=== PATIENT | female | born 1945 | race Caucasian/White ===

== ENCOUNTER 2018-07-23 16:01 | Inpatient (IN) | payer OTHER ==
--- OUTSIDE RECORDS SUMMARY | 2018-07-23 16:05 | XMS REPORT | Continuity of Care Document ---
:1945 Author Organization Interface Problems Problem Status Onset Classification Date Comments Source Date Reported R [facility] 6 [place] WEAKNESS Active [facility] Medications Medication Details Route Status Patient Ordering Order Source Instructions Provider Date Prednisone 40 mg, 2 tab, No Longer Route: PO, Active 2015 [facility] Drug form: TAB, Daily, Dosing Weight 72.358, kg, Start date: 02/15/16 9:00:00 CDT, Duration: 30 day, Stop date: 03/15/16 9:00:00 CDTNotes: Take with food. Levothyroxine 50 microgram=1 Active Sodium 0.05 MG Oral tab, PO, 2016 [facility] Tablet [Synthroid] Daily, # 30 tab, 0 Refill(s) 24 HR Diltiazem 240 mg=1 cap, Active Hydrochloride 240 PO, Daily, # 2016 [facility] MG Extended Release 30 cap, 0 Capsule [Cardizem] Refill(s) metoprolol tartrate 50 mg=1 tab, Active 50 mg oral tablet PO, Q12H, # 60 2016 [facility] tab, 0 Refill(s) Furosemide 40 MG 40 mg=1 tab, Active Oral Tablet [Lasix] PO, Daily, # 2016 [facility] 30 tab, 0 Refill(s) digoxin 250 mcg 0.25 mg=1 tab, Active (0.25 mg) oral PO, Daily, # 2016 [facility] tablet 30 tab, 0 Refill(s) atorvastatin 40 mg 80 mg=2 tab, Active oral tablet PO, Bedtime, # 2016 [facility] 60 tab, 0 Refill(s) Aspirin 325 MG 325 mg=1 tab, Active Enteric Coated PO, Daily, # 2016 [facility] Tablet 30 tab, 0 Refill(s) Potassium Chloride 20 mEq=1 tab, Active 20 MEQ Extended PO, Daily, # 2016 [facility] Release Tablet 30 tab, 0 Refill(s) Levofloxacin 750 MG 750 mg=1 tab, Active Oral Tablet PO, Q24H, X 7 2015 [facility] [Levaquin] day, # 7 tab, 0 Refill(s) {21 See Active (Methylprednisolone Instructions, 2015 [facility] 4 MG Oral Tablet PO, Take by [Medrol]) } Pack mouth as [Medrol Dosepak] directed on label., X 6 day, # 1 Pack, 0 Refill(s) cefepime 1 gm, Route: No Longer IVPB, [id number], Active 2015 [facility] Dosing Weight 72.358, kg, (CrCl 30 - 49 ml/min), Start date: 02/13/16 13:00:00 CDT, Duration: 30 day, Stop date: 03/14/16 1:00:00 CDTNotes: (Same As: Maxipime) MEDICATION WASTE Product Size: 1000 mg Product Wasted: ___ mg 200 ML 400 mg, 200 No Longer Ciprofloxacin 2 mL, Route: Active 2015 [facility] MG/ML Injection IVPB, Drug form: INJ, [id number], Dosing Weight 72.358, kg, Start date: 02/13/16 13:00:00 CDT, Duration: 30 day, Stop date: 03/14/16 1:00:00 CDTNotes: Do not refrigerate digoxin 250 mcg 0.25 mg, 1 No Longer (0.25 mg) oral tab, Route: Active 2015 [facility] tablet PO, Drug form: TAB, Daily, Dosing Weight 72.358, kg, Start date: 02/13/16 9:00:00 CDT, Duration: 30 day, Stop date: 03/13/16 9:00:00 CDTNotes: Take on an Empty Stomach (Same as: Lanoxin) Ceftriaxone 1 gm, Route: Inactive IVPB, [id number], 2015 [facility] Dosing Weight 72.358, kg, Start date: 02/13/16 9:00:00 CDT, Duration: 30 day, Stop date: 03/13/16 9:00:00 CDTNotes: (Same As: Rocephin). Use with 100 mL NS and infuse over 30 min MEDICATION WASTE Product Size: 1000 mg Product Wasted: ___ mg Cardizem 10 mg, 2 mL, Inactive Route: IV, 2015 [facility] Drug form: INJ, ONCE, Dosing Weight 72.358, kg, Start date: 02/13/16 8:44:00 CDT, Stop date: 02/13/16 8:44:00 CDTNotes: (Same as: Cardizem) Diltiazem 90 mg, 3 tab, No Longer Route: PO, Active 2015 [facility] Drug form: TAB, Q8H, Dosing Weight 72.358, kg, Priority: NOW, Start date: 02/13/16 8:42:00 CDT, Stop date: 03/14/16 8:00:00 CDTNotes: (Same as: Cardizem) Before meals metoprolol tartrate 50 mg, 1 tab, No Longer Route: PO, Active 2015 [facility] Drug form: TAB, Q12H, Dosing Weight 72.358, kg, Start date: 02/12/16 21:00:00 CDT, Duration: 30 day, Stop date: 03/13/16 9:00:00 CDTNotes: (Same as: Lopressor) methylPREDNISolone 60 mg, 1.5 mL, No Longer SODium SUCCinate Route: IVP, Active 2015 [facility] Drug form: INJ, Q12H, Dosing Weight 72.358, kg, Start date: 02/12/16 21:00:00 CDT, Duration: 30 day, Stop date: 03/13/16 9:00:00 CDTNotes: (Same as:Solu-MEDROL , A-Methapred) atorvastatin 80 mg, 2 tab, No Longer Route: PO, Active 2015 [facility] Drug form: TAB, Bedtime, Dosing Weight 72.358, kg, Start date: 02/12/16 21:00:00 CDT, Duration: 30 day, Stop date: 03/12/16 21:00:00 CDTNotes: (Same as: Lipitor) Digoxin 0.25 mg, 1 mL, No Longer Route: IVP, Active 2015 [facility] Drug form: INJ, Q4H, Dosing Weight 72.358, kg, Start date: 02/12/16 20:00:00 CDT, Duration: 2 doses or times, Stop date: 02/13/16 0:00:00 CDTNotes: (Same as: Lanoxin) aspirin 325 mg 325 mg, 1 tab, No Longer tablet, enteric Route: PO, Active 2015 [facility] coated Drug form: ECTAB, Daily, Dosing Weight 76.818, kg, Start date: 02/12/16 20:00:00 CDT, Duration: 30 day, Stop date: 03/13/16 9:00:00 CDTNotes: (Do Not Crush) Do not crush or chew. Ipratropium 0.5 mg, 2.5 No Longer mL, Route: Active 2015 [facility], Drug form: SOLN, Q2H, Dosing Weight 72.358, kg, PRN Respiratory Protocol, Start date: 02/12/16 19:41:00 CDT, Duration: 30 day, Stop date: 03/13/16 19:40:00 CDTNotes: SEE RT DOCUMENTATION (Same as:Atrovent) Ipratropium 0.5 mg, 2.5 No Longer mL, Route: Active 2015 [facility], Drug form: SOLN, Q6H, Dosing Weight 72.358, kg, PRN Respiratory Protocol, Start date: 02/12/16 19:40:00 CDT, Duration: 30 day, Stop date: 03/13/16 19:39:00 CDTNotes: SEE RT DOCUMENTATION (Same as:Atrovent) Xopenex 0.63 mg, 3 mL, No Longer Route: NEB, Active 2015 [facility] Drug form: SOLN, Q2H, Dosing Weight 72.358, kg, PRN Respiratory Protocol, Start date: 02/12/16 19:40:00 CDT, Duration: 30 day, Stop date: 03/13/16 19:39:00 CDTNotes: SEE RT DOCUMENTATION (Same as:Xopenex) Non-Formulary Levaquin 750 mg, 3 tab, No Longer Route: PO, Active 2015 [facility] Drug form: TAB, [id number], Dosing Weight 72.358, kg, Start date: 02/12/16 15:00:00 CDT, Duration: 30 day, Stop date: 03/12/16 15:00:00 CDTNotes: Do not give w/antacids, dairy pdt & minerals Take 1 hr before or 2 hr after dairy pdt (Same as:Levaquin) Diltiazem 125 mg, 25 mL, No Longer Rate: Titrate, Active 2015 [facility] Start Dose: 5 mg/hr, Titration: 5 mg/hr every hour, Goal(s): Maintain HR Notes: (Same as: Cardizem) Digoxin 0.25 mg, 1 mL, Inactive Route: IVP, 2015 [facility] Drug form: INJ, ONCE, Dosing Weight 72.358, kg, Start date: 02/11/16 23:17:00 CDT, Stop date: 02/11/16 23:17:00 CDTNotes: (Same as: Lanoxin) Cardizem 5 mg, 1 mL, Inactive Route: IV, 2015 [facility] Drug form: INJ, ONCE, Dosing Weight 72.358, kg, Start date: 02/11/16 23:03:00 CDT, Stop date: 02/11/16 23:03:00 CDTNotes: (Same as: Cardizem) Metoprolol 5 mg, 5 mL, Inactive Route: IV, 2015 [facility] Drug form: INJ, ONCE, Dosing Weight 72.358, kg, Start date: 02/11/16 22:54:00 CDT, Stop date: 02/11/16 22:54:00 CDTNotes: (Same as: Lopressor) Push over 2 minutes metoprolol tartrate 25 mg, 1 tab, No Longer Route: PO, Active 2015 [facility] Drug form: TAB, Q12H, Dosing Weight 72.358, kg, Priority: NOW, Start date: 02/11/16 13:22:00 CDT, Duration: 30 day, Stop date: 03/12/16 9:00:00 CDTNotes: (Same as: Lopressor) Metoprolol 5 mg, 5 mL, Inactive Route: IVP, 2015 [facility] Drug form: INJ, ONCE, Dosing Weight 72.358, kg, Priority: NOW, Start date: 02/11/16 13:21:00 CDT, Stop date: 02/11/16 13:21:00 CDTNotes: (Same as: Lopressor) Push over 2 minutes Metoprolol 2.5 mg, 2.5 Inactive mL, Route: IV, 2015 [facility] Drug form: INJ, ONCE, Dosing Weight 76.818, kg, Priority: STAT, Start date: 02/11/16 10:36:00 CDT, Stop date: 02/11/16 10:36:00 CDTNotes: (Same as: Lopressor) Push over 2 minutes Nicotine 21 mg, 1 No Longer patch, Route: Active 2015 [facility] TOP, Drug form: ERFILM, Daily, Dosing Weight 76.818, kg, PRN as needed for smoking cessation, Start date: 02/10/16 16:34:00 CDT, Duration: 30 day, Stop date: 03/11/16 16:33:00 CDTNotes: (Same as: Habitrol) "Remove old patch before application of new patch" WASTE: F/P - P Waste Black; E - P Waste Black pantoprazole 40 mg, Route: No Longer IVP, Drug Active 2015 [facility] form: INJ, Before Dinner, Dosing Weight 76.818, kg, Start date: 02/10/16 16:30:00 CDT, Duration: 30 day, Stop date: 03/10/16 16:30:00 CDTNotes: For IV push reconstitute with 10 ml 0.9% sodium chloride and push over 2 minutes. (Same as: Protonix) Saline Flush 0.9% 10 ml, Route: No Longer IVP, Drug Active 2015 [facility] Form: INJ, Dosing Weight 76.818, kg, Q12H, Start date: 02/09/16 21:00:00 CDT, Duration: 30 day, Stop date: 03/10/16 9:00:00 CDTNotes: (Same as: BD Posiflush) Aspirin 325 MG 325 mg, 1 tab, No Longer Enteric Coated Route: PO, Active 2015 [facility] Tablet Drug form: ECTAB, Daily, Dosing Weight 76.818, kg, Start date: 02/09/16 19:30:00 CDT, Stop date: 03/10/16 9:00:00 CDTNotes: (Do Not Crush) Do not crush or chew. Albuterol 0.833 3 ml, Route: No Longer MG/ML / Ipratropium NEB, Drug Active 2015 [facility] [place] 0.167 MG/ML Form: SOLN, Inhalant Solution Dosing Weight [DuoNeb] 76.818, kg, PRN, PRN Respiratory Protocol, Start date: 02/09/16 19:07:00 CDT, Duration: 30 day, Stop date: 03/10/16 19:06:00 CDTNotes: (Same as: Duoneb) Furosemide 40 MG 40 mg, 1 tab, No Longer Oral Tablet [Lasix] Route: PO, Active 2015 [facility] Drug form: TAB, Q12H, Dosing Weight 76.818, kg, Priority: STAT, Start date: 02/09/16 19:07:00 CDT, Duration: 30 day, Stop date: 03/10/16 9:00:00 CDTNotes: (Same as: Lasix) May cause GI upset. Give with food or milk. Enoxaparin 40 mg, 0.4 mL, No Longer Route: SUB-Q, Active 2015 [facility] Drug form: INJ, [id number], Dosing Weight 76.818, kg, Start date: 02/09/16 19:00:00 CDT, Duration: 30 day, Stop date: 03/09/16 19:00:00 CDTNotes: (Same as: Lovenox) Saline Flush 0.9% 10 ml, Route: No Longer IVP, Drug Active 2015 [facility] Form: INJ, Dosing Weight 76.818, kg, PRN, PRN Line Flush, Start date: 02/09/16 18:59:00 CDT, Duration: 30 day, Stop date: 03/10/16 18:58:00 CDTNotes: (Same as: BD Posiflush) Acetaminophen 650 mg, 2 tab, No Longer Route: PO, Active 2015 [facility] Drug form: TAB, Q4H, Dosing Weight 76.818, kg, PRN Pain 1-3/Temp > 99.5 F, Start date: 02/09/16 18:59:00 CDT, Duration: 30 day, Stop date: 03/10/16 18:58:00 CDTNotes: Do not exceed 4 gm/day. (Same as: Tylenol) Allergies, Adverse Reactions, Alerts Substance Category Reaction Severity Reaction Status Date Comments Source type Reported Immunizations Immunization Date Given Site Status Last Updated Comments Source Results Order Name Results Value Reference Date Interpretation Comments Source Range CHEM PANEL Procalcitoni <0.05 0.00 - 02/13 n Lvl ng/mL 0.10 [facility] HEMATOLOGY Platelet 296 K/CMM 133 - 450 02/13 [facility] HEMATOLOGY MPV 9.0 fL 7.4 - 10.4 02/13 [facility] HEMATOLOGY MCHC 31.9 g/dL 32.0 - 02/13 36.0 [facility] HEMATOLOGY RDW 15.4 % 11.5 - 02/13 MH 14.5 [facility] HEMATOLOGY WBC X 10x3 17.8 K/CMM 3.7 - 10.4 02/13 [facility] HEMATOLOGY RBC X 10x6 5.23 M/CMM 4.20 - 02/13 MH 5.40 /2015 [facility] HEMATOLOGY Hct 45.0 % 36.0 - 02/13 MH 48.0 [facility] HEMATOLOGY MCH 27.5 pg 27.0 - 02/13 MH 31.0 [facility] HEMATOLOGY Hgb 14.4 g/dL 12.0 - 02/13 MH 16.0 [facility] HEMATOLOGY MCV 86.0 fL 80.0 - 02/13 MH 98.0 [facility] CHEM PANEL Magnesium 2.6 mg/dL 1.8 - 2.4 02/13 Lvl /2015 [facility] CHEM PANEL Phosphorus 3.0 mg/dL 2.5 - 4.5 02/13 [facility] URINE AND UA Glucose Negative Negative 02/12 STOOL [facility] (02/13/16 2:21 PM) URINE AND UA Protein Negative Negative 02/12 STOOL /2015 [facility] (02/13/16 2:21 PM) URINE AND UA Ketones Negative Negative 02/12 [facility] *NA* (02/13/16 2:21 PM) URINE AND UA Spec Grav 1.025 <=1.030 02/12 STOOL [facility] URINE AND UA Color Yellow Yellow 02/12 [facility] *NA* (02/13/16 2:21 PM) URINE AND UA pH 5.5 5.0 - 8.0 02/12 STOOL [facility] URINE AND UA Turbidity Clear Clear 02/12 STOOL [facility] (02/13/16 2:21 PM) URINE AND UA Bacteria None Seen None Seen 02/12 STOOL [facility] (02/13/16 2:21 PM) URINE AND UA WBC None Seen None Seen 02/12 STOOL [facility] (02/13/16 2:21 PM) URINE AND UA RBC None Seen 0 - 2 02/12 [facility] (02/13/16 2:21 PM) URINE AND UA Sq Epi Rare /LPF Few /LPF 02/12 STOOL [facility] URINE AND UA Nitrite Negative Negative 02/12 [facility] (02/13/16 2:21 PM) URINE AND Micro? Performed 02/12 STOOL [facility] (02/13/16 2:21 PM) URINE AND UA 0.2 EU/dL 0.1 - 1.0 02/12 [facility] Urobilinogen [facility] URINE AND UA Leuk Est Negative Negative 02/12 STOOL [facility] (02/13/16 2:21 PM) URINE AND UA Blood Trace Negative 02/12 [facility] *ABN* (02/13/16 2:21 PM) URINE AND UA Bili Negative Negative 02/12 STOOL [facility] *NA* (02/13/16 2:21 PM) CHEM PANEL Phosphorus 3.0 mg/dL 2.5 - 4.5 02/12 [facility] CHEM PANEL Magnesium 2.4 mg/dL 1.8 - 2.4 02/12 Lvl [facility] CHEM PANEL A/G Ratio 0.7 0.7 - 1.6 02/12 [facility] CHEM PANEL B/C Ratio 23 6 - 25 02/12 [facility] CHEM PANEL Globulin 4.3 g/dL 2.0 - 4.0 02/12 [facility] CHEM PANEL AGAP 12.0 meq/L 10.0 - 02/12 MH 20.0 [facility] CHEM PANEL eGFR 54 02/12 Result Comment: The eGFR is calculated using the CKD-EPI formula. In most young, healthy individuals the eGFR will be >90 mL/ min/1.73m2. The eGFR declines with age. An eGFR of 60-89 may be normal in mL/min/1.7 some populations, particularly the elderly, for whom the CKD-EPI formula has not been extensively validated. Use of the eGFR is not recommended in the following populations: [address] Individuals with unstable creatinine concentrations, including patients and those with serious co-morbid conditions. Patients with extremes in muscle mass or diet. The data above are obtained from the National Kidney Disease Education Program (NKDEP) which additionally recommends that when the eGFR is used in patients with extremes of body mass index for purposes of drug dosing, the eGFR should be multiplied by the estimated BMI. CHEM PANEL Creatinine 1.05 mg/dL 0.50 - 02/12 [facility] Lvl 1.40 [facility] CHEM PANEL Sodium Lvl 138 meq/L 135 - 145 02/12 [facility] CHEM PANEL Potassium 4.0 meq/L 3.5 - 5.1 02/12 Lvl [facility] CHEM PANEL BUN 24 mg/dL 7 - 02/12 [facility] CHEM PANEL ALANINE 19 unit/L 0 - 65 02/12 AMINOTRANSFE [facility] RASE CHEM PANEL Calcium Lvl 8.1 mg/dL 8.5 - 10.5 02/12 [facility] CHEM PANEL Total 7.3 g/dL 6.4 - 8.4 02/12 Protein [facility] CHEM PANEL Bili Total 0.7 mg/dL 0.2 - 1.3 02/12 [facility] CHEM PANEL ASPARTATE 8 unit/L 0 - 37 02/12 TRANSAMINASE [facility] CHEM PANEL Chloride Lvl 102 meq/L 95 - 109 02/12 [facility] CHEM PANEL CO2 28 meq/L 24 - 32 02/12 [facility] CHEM PANEL Alk Phos 70 unit/L 39 - 136 02/12 [facility] CHEM PANEL Albumin Lvl 3.0 g/dL 3.5 - 5.0 02/12 [facility] CHEM PANEL Glucose Lvl 160 mg/dL 70 - 99 02/12 [facility] HEMATOLOGY RDW 15.5 % 11.5 - 02/12 MH 14.5 [facility] HEMATOLOGY MCV 86.4 fL 80.0 - 02/12 MH 98.0 [facility] HEMATOLOGY MCHC 32.5 g/dL 32.0 - 02/12 MH 36.0 [facility] HEMATOLOGY MCH 28.1 pg 27.0 - 02/12 MH 31.0 [facility] HEMATOLOGY Hct 42.3 % 36.0 - 02/12 MH 48.0 [facility] HEMATOLOGY MPV 9.1 fL 7.4 - 10.4 02/12 [facility] HEMATOLOGY Platelet 227 K/CMM 133 - 450 02/12 [facility] HEMATOLOGY Hgb 13.7 g/dL 12.0 - 02/12 16.0 [facility] HEMATOLOGY RBC X 10x6 4.89 M/CMM 4.20 - 02/12 MH 5.40 [facility] HEMATOLOGY WBC X 10x3 14.1 K/CMM 3.7 - 10.4 02/12 [facility] HEMATOLOGY Monocytes # 0.4 K/CMM 0.0 - 0.8 02/12 [facility] HEMATOLOGY Lymphocytes 0.6 K/CMM 1.0 - 5.5 02/12 MH /2015 [facility] HEMATOLOGY Segs-Bands # 13.1 K/CMM 1.5 - 8.1 02/12 [facility] HEMATOLOGY Segs 92.9 % 45.0 - 02/12 MH 75.0 [facility] HEMATOLOGY Basophils 0.2 % 0.0 - 1.0 02/12 [facility] HEMATOLOGY Monocytes 2.9 % 2.0 - 12.0 02/12 [facility] HEMATOLOGY Lymphocytes 4.0 % 20.0 - 02/12 40.0 [facility] HEMATOLOGY RBC Morph Normal 02/12 [facility] (02/13/16 5:21 AM) HEMATOLOGY Plt Morph Normal 02/12 [facility] (02/13/16 5:21 AM) Chest 1view Chest 1view EXAM: Chest radiograph 02/12 [facility] [place] HISTORY: Dyspnea COMPARISON: 02/10/2016 Read by: Souleymane Rosen MD Dictated Date/time: 02/13/16 09:00 TECHNIQUE: Frontal view of the chest Electronically Signed by: Souleymane Rosen MD 02/13/16 09:03 FINAL REPORT FINDINGS/IMPRESSION: New opacity medial right lower lung may reflect atelectasis or pneumonia. Perihilar interstitial opacities bilaterally are slightly improved and may reflect resolving edema or pneumonia. No significant pleural effusion. Stable cardiomegaly. Possible COPD. SL: [id number] CHEM PANEL Magnesium 2.5 mg/dL 1.8 - 2.4 02/11 MH Lvl [facility] CHEM PANEL eGFR 56 02/11 Result Comment: The eGFR is calculated using the CKD-EPI formula. In most young, healthy individuals the eGFR will be >90 mL/ min/1.73m2. The eGFR declines with age. An eGFR of 60-89 may be normal in mL/min/1. some populations, particularly the elderly, for whom the CKD-EPI formula has not been extensively validated. Use of the eGFR is not recommended in the following populations: [address] Individuals with unstable creatinine concentrations, including patients and those with serious co-morbid conditions. Patients with extremes in muscle mass or diet. The data above are obtained from the National Kidney Disease Education Program (NKDEP) which additionally recommends that when the eGFR is used in patients with extremes of body mass index for purposes of drug dosing, the eGFR should be multiplied by the estimated BMI. CHEM PANEL CO2 31 meq/L 24 - 32 02/11 [facility] CHEM PANEL Potassium 3.6 meq/L 3.5 - 5.1 02/11 MH Lvl [facility] CHEM PANEL Calcium Lvl 8.2 mg/dL 8.5 - 10.5 02/11 [facility] CHEM PANEL Chloride Lvl 105 meq/L 95 - 109 02/11 [facility] CHEM PANEL AGAP 8.6 meq/L 10.0 - 02/11 MH 20.0 [facility] CHEM PANEL BUN 20 mg/dL 7 - 22 02/11 [facility] CHEM PANEL Glucose Lvl 124 mg/dL 70 - 99 02/11 [facility] CHEM PANEL Sodium Lvl 141 meq/L 135 - 145 02/11 [facility] CHEM PANEL Creatinine 1.03 mg/dL 0.50 - 02/11 [facility] Lvl 1.40 [facility] BACTERIAL - MRSA by PCR Negative 02/11 SEROLOGY [facility] (02/12/16 1:40 AM) Brain wo Brain wo Patient Name: VIVIENNE BEST 02/10 - [place] contrast CT contrast CT /2015 [place] : 1945; Age: 70 years y/o Female MR: [id number] Read by: Lexa Avina MD Dictated Date/time: 02/11/16 10:11 Electronically Signed by: Lexa Avina MD 02/11/16 10:21 FINAL REPORT Study: Brain wo contrast CT 02/11/2016 7:30 AM CDT Ordering Physician: Edward Brasher MD Comparison: 02/10/2016 Clinical Indication: Weakness; comparison CT for hemorhagic conversion comparison to initial CT brain-patient stroke Multiple computerized axial tomograms of the head were obtained without contrast. Detail is improved as the images are less noisy. As such, the small maturing hemorrhage at the left lentiform nucleus is more conspicuous albeit unchanged in size when compared to the previous study. Localized hypodensity and mass effect is present related to the acute or recent ischemia at the left basal ganglia, left i nsular cortex and left frontal operculum similar to the recent magnetic resonance imaging exam. Age-appropriate cortical and cerebellar volume loss is noted with compensatory enlargement of the ventricl es and subarachnoid spaces. Vascular calcification is noted. There is no mass lesion noted. No midline shift. Ventricles are otherwise normal in size, shape and position. The base of skull and bony calv arium are intact. Mild to moderate chronic microangiopathic changes of the periventricular and subcortical white matter are noted. IMPRESSION: 1.Detail is improved as the images are less noisy. As such, the small maturing parenchymal hemorrhage at the left lentiform nucleus is more conspicuous albeit unchanged in size when compared to the previous study. 2. Localized hypodensity and mass effect is present related to the acute or recent ischemia at the left basal ganglia, left insular cortex and left frontal operculum similar to the recent magnetic resonance imaging exam. SL: [id number] Brain/Neck Brain/Neck CTA HEAD AND NECK: 02/09 - [place] CTA CTA [place] HISTORY: Acute left cerebral infarct. Read by: Phil Yanez MD Dictated Date/time: 02/10/16 15:41 Electronically Signed by: Phil Yanez MD 02/10/16 16:04 FINAL REPORT TECHNIQUE: Multislice axial acquisitions were done from the vertex of the skull through the thoracic inlet during IV contrast bolus. Sagittal and coronal MIP tomograms, 3-D MIP and 3-D volume rendered i mages were also obtained. Stenosis measurements are according to NASCET criteria. ANGIOGRAPHIC FINDINGS: There is tortuosity of the carotid vasculature. Calcified and noncalcified plaque is seen at the carotid bifurcations without evidence of significant cervical carotid stenosis. The intracranial internal carotid arteries show no significant stenotic disease or evidence of aneurysms. The A1 and M1 segments are patent without evidence of occlusive changes. There are diminished ca ndelabra branches on the left. There is normal appearance of the right candelabra branches. A patent right posterior communicating artery is seen. There may be a small caliber anterior communicating artery. The left posterior communicating artery is not visualized. The vertebral arteries are patent and codominant without significant stenosis. A small caliber basilar artery is demonstrated without significant stenosis. Bilateral PICA, AICA and posterior cerebral arteries are visualized. The arch is type II with usual branching pattern of the great vessels. There is no significant stenotic disease of the supra aortic trunks. NONANGIOGRAPHIC FINDINGS: Left basal ganglia and perisylvian infarcts are noted and previously described on the magnetic resonance imaging. There is no significant change considering different modalitie s. Faint high attenuation in the left basal ganglia infarct is consistent with the previously described chronic hemorrhagic changes. There is no significant spinal stenosis. No mass or significant lymph node enlargement in the neck is noted. Septal thickening in the lung apices is noted. IMPRESSION: 1. No evidence of significant cervical carotid or vertebral stenosis. 2. Diminished left candelabra branches consistent with the recent left hemispheric infarction. 3. No other significant intracranial stenotic disease. SL DLAWRENCE-PC CARDIAC proBNP 1961 pg/mL 0 - 125 02/09 [facility] CHEM PANEL eGFR 64 02/09 Result Comment: The eGFR is calculated using the CKD-EPI formula. In most young, healthy individuals the eGFR will be >90 mL/ min/1.73m2. The eGFR declines with age. An eGFR of 60-89 may be normal in mL/min/1. some populations, particularly the elderly, for whom the CKD-EPI formula has not been extensively validated. Use of the eGFR is not recommended in the following populations: [address] Individuals with unstable creatinine concentrations, including patients and those with serious co-morbid conditions. Patients with extremes in muscle mass or diet. The data above are obtained from the National Kidney Disease Education Program (NKDEP) which additionally recommends that when the eGFR is used in patients with extremes of body mass index for purposes of drug dosing, the eGFR should be multiplied by the estimated BMI. CHEM PANEL Bili Total 0.8 mg/dL 0.2 - 1.3 02/09 [facility] CHEM PANEL Calcium Lvl 8.3 mg/dL 8.5 - 10.5 02/09 [facility] CHEM PANEL CO2 27 meq/L 24 - 32 02/09 [facility] CHEM PANEL Total 7.3 g/dL 6.4 - 8.4 02/09 MH Protein [facility] CHEM PANEL ASPARTATE 16 unit/L 0 - 37 02/09 MH TRANSAMINASE [facility] CHEM PANEL Creatinine 0.92 mg/dL 0.50 - 02/09 MH Lvl 1.40 [facility] CHEM PANEL Sodium Lvl 142 meq/L 135 - 145 02/09 [facility] CHEM PANEL BUN 15 mg/dL 7 - 22 02/09 [facility] CHEM PANEL Potassium 3.7 meq/L 3.5 - 5.1 02/09 MH Lvl [facility] CHEM PANEL Chloride Lvl 106 meq/L 95 - 109 02/09 [facility] CHEM PANEL Albumin Lvl 3.6 g/dL 3.5 - 5.0 02/09 [facility] CHEM PANEL Glucose Lvl 95 mg/dL 70 - 99 02/09 [facility] CHEM PANEL ALANINE 26 unit/L 0 - 65 02/09 MH AMINOTRANSFE [facility] RASE CHEM PANEL Alk Phos 71 unit/L 39 - 136 02/09 [facility] CHEM PANEL A/G Ratio 1.0 0.7 - 1.6 02/09 [facility] CHEM PANEL Globulin 3.7 g/dL 2.0 - 4.0 02/09 [facility] CHEM PANEL B/C Ratio 16 6 - 25 02/09 [facility] CHEM PANEL AGAP 12.7 meq/L 10.0 - 07 MH 20.0 /2016 [facility] HEMATOLOGY Monocytes # 0.7 K/CMM 0.0 - 0.8 02/09 /2015 [facility] HEMATOLOGY Lymphocytes 1.9 K/CMM 1.0 - 5.5 02/09 [facility] # /2015 [facility] HEMATOLOGY Segs-Bands # 6.3 K/CMM 1.5 - 8.1 02/09 /2015 [facility] HEMATOLOGY Eosinophils 0.1 K/CMM 0.0 - 0.5 02/09 [facility] # /2015 [facility] HEMATOLOGY Basophils 0.5 % 0.0 - 1.0 02/09 /2015 [facility] HEMATOLOGY Eosinophils 1.2 % 0.0 - 4.0 02/09 /2015 [facility] HEMATOLOGY Segs 70.2 % 45.0 - 02/09 [facility] 75.0 [facility] HEMATOLOGY Lymphocytes 20.5 % 20.0 - 02/09 [facility] 40.0 [facility] HEMATOLOGY Monocytes 7.6 % 2.0 - 12.0 02/09 /2015 [facility] HEMATOLOGY Platelet 197 K/CMM 133 - 450 02/09 /2015 [facility] HEMATOLOGY MPV 9.5 fL 7.4 - 10.4 02/09 /2015 [facility] HEMATOLOGY RDW 15.8 % 11.5 - 02/09 [facility] 14.5 [facility] HEMATOLOGY MCHC 32.8 g/dL 32.0 - 02/09 [facility] 36.0 [facility] HEMATOLOGY MCV 86.1 fL 80.0 - 02/09 [facility] 98.0 [facility] HEMATOLOGY MCH 28.2 pg 27.0 - 02/09 [facility] 31.0 [facility] HEMATOLOGY Hct 39.9 % 36.0 - 02/09 [facility] 48.0 [facility] HEMATOLOGY WBC X 10x3 9.1 K/CMM 3.7 - 10.4 02/09 [facility] HEMATOLOGY RBC X 10x6 4.63 M/CMM 4.20 - 02/09 [facility] 5.40 [facility] HEMATOLOGY Hgb 13.1 g/dL 12.0 - 02/09 [facility] 16.0 [facility] LIPIDS CHD Risk 3.74 3.90 - 02/09 [facility] 5.80 [facility] LIPIDS VLDL 26 02/09 /2015 [facility] LIPIDS LDL 144 mg/dL <=99 mg/dL 02/09 [facility] (Calculated) [facility] LIPIDS Trig 128 mg/dL <=149 07/24 mg/dL /2015 [facility] LIPIDS HDL 62 mg/dL >=61 mg/dL 02/09 [facility] LIPIDS Chol 232 mg/dL <=199 02/09 mg/dL /2015 [facility] SPECIAL Hgb A1C 5.8 % <=5.6 % 02/09 CHEMISTRY [facility] Brain wo Brain wo MRI BRAIN WITHOUT CONTRAST 02/09 - [place] contrast contrast MRI /2015 - [place] MRI INDICATION: Generalized weakness Read by: David Murillo MD Dictated Date/time: 02/10/16 11:33 Electronically Signed by: David Murillo MD 02/10/16 11:46 FINAL REPORT COMPARISON: None DISCUSSION: There is diffusion restriction and T2 FLAIR hyperintensity of the left lentiform nucleus, left insular cortex, and opercular left frontal lobe. There is evidence of chronic hemorrhage involving the left lentiform nucleus. There are generalized involutional changes of the brain and mild to moderate microangiopathic changes of the white matter. The normal flow voids of the bilateral intracranial interna l carotid arteries and vertebral basilar arteries are visible. The cerebellar tonsils are mildly pointed in shape and extend up to 6 mm below the level of the foramen magnum. There is no evidence of spa ce occupying lesions, acute hemorrhage, hydrocephalus, midline shift, or extra-axial fluid collections. No suprasellar or bone abnormalities are seen. IMPRESSION: 1. Acute or recent infarcts of the left basal ganglia, left insular cortex , and opercular left frontal lobe. This finding was discussed with the patient' s nurse at the time of dictation. 2. Evidence of chronic hemorrhage involving the left lentiform nucleus. 3. Chiari type I malformation. SL:[id number] Carotid Carotid Study: Carotid artery Doppler bilat US 02/09 - [place] artery artery /2015 - [place] Doppler Doppler bilat US bilat US Clinical Indication: Stroke, ischemic Read by: Ron Montano MD Dictated Date/time: 02/10/16 09:32 Electronically Signed by: Ron Montano MD 02/10/16 09:33 FINAL REPORT Comparison: None TECHNIQUE: Thurston-scale, color Doppler and spectral Doppler of the carotid arteries was performed. Any reported ICA stenoses indirectly reference the distal internal carotid diameter as the denominator for the sten osis measurement, utilizing consensus panel criteria. FINDINGS: RIGHT: Small calcified atherosclerotic plaque in the carotid bulb is seen. ICA PSV 134 cm/sec CCA PSV 68 cm/sec ICA/CCA ratio 2.0 Vertebral flow is antegrade with peak systolic velocity of 56 cm/s. External carotid artery is patent. LEFT: Small calcified atherosclerotic plaque in the carotid bulb is seen. ICA PSV 110 cm/sec CCA PSV 89 cm/sec ICA/CCA ratio 1.2 Vertebral flow is antegrade with peak systolic velocity of 57 cm/s. External carotid artery is patent. IMPRESSION: 1. Mild atherosclerotic disease of the bilateral carotid bulbs without hemodynamically significant stenosis. Consensus panel Doppler US criteria for diagnosis of ICA stenosis: Stenosis (%) ICA PSV (cm/sec) ICA/CCA ratio -- <50 <125 <2.0 50-69 125-230 2.0-4.0 >70 but less than >230 >4.0 near occlusion Near occlusion High, low, or Variable undetectable [id number] Chest 1view Chest 1view Patient Name: VIVIENNE BEST 02/09 [facility] DX DX [facility] : 1945; Age: 70 years y/o Female MR: [id number] Read by: Ron Flaherty MD Dictated Date/time: 02/10/16 07:58 Electronically Signed by: Ron Flaherty MD 02/10/16 08:01 FINAL REPORT Study: Chest 1view DX 02/10/2016 3:00 AM CDT Ordering Physician: Edward Brasher MD Clinical Indication: Crackles; Comparison: None Discussion: The patient is rotated to the right. Degenerative changes in the spine and shoulders. Findings suggesting calcific tendinitis of the right shoulder. Left extracranial carotid artery calcifications. The cardiac silhouette is enlarged. The pulmonary vasculature seems mildly engorged on the left and in the right upper lung field. No confluent airspace opacities or large collections of pleural fluid. Tortuous aorta. IMPRESSION: Enlarged cardiac silhouette with findings suggesting mild congestive heart failure or volume overload. SL: [id number] Vital Signs Vital Sign Value Date Comments Source Systolic (mm Hg) 125 02/14/2016 [facility] Diastolic (mm Hg) 76 02/14/2016 [facility] Respitory Rate 18 02/14/2016 [facility] Temperature Oral (F) 97.5 F 02/14/2016 [facility] Temperature Oral (F) 98.0 F 02/14/2016 [facility] Respitory Rate 18 02/14/2016 [facility] Systolic (mm Hg) 117 02/14/2016 [facility] Diastolic (mm Hg) 69 02/14/2016 [facility] Systolic (mm Hg) 127 02/14/2016 [facility] Diastolic (mm Hg) 68 02/14/2016 [facility] Respitory Rate 18 02/14/2016 [facility] Temperature Oral (F) 98.0 F 02/14/2016 [facility] Heart Rate 64 02/14/2016 [facility] Heart Rate 128 02/12/2016 [facility] Heart Rate 91 02/12/2016 [facility] Weight 72.358 02/11/2016 [facility] Height 165.1 cm 02/09/2016 [facility] Weight 76.818 02/09/2016 [facility] BMI Calculated 28.18 02/09/2016 [facility] Encounters Location Location Encounter Encounter Reason Attending ADM DC Status Source Details Type Number For Provider Date Date Visit [facility] [id number] Edward 02/10 02/13 [facility] White /2015 [facility] Procedures Procedure Code Date Perfomer Comments Source
--- OUTSIDE RECORDS SUMMARY | 2018-07-23 16:06 | XMS REPORT | Summary of Care ---
:1945 Author Organization [facility] Address [id number] [place] [id number] Encounter HQ Nayana_slick(FIN) [phone] Date(s): 02/11/16 - 02/14/16 [facility] [id number] [place] [phone] Discharge Disposition: Home or Self Care Attending Physician: Edward Brasher MD Admitting Physician: Edward Brasher MD Vital Signs Most recent to oldest 1 2 3 [Reference Range]: Height 165.1 cm (02/09/16 6:06 PM) Temperature Oral [96.4-99.1 97.5 DegF 98.0 DegF 98.0 DegF DegF] (02/14/16 5:58 PM) (02/14/16 1:23 PM) (02/14/16 9:45 AM) Blood Pressure [90-140/60-90 125/76 mmHg 117/69 mmHg 127/68 mmHg mmHg] (02/14/16 5:58 PM) (02/14/16 1:23 PM) (02/14/16 9:45 AM) Respiratory Rate [14-20 18 BRMIN 18 BRMIN 18 BRMIN BRMIN] (02/14/16 5:58 PM) (02/14/16 1:23 PM) (02/14/16 9:45 AM) Peripheral Pulse Rate 64 bpm 128 bpm 91 bpm [60-100 bpm] (02/14/16 6:16 AM) *HI* (02/11/16 10:34 PM) (02/11/16 10:58 PM) Weight 72.358 kg 76.818 kg (02/11/16 10:46 AM) (02/09/16 6:06 PM) Body Mass Index 28.18 m2 (02/09/16 6:06 PM) Problem List No data available for this section Allergies, Adverse Reactions, Alerts Substance Reaction Severity Status NKDA Active Medications acetaminophen 650 mg, 2 tab, Route: PO, Drug form: TAB, Q4H, Dosing Weight 76.818, kg, PRN Pain 1-3/Temp > 99.5 F, Start date: 02/09/16 18:59:00 CDT, Duration: 30 day, Stop date: 03/10/16 18:58:00 CDT Notes: Do not exceed 4 gm/day. (Same as: Tylenol) Start Date: 02/09/16 Stop Date: 02/14/16 Status: Discontinuedaspirin 325 mg tablet, enteric coated 325 mg, 1 tab, Route: PO, Drug form: ECTAB, Daily, Dosing Weight 76.818, kg, Start date: 02/09/16 19:30:00 CDT, Stop date: 03/10/16 9:00:00 CDT Notes: (Do Not Crush) Do not crush or chew. Start Date: 02/09/16 Stop Date: 02/12/16 Status: Voided With Resultsaspirin 325 mg tablet, enteric coated 325 mg=1 tab, PO, Daily, # 30 tab, 0 Refill(s) Start Date: 02/14/16 Stop Date: 03/15/16 Status: Orderedaspirin 325 mg tablet, enteric coated 325 mg, 1 tab, Route: PO, Drug form: ECTAB, Daily, Dosing Weight 76.818, kg, Start date: 02/12/16 20:00:00 CDT, Duration: 30 day, Stop date: 03/13/16 9:00: 00 CDT Notes: (Do Not Crush) Do not crush or chew. Start Date: 02/12/16 Stop Date: 02/14/16 Status: Discontinuedatorvastatin 80 mg, 2 tab, Route: PO, Drug form: TAB, Bedtime, Dosing Weight 72.358, kg, Start date: 02/12/16 21:00:00 CDT, Duration: 30 day, Stop date: 03/12/16 21:00: 00 CDT Notes: (Same as: Lipitor) Start Date: 02/12/16 Stop Date: 02/14/16 Status: Discontinuedatorvastatin 40 mg oral tablet 80 mg=2 tab, PO, Bedtime, # 60 tab, 0 Refill(s) Start Date: 02/14/16 Stop Date: 03/15/16 Status: OrderedCardizem 10 mg, 2 mL, Route: IV, Drug form: INJ, ONCE, Dosing Weight 72.358, kg, Start date: 02/13/16 8:44:00CDT, Stop date: 02/13/16 8:44:00 CDT Notes: (Same as: Cardizem) Start Date: 02/13/16 Stop Date: 02/13/16 Status: CompletedCardizem 5 mg, 1 mL, Route: IV, Drug form: INJ, ONCE, Dosing Weight 72.358, kg, Start date: 02/11/16 23:03:00CDT, Stop date: 02/11/16 23:03:00 CDT Notes: (Same as: Cardizem) Start Date: 02/11/16 Stop Date: 02/11/16 Status: CompletedCardizem CD 240 mg/24 hours oral capsule, extended release 240 mg=1 cap, PO, Daily, # 30 cap, 0 Refill(s) Start Date: 02/14/16 Status: Orderedcefepime + sodium chloride 0.9% INJ 100 mL 1 gm, Route: IVPB, [id number], Dosing Weight 72.358, kg, (CrCl 30 - 49 ml/min), Start date: 02/13/16 13:00:00 CDT, Duration: 30 day, Stop date: 03/14/16 1:00: 00 CDT Notes: (Same As: Maxipime) MEDICATION WASTE Product Size: 1000 mgProduct Wasted: ___ mg Start Date: 02/13/16 Stop Date: 02/14/16 Status: DiscontinuedcefTRIAXone + sodium chloride 0.9% INJ 100 mL 1 gm, Route: IVPB, [id number], Dosing Weight 72.358, kg, Start date: 02/13/16 9:00: 00 CDT, Duration: 30day, Stop date: 03/13/16 9:00:00 CDT Notes: (Same As: Rocephin).Use with 100 mL NS and infuse over 30 min MEDICATION WASTE Product Size: 1000 mgProduct Wasted: ___ mg Start Date: 02/13/16 Stop Date: 02/13/16 Status: Voided With Resultsciprofloxacin 400 mg/200 mL intravenous solution 400 mg, 200 mL, Route: IVPB, Drug form: INJ, [id number], Dosing Weight 72.358, kg, Start date: 02/12/1613:00:00 CDT, Duration: 30 day, Stop date: 03/14/16 1:00:00 CDT Notes: Do not refrigerate Start Date: 02/13/16 Stop Date: 02/14/16 Status: Discontinueddigoxin 0.25 mg, 1 mL, Route: IVP, Drug form: INJ, Q4H, Dosing Weight 72.358, kg, Start date: 02/12/16 20:00:00 CDT, Duration: 2 doses or times, Stop date: 02/13/16 0: 00:00 CDT Notes: (Same as: Lanoxin) Start Date: 02/12/16 Stop Date: 02/13/16 Status: Completeddigoxin 0.25 mg, 1 mL, Route: IVP, Drug form: INJ, ONCE, Dosing Weight 72.358, kg, Start date: 02/11/16 23:17:00 CDT, Stop date: 02/11/16 23:17:00 CDT Notes: (Same as: Lanoxin) Start Date: 02/11/16 Stop Date: 02/11/16 Status: Completeddigoxin 250 mcg (0.25 mg) oral tablet 0.25 mg=1 tab, PO, Daily, # 30 tab, 0 Refill(s) Start Date: 02/14/16 Stop Date: 03/15/16 Status: Ordereddigoxin 250 mcg (0.25 mg) oral tablet 0.25 mg, 1 tab, Route: PO, Drug form: TAB, Daily, Dosing Weight 72.358, kg, Start date: 02/13/16 9:00:00 CDT, Duration: 30 day, Stop date: 03/13/16 9:00:00 CDT Notes: Take on an Empty Stomach (Same as: Lanoxin) Start Date: 02/13/16 Stop Date: 02/14/16 Status: Discontinueddiltiazem 90 mg, 3 tab, Route: PO, Drug form: TAB, Q8H, Dosing Weight 72.358, kg, Priority : NOW, Start date: 02/13/16 8:42:00 CDT, Stop date: 03/14/16 8:00:00 CDT Notes: (Same as: Cardizem) Before meals Start Date: 02/13/16 Stop Date: 02/14/16 Status: Discontinueddiltiazem INJ 125 mg + sodium chloride 0.9% INJ 100 mL 125 mg, 25 mL, Rate: Titrate, Start Dose: 5 mg/hr, Titration: 5 mg/hr every hour , Goal(s): Maintain HR < 110, Max Dose: 15 mg/hr, Route: IV, Dosing Weight 72.358 kg, Total Volume: 125, Start date: 02/11/16 23:31:00 CDT, Duration: 30 day, Stop date: ... Notes: (Same as: Cardizem) Start Date: 02/11/16 Stop Date: 02/14/16 Status: DiscontinuedDuoNeb inhalation solution 3 ml, Route: NEB, Drug Form: SOLN, Dosing Weight 76.818, kg, PRN, PRN Respiratory Protocol, Start date: 02/09/16 19:07:00 CDT, Duration: 30 day, Stop date: 03/10/16 19:06:00 CDT Notes: (Same as: Duoneb) Start Date: 02/09/16 Stop Date: 02/12/16 Status: Voided With Resultsenoxaparin 40 mg, 0.4 mL, Route: SUB-Q, Drug form: INJ, [id number], Dosing Weight 76.818, kg , Start date: 02/09/16 19:00:00 CDT, Duration: 30 day, Stop date: 03/09/16 19:00 :00 CDT Notes: (Same as: Lovenox) Start Date: 02/09/16 Stop Date: 02/14/16 Status: Discontinuedipratropium 0.5 mg, 2.5 mL, Route: NEB, Drug form: SOLN, Q2H, Dosing Weight 72.358, kg, PRN Respiratory Protocol, Start date: 02/12/16 19:41:00 CDT, Duration: 30 day, Stop date: 03/13/16 19:40:00 CDT Notes: SEE RT DOCUMENTATION(Same as:Atrovent) Start Date: 02/12/16 Stop Date: 02/14/16 Status: Discontinuedipratropium 0.5 mg, 2.5 mL, Route: NEB, Drug form: SOLN, Q6H, Dosing Weight 72.358, kg, PRN Respiratory Protocol, Start date: 02/12/16 19:40:00 CDT, Duration: 30 day, Stop date: 03/13/16 19:39:00 CDT Notes: SEE RT DOCUMENTATION(Same as:Atrovent) Start Date: 02/12/16 Stop Date: 02/14/16 Status: DiscontinuedLasix 40 mg oral tablet 40 mg=1 tab, PO, Daily, # 30 tab, 0 Refill(s) Start Date: 02/14/16 Stop Date: 03/15/16 Status: OrderedLasix 40 mg oral tablet 40 mg, 1 tab, Route: PO, Drug form: TAB, Q12H, Dosing Weight 76.818, kg, Priority: STAT, Start date:02/09/16 19:07:00 CDT, Duration: 30 day, Stop date: 03/10/16 9:00:00 CDT Notes: (Same as: Lasix) May cause GI upset. Give with food or milk. Start Date: 02/09/16 Stop Date: 02/14/16 Status: DiscontinuedLevaquin 750 mg, 3 tab, Route: PO, Drug form: TAB, [id number], Dosing Weight 72.358, kg, Start date: 02/12/16 15:00:00 CDT, Duration: 30 day, Stop date: 03/12/16 15:00: 00 CDT Notes: Do not give w/antacids, dairy pdt & minerals Take 1 hr before or 2 hr after dairy pdt (Same as:Levaquin) Start Date: 02/12/16 Stop Date: 02/13/16 Status: DiscontinuedLevaquin 750 mg oral tablet 750 mg=1 tab, PO, Q24H, X 7 day, # 7 tab, 0 Refill(s) Start Date: 02/14/16 Stop Date: 02/21/16 Status: OrderedMedrol Dosepak 4 mg oral tablet See Instructions, PO, Take by mouth as directed on label., X 6 day, # 1 Pack, 0 Refill(s) Start Date: 02/14/16 Stop Date: 02/20/16 Status: OrderedmethylPREDNISolone SODium SUCCinate 60 mg, 1.5 mL, Route: IVP, Drug form: INJ, Q12H, Dosing Weight 72.358, kg, Start date: 02/12/16 21:00:00 CDT, Duration: 30 day, Stop date: 03/13/16 9:00: 00 CDT Notes: (Same as:Solu-MEDROL, A-Methapred) Start Date: 02/12/16 Stop Date: 02/14/16 Status: Discontinuedmetoprolol 5 mg/5 ml INJ 5 mg, 5 mL, Route: IVP, Drug form: INJ, ONCE, Dosing Weight 72.358, kg, Priority : NOW, Start date: 02/11/16 13:21:00 CDT, Stop date: 02/11/16 13:21:00 CDT Notes: (Same as: Lopressor)Push over 2 minutes Start Date: 02/11/16 Stop Date: 02/11/16 Status: Completedmetoprolol 5 mg/5 ml INJ 5 mg, 5 mL, Route: IV, Drug form: INJ, ONCE, Dosing Weight 72.358, kg, Start date: 02/11/16 22:54:00CDT, Stop date: 02/11/16 22:54:00 CDT Notes: (Same as: Lopressor)Push over 2 minutes Start Date: 02/11/16 Stop Date: 02/11/16 Status: Completedmetoprolol 5 mg/5 ml INJ 2.5 mg, 2.5 mL, Route: IV, Drug form: INJ, ONCE, Dosing Weight 76.818, kg, Priority: STAT, Start date: 02/11/16 10:36:00 CDT, Stop date: 02/11/16 10:36:00 CDT Notes: (Same as: Lopressor)Push over 2 minutes Start Date: 02/11/16 Stop Date: 02/11/16 Status: Completedmetoprolol tartrate 50 mg, 1 tab, Route: PO, Drug form: TAB, Q12H, Dosing Weight 72.358, kg, Start date: 02/12/16 21:00:00 CDT, Duration: 30 day, Stop date: 03/13/16 9:00:00 CDT Notes: (Same as: Lopressor) Start Date: 02/12/16 Stop Date: 02/14/16 Status: Discontinuedmetoprolol tartrate 25 mg, 1 tab, Route: PO, Drug form: TAB, Q12H, Dosing Weight 72.358, kg, Priority: NOW, Start date: 02/11/16 13:22:00 CDT, Duration: 30 day, Stop date: 03/12/16 9:00:00 CDT Notes: (Same as: Lopressor) Start Date: 02/11/16 Stop Date: 02/12/16 Status: Discontinuedmetoprolol tartrate 50 mg oral tablet 50 mg=1 tab, PO, Q12H, # 60 tab, 0 Refill(s) Start Date: 02/14/16 Stop Date: 03/15/16 Status: Orderednicotine 21 mg, 1 patch, Route: TOP, Drug form: ERFILM, Daily, Dosing Weight 76.818, kg, PRN as needed for smoking cessation, Start date: 02/10/16 16:34:00 CDT, Duration : 30 day, Stop date: 03/11/16 16:33:00 CDT Notes: (Same as: Habitrol)"Remove old patch before application of new patch "WASTE: F/P - P Waste Black; E - P Waste Black Start Date: 02/10/16 Stop Date: 02/14/16 Status: Discontinuedpantoprazole 40 mg, Route: IVP, Drug form: INJ, Before Dinner, Dosing Weight 76.818, kg, Start date: 02/10/16 16:30:00 CDT, Duration: 30 day, Stop date: 03/10/16 16:30: 00 CDT Notes: For IV push reconstitute with 10 ml 0.9% sodium chloride and push over 2 minutes. (Same as: Protonix) Start Date: 02/10/16 Stop Date: 02/14/16 Status: Discontinuedpotassium chloride 20 mEq oral tablet, extended release 20 mEq=1 tab, PO, Daily, # 30 tab, 0 Refill(s) Start Date: 02/14/16 Status: OrderedpredniSONE 40 mg, 2 tab, Route: PO, Drug form: TAB, Daily, Dosing Weight 72.358, kg, Start date: 02/15/16 9:00:00 CDT, Duration: 30 day, Stop date: 03/15/16 9:00:00 CDT Notes: Take with food. Start Date: 02/15/16 Stop Date: 02/14/16 Status: CanceledSaline Flush 0.9% 10 ml, Route: IVP, Drug Form: INJ, Dosing Weight 76.818, kg, PRN, PRN Line Flush , Start date: 02/09/16 18:59:00 CDT, Duration: 30 day, Stop date: 03/10/16 18:58 :00 CDT Notes: (Same as: BD Posiflush) Start Date: 02/09/16 Stop Date: 02/14/16 Status: DiscontinuedSaline Flush 0.9% 10 ml, Route: IVP, Drug Form: INJ, Dosing Weight 76.818, kg, Q12H, Start date: 02/09/16 21:00:00 CDT, Duration: 30 day, Stop date: 03/10/16 9:00:00 CDT Notes: (Same as: BD Posiflush) Start Date: 02/09/16 Stop Date: 02/14/16 Status: DiscontinuedSynthroid 50 mcg (0.05 mg) oral tablet 50 microgram=1 tab, PO, Daily, # 30 tab, 0 Refill(s) Start Date: 02/14/16 Status: OrderedXopenex 0.63 mg, 3 mL, Route: NEB, Drug form: SOLN, Q2H, Dosing Weight 72.358, kg, PRN Respiratory Protocol,Start date: 02/12/16 19:40:00 CDT, Duration: 30 day, Stop date: 03/13/16 19:39:00 CDT Notes: SEE RT DOCUMENTATION (Same as:Xopenex)Non-Formulary Start Date: 02/12/16 Stop Date: 02/14/16 Status: DiscontinuedXopenex 0.63 mg, 3 mL, Route: NEB, Drug form: SOLN, Q6H, Dosing Weight 72.358, kg, PRN Respiratory Protocol,Start date: 02/12/16 19:40:00 CDT, Duration: 30 day, Stop date: 03/13/16 19:39:00 CDT Notes: SEE RT DOCUMENTATION (Same as:Xopenex)Non-Formulary Start Date: 02/12/16 Stop Date: 02/14/16 Status: Discontinued Results ELECTROLYTES Most recent to oldest 1 2 3 [Reference Range]: Sodium Lvl [135-145 mEq/L] 138 mEq/L 141 mEq/L 142 mEq/L (02/13/16 5:21 AM) (02/12/16 8:05 AM) (02/10/16 6:46 AM) Potassium Lvl [3.5-5.1 4.0 mEq/L 3.6 mEq/L 3.7 mEq/L mEq/L] (02/13/16 5:21 AM) (02/12/16 8:05 AM) (02/10/16 6:46 AM) Chloride Lvl [95-109 mEq/L] 102 mEq/L 105 mEq/L 106 mEq/L (02/13/16 5:21 AM) (02/12/16 8:05 AM) (02/10/16 6:46 AM) CO2 [24-32 mEq/L] 28 mEq/L 31 mEq/L 27 mEq/L (02/13/16 5:21 AM) (02/12/16 8:05 AM) (02/10/16 6:46 AM) AGAP [10.0-20.0 mEq/L] 12.0 mEq/L 8.6 mEq/L 12.7 mEq/L (02/13/16 5:21 AM) *LOW* (02/10/16 6:46 AM) (02/12/16 8:05 AM) CHEM PANEL Most recent to oldest 1 2 3 [Reference Range]: Creatinine Lvl [0.50-1.40 1.05 mg/dL 1.03 mg/dL 0.92 mg/dL mg/dL] (02/13/16 5:21 AM) (02/12/16 8:05 AM) (02/10/16 6:46 AM) eGFR 54 mL/min/1.73m2 1 56 mL/min/1.73m2 2 64 mL/min/1.73m2 3 *NA* *NA* *NA* (02/13/16 5:21 AM) (02/12/16 8:05 AM) (02/10/16 6:46 AM) BUN [7-22 mg/dL] 24 mg/dL 20 mg/dL 15 mg/dL *HI* (02/12/16 8:05 AM) (02/10/16 6:46 AM) (02/13/16 5:21 AM) B/C Ratio [6-25] 23 16 (02/13/16 5:21 AM) (02/10/16 6:46 AM) Glucose Lvl [70-99 mg/dL] 160 mg/dL 124 mg/dL 95 mg/dL *HI* *HI* (02/10/16 6:46 AM) (02/13/16 5:21 AM) (02/12/16 8:05 AM) Total Protein [6.4-8.4 g/dL] 7.3 g/dL 7.3 g/dL (02/13/16 5:21 AM) (02/10/16 6:46 AM) Albumin Lvl [3.5-5.0 g/dL] 3.0 g/dL 3.6 g/dL *LOW* (02/10/16 6:46 AM) (02/13/16 5:21 AM) Globulin [2.0-4.0 g/dL] 4.3 g/dL 3.7 g/dL *HI* (02/10/16 6:46 AM) (02/13/16 5:21 AM) A/G Ratio [0.7-1.6] 0.7 1.0 (02/13/16 5:21 AM) (02/10/16 6:46 AM) Calcium Lvl [8.5-10.5 mg/dL] 8.1 mg/dL 8.2 mg/dL 8.3 mg/dL *LOW* *LOW* *LOW* (02/13/16 5:21 AM) (02/12/16 8:05 AM) (02/10/16 6:46 AM) Phosphorus [2.5-4.5 mg/dL] 3.0 mg/dL 3.0 mg/dL (02/14/16 5:55 AM) (02/13/16 5:21 AM) Magnesium Lvl [1.8-2.4 mg/dL] 2.6 mg/dL 2.4 mg/dL 2.5 mg/dL *HI* (02/13/16 5:21 AM) *HI* (02/14/16 5:55 AM) (02/12/16 8:05 AM) ALT [0-65 unit/L] 19 unit/L 26 unit/L (02/13/16 5:21 AM) (02/10/16 6:46 AM) AST [0-37 unit/L] 8 unit/L 16 unit/L (02/13/16 5:21 AM) (02/10/16 6:46 AM) Alk Phos [39-136 unit/L] 70 unit/L 71 unit/L (02/13/16 5:21 AM) (02/10/16 6:46 AM) Bili Total [0.2-1.3 mg/dL] 0.7 mg/dL 0.8 mg/dL (02/13/16 5:21 AM) (02/10/16 6:46 AM) Procalcitonin Lvl [0.00-0.10 <0.05 ng/mL ng/mL] (02/14/16 2:51 PM) 1Result Comment: The eGFR is calculated using the CKD-EPI formula. In most young , healthy individualsthe eGFR will be >90 mL/min/1.73m2. The eGFR declines with age. An eGFR of 60-89 may be normal in some populations, particularly the elderly, for whom the CKD-EPI formula has not been extensively validated. Use of the eGFR is not recommended in the following populations: Individuals with unstable creatinine concentrations, including patients and those with serious co-morbid conditions. Patients with extremes in muscle mass or diet. The data above are obtained from the National Kidney Disease Education Program ( NKDEP) which additionally recommends that when the eGFR is used in patients with extremes of body mass index for purposesof drug dosing, the eGFR should be multiplied by the estimated BMI.2Result Comment: The eGFR is calculated using the CKD-EPI formula. In most young, healthy individualsthe eGFR will be >90 mL/ min/1.73m2. The eGFR declines with age. An eGFR of 60-89 may be normal in some populations, particularly the elderly, for whom the CKD-EPI formula has not been extensively validated. Use of the eGFR is not recommended in the following populations: Individuals with unstable creatinine concentrations, including patients and those with serious co-morbid conditions. Patients with extremes in muscle mass or diet. The data above are obtained from the National Kidney Disease Education Program ( NKDEP) which additionally recommends that when the eGFR is used in patients with extremes of body mass index for purposesof drug dosing, the eGFR should be multiplied by the estimated BMI.3Result Comment: The eGFR is calculated using the CKD-EPI formula. In most young, healthy individualsthe eGFR will be >90 mL/ min/1.73m2. The eGFR declines with age. An eGFR of 60-89 may be normal in some populations, particularly the elderly, for whom the CKD-EPI formula has not been extensively validated. Use of the eGFR is not recommended in the following populations: Individuals with unstable creatinine concentrations, including patients and those with serious co-morbid conditions. Patients with extremes in muscle mass or diet. The data above are obtained from the National Kidney Disease Education Program ( NKDEP) which additionally recommends that when the eGFR is used in patients with extremes of body mass index for purposesof drug dosing, the eGFR should be multiplied by the estimated BMI.CARDIAC ENZYMES Most recent to oldest [Reference Range]: 1 2 3 proBNP [0-125 pg/mL] 1961 pg/mL *HI* (02/10/16 6:46 AM) LIPIDS Most recent to oldest [Reference Range]: 1 2 3 CHD Risk [3.90-5.80] 3.74 *LOW* (02/10/16 6:46 AM) Chol [<=199 mg/dL] 232 mg/dL *HI* (02/10/16 6:46 AM) Trig [<=149 mg/dL] 128 mg/dL (02/10/16 6:46 AM) HDL [>=61 mg/dL] 62 mg/dL (02/10/16 6:46 AM) LDL (Calculated) [<=99 mg/dL] 144 mg/dL *HI* (02/10/16 6:46 AM) VLDL 26 *NA* (02/10/16 6:46 AM) SPECIAL CHEMISTRY Most recent to oldest [Reference Range]: 1 2 3 Hgb A1C [<=5.6 %] 5.8 % *HI* (02/10/16 6:46 AM) URINE AND STOOL Most recent to oldest [Reference Range]: 1 2 3 UA Turbidity [Clear] Clear (02/13/16 2:21 PM) UA Color [Yellow] Yellow *NA* (02/13/16 2:21 PM) UA pH [5.0-8.0] 5.5 (02/13/16 2:21 PM) UA Spec Grav [<=1.030] 1.025 (02/13/16 2:21 PM) UA Glucose [Negative] Negative (02/13/16 2:21 PM) UA Blood [Negative] Trace *ABN* (02/13/16 2:21 PM) UA Ketones [Negative] Negative *NA* (02/13/16 2:21 PM) UA Protein [Negative] Negative (02/13/16 2:21 PM) UA Urobilinogen [0.1-1.0 EU/dL] 0.2 EU/dL (02/13/16 2:21 PM) UA Bili [Negative] Negative *NA* (02/13/16 2:21 PM) UA Leuk Est [Negative] Negative (02/13/16 2:21 PM) UA Nitrite [Negative] Negative (02/13/16 2:21 PM) UA WBC [None Seen] None Seen (02/13/16 2:21 PM) UA RBC [0-2] None Seen (02/13/16 2:21 PM) UA Bacteria [None Seen] None Seen (02/13/16 2:21 PM) UA Sq Epi [Few /LPF] Rare /LPF (02/13/16 2:21 PM) Micro? Performed (02/13/16 2:21 PM) HEMATOLOGY Most recent to oldest 1 2 3 [Reference Range]: WBC [3.7-10.4 K/CMM] 17.8 K/CMM 14.1 K/CMM 9.1 K/CMM *HI* *HI* (02/10/16 6:46 AM) (02/14/16 2:51 PM) (02/13/16 5:21 AM) RBC [4.20-5.40 M/CMM] 5.23 M/CMM 4.89 M/CMM 4.63 M/CMM (02/14/16 2:51 PM) (02/13/16 5:21 AM) (02/10/16 6:46 AM) Hgb [12.0-16.0 g/dL] 14.4 g/dL 13.7 g/dL 13.1 g/dL (02/14/16 2:51 PM) (02/13/16 5:21 AM) (02/10/16 6:46 AM) Hct [36.0-48.0 %] 45.0 % 42.3 % 39.9 % (02/14/16 2:51 PM) (02/13/16 5:21 AM) (02/10/16 6:46 AM) MCV [80.0-98.0 fL] 86.0 fL 86.4 fL 86.1 fL (02/14/16 2:51 PM) (02/13/16 5:21 AM) (02/10/16 6:46 AM) MCH [27.0-31.0 pg] 27.5 pg 28.1 pg 28.2 pg (02/14/16 2:51 PM) (02/13/16 5:21 AM) (02/10/16 6:46 AM) MCHC [32.0-36.0 g/dL] 31.9 g/dL 32.5 g/dL 32.8 g/dL *LOW* (02/13/16 5:21 AM) (02/10/16 6:46 AM) (02/14/16 2:51 PM) RDW [11.5-14.5 %] 15.4 % 15.5 % 15.8 % *HI* *HI* *HI* (02/14/16 2:51 PM) (02/13/16 5:21 AM) (02/10/16 6:46 AM) Platelet [133-450 K/CMM] 296 K/CMM 227 K/CMM 197 K/CMM (02/14/16 2:51 PM) (02/13/16 5:21 AM) (02/10/16 6:46 AM) MPV [7.4-10.4 fL] 9.0 fL 9.1 fL 9.5 fL (02/14/16 2:51 PM) (02/13/16 5:21 AM) (02/10/16 6:46 AM) Segs [45.0-75.0 %] 92.9 % 70.2 % *HI* (02/10/16 6:46 AM) (02/13/16 5:21 AM) Lymphocytes [20.0-40.0 %] 4.0 % 20.5 % *LOW* (02/10/16 6:46 AM) (02/13/16 5:21 AM) Monocytes [2.0-12.0 %] 2.9 % 7.6 % (02/13/16 5:21 AM) (02/10/16 6:46 AM) Eosinophils [0.0-4.0 %] 1.2 % (02/10/16 6:46 AM) Basophils [0.0-1.0 %] 0.2 % 0.5 % (02/13/16 5:21 AM) (02/10/16 6:46 AM) Segs-Bands # [1.5-8.1 K/CMM] 13.1 K/CMM 6.3 K/CMM *HI* (02/10/16 6:46 AM) (02/13/16 5:21 AM) Lymphocytes # [1.0-5.5 0.6 K/CMM 1.9 K/CMM K/CMM] *LOW* (02/10/16 6:46 AM) (02/13/16 5:21 AM) Monocytes # [0.0-0.8 K/CMM] 0.4 K/CMM 0.7 K/CMM (02/13/16 5:21 AM) (02/10/16 6:46 AM) Eosinophils # [0.0-0.5 0.1 K/CMM K/CMM] (02/10/16 6:46 AM) RBC Morph Normal (02/13/16 5:21 AM) Plt Morph Normal (02/13/16 5:21 AM) BACTERIAL - SEROLOGY Most recent to oldest [Reference Range]: 1 2 3 MRSA by PCR Negative (02/12/16 1:40 AM) Immunizations No data available for this section Procedures No data available for this section Social History Social History Type Response Substance Abuse Use: None. Alcohol Never Smoking Status Heavy tobacco smoker; Type: Cigarettes; Started at age: 40.0; Stopped at age: 70; Previous treatment: Nicotine replacement; Ready to change: Yes; Concerns about tobacco use in household: No; Exposure to Tobacco Smoke None; Cigarette Smoking Last 365 Days Yes; Reg Smoking Cessation Counseling No Assessment and Plan Extracted from: Title: Clinical Document Author: Christopher Sorensen MD Date: 02/14/16 Cardiology Note Christopher Sorensen MD, PA SUBJECTIVE: continues to improve. out of ICU. HR well controlled. Vitals and Temp: Vitals Tmp(F) Pulse BP RR SpO2 FIO2 02/13 09:04 ---- 108 ----- -- --- --- 02/13 07:10 ---- --- ----- 18 95 28% 02/13 06:16 97.4 64 125/65 20 95 --- 02/13 05:00 ---- 113 125/62 20 97 --- 02/13 04:00 98.2 123 102/66 18 94 --- 24 Hr Tmax: 98.2F (36.78c) at 02/13 04:00 Vital Signs are the last 5 in the past 48 hours. Scheduled Meds (12): 02/12/16 aspirin (aspirin 325 mg tablet, enteric coated) 325 mg PO Daily 02/12/16 atorvastatin 80 mg PO Bedtime 02/13/16 cefepime + sodium chloride 0.9% INJ 100 mL 1 gm IVPB [id number] 200 ml/hr 02/13/16 ciprofloxacin (ciprofloxacin 400 mg/200 mL intravenous solution) 400 mg IVPB [id number] 200 ml/hr 02/13/16 digoxin (digoxin 250 mcg (0.25 mg) oral tablet) 0.25 mg PO Daily 02/13/16 diltiazem 90 mg PO Q8H 02/12/16 (Suspended) enoxaparin 40 mg SUB-Q [id number] 02/09/16 furosemide (Lasix 40 mg oral tablet) 40 mg PO Q12H 02/12/16 methylPREDNISolone (methylPREDNISolone SODium SUCCinate) 60 mg IVP Q12H 02/12/16 metoprolol (metoprolol tartrate) 50 mg PO Q12H 02/10/16 pantoprazole 40 mg IVP Before Dinner 02/09/16 sodium chloride (Saline Flush 0.9%) 10 ml IVP Q12H Continuous Infusions (1): 02/11/16 diltiazem INJ 125 mg + sodium chloride 0.9% INJ 100 mL 125 mg Titrate Labs (Last four charted values) WBC H 14.1 (FEB 12) 9.1 (FEB 09) Hgb 13.7 (FEB 12) 13.1 (FEB 09) Hct 42.3 (FEB 12) 39.9 (FEB 09) Plt 227 (FEB 12) 197 (FEB 09) Na 138 (FEB 12) 141 (FEB 11) 142 (FEB 09) K 4.0 (FEB 12) 3.6 (FEB 11) 3.7 (FEB 09) CO2 28 (FEB 12) 31 (FEB 11) 27 (FEB 09) Cl 102 (FEB 12) 105 (FEB 11) 106 (FEB 09) Cr 1.05 (FEB 12) 1.03 (FEB 11) 0.92 (FEB 09) BUN H 24 (FEB 12) 20 (FEB 11) 15 (FEB 09) Glucose Random H 160 (FEB 12) H 124 (FEB 11) 95 (FEB 09) Mg H 2.6 (FEB 13) 2.4 (FEB 12) H 2.5 (FEB 11) Phos 3.0 (FEB 13) 3.0 (FEB 12) Ca L 8.1 (FEB 12) L 8.2 (FEB 11) L 8.3 (FEB 09) EXAM: NSR; afebrile Neck: no carotid bruit; no JVD CV: Regular; -S3 Lungs: Coarse; no wheezing; decreased air entry Abd: soft and no organomegaly; + bowel sounds Ext: no CCE; good pulses distally Neuro: right hemiparesis- mild to mod ASSESSMENT: Diastolic CHF with EF 55% afib with RVR- HR now well controlled Mild AI and MR and mild secondary PAH Acute stroke with right hemiparesis- left MCA territory- regaining her strength almost back to normal Mild ivette-infarct bleed Heavy smoker PLAN: Continue aspirin as per neurology Hold lovenox and anticoagulation as per neurology. They recommended repear CT head in 2 weeks and Eliquis if bleeding resolved by then. Don't think DAVID is warranted at this time given obvious risk factors for stroke in this elderly lady with afib Note the final clearance for starting anticoagulation has to come from neurology service as her current contraindication to starting it is neurological not cardiac. Extracted from: Title: History & Physical Author: Edward Brasher MD Date: 02/09/16 History & Physical [facility] Hospitalist CHIEF COMPLAINT: altered mentation Patient found by her son at home today in the chair unable to get up with change in mentation. He last saw his mother well on Thursday. She was taken to [facility] and CT brain without acute changes. Labs reviewed and EKG without evidence of acute ischemia. +coarse BS Unclear NIH upon their admission. No noted Constitutional Symptoms: _ fever, _ weight loss, _ weight gain, _ fatigue, _ malaise Eyes: _ diplopia, _ blurred vision, _ redness, _ discharge, _ loss of vision Ears, Nose, Mouth, Throat: _ dysphagia, _ odynophagia, _ otalgia, _ deafness, _ rhinorrhea Cardiovascular: _ chest pain, _ SOB, _ PELAYO, _ orthopnea, _ PND, _ poor exercise tolerance, _ palpitations Respiratory: _ same as CVS, _ cough, _ hemoptysis Gastrointestinal: _ NVD, _ BPR, _ dark stool, _ constipation, _ abdominal pain Genitourinary: _ dysuria, _ frequency, _ urgency, _ nocturia, _ incontinence Musculoskeletal: _ arthralgia, _ myalgia, _ stiffness Integumentary (skin and/or breast): _ rash, _ hives, _ breast pain, _ mass, _ nipple dc Neurological: _ headache, _ seizure, _ dizziness, _ tingling, _ numbness Psychiatric: _ anxiety, _ depression, _ insomnia Endocrine: _ polyuria, _ polydipsia, _ fatigue, _ weight loss, _ weight gain , _ cold or heat intolerance, _ palpitations Hematologic/Lymphatic: _ bleeding, _ bruising, _ edema, _ lumps (axilla groin neck) Allergic/Immunologic: _ rash, _ allergies, _ fever, _ chills All other systems reviewed and are negative. PAST MEDICAL HISTORY None noted PAST SURGICAL HISTORY None noted MEDICATIONS None ALLERGIES: NKDA SOCIAL HISTORY Alcohol Details: Never Tobacco Details: Use: Heavy tobacco smoker. Type: Cigarettes. Started age 39.0 Years. Stopped age 70 Years. Previous treatment: Nicotine replacement. Ready to change: Yes. Household tobacco concerns: No. Tobacco smoke exposure: None. Did the Patient Smoke Cigarettes Anytime During the Last 365 Days? Yes. Cessation Counseling Provided? No. Substance Abuse Details: Use: None. FAMILY HISTORY Reviewed and she does not know. PHYSICAL EXAMINATION Vitals Tmp(F) Pulse BP RR SpO2 FIO2 02/08 18:26 99.4 78 133/76 18 92 --- 24 Hr Tmax: 99.4F (37.44c) at 07 18:26 Vital Signs are the last 5 in the past 48 hours. Constitutional obese +right facial drop Head: normocephalic, nontraumatic Eyes: sclera clear, conjunctiva normal with EOMI Ears: pinna normal Nose: patent nares Oropharynx: dry mucous membranes with normal oropharynx without exudate or erythema Neck: supple, no LAD Lungs: moving air well without wheezing, rhonci or rales Cardiovascular: normal S1S2 RRR without murmur Abdominal: soft, NT/ND with +bowel sounds in all quadrants Genitourinary: deferred Rectal: deferred Neurological: AOX3, +right facial droop (NIH9) right UE pronator drift and RLE 3/5 LLE 5/5 Unable to stand from seated position Musculoskeletal: FROM Skin:no noted lesions LABORATORY AND DIAGNOSTIC EVALUATIONS No qualifying data available IMPRESSION 1. Right sided weakness and right facial droop 2. Obesity 3. Suspected CHF 4. Nicotine dependence PLAN 1. The patient is on telemetry with neuro check q4h 2. serial cardiac enzymes 3. consult Cardiology and Neurology and follow their recommendations as they beocome available Please see orders for further details on the initial management of this patient. I reviewed available records. Exam and evaluation took 40 minutes with 50% of my time spent on care and consultation. The patients length of stay on our service should be more than 2 midnights. The patients disposition post discharge should be rehab. Code status: full code DVT prophylaxis: SCD MEDICATIONS Medication List Active Medications Ordered acetaminophen: 650 mg, 2 tab, PO, Q4H, PRN: Pain 1-3/Temp > 99.5 F. albuterol-ipratropium: 3 ml, NEB, PRN, PRN: Respiratory Protocol. aspirin: 325 mg, 1 tab, PO, Daily. enoxaparin: 40 mg, 0.4 mL, SUB-Q, [id number]. furosemide: 40 mg, PO, Q12H. pantoprazole: 40 mg, IVP, Before Dinner. sodium chloride: 10 ml, IVP, Q12H. sodium chloride: 10 ml, IVP, PRN, PRN: Line Flush. Medications Inactivated in the Last 72 Hours No medications found.
--- NOTE | 2018-07-23 16:58 | RAD REPORT ---
EXAM DESCRIPTION: RAD - Chest Single View - 07/23/2018 4:48 pm CLINICAL HISTORY: SOB Chest pain. COMPARISON: No comparisons FINDINGS: Portable technique limits examination quality. Mild to moderate pulmonary edema is noted. The heart is moderately enlarged. No displaced fractures. IMPRESSION: Mild to moderate CHF versus volume overload pattern.
[2018-07-23 17:26] LABS: Absolute Lymphocytes (CBC) 0.6 K/uL (0.7-4.9); Absolute Monocytes 0.8 K/uL (0.1-1.3); Absolute Neutrophil 15.5 K/uL (1.8-8.0); Basophils % 0.3 % (0-1.3); Eosinophils % 0.1 % (0-4.4); Hematocrit 42.2 % (36.0-45.0); Lymphocytes % 3.5 % (15.3-44.8); MPV 9.8 fL (7.6-11.3); Monocytes % 4.8 % (3.3-12.3); RBC Red Blood Cell Count 4.77 M/uL (3.86-4.86)
[2018-07-23 17:29] LABS: Protime INR 1.09
[2018-07-23] MEDS ORDERED: METOPROLOL TARTRATE 5 MG/5 ML INJ IV ONE (17:43)
[2018-07-23] MEDS ORDERED: ASPIRIN 325 MG TAB ONE (17:43)
[2018-07-23] MEDS ORDERED: ENOXAPARIN 80 MG/0.8 ML SQ ONE (17:44)
[2018-07-23] MEDS ORDERED: NA CHLORIDE 0.9% 500 ML ONE (17:45)
[2018-07-23 17:53] LABS: Blood Morphology Comment NOT SEEN (NOT SEEN); Platelet Estimate ADEQ; Urine White Blood Cell Casts OK
[2018-07-23 18:00] LABS: ALT/SGPT 34 U/L (12-78); AST/SGOT 20 U/L (15-37); Alkaline Phosphatase 104 U/L (45-117); BUN Blood Urea Nitrogen 17 mg/dL (7-18); Bicarbonate 24 mmol/L (21-32); Bilirubin Direct 0.3 mg/dL (0-0.2); Glucose Level 148 mg/dL (74-106); Magnesium 2.3 mg/dL (1.8-2.4); NT PRO-BNP 15598 pg/mL (<125); Potassium 3.9 mmol/L (3.5-5.1); Protein, Total 7.9 g/dL (6.4-8.2); Sodium Level 140 mmol/L (136-145); Troponin (Emerg Dept Use Only) < 0.02 ng/mL (0.0-0.045)
[2018-07-23] MEDS ORDERED: METOPROLOL XL 50 MG TAB PO ONE (18:10)
[2018-07-23] MEDS ORDERED: FUROSEMIDE 20 MG/ 2ML VIAL ONE (19:00)
[2018-07-23 19:55] LABS: Digoxin Level 0.4 ng/mL (0.80-2.00)
[2018-07-23 19:58] LABS: Thyroid Stimulating Hormone 5.59 uIU/mL (0.360-3.740)
--- NOTE | 2018-07-23 20:19 | EDPHYS ---
Physician Documentation [facility] Name: La Henson Age: 72 yrs Sex: Female : 1945 Arrival Date: 07/23/2018 Time: 16:04 Bed 5 Private MD: Asael Huffman V ED Physician Nigel Caal HPI: 07/23 17:00 This 72 yrs old Female presents to ER via Ambulatory with complaints of pm1 Breathing Difficulty, Nausea. 17:00 The patient has shortness of breath at rest, with light activity. Onset: The pm1 symptoms/episode began/occurred 3 day(s) ago, worse today around 1430. Duration: The symptoms are continuous, and are steadily getting worse. The patient's shortness of breath is aggravated by light activity, is alleviated by nothing. Associated signs and symptoms: Pertinent positives: nausea, cough and sinus congestion for the past 1 week, Pertinent negatives: chest pain, fever, vomiting. Severity of symptoms: in the emergency department the symptoms are worse Pain is currently a 0 / 10. The patient has not recently seen a physician, the patient's primary care provider is Dr. Huffman. Historical: - Allergies: 16:20 Sulfa (Sulfonamide Antibiotics); hj - Home Meds: 18:14 Lipitor 40 mg Oral tab 1 tab once daily [Active]; mirtazapine 7.5 mg Oral tab 1 tabs ch once daily [Active]; levothyroxine 88 mcg tab 1 tab once daily [Active]; Lasix 20 mg Oral tab 1 tab 2 times per day [Active]; Lexapro 20 mg Oral tab 1 tab once daily [Active]; digoxin 250 mcg oral tab once daily [Active]; buspirone 10 mg Oral tab 1 tab daily [Active]; Singulair 10 mg Oral tab 1 tab once daily [Active]; Celebrex 200 mg Oral cap 1 cap once daily [Active]; - PMHx: 16:20 Atrial Fib; Hypertension; Hyperlipidemia; hj - PSHx: 16:20 None; hj - Immunization history:: Adult Immunizations not up to date. - Social history:: Smoking status: Patient uses tobacco products, Patient uses alcohol. - Ebola Screening: : Patient negative for fever greater than or equal to 101.5 degrees Fahrenheit, and additional compatible Ebola Virus Disease symptoms Patient denies exposure to infectious person Patient denies travel to an Ebola-affected area in the 21 days before illness onset. ROS: 17:00 Constitutional: Negative for fever, chills, and weight loss, Eyes: Negative for injury, pm1 pain, redness, and discharge, ENT: Negative for injury, pain, and discharge, Neck: Negative for injury, pain, and swelling, Cardiovascular: Negative for chest pain, palpitations, and edema. 17:00 Abdomen/GI: Negative for abdominal pain, nausea, vomiting, diarrhea, and constipation, Back: Negative for injury and pain, : Negative for injury, bleeding, discharge, and swelling, MS/Extremity: Negative for injury and deformity, Skin: Negative for injury, rash, and discoloration, Neuro: Negative for headache, weakness, numbness, tingling, and seizure. 17:00 Respiratory: Positive for shortness of breath, Negative for cough, sputum production, wheezing. Exam: 17:00 Constitutional: This is a well developed, well nourished patient who is awake, alert, pm1 and in no acute distress. Head/Face: Normocephalic, atraumatic. Eyes: Pupils equal round and reactive to light, extra-ocular motions intact. Lids and lashes normal. Conjunctiva and sclera are non-icteric and not injected. Cornea within normal limits. Periorbital areas with no swelling, redness, or edema. ENT: Nares patent. No nasal discharge, no septal abnormalities noted. Tympanic membranes are normal and external auditory canals are clear. Oropharynx with no redness, swelling, or masses, exudates, or evidence of obstruction, uvula midline. Mucous membranes moist. Neck: Trachea midline, no thyromegaly or masses palpated, and no cervical lymphadenopathy. Supple, full range of motion without nuchal rigidity, or vertebral point tenderness. No Meningismus. Chest/axilla: Normal chest wall appearance and motion. Nontender with no deformity. No lesions are appreciated. Cardiovascular: Regular rate and rhythm with a normal S1 and S2. No gallops, murmurs, or rubs. No pulse deficits. Abdomen/GI: Soft, non-tender, with normal bowel sounds. No distension or tympany. No guarding or rebound. No evidence of tenderness throughout. Back: No spinal tenderness. No costovertebral tenderness. Full range of motion. Skin: Warm, dry with normal turgor. Normal color with no rashes, no lesions, and no evidence of cellulitis. MS/ Extremity: Pulses equal, no cyanosis. Neurovascular intact. Full, normal range of motion. 17:00 Respiratory: the patient does not display signs of respiratory distress, Respirations: normal, Breath sounds: decreased breath sounds, are located in both bases. 17:00 Neuro: Orientation: is normal, Motor: is normal, Sensation: is normal, no obvious gross deficits. Vital Signs: 16:21 BP 187 / 81; Pulse 137; Resp 18; Temp 97.9(O); Pulse Ox 92% on R/A; Weight 77.11 kg; hj Height 5 ft. 5 in. (165.10 cm); Pain 0/10; 17:35 BP 140 / 91; Pulse 128; Resp 32; Temp 99.4(TE); Pulse Ox 98% on 4 lpm NC; Pain 2/10; ch 17:40 BP 152 / 81; Pulse 112; Resp 34; Pulse Ox 98% on 4 lpm NC; Pain 0/10; ch 17:50 BP 145 / 78; Pulse 95; Resp 18; Pulse Ox 97% on 4 lpm NC; ch 19:31 BP 140 / 97; Pulse 109; Resp 27; Pulse Ox 98% on 4 lpm NC; tl2 16:21 Body Mass Index 28.29 (77.11 kg, 165.10 cm) hj MDM: 16:33 Patient medically screened. pm1 18:24 ED course: Patient and sons unaware of the medications that she is taking. Called pm1 pharmacy to obtain list. Pharmacist reports that she fills them approximately 1/3 of the expected time. Patient reports lack of compliance with medications. Takes them as she feels the need. 20:14 Data reviewed: vital signs. Data interpreted: Pulse oximetry: on room air is 98 %. pm1 Interpretation: normal. 20:15 Physician consultation: A Breanna PERALTA was called at 20:15, was contacted at 20:15, pm1 regarding admission, patient's condition, Dr. Carlos is covering for Dr. Huffman, Requests urine microscopic, urine culture, metoprolol 25 mg PO BID, Digoxin 0.25 mg daily, consult with cardiology, and rocephin IV. 07/23 16:34 Order name: Basic Metabolic Panel pm1 07/23 16:34 Order name: CBC with Diff pm07/23 16:34 Order name: LFT's pm07/23 16:34 Order name: Magnesium; Complete Time: 18:26 pm1 07/23 16:34 Order name: NT PRO-BNP; Complete Time: 18:26 pm1 07/23 16:34 Order name: PT-INR; Complete Time: 17:55 pm1 07/23 16:34 Order name: Troponin (emerg Dept Use Only); Complete Time: 18:26 pm1 07/23 16:34 Order name: Flu; Complete Time: 17:55 pm1 07/23 16:34 Order name: Blood Culture Adult (2) pm07/23 16:34 Order name: Basic Metabolic Panel; Complete Time: 18:26 EDMS 07/23 16:34 Order name: CBC with Automated Diff; Complete Time: 17:55 EDMS 07/23 16:34 Order name: Liver (Hepatic) Function; Complete Time: 18:26 EDMS 07/23 17:30 Order name: CBC Smear Scan; Complete Time: 17:55 EDMS 07/23 18:26 Order name: Digoxin; Complete Time: 20:19 pm1 07/23 16:23 Order name: EKG; Complete Time: 16:24 hj 07/23 16:34 Order name: XRAY Chest (1 view); Complete Time: 17:01 pm07/23 16:34 Order name: Cardiac monitoring; Complete Time: 16:58 pm1 07/23 18:26 Order name: TSH; Complete Time: 20:19 pm1 07/23 19:59 Order name: T4 Free; Complete Time: 20:19 EDMS 07/23 20:11 Order name: Urine Microscopic Only; Complete Time: 21:27 pm07/23 20:11 Order name: Urine Culture pm07/23 20:57 Order name: Urine Dipstick--Ancillary (enter results) em07/23 21:28 Order name: Urine Dipstick-Ancillary; Complete Time: 21:50 EDMS 07/23 16:34 Order name: EKG - Nurse/Tech; Complete Time: 17:27 pm1 07/23 16:34 Order name: IV Saline Lock; Complete Time: 17:27 pm1 07/23 16:34 Order name: Labs collected and sent; Complete Time: 17:28 pm1 07/23 16:34 Order name: O2 Per Protocol; Complete Time: 17:28 pm1 07/23 16:34 Order name: O2 Sat Monitoring; Complete Time: 17:28 pm1 07/23 20:11 Order name: Urine Dipstick-Ancillary (obtain specimen); Complete Time: 20:38 pm1 Administered Medications: 17:35 Drug: Lopressor 5 mg Route: IVP; Site: left antecubital; ch 17:51 Follow up: Response: No adverse reaction ch 17:50 Drug: Aspirin 325 mg Route: PO; ch 18:46 Follow up: Response: No adverse reaction; No change in condition ch 17:51 Drug: NS 0.9% 500 ml Route: IV; Rate: bolus; Site: left antecubital; ch 18:20 Follow up: IV Status: Completed infusion; IV Intake: 500ml ch 17:51 Drug: Lovenox 77 mg Route: Sub-Q; Site: abdomen; ch 18:47 Follow up: Response: No adverse reaction; No change in condition ch 18:07 Drug: Lopressor (metoprolol TARTRATE) 50 mg Route: PO; ch 18:46 Follow up: Response: No adverse reaction; No change in condition ch 18:55 Drug: Lasix 20 mg Route: IVP; Site: left antecubital; ch 18:56 Follow up: Response: No adverse reaction; Marked relief of symptoms ch 20:38 Drug: Rocephin 1 grams Route: IV; Rate: calculated rate; Infused Over: 5 mins; Site: tl1 left antecubital; 22:13 Follow up: IV Status: Completed infusion tl1 Disposition: 07/23/18 20:19 Hospitalization ordered by Asael Huffman for Inpatient Admission. Preliminary diagnosis is Atrial fibrillation and flutter. - Bed requested for Telemetry/MedSurg (Inpatient). - Status is Inpatient Admission. tl1 - Condition is Stable. - Problem is new. - Symptoms have improved. UTI on Admission? No Addendum: 08/05/2018 07:39 Co-signature as Attending Physician, Nigel Caal MD I agree with the assessment and k dr plan of care. Signatures: Dispatcher [employer] EDMS Johanne Hurtado RN RN Nigel Caal MD MD [facility] Pricila Keith RN RN tl1 Jason England RN RN Roseanna Duvall, RN RN Lexa Christopher, INSPECTOR TECHNICIAN INSPECTOR TECHNICIAN pm1 Corrections: (The following items were deleted from the chart) 07/23 18:14 16:20 Home Meds: Unable to obtain; [facility] 20:19 20:15 Physician consultation: A Breanna PERALTA was called at 20:15, was contacted at 20:15, pm1 regarding admission, patient's condition, Dr. Carlos is covering for Dr. Huffman, Requests urine microscopic, urine culture, metoprolol 25 mg PO BID, Digoxin 0.25 mg daily, and consult with cardiology, pm1 20:52 20:19 Hospitalization Ordered by Mateusz Carlos MD for Inpatient Admission. Preliminary cg diagnosis is Atrial fibrillation and flutter. Bed requested for Telemetry/MedSurg (Inpatient). Status is Inpatient Admission. Condition is Stable. Problem is new. Symptoms have improved. UTI on Admission? No. pm1 22:03 20:52 07/23/2018 20:19 Hospitalization Ordered by Mateusz Carlos MD for Inpatient Admission. pm1 Preliminary diagnosis is Atrial fibrillation and flutter. Bed requested for Telemetry/MedSurg (Inpatient). Status is Inpatient Admission. Condition is Stable. Problem is new. Symptoms have improved. UTI on Admission? No. cg 22:13 22:03 07/23/2018 20:19 Hospitalization Ordered by Asael Huffman MD for Inpatient tl1 Admission. Preliminary diagnosis is Atrial fibrillation and flutter. Bed requested for Telemetry/MedSurg (Inpatient). Status is Inpatient Admission. Condition is Stable. Problem is new. Symptoms have improved. UTI on Admission? No. pm1
--- NOTE | 2018-07-23 20:19 | ER ---
Nurse's Notes [facility] Name: La Henson Age: 72 yrs Sex: Female : 1945 Arrival Date: 07/23/2018 Time: 16:04 Bed 5 Private MD: Asael Huffman V Diagnosis: Atrial fibrillation and flutter Presentation: 07/23 16:16 Presenting complaint: Child states: she called me around 2:30 pm, she is having hj difficulty breathing, reports nausea; took BP at home, 180/89, HR- 119; O2 sat- 93\T\; denies abd pain, last BM today, denies diarrhea; in tirage audible crackles on lung palomo;. Transition of care: patient was not received from another setting of care. Onset of symptoms was July 23, 2018. Risk Assessment: Do you want to hurt yourself or someone else? Patient reports no desire to harm self or others. Initial Sepsis Screen: Does the patient meet any 2 criteria? No. Patient's initial sepsis screen is negative. Does the patient have a suspected source of infection? No. Patient's initial sepsis screen is negative. Care prior to arrival: None. 16:16 Method Of Arrival: Ambulatory 16:16 Acuity: AGUSTIN 3 hj Triage Assessment: 16:20 General: Appears in no apparent distress. uncomfortable, Behavior is calm, cooperative, hj appropriate for age. Pain: Complains of pain in all over. Respiratory: Reports Onset: The symptoms/episode began/occurred the patient has mild shortness of breath. Historical: - Allergies: 16:20 Sulfa (Sulfonamide Antibiotics); hj - Home Meds: 18:14 Lipitor 40 mg Oral tab 1 tab once daily [Active]; mirtazapine 7.5 mg Oral tab 1 tabs ch once daily [Active]; levothyroxine 88 mcg tab 1 tab once daily [Active]; Lasix 20 mg Oral tab 1 tab 2 times per day [Active]; Lexapro 20 mg Oral tab 1 tab once daily [Active]; digoxin 250 mcg oral tab once daily [Active]; buspirone 10 mg Oral tab 1 tab daily [Active]; Singulair 10 mg Oral tab 1 tab once daily [Active]; Celebrex 200 mg Oral cap 1 cap once daily [Active]; - PMHx: 16:20 Atrial Fib; Hypertension; Hyperlipidemia; hj - PSHx: 16:20 None; hj - Immunization history:: Adult Immunizations not up to date. - Social history:: Smoking status: Patient uses tobacco products, Patient uses alcohol. - Ebola Screening: : Patient negative for fever greater than or equal to 101.5 degrees Fahrenheit, and additional compatible Ebola Virus Disease symptoms Patient denies exposure to infectious person Patient denies travel to an Ebola-affected area in the 21 days before illness onset. Screenin:21 Abuse screen: Denies threats or abuse. Denies injuries from another. Nutritional hj screening: No deficits noted. Tuberculosis screening: No symptoms or risk factors identified. Fall Risk None identified. Assessment: 16:21 Cardiovascular: Rhythm is. Respiratory: Airway is patent Respiratory effort is even, hj unlabored, Respiratory pattern is regular, symmetrical, 17:40 Reassessment: Patient appears in no apparent distress at this time. pt given two rounds ch of lopressor 5 mg IVP, given 5 min apart. Lexa notified of second Lopressor given. pt status remains unchanged. Lexa states he is fine with the administration, and to still give the lopressore po. 17:52 Reassessment: Patient and/or family updated on plan of care and expected duration. Pain ch level reassessed. Patient is alert, oriented x 3, equal unlabored respirations, skin warm/dry/pink. pt c/o sob and slight chest pain, but states it better. General: Appears comfortable. Cardiovascular: Heart tones S1 S2 present Capillary refill is > 3 seconds in bilateral toes Clubbing of nail beds is present Pulses are all present. Edema is 2+ to left ankle, left foot, right ankle and right foot Rhythm is atrial fibrillation. Respiratory: Airway is patent Trachea midline Respiratory effort is even, unlabored, Respiratory pattern is symmetrical, tachypnea Breath sounds with crackles bilaterally. Breath sounds with wheezes. GI: No signs and/or symptoms were reported involving the gastrointestinal system. : No signs and/or symptoms were reported regarding the genitourinary system. Derm: Skin is pale, pt has dusky red cool feet. Musculoskeletal: No signs and/or symptoms reported regarding the musculoskeletal system. 18:55 Reassessment: Patient appears in no apparent distress at this time. No changes from ch previously documented assessment. Patient and/or family updated on plan of care and expected duration. Pain level reassessed. 19:31 Reassessment: Patient appears in no apparent distress at this time. Patient and/or tl2 family updated on plan of care and expected duration. Pain level reassessed. Patient is alert, oriented x 3, equal unlabored respirations, skin warm/dry/pink. awaiting further orders. Vital Signs: 16:21 BP 187 / 81; Pulse 137; Resp 18; Temp 97.9(O); Pulse Ox 92% on R/A; Weight 77.11 kg; hj Height 5 ft. 5 in. (165.10 cm); Pain 0/10; 17:35 BP 140 / 91; Pulse 128; Resp 32; Temp 99.4(TE); Pulse Ox 98% on 4 lpm NC; Pain 2/10; ch 17:40 BP 152 / 81; Pulse 112; Resp 34; Pulse Ox 98% on 4 lpm NC; Pain 0/10; ch 17:50 BP 145 / 78; Pulse 95; Resp 18; Pulse Ox 97% on 4 lpm NC; ch 19:31 BP 140 / 97; Pulse 109; Resp 27; Pulse Ox 98% on 4 lpm NC; tl2 16:21 Body Mass Index 28.29 (77.11 kg, 165.10 cm) hj Vitals: 19:31 Cardiac Rhythm Assessment Atrial fibrillation. tl2 ED Course: 16:04 Patient arrived in ED. mr 16:05 sAael Huffman MD is Private Physician. mr 16:19 Triage completed. hj 16:21 Arm band placed on right wrist. hj 16:21 Patient has correct armband on for positive identification. Placed in gown. Bed in low hj position. Call light in reach. Side rails up X 1. 16:29 Lexa Christopher NP is PHCP. pm1 16:29 Nigel Caal MD is Attending Physician. pm1 16:29 EKG done, by technology specialist. reviewed by Nigel Caal MD. sm3 16:46 XRAY Chest (1 view) In Process Unspecified. EDMS 17:00 First set of blood cultures drawn by me. jb1 17:15 Second set of blood cultures drawn by me. jb1 17:26 Initial lab(s) drawn, by me, sent to lab. Flu and/or RSV swab sent to lab. Inserted jb1 saline lock: 20 gauge in left antecubital area, using aseptic technique. Blood collected. 17:32 Johanne Hurtado, RN is Primary Nurse. ch 19:34 TSH Sent. tl2 19:34 Digoxin Sent. tl2 20:18 Mateusz Carlos MD is Hospitalizing Provider. pm1 22:03 Hospitalizing Provider role handed off by Mateusz Carlos MD pm1 22:03 Asael Huffman MD is Hospitalizing Provider. pm1 22:10 Pricila Keith RN is Primary Nurse. tl1 22:11 No provider procedures requiring assistance completed. Patient admitted, IV remains in tl1 place. Administered Medications: 17:35 Drug: Lopressor 5 mg Route: IVP; Site: left antecubital; ch 17:51 Follow up: Response: No adverse reaction ch 17:50 Drug: Aspirin 325 mg Route: PO; ch 18:46 Follow up: Response: No adverse reaction; No change in condition ch 17:51 Drug: NS 0.9% 500 ml Route: IV; Rate: bolus; Site: left antecubital; ch 18:20 Follow up: IV Status: Completed infusion; IV Intake: 500ml ch 17:51 Drug: Lovenox 77 mg Route: Sub-Q; Site: abdomen; ch 18:47 Follow up: Response: No adverse reaction; No change in condition ch 18:07 Drug: Lopressor (metoprolol TARTRATE) 50 mg Route: PO; ch 18:46 Follow up: Response: No adverse reaction; No change in condition ch 18:55 Drug: Lasix 20 mg Route: IVP; Site: left antecubital; ch 18:56 Follow up: Response: No adverse reaction; Marked relief of symptoms ch 20:38 Drug: Rocephin 1 grams Route: IV; Rate: calculated rate; Infused Over: 5 mins; Site: tl1 left antecubital; 22:13 Follow up: IV Status: Completed infusion tl1 Intake: 18:20 IV: 500ml; Total: 500ml. ch Outcome: 20:19 Decision to Hospitalize by Provider. pm1 22:11 Admitted to Tele accompanied by tech, via stretcher, with oxygen, with chart. tl1 22:11 Condition: stable 22:11 Instructed on the need for admit. 22:13 Patient left the ED. tl1 Signatures: Dispatcher [employer] EDMS Sunil Tracy jb1 Johanne Hurtado, RN RN Maren StroudPricila, RN RN tl1 Jason England, RN RN Lexa Christopher, RETAIL SALES ASSOCIATE SEASONAL RETAIL SALES ASSOCIATE SEASONAL pm1 Alaina Payne, RN RN tl2 Lou Celestin sm3 Corrections: (The following items were deleted from the chart) 16:23 16:21 Pulse 130bpm; Resp 18bpm; Pulse Ox 92% RA; Temp 97.9F Oral; 77.11 kg; Height 5 hj ft. 5 in.; BMI: 28.2; Pain 0/10; hj 16:24 16:21 Pulse 137bpm; Resp 18bpm; Pulse Ox 92% RA; Temp 97.9F Oral; 77.11 kg; Height 5 hj ft. 5 in.; BMI: 28.2; Pain 0/10; hj 16:25 16:16 Presenting complaint: Child states: she called me around 2:30 pm, she is having hj difficulty breathing, reports nausea; took BP at home, 180/89, HR- 119; O2 sat- 93\T\; denies abd pain, last BM today, denies diarrhea; hj 18:14 16:20 Home Meds: Unable to obtain; [facility]
[2018-07-23] MEDS ORDERED: CEFTRIAXONE/SWI 1gm 1 GM/10 ML SYR ONE (20:43)
[2018-07-23 20:53] LABS: Urine Bacteria <20 /HPF (<20); Urine Culture Reflex Order REFLEXED; Urine RBC <5 /HPF (NONE SEEN)
[2018-07-23 21:27] LABS: Urine Blood TRACE (NEG); Urine Glucose NEGATIVE (NEG); Urine Protein TRACE (NEG); Urine pH 5.5 (5.0-7.0)
[2018-07-23] MEDS ORDERED: ACETAMINOPHEN 500 MG TAB PO PRN (21:41)
[2018-07-23 22:14] VITALS: BMI 29.4
[2018-07-23] MEDS: FUROSEMIDE 20 MG/ 2ML VIAL IV SCH (23:00)
[2018-07-24 05:21] LABS: Absolute Monocytes 0.7 K/uL (0.1-1.3); Absolute Neutrophil 7.7 K/uL (1.8-8.0); Basophils % 0.2 % (0-1.3); Eosinophils % 0.2 % (0-4.4); Hematocrit 36.3 % (36.0-45.0); Lymphocytes % 10.2 % (15.3-44.8); MPV 9.9 fL (7.6-11.3); Monocytes % 7.8 % (3.3-12.3); RBC Red Blood Cell Count 4.16 M/uL (3.86-4.86)
[2018-07-24 05:36] LABS: Potassium 4.1 mmol/L (3.5-5.1)
[2018-07-24] MEDS ORDERED: ENOXAPARIN 80 MG/0.8 ML SQ SCH (06:00)
[2018-07-24] MEDS: METOPROLOL TAR 25 MG TAB PO SCH ×2 (06:36→17:05)
[2018-07-24] MEDS: DIGOXIN 0.25 MG TABLET PO SCH (08:44)
[2018-07-24] MEDS: ASPIRIN EC 81 MG TAB PO SCH (08:44)
[2018-07-24] MEDS: FUROSEMIDE 20 MG/ 2ML VIAL IV SCH ×2 (08:44→16:59)
[2018-07-24] MEDS ORDERED: INFLUENZA VACCINE (for 3y+) 0.5 ML DOSE IMVAC ONE (09:00)
[2018-07-24] MEDS ORDERED: PNEUMOCOCCAL VACCINE 0.5 ML IMVAC ONE (09:00)
--- NOTE | 2018-07-24 10:00 | P.HP ---
Certification for Inpatient Patient admitted to: Observation With expected LOS: <2 Midnights Practitioner: I am a practitioner with admitting privileges, knowledge of patient current condition, hospital course, and medical plan of care. Services: Services provided to patient in accordance with Admission requirements found in Title 42 Section 412.3 of the Code of Federal Regulations Patient History Date of Service: 07/24/18 Reason for admission: DYSPNEA, COUGH History of Present Illness: MS. BEST IS A NONCOMPLIANT LADY WITH CHF, A FIB, WHO DOES NOT TAKE LASIX DAILY SHE HAS TO URINATE, ADDS SALT TO FOOD DAILY, EATS SALTY FOOD ALSO AND SMOKES. SHE COMES WITH DYSPNEA AND COUGH. SHE HAD CHF ON X RAY. Allergies Sulfa (Sulfonamide Antibiotics) Allergy (Severe, Verified 08/15/16 11:02) Anaphylaxis Home Medications: Atorvastatin Calcium [Lipitor] 40 mg PO BEDTIME 08/16/16 Bisoprolol Fumarate [Zebeta*] 5 mg PO DAILY 08/16/16 Cefuroxime [Ceftin] 250 mg PO BID #10 tab 08/16/16 Digoxin [Lanoxin] 250 mcg PO DAILY 08/16/16 Furosemide [Lasix] 20 mg PO DAILY #30 tab 08/16/16 Levothyroxine [Synthroid*] 0.088 mg PO 0600 08/16/16 Oxcarbazepine [Trileptal] 300 mg PO BID 08/16/16 Spironolactone 25 mg PO DAILY #30 tablet 08/16/16 - Past Medical/Surgical History Has patient received pneumonia vaccine in the past: No Diabetic: No -: HTN -: Afib -: Hypothyroidism - Family History Father -: Heart disease, Diabetes, Kidney disease Mother -: Heart disease, Diabetes, Kidney disease Notes: aneurysm Sister -: Heart disease Notes: stroke - Social History Smoking Status: Current every day smoker Alcohol use: No CD- Drugs: No Caffeine use: Yes Place of Residence: Home Review of Systems 10-point ROS is otherwise unremarkable General: Weakness, Malaise Respiratory: Cough, Shortness of Breath Physical Examination - Vital Signs Temperature: 97.4 F Blood Pressure: 148/70 Pulse: 81 Respirations: 16 Pulse Ox (%): 96 - Physical Exam General: Mild distress (LOT BETTER), Obese HEENT: Atraumatic, PERRLA, Mucous membr. moist/pink, EOMI, Sclerae nonicteric Neck: Supple, 2+ carotid pulse no bruit, No LAD, Without JVD or thyroid abnormality Respiratory: Diminished, Expiratory wheezes Cardiovascular: No edema, Irregular heart rate/rhythm Gastrointestinal: Normal bowel sounds, No tenderness Musculoskeletal: No tenderness Integumentary: No rashes Neurological: Normal gait, Normal speech, Normal strength at 5/5 x4 extr, Normal tone, Normal affect Lymphatics: No axilla or inguinal lymphadenopathy - Studies Laboratory Data (last 24 hrs) 07/23/18 17:15: PT 12.9 H, INR 1.09 07/23/18 17:15: WBC 17.0 H, Hgb 13.7, Hct 42.2, Plt Count 190 07/23/18 17:15: Sodium 140, Potassium 3.9, BUN 17, Creatinine 0.83, Glucose 148 H, Magnesium 2.3, Total Bilirubin 1.0, AST 20, ALT 34, Alkaline Phosphatase 104 Microbiology Data (last 24 hrs): 07/23/18 17:15 Nasopharnyx Influenza Type A Antigen Screen - Final 07/23/18 17:15 Nasopharnyx Influenza Type B Antigen Screen - Final Assessment and Plan - Problems (Diagnosis) (1) CHF (congestive heart failure) Current Visit: Yes Status: Acute Plan: FROM NON COMPLIANCE OF DIET AND MEDICINES. SHE IS STABLE NOW STILL HAS WHEEZES. WILL RESUME LASIX I STARTED YEST. Qualifiers: Heart failure type: unspecified (2) COPD with acute bronchitis Current Visit: Yes Status: Chronic Plan: NEBS AND STEROIDS SHE IS ALREADY ON ABX. WILL QUIT SMOKING. (3) A-fib Current Visit: Yes Status: Chronic Plan: START XARELTO. RESUME B BLOCKERS. PROGNOSIS IS POOR COMPLIANCE HAS BEEN POOR DESPITE ADVISE BEFORE. SHE HAS TOLD ME BEFORE THAT SHE IS NOT GOOD ABOUT MEDS AND DOES NOT CARE MUCH, BUT TODAY SHE DOES NOT WANT TO COME BACK TO HOSPITAL, SHE PROMISES TO BEHAVE. Qualifiers: Atrial fibrillation type: chronic Qualified Code(s): I48.2 - Chronic atrial fibrillation - Advance Directives Does patient have a Living Will: No Does patient have a Durable POA for Healthcare: No
[2018-07-24] MEDS: LEVALBUTEROL 0.63 MG/3 ML NEB NEB SCH ×2 (12:00→20:00)
[2018-07-24] MEDS: METHYLPREDNISOLONE 40 MG INJ IV SCH ×3 (12:24→23:26)
--- NOTE | 2018-07-24 13:56 | EKG ---
Test Date: 2018-07-23 Test Time: 16:25:13 Retort Pre Cooker: LUCHO MEASUREMENT RESULTS: Intervals: Rate: 127 AK: QRSD: 80 QT: 312 QTc: 453 [place]: P: AK: QRS: 40 T: 144 INTERPRETIVE STATEMENTS: Atrial fibrillation with rapid ventricular response Septal infarct, age undetermined ST & T wave abnormality, consider lateral ischemia Abnormal ECG No previous ECG available for comparison Electronically Signed On 07-24-18 13:53:59 DATABASE MANAGEMENT SPECIALIST by Samuel Devries
[2018-07-24] MEDS ORDERED: RIVAROXABAN 10 MG TABLET PO SCH (17:00)
[2018-07-24] MEDS ORDERED: CEFTRIAXONE/SWI 1gm 1 GM/10 ML SYR IV SCH (21:00)
[2018-07-24] MEDS ORDERED: CEFTRIAXONE 1 GM/NS 50 ML 1 GM/50 ML BAG IV SCH (21:00)
[2018-07-24] MEDS ORDERED: METOPROLOL TARTRATE 5 MG/5 ML INJ IV STA (22:01)
[2018-07-24] MEDS ORDERED: METOPROLOL XL 25 MG TAB PO ONE (23:00)
[2018-07-25] MEDS: LEVALBUTEROL 0.63 MG/3 ML NEB NEB SCH ×2 (02:00→08:00)
[2018-07-25] MEDS: METOPROLOL TAR 25 MG TAB PO SCH (06:44)
[2018-07-25] MEDS: METHYLPREDNISOLONE 40 MG INJ IV SCH ×2 (06:44→12:00)
[2018-07-25] MEDS: ASPIRIN EC 81 MG TAB PO SCH (08:34)
[2018-07-25] MEDS: FUROSEMIDE 20 MG/ 2ML VIAL IV SCH (08:34)
[2018-07-25] MEDS: DIGOXIN 0.25 MG TABLET PO SCH (08:38)
[2018-07-25 09:53] VITALS: TEMP 97.4
--- NOTE | 2018-07-25 10:57 | P.DS ---
Admission Date: 07/23/18 Discharge Date: 07/25/18 Disposition: ROUTINE DISCHARGE Discharge Condition: FAIR Reason for Admission: DYSPNEA, COUGH - Problems (1) CHF (congestive heart failure) Current Visit: Yes Status: Acute Qualifiers: Heart failure type: unspecified (2) COPD with acute bronchitis Current Visit: Yes Status: Chronic (3) A-fib Current Visit: Yes Status: Chronic Qualifiers: Atrial fibrillation type: chronic Qualified Code(s): I48.2 - Chronic atrial fibrillation Brief History of Present Illness: MS. BEST IS A NONCOMPLIANT LADY WITH CHF, A FIB, WHO DOES NOT TAKE LASIX DAILY SHE HAS TO URINATE, ADDS SALT TO FOOD DAILY, EATS SALTY FOOD ALSO AND SMOKES. SHE COMES WITH DYSPNEA AND COUGH. SHE HAD CHF ON X RAY. MS BEST DOING A LOT BETTER. I PLACED HER ON XARELTO FOR A FIB. SHE WILL AVOID SALTY FOOD - SHE SAYS SAYS SHE WILL TRY. SHE CAN'T QUIT SMOKING YET. SHE WILL TAKE MEDS DAILY. SHE IS GIVEN AUGMENTIN SHE HAS HAD WBC ELEVATION AND BRONCHITIS. FU IN OFFICE IN 10 DAYS. Vital Signs/Physical Exam: Temp Pulse Resp BP Pulse Ox 97.4 F 77 18 151/69 H 98 07/25/18 08:00 07/25/18 08:00 07/25/18 08:00 07/25/18 08:00 07/25/18 08:00 Laboratory Data at Discharge: WBC 9.5 K/uL (4.3-10.9) D 07/24/18 04:38 Hgb 12.2 g/dL (12.0-15.0) 07/24/18 04:38 Hct 36.3 % (36.0-45.0) 07/24/18 04:38 Plt Count 176 K/uL (152-406) 07/24/18 04:38 PT 12.9 SECONDS (9.5-12.5) H 07/23/18 17:15 INR 1.09 07/23/18 17:15 Sodium 142 mmol/L (136-145) 07/24/18 04:38 Potassium 4.1 mmol/L (3.5-5.1) 07/24/18 04:38 BUN 19 mg/dL (7-18) H 07/24/18 04:38 Creatinine 0.87 mg/dL (0.55-1.3) 07/24/18 04:38 Glucose 116 mg/dL (74-106) H 07/24/18 04:38 Magnesium 2.3 mg/dL (1.8-2.4) 07/23/18 17:15 Total Bilirubin 1.0 mg/dL (0.2-1.0) 07/23/18 17:15 AST 20 U/L (15-37) 07/23/18 17:15 ALT 34 U/L (12-78) 07/23/18 17:15 Alkaline Phosphatase 104 U/L (45-117) 07/23/18 17:15 Troponin I < 0.02 ng/mL (0.0-0.045) 07/24/18 02:13 Home Medications: Atorvastatin Calcium [Lipitor] 1 tab PO DAILY 07/24/18 Bisoprolol Fumarate [Zebeta*] 10 mg PO DAILY 07/24/18 Celecoxib 1 tab PO DAILY 07/24/18 Digoxin [Lanoxin*] 1 tab PO DAILY 07/24/18 Escitalopram [Lexapro*] 1 tab PO DAILY 07/24/18 Furosemide [Lasix*] 1 tab PO BID 07/24/18 Levothyroxine [Synthroid*] 1 tab PO [id number] 07/24/18 Mirtazapine 1 tab BEDTIME 07/24/18 Montelukast [Singulair*] 1 tab PO DAILY 07/24/18 Vit D3/Folic Acid/B2/B6/B12 [Folgard Tablet] 1 tab PO DAILY 07/24/18 Amox/Clavulanate [Augmentin 875-125 Tab] 875 mg PO BID #14 tab 07/25/18 Rivaroxaban [Xarelto] 20 mg PO DAILY #30 tab 07/25/18 New Medications: Amox/Clavulanate [Augmentin 875-125 Tab] 875 mg PO BID #14 tab Rivaroxaban [Xarelto] 20 mg PO DAILY #30 tab Patient Discharge Instructions: Do not add salt to food or eat any salty food. Quit smoking if can. Take meds daily. Diet: AHA Activity: Ad madelyn
[2018-07-25 12:57] VITALS: O2SAT 94
--- NOTE | 2018-07-25 13:32 | EKG ---
Test Date: 2018-07-24 Test Time: 21:45:07 Chip Mucker: ERICA MEASUREMENT RESULTS: Intervals: Rate: 138 OK: QRSD: 74 QT: 336 QTc: 509 Mary Alice: P: OK: QRS: 4 T: 141 INTERPRETIVE STATEMENTS: Atrial fibrillation with rapid ventricular response ST & T wave abnormality, consider anterolateral ischemia or digitalis effect Abnormal ECG Compared to ECG 07/23/2018 16:25:13 Myocardial infarct finding no longer present ST (T wave) deviation still present Possible ischemia still present Electronically Signed On 07-25-18 13:21:45 THERMOMETER TESTER by Samuel Devries
[2018-07-25 14:19] VITALS: BP 137/79
--- NOTE | 2018-07-25 22:14 | PN ---
Date of Progress Note: 07/25/2018 Ms. Henson was seen yesterday for atrial fibrillation with a rapid response. She was admitted on 10/[address] Huffman for shortness of breath and nausea. She was being treated for congestive heart failure and possible pneumonia. Her white count was 17,000. She has chronic atrial fibrillation for which she takes digoxin and Zebeta. Yesterday, her heart rate was in the 100s, today her heart rate in the 80s. There is an echocardiogram pending for tomorrow. Apparently, has tried anticoagulation in the past but did not tolerate it. We will continue her aspirin. KIMMY/ANU Voice ID: [id number] Report ID: [id number]
[2018-07-25] MEDS ORDERED: METOPROLOL XL 25 MG TAB PO ONE (22:40)
--- NOTE | 2018-07-25 23:19 | CON ---
Date of Consultation: 07/24/2018 The patient admitted on 07/23/[address] Huffman for congestive heart failure. I saw the patient on 0 07/24/2018. History Of Present Illness: Ms. Henson is a 72-year-old woman with history of atrial fibrillation, h ypertension, dyslipidemia, chronic systolic congestive heart failure, who came in with shortness of b reath, nausea, congestive heart failure on x-ray, and worsening atrial fibrillation. She also had a white count of 17,000. Was being treated with antibiotics, digoxin, Lovenox, metoprolol, and Lasix w hile she was in the hospital. Atrial fibrillation rate was in the 110 to 130 without any cardiac sym ptoms. Her last echocardiogram was in July of 2016 showing an ejection fraction of 48%. Past Medical History: As stated earlier. Allergies: SHE IS ALLERGIC TO SULFA. Review of Systems: Negative. Social History: Negative. Family History: Positive for diabetes and hypertension. Medications: At home include Lipitor, Zebeta, digoxin, Lasix, Aldactone, Synthroid, and Trileptal. Physical Examination: Vital Signs: Stable. She was afebrile. She was in atrial fibrillation at about 120. HEENT: Negative. Neck: Supple without any bruit, lymphadenopathy, JVD, or thyromegaly. Chest: Clear to auscultation and percussion on the right. She had some rales on the left. Cardiac: Revealed atrial fibrillation. No murmurs, gallops, or rubs. Abdomen: Benign. Nontender, nondistended with positive bowel sounds. Extremities: Revealed no clubbing, cyanosis. She had 1+ edema. Pulses were present distally in the dorsalis pedis and posterior tibial. Neurologic: She was nonfocal. Diagnostic Data: She was in atrial fibrillation by EKG when she came in. Had had episode of sinus r hythm on telemetry. Her white count is 17,000. BNP was 15,598. TSH was 5.5. Impression And Plan: 1.Paroxysmal atrial fibrillation, on digoxin, Zebeta, and aspirin. Apparently, she does not tolerat e anticoagulants according to her. There is another echocardiogram pending. We will see what that s hows prior to making final decisions, but otherwise, I agree with her present regimen. 2.Dyslipidemia, on Lipitor. 3.Hypothyroidism, on Synthroid. 4.Hypertension, well controlled. 5.Chronic systolic congestive heart failure with mild acute exacerbation, being treated appropriatel y with Lasix, metoprolol. I will discuss the case further with Dr. Huffman. KIMMY/ANU Voice ID: [id number] Report ID: [id number]
== END 2018-07-25 12:24 | disposition home or self-care (01) | DRG 308 ==
LOC: ER 16:01 → ERHOLD 20:42 → 2ND 21:33
PROVIDERS: ADMIT Internal Medicine; ATTEND Internal Medicine
DX: I48.0 Paroxysmal atrial fibrillation (principal); I50.23 Acute on chronic systolic (congestive) heart failure; I10 Essential (primary) hypertension; E03.9 Hypothyroidism, unspecified; J44.9 Chronic obstructive pulmonary disease, unspecified; J20.9 Acute bronchitis, unspecified; F17.200 Nicotine dependence, unspecified, uncomplicated; Z28.21 Immunization not carried out because of patient refusal
CPT/HCPCS: 36415; 71045; 80048; 80076; 80162; 81003; 81015; 83735; 83880; 84439; 84443; 84484; 85025; 85610; 87040; 87086; 87088; 87804; 93005; 94640; 96365; 96366; 96372; 96375; 99285; J0696; J1650; J1940; J2920

== ENCOUNTER 2019-11-12 09:16 | Emergency (ER) | payer OTHER ==
[2019-11-12] MEDS ORDERED: NA CHLORIDE 0.9% 1,000 ML ONE (09:31)
[2019-11-12] MEDS ORDERED: FOLIC ACID 5 MG/ML VIAL ONE (09:32)
--- NOTE | 2019-11-12 09:36 | RAD REPORT ---
EXAM DESCRIPTION: CT - Ct Stroke Brain Wo Cont - 11/12/2019 9:27 am CLINICAL HISTORY: Slurred speech COMPARISON: 2017 TECHNIQUE: Computed axial tomography of the head was obtained. All CT scans are performed using dose optimization technique as appropriate and may include automated exposure control or mA/KV adjustment according to patient size. FINDINGS: An intracranial bleed is not seen . The ventricles are normal in caliber. No extra-axial fluid collection is noted. Mild low-density within periventricular, deep and subcortical white matter likely ischemic changes se condary to small vessel disease. 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 IMPRESSION: No acute intracranial abnormality is seen. If patient's symptoms persist MRI of the bra in would be recommended. Dusty of the emergency room was notified at 9:31 a.m. November 12, 2019
--- NOTE | 2019-11-12 09:44 | ER ---
Nurse's Notes [facility] Name: La Henson Age: 73 yrs Sex: Female : 1945 Arrival Date: 11/12/2019 Time: 09:17 Bed 7 Private MD: Asael Huffman V Diagnosis: Atrial fibrillation and flutter-with svr, Digoxin toxicity 3.2;Cerebral infarction;Aphasia following cerebral infarction;Tobacco use Presentation: 11/11 09:18 Method Of Arrival: Wheelchair ph 09:21 Ebola Screen: No symptoms or risks identified at this time. Initial Sepsis Screen:. ph Risk Assessment: Do you want to hurt yourself or someone else? Patient reports no desire to harm self or others. Onset of symptoms was November 12, 2019. 09:21 Acuity: AGUSTIN 2 ph 09:36 Chief complaint: Patient's son or daughter states: L sided weakness and difficulty ph speaking, found this morning by family at approx 0700 on ground pointing at objects and unable to speak, hx a fib, does not take blood thinners, last seen normal last night before bed. Coronavirus screen: Proceed with normal triage. An acute neurological deficit is present. Pre-hospital glucose is not applicable to this patient. Initial Sepsis Screen: Does the patient meet any 2 criteria? No. Patient's initial sepsis screen is negative. Does the patient have a suspected source of infection? No. Patient's initial sepsis screen is negative. Stroke Activation: Symptom onset < 3 hours Physician: Stroke Attending; Name: ; Notified At: ; Arrived At: Physician: Chief Stroke Resident; Name: ; Notified At: ; Arrived At: Physician: Stroke Resident; Name: ; Notified At: ; Arrived At: Physician: ED Attending; Name: Demarco; Notified At: ; Arrived At: Physician: ED Resident; Name: ; Notified At: ; Arrived At: Historical: - Allergies: 09:22 Sulfa (Sulfonamide Antibiotics); ph - PMHx: :22 Atrial Fib; Hyperlipidemia; Hypertension; ph - PSHx: :22 None; ph - Immunization history:: Adult Immunizations unknown. - Social history:: Smoking status: Patient reports the use of cigarette tobacco products, smokes two packs cigarettes per day. - Family history:: not pertinent. Screenin:42 Abuse screen: Denies threats or abuse. Denies injuries from another. Nutritional ph screening: No deficits noted. Nutritional screening: No deficits noted. Tuberculosis screening: No symptoms or risk factors identified. Fall Risk No fall in past 12 months (0 pts). Secondary diagnosis (15 points) CVA, IV access (20 points). Ambulatory Aid- None/Bed Rest/Nurse Assist (0 pts). Gait- Weak (10 pts.). Mental Status- Oriented to own ability (0 pts). Total Clarke Fall Scale indicates High Risk Score (45 or more points). Fall prevention measures have been instituted. Side Rails Up X 2 Placed Close to Nursing Station Frequent Obs/Assessments Occuring Family Present and informed to notify staff if the need to leave the bedside As available patient and family educated on Fall Prevention Program and Strategies. Assessment: 09:18 Reassessment: PT taken to CT via wheelchair by Tyra CALVILLO. ph 09:25 VAN Scoring: Arm Drift: Patients demonstrates NO arm weakness. Patient is VAN Negative. ph 09:55 Patient has been NPO before screening. The patient is alert, and able to follow commands. The patient exhibits slurred or garbled speech. The patient is exhibiting difficulty speaking. The patient does not exhibit difficulty understanding words. The patient is able to swallow own secretions with no drooling or need for suction. Patient tolerated one teaspoon of water. No drooling, immediate coughing, gurgling, or clearing of the throat was noted. The patient tolerated 90mL of water. No drooling, immediate coughing, gurgling, or clearing of the throat was noted. The patient passed the bedside swallow screening. Oral medications may be given as ordered. Contact Physician for further diet orders. Provider notified of bedside swallow screening results: Jeff Pal MD. T-PA (Activase) Screening: Contraindications: Patient reports onset of signs and symptoms of stroke greater than 6 hours ago:. 10:00 General: Appears in no apparent distress. comfortable, well groomed, Behavior is calm, ph cooperative, appropriate for age. Pain: Denies pain. Neuro: Level of Consciousness is awake, alert, obeys commands, Oriented to person, place, situation, Papeterie Table Assembler are equal bilaterally Moves all extremities. Speech is slurred, with expressive aphasia noted, Facial droop on left, Pupils are PERRLA. Cardiovascular: Capillary refill < 3 seconds in bilateral fingers Patient's skin is warm and dry. Edema is 1+ to left ankle, left foot, right ankle and right foot, redness also noted to area Rhythm is irregular. Respiratory: Airway is patent Respiratory effort is even, unlabored, Respiratory pattern is regular, symmetrical. GI: No signs and/or symptoms were reported involving the gastrointestinal system. Derm: Skin is fragile, is thin, Skin is pink, warm \T\ dry. Musculoskeletal: Circulation, motion, and sensation intact. 10:32 Reassessment: Patient appears in no apparent distress at this time. No changes from ph previously documented assessment. Patient and/or family updated on plan of care and expected duration. Pain level reassessed. Report called to KARLI Barron at [facility]. 11:09 Reassessment: Patient appears in no apparent distress at this time. No changes from ph previously documented assessment. Patient and/or family updated on plan of care and expected duration. Pain level reassessed. Pt resting quietly, awaiting EMS for transfer. 12:08 Reassessment: Patient appears in no apparent distress at this time. Patient and/or ph family updated on plan of care and expected duration. Pain level reassessed. Patient is alert, oriented x 3, equal unlabored respirations, skin warm/dry/pink. Pt awake and alert, speech noted to be improving, [facility] at bedside, pt transferred to [facility]. Vital Signs: 09:36 BP 141 / 49; Pulse 75; Resp 18; Temp 98.2; Pulse Ox 96% on R/A; Weight 84.37 kg; ph 10:24 BP 141 / 47; Pulse 51; Resp 18; Temp 98.0; Pulse Ox 96% on R/A; ph 11:10 BP 154 / 68; Pulse 69; Resp 16; Pulse Ox 97% on R/A; ph 12:10 BP 167 / 70; Pulse 71; Resp 18; Temp 98.0; Pulse Ox 99% on R/A; ph NIH Stroke Scale Scores: 09:25 NIHSS Score: 4 ph 09:57 NIHSS Score: 4 [facility] ED Course: 09:17 Patient arrived in ED. mr 09:17 Asael Huffman MD is Private Physician. mr 09:18 Jeff Pal MD is Attending Physician. [facility] 09:18 Carney, Tara, RN is Primary Nurse. ph 09:21 Triage completed. ph 09:27 CT Stroke Brain w/o Contrast In Process Unspecified. EDMS 09:35 Initial lab(s) drawn, by dental lab technician, sent to lab. Inserted saline lock: 22 gauge in right ph antecubital area, using aseptic technique. Blood collected. Patient transferred, IV remains in place. 09:42 Patient has correct armband on for positive identification. Placed in gown. Bed in low ph position. Call light in reach. Side rails up X2. surveillance monitor on. Pulse ox on. NIBP on. Door closed. Noise minimized. Warm blanket given. Verbal reassurance given. 09:[address] Pal with Juliette Pereira from the [facility] center. 09:43 Arm band placed on Patient placed in an exam room, on a stretcher. ph 09:46 Stroke CXR 1 View In Process Unspecified. EDMS 09:[address] Rodriguez the neurologist monogram technician for [facility] with Dr. Pal for eb patient transfer consultation. 10:00 Straight cath inserted, using sterile technique, 14 Fr. Specimen obtained. Returned ph clear yellow urine. Patient tolerated well. 10:[address] Martinez the hospitalist monogram technician for [facility] with Dr. Pal for eb patient transfer consultation. 10:09 No provider procedures requiring assistance completed. ph 10:10 administrative approval given by Leida Mejias RN/ patient has been accepted to [facility] 22 tower bed 2226/ Dr. Dante Martinez as accepted the patient in transfer/ report to be called to [phone]. 10:21 EKG done, by ED staff, reviewed by Jeff Pal MD. [email or web address] Administered Medications: 09:43 Drug: foLIC Acid 1 mg Route: IVPB; Site: right antecubital; ph 10:18 Follow up: Response: No adverse reaction; IV Status: Completed infusion ph 09:43 Drug: NS 0.9% 1000 ml Route: IV; Rate: 1 bolus; Site: right antecubital; ph 10:45 Follow up: Response: No adverse reaction; IV Status: Completed infusion; IV Intake: ph 500ml 10:00 Drug: Aspirin Chewable Tablet 324 mg Route: PO; ph 10:17 Follow up: Response: No adverse reaction ph 10:05 Drug: Nicotine 21 mg/24 hr 1 patches Route: Transdermal; Site: affected area; ph 10:18 Follow up: Response: No adverse reaction ph Intake: 10:45 IV: 500ml; Total: 500ml. ph Outcome: 09:44 ER care complete, transfer ordered by . jewels 12:10 Transferred by ground EMS [facility]. ph 12:10 Condition: stable 12:10 Instructed on the need for transfer. 12:11 Patient left the ED. NIH Stroke Scale - NIH Stroke Score Date: 11/12/2019 Time: Total Score = 4 1a. Level of Consciousness (LOC) - 0(Alert) 1b. Level of Consciousness (LOC) (Year \T\ Age) - 0(Both) 1c. LOC Commands (Open \T\ Closes Eyes/Golf Course Equipment Operator) - 0(Both) 2. Best Gaze (Lateral Gaze Paresis) - 0(Normal) 3. Visual Field Loss - 0(No visual loss) 4. Facial Palsy - 2(Partial paralysis) 5a. Left Arm: Motor (10-second hold) - 0(No drift) 5b. Right Arm: Motor (10-second hold) - 0(No drift) 6a. Left Leg: Motor (5-second hold - always test supine) - 0(No drift) 6b. Right Leg: Motor (5-second hold - always test supine) - 0(No drift) 7. Limb Ataxia (finger/nose \T\ heel/de leon - test with eyes open) - 0(Absent) 8. Sensory Loss (pinprick arms/legs/face) - 0(Normal) 9. Best Language: Aphasia (description/naming/reading) - 1(Mild to moderate aphasia) 10. Dysarthria (speech clarity - read or repeat words) - 1(Mild to Moderate) 11. Extinction and Inattention (visual/tactile/auditory/spatial/personal) - 0(No abnormality) Initials: NIH Stroke Scale - NIH Stroke Score Date: 11/12/2019 Time: 09: Total Score = 4 1a. Level of Consciousness (LOC) - 0(Alert) 1b. Level of Consciousness (LOC) (Year \T\ Age) - 0(Both) 1c. LOC Commands (Open \T\ Closes Eyes/Golf Course Equipment Operator) - 0(Both) 2. Best Gaze (Lateral Gaze Paresis) - 0(Normal) 3. Visual Field Loss - 0(No visual loss) 4. Facial Palsy - 2(Partial paralysis) 5a. Left Arm: Motor (10-second hold) - 0(No drift) 5b. Right Arm: Motor (10-second hold) - 0(No drift) 6a. Left Leg: Motor (5-second hold - always test supine) - 0(No drift) 6b. Right Leg: Motor (5-second hold - always test supine) - 0(No drift) 7. Limb Ataxia (finger/nose \T\ heel/de leon - test with eyes open) - 0(Absent) 8. Sensory Loss (pinprick arms/legs/face) - 0(Normal) 9. Best Language: Aphasia (description/naming/reading) - 1(Mild to moderate aphasia) 10. Dysarthria (speech clarity - read or repeat words) - 1(Mild to Moderate) 11. Extinction and Inattention (visual/tactile/auditory/spatial/personal) - 0(No abnormality) Initials: jewels Signatures: Dispatcher [employer] Jeff Lan MD MD cha Rivera, Mary mr Hall, Patricia, RN RN Shonda Laguna [facility] Ann Montes
--- NOTE | 2019-11-12 09:45 | EDPHYS ---
Physician Documentation [facility] Name: La Henson Age: 73 yrs Sex: Female : 1945 Arrival Date: 11/12/2019 Time: 09:17 Bed 7 Private MD: Asael Huffman V ED Physician Jeff Pal HPI: 11/11 09:27 This 73 yrs old Female presents to ER via Wheelchair with complaints of S/S jewels of Possible Stroke. 09:27 This 73 yrs old Female presents to ER via Wheelchair with complaints of S/S jewels of Possible Stroke. 09:27 The patient's problem is reported as altered mental status, a facial droop, jewels paresthesias, in left upper extremity, in left lower extremity, dysphasia, expressive aphasia, weakness, in the left upper extremity, in the left lower extremity, in the left side of face. Onset: The symptoms/episode began/occurred at an unknown time. found on floor at 7 am, last normal last night , pt cannot say when it occured. Context: the episode(s) was witnessed, alone at the time. The symptoms are alleviated by nothing. The symptoms are aggravated by nothing. Associated signs and symptoms: The patient has no apparent associated signs or symptoms. Severity of symptoms: At their worst the symptoms were moderate in the emergency department the symptoms are unchanged. Patient's baseline: Neuro: alert and fully oriented. Historical: - Allergies: 09:22 Sulfa (Sulfonamide Antibiotics); ph - PMHx: 09:22 Atrial Fib; Hyperlipidemia; Hypertension; ph - PSHx: :22 None; ph - Immunization history:: Adult Immunizations unknown. - Social history:: Smoking status: Patient reports the use of cigarette tobacco products, smokes two packs cigarettes per day. - Family history:: not pertinent. ROS: 09:27 Constitutional: Negative for fever, chills, and weight loss, Eyes: Negative for injury, jewels pain, redness, and discharge, ENT: Negative for injury, pain, and discharge, Neck: Negative for injury, pain, and swelling, Cardiovascular: Negative for chest pain, palpitations, and edema, Respiratory: Negative for shortness of breath, cough, wheezing, and pleuritic chest pain, Abdomen/GI: Negative for abdominal pain, nausea, vomiting, diarrhea, and constipation, Back: Negative for injury and pain, : Negative for injury, bleeding, discharge, and swelling, MS/Extremity: Negative for injury and deformity, Skin: Negative for injury, rash, and discoloration, Psych: Negative for depression, anxiety, suicide ideation, homicidal ideation, and hallucinations, Allergy/Immunology: Negative for hives, rash, and allergies, Endocrine: Negative for neck swelling, polydipsia, polyuria, polyphagia, and marked weight changes, Hematologic/Lymphatic: Negative for swollen nodes, abnormal bleeding, and unusual bruising. 09:27 Neuro: Positive for altered mental status, weakness, of the left cheek, left jaw, left arm and left leg. Exam: 09:27 Constitutional: This is a well developed, well nourished patient who is awake, alert, jewels and in no acute distress. ENT: Nares patent. No nasal discharge, no septal abnormalities noted. Tympanic membranes are normal and external auditory canals are clear. Oropharynx with no redness, swelling, or masses, exudates, or evidence of obstruction, uvula midline. Mucous membranes moist. Neck: Trachea midline, no thyromegaly or masses palpated, and no cervical lymphadenopathy. Supple, full range of motion without nuchal rigidity, or vertebral point tenderness. No Meningismus. Chest/axilla: Normal chest wall appearance and motion. Nontender with no deformity. No lesions are appreciated. Respiratory: Lungs have equal breath sounds bilaterally, clear to auscultation and percussion. No rales, rhonchi or wheezes noted. No increased work of breathing, no retractions or nasal flaring. Abdomen/GI: Soft, non-tender, with normal bowel sounds. No distension or tympany. No guarding or rebound. No evidence of tenderness throughout. Back: No spinal tenderness. No costovertebral tenderness. Full range of motion. Skin: Warm, dry with normal turgor. Normal color with no rashes, no lesions, and no evidence of cellulitis. MS/ Extremity: Pulses equal, no cyanosis. Neurovascular intact. Full, normal range of motion. Psych: Awake, alert, with orientation to person, place and time. Behavior, mood, and affect are within normal limits. 09:27 Cardiovascular: Rate: normal, Rhythm: irregularly irregular, Pulses: Pulses are 4+ in bilateral radial, brachial, femoral, popliteal, posterior tibial and and dorsalis pedis arteries.. Heart sounds: normal, Edema: 1+ edema to level of left midcalf and right midcalf, JVD: is not appreciated. 09:27 Neuro: Orientation: to person, place, Not oriented to time, situation, Mentation: slow to respond, Memory: unable to test, Cranial nerves: facial droop noted on right, Cerebellar function: unable to test, Motor: moves all fours, Sensation: no obvious gross deficits, appropriate no acute changes, Gait: not tested. Deep tendon reflexes are 1 (trace) + in the bilateral brachioradialis, bicep, tricep and patellar and Achilles tendons, seizure activity, is not displayed by the patient. 09:36 Radiologist reports: no acute, dr otoniel donis 10:01 Neuro: Cranial nerves: with forehead spared. [facility] Vital Signs: 09:36 BP 141 / 49; Pulse 75; Resp 18; Temp 98.2; Pulse Ox 96% on R/A; Weight 84.37 kg; ph 10:24 BP 141 / 47; Pulse 51; Resp 18; Temp 98.0; Pulse Ox 96% on R/A; ph 11:10 BP 154 / 68; Pulse 69; Resp 16; Pulse Ox 97% on R/A; ph 12:10 BP 167 / 70; Pulse 71; Resp 18; Temp 98.0; Pulse Ox 99% on R/A; ph NIH Stroke Scale Scores: 09:25 NIHSS Score: 4 ph 09:57 NIHSS Score: 4 jewels MDM: 09:23 Patient medically screened. [facility] 09:37 Data reviewed: vital signs, nurses notes, lab test result(s), EKG, radiologic studies, jewels CT scan, plain films. 09:46 Differential diagnosis: CVA, TIA, metabolic disorder. Data interpreted: Cardiac [facility] monitor: rate is 65 beats/min, Pulse oximetry: on room air. ED course: found on floor at 7 am, not able to speak, last nl last night, expressive aphasia, hx afib no anticoagulation. not a tpa candidate, no mri or neuro here today, will transfer. 09:58 Other consultation: dr muñiz, no tpa, no heparin, no cta,asiprin only. transfer jewels accepted. 10:35 Transition of care:. ED course: dr martinez accepting at [facility], neuro tele, dr brashard jewels consulting.no changes in treatment plan.. 10:44 ED course: dr martinez notified digoxin 3.2, potassium 4.2 and nl renal function.no changes jewels in management. 11/11 09:20 Order name: Basic Metabolic Panel; Complete Time: 10:37 ph 11/11 09:20 Order name: CBC with Diff; Complete Time: 09:50 ph 11/11 09:20 Order name: Protime (+inr); Complete Time: 10:37 ph 11/11 09:20 Order name: Ptt, Activated; Complete Time: 10:37 ph 11/11 09:27 Order name: Digoxin: pt on digoxin; Complete Time: 10:37 jewels 11/11 09:45 Order name: Glucose, Ancillary Testing; Complete Time: 09:50 EDMS 11/11 09:20 Order name: CT Stroke Brain w/o Contrast; Complete Time: 09:45 ph 11/11 09:20 Order name: Stroke CXR 1 View ph 11/11 09:20 Order name: EKG; Complete Time: 09:21 ph 11/11 10:26 Order name: Urine Dipstick--Ancillary (enter results); Complete Time: 10:42 eb 11/11 09:20 Order name: Accucheck; Complete Time: 09:43 ph 11/11 09:20 Order name: Cardiac monitoring; Complete Time: 09:43 ph 11/11 09:20 Order name: EKG - Nurse/Tech; Complete Time: 09:43 ph 11/11 09:20 Order name: IV Saline Lock; Complete Time: 09:44 ph 11/11 09:20 Order name: Labs collected and sent; Complete Time: 09:44 ph 11/11 09:20 Order name: NPO; Complete Time: 09:44 ph 11/11 09:20 Order name: O2 Per Protocol; Complete Time: 09:44 ph 11/11 09:20 Order name: O2 Sat Monitoring; Complete Time: 09:44 ph 11/11 09:20 Order name: Stroke Swallow Screen; Complete Time: 10:19 ph 11/11 09:26 Order name: Urine Dipstick-Ancillary (obtain specimen): ro infection; Complete Time: jewels 10:18 Administered Medications: 09:43 Drug: foLIC Acid 1 mg Route: IVPB; Site: right antecubital; ph 10:18 Follow up: Response: No adverse reaction; IV Status: Completed infusion ph 09:43 Drug: NS 0.9% 1000 ml Route: IV; Rate: 1 bolus; Site: right antecubital; ph 10:45 Follow up: Response: No adverse reaction; IV Status: Completed infusion; IV Intake: ph 500ml 10:00 Drug: Aspirin Chewable Tablet 324 mg Route: PO; ph 10:17 Follow up: Response: No adverse reaction ph 10:05 Drug: Nicotine 21 mg/24 hr 1 patches Route: Transdermal; Site: affected area; ph 10:18 Follow up: Response: No adverse reaction ph Disposition: 11/12/19 09:44 Transfer ordered to [facility]. Diagnosis are Atrial fibrillation and flutter - with svr, Digoxin toxicity 3.2, Cerebral infarction, Aphasia following cerebral infarction, Tobacco use. - Reason for transfer: Higher level of care. - Accepting physician is to [facility], [facility], neuro. no mri, no neuro Dr. Martinez. - Condition is Fair. - Problem is new. - Symptoms are unchanged. NIH Stroke Scale - NIH Stroke Score Date: 11/12/2019 Time: Total Score = 4 1a. Level of Consciousness (LOC) - 0(Alert) 1b. Level of Consciousness (LOC) (Year \T\ Age) - 0(Both) 1c. LOC Commands (Open \T\ Closes Eyes/Solar Mechanical Engineer) - 0(Both) 2. Best Gaze (Lateral Gaze Paresis) - 0(Normal) 3. Visual Field Loss - 0(No visual loss) 4. Facial Palsy - 2(Partial paralysis) 5a. Left Arm: Motor (10-second hold) - 0(No drift) 5b. Right Arm: Motor (10-second hold) - 0(No drift) 6a. Left Leg: Motor (5-second hold - always test supine) - 0(No drift) 6b. Right Leg: Motor (5-second hold - always test supine) - 0(No drift) 7. Limb Ataxia (finger/nose \T\ heel/de leon - test with eyes open) - 0(Absent) 8. Sensory Loss (pinprick arms/legs/face) - 0(Normal) 9. Best Language: Aphasia (description/naming/reading) - 1(Mild to moderate aphasia) 10. Dysarthria (speech clarity - read or repeat words) - 1(Mild to Moderate) 11. Extinction and Inattention (visual/tactile/auditory/spatial/personal) - 0(No abnormality) Initials: NIH Stroke Scale - NIH Stroke Score Date: 11/12/2019 Time: 09:57 Total Score = 4 1a. Level of Consciousness (LOC) - 0(Alert) 1b. Level of Consciousness (LOC) (Year \T\ Age) - 0(Both) 1c. LOC Commands (Open \T\ Closes Eyes/Solar Mechanical Engineer) - 0(Both) 2. Best Gaze (Lateral Gaze Paresis) - 0(Normal) 3. Visual Field Loss - 0(No visual loss) 4. Facial Palsy - 2(Partial paralysis) 5a. Left Arm: Motor (10-second hold) - 0(No drift) 5b. Right Arm: Motor (10-second hold) - 0(No drift) 6a. Left Leg: Motor (5-second hold - always test supine) - 0(No drift) 6b. Right Leg: Motor (5-second hold - always test supine) - 0(No drift) 7. Limb Ataxia (finger/nose \T\ heel/de leon - test with eyes open) - 0(Absent) 8. Sensory Loss (pinprick arms/legs/face) - 0(Normal) 9. Best Language: Aphasia (description/naming/reading) - 1(Mild to moderate aphasia) 10. Dysarthria (speech clarity - read or repeat words) - 1(Mild to Moderate) 11. Extinction and Inattention (visual/tactile/auditory/spatial/personal) - 0(No abnormality) Initials: [facility] Signatures: Dispatcher [employer] EDJeff Portillo MD MD cha Hall, Patricia, RN RN Ann Montes Corrections: (The following items were deleted from the chart) 09:45 09:44 11/12/2019 09:44 Transfer ordered to [facility]. Diagnosis is Atrial fibrillation and flutter; Cerebral infarction; Aphasia following cerebral infarction. Reason for transfer: Higher level of care. Accepting physician is to [facility], [facility], neuro. no mri, no neuro. Condition is Fair. Problem is new. Symptoms are unchanged. [facility] 10:17 09:45 11/12/2019 09:44 Transfer ordered to [facility]. Diagnosis is Atrial fibrillation and flutter - with svr; Cerebral infarction; Aphasia following cerebral infarction; Tobacco use. Reason for transfer: Higher level of care. Accepting physician is to [facility], [facility], neuro. no mri, no neuro. Condition is Fair. Problem is new. Symptoms are unchanged. jewels 10:38 10:17 11/12/2019 09:44 Transfer ordered to [facility]. Diagnosis is Atrial fibrillation and flutter - with svr; Cerebral infarction; Aphasia following cerebral infarction; Tobacco use. Reason for transfer: Higher level of care. Accepting physician is to [facility], [facility], neuro. no mri, no neuro Dr. Martinez. Condition is Fair. Problem is new. Symptoms are unchanged. eb 12:11 10:38 11/12/2019 09:44 Transfer ordered to [facility]. Diagnosis is Atrial fibrillation and flutter - with svr, Digoxin toxicity 3.2; Cerebral infarction; Aphasia following cerebral infarction; Tobacco use. Reason for transfer: Higher level of care. Accepting physician is to [facility], neuro. no mri, no neuro Dr. Martinez. Condition is Fair. Problem is new. Symptoms are unchanged. jewels
[2019-11-12 09:47] LABS: Absolute Lymphocytes (CBC) 1.6 K/uL (0.7-4.9); Basophils % 0.7 % (0-1.3); Lymphocytes % 12.7 % (15.3-44.8); MPV 9.1 fL (7.6-11.3); RBC Red Blood Cell Count 4.61 M/uL (3.86-4.86)
[2019-11-12 09:51] LABS: Protime INR 1.03
[2019-11-12] MEDS ORDERED: ASPIRIN 81 MG CHEWABLE TABLET ONE (09:53)
[2019-11-12] MEDS ORDERED: NICOTINE 21 MG/PAT TD ONE (09:53)
[2019-11-12 09:57] LABS: Potassium 4.2 mmol/L (3.5-5.1)
[2019-11-12 10:37] LABS: Urine Blood NEGATIVE (NEG); Urine Glucose NEGATIVE (NEG); Urine Protein TRACE (NEG)
--- NOTE | 2019-11-12 11:12 | RAD REPORT ---
EXAM DESCRIPTION: Emma Single View11/12/2019 9:46 am CLINICAL HISTORY: Hypertension/CVA COMPARISON: 2018 FINDINGS: The lungs appear clear of acute infiltrate. The heart is moderately enlarged IMPRESSION: No acute abnormalities displayed
[2019-11-12 12:32] VITALS: TEMP 98
[2019-11-12 12:40] VITALS: BP 167/70; O2SAT 99
--- NOTE | 2019-11-13 06:50 | EKG ---
Test Date: 2019-11-12 Test Time: 09:38:59 Shell Fisherman: PADDY MEASUREMENT RESULTS: Intervals: Rate: 65 IN: QRSD: 82 QT: 360 QTc: 374 Jackson: P: IN: QRS: 24 T: 250 INTERPRETIVE STATEMENTS: Atrial fibrillation Marked ST abnormality, possible inferior subendocardial injury Abnormal ECG Compared to ECG 07/24/2018 21:45:07 Possible ischemia no longer present ST (T wave) deviation still present Electronically Signed On 11-13-19 06:48:46 CDT by Samuel Devries
== END 2019-11-12 12:11 | disposition short-term general hospital (02) ==
LOC: ER 09:16
DX: I63.9 Cerebral infarction, unspecified (principal); R47.01 Aphasia; I10 Essential (primary) hypertension; R29.704 NIHSS score 4; T46.0X1A Poisoning by cardiac-stimulant glycosides and drugs of similar action, accidental (unintentional), initial encounter; I48.91 Unspecified atrial fibrillation; I48.92 Unspecified atrial flutter; Z72.0 Tobacco use; Z88.2 Allergy status to sulfonamides
CPT/HCPCS: 96365; 93005; 85025; 80048; 36415; 85610; 80162; 82947; 85730; 81003; 70450; 71045; 51702; 99285; J7030

== ENCOUNTER 2020-01-15 17:38 | Emergency (ER) | payer OTHER ==
--- OUTSIDE RECORDS SUMMARY | 2020-01-15 17:42 | XMS REPORT | Continuity of Care Document ---
:1945 Author Organization [facility] Information [place] Care Team Providers Name Role Phone [facility] Information 360pi Unavailable Un available Problems Problem Status Onset Classification Date Comments Sourc e Date Reported R SIDE Active [facility] 6 [facility] WEAKNESS Active [facility] Medications Medication Details Route Status Patient Ordering Order Source Instructions Provider Date Prednisone Notes: Take No Longer with food. Active 2015 [place] Levothyroxine 50 microgram = Active Sodium 0.05 MG Oral 1 tab, PO, 2015 [place] Tablet [Synthroid] Daily, # 30 tab, 0 Refill(s) 24 HR Diltiazem 240 mg = 1 Active Hydrochloride 240 cap, PO, 2015 [place] and MG Extended Release Daily, # 30 Capsule [Cardizem] cap, 0 Refill(s) metoprolol tartrate 50 mg = 1 tab, Active 02/13 50 mg oral tablet PO, Q12H, # 60 2016 [place] tab, 0 Refill(s) Furosemide 40 MG 40 mg = 1 tab, Active Oral Tablet [Lasix] PO, Daily, # 2016 [place] 30 tab, 0 Refill(s) digoxin 250 mcg 0.25 mg = 1 Active (0.25 mg) oral tab, PO, 2016 [place] tablet Daily, # 30 tab, 0 Refill(s) atorvastatin 40 mg 80 mg = 2 tab, Active oral tablet PO, Bedtime, # 2016 [place] and 60 tab, 0 Refill(s) Aspirin 325 MG 325 mg = 1 Active Enteric Coated tab, PO, 2016 [place] Tablet Daily, # 30 tab, 0 Refill(s) Potassium Chloride 20 mEq = 1 Active 20 MEQ Extended tab, PO, 2016 [place] Release Tablet Daily, # 30 tab, 0 Refill(s) Levofloxacin 750 MG 750 mg = 1 Active H Oral Tablet tab, PO, Q24H, 2016 [place] and [Levaquin] X 7 day, # 7 tab, 0 Refill(s) {21 See Active (Methylprednisolone Instructions, 2015 [place] 4 MG Oral Tablet PO, Take by [Medrol]) } Pack mouth as [Medrol Dosepak] directed on label., X 6 day, # 1 Pack, 0 Refill(s) cefepime Notes: (Same No Longer As: Maxipime) Active 2015 [place] MEDICATION WASTE Product Size: 1000 mg Product Wasted: ___ mg 200 ML Notes: Do not No Longer Ciprofloxacin 2 refrigerate Active 2015 [place] MG/ML Injection digoxin 250 mcg Notes: Take on No Longer (0.25 mg) oral an Empty Active 2015 [place] tablet Stomach (Same as: Lanoxin) Ceftriaxone Notes: (Same Inactive As: Rocephin). 2015 [place] Use with 100 mL NS and infuse over 30 min MEDICATION WASTE Product Size: 1000 mg Product Wasted: ___ mg Cardizem Notes: (Same Inactive as: Cardizem) 2015[place] Diltiazem Notes: (Same No Longer as: Cardizem) Active 2015 [place] Before meals metoprolol tartrate Notes: (Same No Longer 02/12 as: Lopressor) Active 2015[place] methylPREDNISolone Notes: (Same No Longer SODium SUCCinate as:Solu-MEDROL Active 2015[place] , A-Methapred) atorvastatin Notes: (Same No Longer as: Lipitor) Active 2015[place] Digoxin Notes: (Same No Longer as: Lanoxin) Active [place] aspirin 325 mg Notes: (Do Not No Longer tablet, enteric Crush) Do not Active 2015 [place] coated crush or chew. Ipratropium Notes: SEE RT No Longer DOCUMENTATION Active 2015 [place] (Same as:Atrovent) Ipratropium Notes: SEE RT No Longer DOCUMENTATION Active 2015 [place] (Same as:Atrovent) Xopenex Notes: SEE RT No Longer DOCUMENTATION Active 2015 [place] (Same as:Xopenex) Non-Formulary Levaquin Notes: Do not No Longer give Active 2015 [place] w/antacids, dairy pdt & minerals Take 1 hr before or 2 hr after dairy pdt (Same as:Levaquin) Diltiazem Notes: (Same No Longer as: Cardizem) Active 2015 [place] Digoxin Notes: (Same Inactive as: Lanoxin) 2015 [place] Cardizem Notes: (Same Inactive as: Cardizem) 2015 [place] Metoprolol Notes: (Same Inactive as: Lopressor) 2015 [place] Push over 2 minutes metoprolol tartrate Notes: (Same No Longer 02/10 as: Lopressor) Active 2015 [place] Metoprolol Notes: (Same Inactive as: Lopressor) 2015 [place] Push over 2 minutes Metoprolol Notes: (Same Inactive as: Lopressor) 2015 [place] Push over 2 minutes Nicotine Notes: (Same No Longer as: Habitrol) Active 2015 [place] "Remove old patch before application of new patch" WASTE: F/P - P Waste Black; E - P Waste Black pantoprazole Notes: For IV No Longer push Active 2015 [place] reconstitute with 10 ml 0.9% sodium chloride and push over 2 minutes. (Same as: Protonix) Saline Flush 0.9% Notes: (Same No Longer as: BD Active 2015 [place] Posiflush) Aspirin 325 MG Notes: (Do Not No Longer Enteric Coated Crush) [facility] or [facility]w. Albuterol 0.833 Notes: (Same No Longer H MG/ML / Ipratropium as: Duoneb) Active 2015 [place] 0.167 MG/ML Inhalant Solution [DuoNeb] Furosemide 40 MG Notes: (Same No Longer Oral Tablet [Lasix] as: Lasix) Active 2015 [place] May cause GI upset. Give with food or milk. Enoxaparin Notes: (Same No Longer as: Lovenox) Active 2015 [place] Saline Flush 0.9% Notes: (Same No Longer as: BD Active 2015 [place] Posiflush) Acetaminophen Notes: Do not No Longer exceed 4 Active 2015 [place] gm/day. (Same as: Tylenol) Allergies, Adverse Reactions, Alerts No Known Medication Allergies Immunizations No Data Provided for This Section Results Order Name Results Value Reference Date Interpretation Comments Nini rce Range CHEM PANEL Procalcitoni <0.05 0.00 - 02/13 n Lvl ng/mL 0.10 [place] HEMATOLOGY Platelet 296 133 - 450 02/13 /2015 [place] HEMATOLOGY MPV 9.0 7.4 - 10.4 02/13 [place] HEMATOLOGY MCHC 31.9 32.0 - 02/13 36.0 /2015 [place] HEMATOLOGY RDW 15.4 11.5 - 02/13 14.5 [place] HEMATOLOGY WBC X 10x3 17.8 3.7 - 10.4 02/13 [place] HEMATOLOGY RBC X 10x6 5.23 4.20 - 02/13 MH 5.40 /2015 [place] HEMATOLOGY Hct 45.0 36.0 - 02/13 MH 48.0 /2015 [place] HEMATOLOGY MCH 27.5 27.0 - 02/13 MH 31.0 /2015 [place] HEMATOLOGY Hgb 14.4 12.0 - 02/13 16.0 [place] HEMATOLOGY MCV 86.0 80.0 - 02/13 98.0 /2015 [place] CHEM PANEL Magnesium 2.6 1.8 - 2.4 02/13 MH Lvl /2015 [place] CHEM PANEL Phosphorus 3.0 2.5 - 4.5 02/13 [place] URINE AND UA Glucose Negative Negative 02/12 STOOL (02/13/16 2:21 PM) /2015 [facility] URINE AND UA Protein Negative Negative 02/12 STOOL (02/13/16 2:21 PM) /2015 [place] URINE AND UA Ketones Negative Negative 02/12 STOOL *NA* /2015 [place] (02/13/16 2:21 PM) URINE AND UA Spec Grav 1.025 <=1.030 02/12 STOOL /2015 [place] URINE AND UA Color Yellow Yellow 02/12 STOOL *NA* /2015 [place] (02/13/16 2:21 PM) URINE AND UA pH 5.5 5.0 - 8.0 02/12 STOOL /2015 [place] URINE AND UA Turbidity Clear Clear 02/12 STOOL (02/13/16 2:21 PM) /2015 [place] URINE AND UA Bacteria None Seen None Seen 02/12 STOOL (02/13/16 2:21 PM) [place] URINE AND UA WBC None Seen None Seen 02/12 STOOL (02/13/16 2:21 PM) [place] URINE AND UA RBC None Seen 0 - 2 02/12 STOOL (02/13/16 2:21 PM) [place] URINE AND UA Sq Epi Rare /LPF Few /LPF 02/12 STOOL /2015 [place] URINE AND UA Nitrite Negative Negative 02/12 STOOL (02/13/16 2:21 PM) [place] URINE AND Micro? Performed 02/12 STOOL (02/13/16 2:21 PM) [place] URINE AND UA 0.2 0.1 - 1.0 02/12 STOOL Urobilinogen /2015 [place] URINE AND UA Leuk Est Negative Negative 02/12 STOOL (02/13/16 2:21 PM) [place] URINE AND UA Blood Trace Negative 02/12 STOOL *ABN* /2015 [place] (02/13/16 2:21 PM) URINE AND UA Bili Negative Negative 02/12 STOOL *NA* /2015 [place] (02/13/16 2:21 PM) CHEM PANEL Phosphorus 3.0 2.5 - 4.5 02/12 [place] CHEM PANEL Magnesium 2.4 1.8 - 2.4 02/12 Lvl [place] CHEM PANEL A/G Ratio 0.7 0.7 - 1.6 02/12 [place] CHEM PANEL B/C Ratio 23 6 - 25 02/12 [place] CHEM PANEL Globulin 4.3 2.0 - 4.0 02/12 [place] CHEM PANEL AGAP 12.0 10.0 - 02/12 20.0 [place] CHEM PANEL eGFR 54 02/12 Result Comment: The [place] eGFR is calculated using the CKD-EPI formula. In most young, healthy individuals the eGFR will be >90 mL/min/1.73m2 . The eGFR declines with age. An eGFR of 60-89 may be normal in some populations, particularly the elderly, for whom the CKD-EPI formula has not been extensively validated. Use of the eGFR is not recommended in the following populations:< br/>
[place] viduals with unstable creatinine concentration s, including patients and those with serious co-morbid conditions.<b r/>
Patie nts with extremes in muscle mass or diet.

The data above are obtained from the National Kidney Disease Education Program (NKDEP) which additionally recommends that when the eGFR is used in patients with extremes of body mass index for purposes of drug dosing, the eGFR should be multiplied by the estimated BMI. CHEM PANEL Creatinine 1.05 0.50 - 02/12 MH Lvl 1.40 [place] CHEM PANEL Sodium Lvl 138 135 - 145 02/12 [place] CHEM PANEL Potassium 4.0 3.5 - 5.1 02/12 MH Lvl [place] CHEM PANEL BUN 24 7 - 22 02/12 [place] CHEM PANEL ALANINE 19 0 - 65 02/12 AMINOTRANSFE [place] RASE CHEM PANEL Calcium Lvl 8.1 8.5 - 10.5 02/12 [place] CHEM PANEL Total 7.3 6.4 - 8.4 02/12 Protein [place] CHEM PANEL Bili Total 0.7 0.2 - 1.3 02/12 [place] CHEM PANEL ASPARTATE 8 0 - 37 02/12 MH TRANSAMINASE [place] CHEM PANEL Chloride Lvl 102 95 - 109 02/12 [place] CHEM PANEL CO2 28 24 - 32 02/12 [place] CHEM PANEL Alk Phos 70 39 - 136 02/12 [place] CHEM PANEL Albumin Lvl 3.0 3.5 - 5.0 02/12 [place] CHEM PANEL Glucose Lvl 160 70 - 99 02/12 [place] HEMATOLOGY RDW 15.5 11.5 - 02/12 MH 14. [place] HEMATOLOGY MCV 86.4 80.0 - 02/12 MH 98.0 [place] HEMATOLOGY MCHC 32.5 32.0 - 02/12 MH 36.0 [place] HEMATOLOGY MCH 28.1 27.0 - 02/12 MH 31.0 /2016 [place] HEMATOLOGY Hct 42.3 36.0 - 02/12 MH 48.0 /2015 [place] HEMATOLOGY MPV 9.1 7.4 - 10.4 02/12 [place] HEMATOLOGY Platelet 227 133 - 450 02/12 [place] HEMATOLOGY Hgb 13.7 12.0 - 02/12 MH 16.0 /2015 [place] HEMATOLOGY RBC X 10x6 4.89 4.20 - 02/12 MH 5.40 /2015 [place] HEMATOLOGY WBC X 10x3 14.1 3.7 - 10.4 02/12 [place] HEMATOLOGY Monocytes # 0.4 0.0 - 0.8 02/12 [place] HEMATOLOGY Lymphocytes 0.6 1.0 - 5.5 02/12 MH # /2015 [place] HEMATOLOGY Segs-Bands # 13.1 1.5 - 8.1 02/12 [place] HEMATOLOGY Segs 92.9 45.0 - 02/12 MH 75.0 [place] HEMATOLOGY Basophils 0.2 0.0 - 1.0 02/12 [place] HEMATOLOGY Monocytes 2.9 2.0 - 12.0 02/12 [place] HEMATOLOGY Lymphocytes 4.0 20.0 - 02/12 MH 40.0 [place] HEMATOLOGY RBC Morph Normal 02/12 (02/13/16 5:21 AM) [facility] HEMATOLOGY Plt Morph Normal 02/12 (02/13/16 5:21 AM) [facility] CHEM PANEL Magnesium 2.5 1.8 - 2.4 02/11 Lvl /2015 [place] CHEM PANEL eGFR 56 02/11 Result Comment: The [place] eGFR is calculated using the CKD-EPI formula. In most young, healthy individuals the eGFR will be >90 mL/min/1.73m2 . The eGFR declines with age. An eGFR of 60-89 may be normal in some populations, particularly the elderly, for whom the CKD-EPI formula has not been extensively validated. Use of the eGFR is not recommended in the following populations:< br/>
Jesusita viduals with unstable creatinine concentration s, including patients and those with serious co-morbid conditions.<b r/>
Patie nts with extremes in muscle mass or diet.

The data above are obtained from the National Kidney Disease Education Program (NKDEP) which additionally recommends that when the eGFR is used in patients with extremes of body mass index for purposes of drug dosing, the eGFR should be multiplied by the estimated BMI. CHEM PANEL CO2 31 24 - 32 02/11 [place] CHEM PANEL Potassium 3.6 3.5 - 5.1 02/11 Lvl /2015 [place] CHEM PANEL Calcium Lvl 8.2 8.5 - 10.5 02/11 [place] CHEM PANEL Chloride Lvl 105 95 - 109 02/11 [place] CHEM PANEL AGAP 8.6 10.0 - 02/11 MH 20.0 [place] CHEM PANEL BUN 20 7 - 22 02/11 [place] CHEM PANEL Glucose Lvl 124 70 - 99 02/11 [place] CHEM PANEL Sodium Lvl 141 135 - 145 02/11 [place] CHEM PANEL Creatinine 1.03 0.50 - 02/11 Lvl 1.40 [place] BACTERIAL - MRSA by PCR Negative 02/11 SEROLOGY (02/12/16 1:40 AM) [place] and CARDIAC proBNP 1961 0 - 125 02/09 MH [place] CHEM PANEL eGFR 64 02/09 Result Comment: The [place] eGFR is calculated using the CKD-EPI formula. In most young, healthy individuals the eGFR will be >90 mL/min/1.73m2 . The eGFR declines with age. An eGFR of 60-89 may be normal in some populations, particularly the elderly, for whom the CKD-EPI formula has not been extensively validated. Use of the eGFR is not recommended in the following populations:< br/>
Jesusita viduals with unstable creatinine concentration s, including patients and those with serious co-morbid conditions.<b r/>
Patie nts with extremes in muscle mass or diet.

The data above are obtained from the National Kidney Disease Education Program (NKDEP) which additionally recommends that when the eGFR is used in patients with extremes of body mass index for purposes of drug dosing, the eGFR should be multiplied by the estimated BMI. CHEM PANEL Bili Total 0.8 0.2 - 1.3 02/09 [place] CHEM PANEL Calcium Lvl 8.3 8.5 - 10.5 07/24 MH /2015 [place] CHEM PANEL CO2 27 24 - 32 07/ MH /2015 [place] CHEM PANEL Total 7.3 6.4 - 8.4 07/24 MH Protein /2015 [place] CHEM PANEL ASPARTATE 16 0 - 37 07/24 MH /2015 [place] CHEM PANEL Creatinine 0.92 0.50 - 07/24 MH Lvl 1.40 /2015 [place] CHEM PANEL Sodium Lvl 142 135 - 145 07/24 MH /2015 [place] CHEM PANEL BUN 15 7 - 22 07/ MH /2015 [place] CHEM PANEL Potassium 3.7 3.5 - 5.1 07/24 MH Lvl /2015 [place] CHEM PANEL Chloride Lvl 106 95 - 109 07/ /2015 [place] CHEM PANEL Albumin Lvl 3.6 3.5 - 5.0 / /2015 [place] CHEM PANEL Glucose Lvl 95 70 - 99 07/ MH /2015 [place] CHEM PANEL ALANINE 26 0 - 65 07/ MH AMINOTRANS /2015 [place] RASE CHEM PANEL Alk Phos 71 39 - 136 07/ MH /2015 [place] CHEM PANEL A/G Ratio 1.0 0.7 - 1.6 07/ MH /2015 [place] CHEM PANEL Globulin 3.7 2.0 - 4.0 07/ MH /2015 [place] CHEM PANEL B/C Ratio 16 6 - 25 07/ /2015 [place] CHEM PANEL AGAP 12.7 10.0 - 07/ MH 20.0 /2015 [place] HEMATOLOGY Monocytes # 0.7 0.0 - 0.8 07/ MH /2015 [place] HEMATOLOGY Lymphocytes 1.9 1.0 - 5.5 07/24 MH # /2015 [place] HEMATOLOGY Segs-Bands # 6.3 1.5 - 8.1 07/ MH /2015 [place] HEMATOLOGY Eosinophils 0.1 0.0 - 0.5 07/24 MH # /2015 [place] HEMATOLOGY Basophils 0.5 0.0 - 1.0 07/24 MH /2015 [place] HEMATOLOGY Eosinophils 1.2 0.0 - 4.0 07/ MH /2015 [place] HEMATOLOGY Segs 70.2 45.0 - 07/ MH 75.0 /2016 [place] HEMATOLOGY Lymphocytes 20.5 20.0 - 07/ MH 40.0 /2015 [place] HEMATOLOGY Monocytes 7.6 2.0 - 12.0 02/09 /2015 [place] HEMATOLOGY Platelet 197 133 - 450 02/09 /2015 [place] HEMATOLOGY MPV 9.5 7.4 - 10.4 02/09 /2015 [place] HEMATOLOGY RDW 15.8 11.5 - 02/09 MH 14.5 [place] HEMATOLOGY MCHC 32.8 32.0 - 02/09 MH 36.0 [place] HEMATOLOGY MCV 86.1 80.0 - 02/09 MH 98.0 /2015 [place] HEMATOLOGY MCH 28.2 27.0 - 02/09 MH 31.0 /2015 [place] HEMATOLOGY Hct 39.9 36.0 - 02/09 MH 48.0 [place] HEMATOLOGY WBC X 10x3 9.1 3.7 - 10.4 02/09 [place] HEMATOLOGY RBC X 10x6 4.63 4.20 - 02/09 MH 5.40 /2015 [place] HEMATOLOGY Hgb 13.1 12.0 - 02/09 MH 16.0 [place] LIPIDS CHD Risk 3.74 3.90 - 02/09 MH 5.80 /2015 [place] LIPIDS VLDL 26 02/09 /2015 [place] LIPIDS LDL 144 <=99 mg/dL 02/09 (Calculated) [place] LIPIDS Trig 128 <=149 02/09 mg/dL [place] LIPIDS HDL 62 >=61 mg/dL 02/09 [place] LIPIDS Chol 232 <=199 02/09 mg/dL [place] SPECIAL Hgb A1C 5.8 <=5.6 % 02/09 [place] Pathology Reports No Data Provided for This Section Diagnostic Reports Report Value Date Source Chest 1view DX EXAM: Chest radiograph 02/13/2016 [facility] HISTORY: Dyspnea COMPARISON: 02/10/2016 TECHNIQUE: Frontal view of the chest FINDINGS/IMPRESSION: New opacity medial right lower lung may reflect atelectasis or pneumonia. Perihilar interstitial opaci ties bilaterally are slightly improved and may reflect resolving edema or pneumonia. No significant pleural effusion. Stable cardiomegaly. Possible COPD. SL: [id number] Brain wo contrast CT Patient Name: VIVIENNE BEST 02/11/2016 [facility] : 1945; Age: 70 years y/o Female MR: [id number] Study: Brain wo contrast CT 02/11/2016 7:30 AM CD T Ordering Physician: Edward Brasher MD Comparison: 02/10/2016 Clinical Indication: Weaknes s; comparison CT for hemorhagic conversion comparison to initial CT brain-patient stroke Multiple computerized axial tomograms of the head were obtained without contrast. Detail is improved as the images are less noisy. As such, the small maturing hemorrhage at the left lentiform nucleus is more conspicuous albeit unc hanged in size when compared to the previous study. Localized hypodensity and mass effect is present related to the acute or recent ischemia at the left basal ganglia, left i nsular cortex and left front al operculum similar to the recent magnetic resonance imaging exam. Age-appropriate cortical and cerebellar volume loss is noted with compensatory enlargement of the ventricl es and subarachnoid spaces. Vascular calcification is noted. There is no mass lesion noted. No midline shift. Ventricles are otherwise normal in size, shape and position. The base of skull and bony calv arium are intact. Mild to mo derate chronic microangiopathic changes of the periventricular and [...] the recent magnetic resonance imaging exam. SL: [id number] Brain/Neck CTA CTA HEAD AND NECK: 02/10/2016 [facility] HISTORY: Acute left cerebral infarct. TECHNIQUE: Multislice axial acquisitions were done from the vertex of the skull through the thoracic inlet during IV contrast bolus. Sagittal and coronal MIP tomograms, 3-D MIP and 3-D volume rendered i mages were also obtained. St enosis measurements are according to NASCET criteria. ANGIOGRAPHIC FINDINGS: There is tortuosity of the carotid vasculature. Calcified and noncalcified plaque is seen at the carotid bifurcations without evidence of significant cervical carotid stenosis. The intracranial internal ca rotid arteries show no significant stenotic disease or evidence of aneurysms. The A1 and M1 segments are patent without evidence of occlusive changes. There are diminished ca ndelabra branches on the lef t. There is normal appearance of the right candelabra branches. A patent right posterior com municating artery is seen. There may be a small caliber anterior communicating artery. The left posterior communicating artery is not visualized. The vertebral arteries are p atent and codominant without significant stenosis. A small caliber basilar artery is demonstrated without significant stenosis. Bilateral PICA, AICA and posterior cerebral arteries are visualized. The arch is type II with usu al branching pattern of the great vessels. There is no significant stenotic disease of the supra aortic trunks. NONANGIOGRAPHIC FINDINGS: Le ft basal ganglia and perisylvian infarcts are noted and previously described on the magnetic resonance imaging. There is no significant change considering different modalitie s. Faint high attenuation in the left basal ganglia infarct is consistent with the previously described chronic hemorrhagic changes. There is no significant spinal stenosis. No mass or significant lymph node enlargement in the nec k is noted. Septal thickening in the lung apices is noted. IMPRESSION: 1. No evidence of significant cervical carotid o r vertebral stenosis. 2. Diminished left candelabr a branches consistent with the recent left hemispheric infarction. 3. No other significant intracranial stenotic di sease. SL DLAWRENCE-PC Brain wo contrast MRI MRI BRAIN WITHOUT CONTRAST 02/10/2016 [facility] INDICATION: Generalized weakness COMPARISON: None DISCUSSION: There is diffusion restricti on and T2 FLAIR hyperintensity of the left lentiform nucleus, left insular cortex, and opercular left frontal lobe. There is evidence of chronic hemorrhage involving the left lentiform nucleus. There ar e generalized involutional changes of the brain and mild to moderate microangiopathic changes of the white matter. The normal flow voids of the bilateral intracranial interna l carotid arteries and verte bral basilar arteries are visible. The cerebellar tonsils are mildly pointed in shape and extend up to 6 mm below the level of the foramen magnum. There is no evidence of spa ce occupying lesions, acute hemorrhage, hydrocephalus, midline shift, or extra- axial fluid collections. No suprasellar or bone abnormalities are seen. IMPRESSION: 1. Acute or recent infarcts of the left basal ganglia, left insular cortex, and opercular left frontal lobe. This finding was discussed with the patient's nurse at the time of dictation. 2. Evidence of chronic hemorrhage involving the left lentiform nucleus. 3. Chiari type I malformation. SL:16 Chest 1view DX Patient Name: VIVIENNE BEST 02/10/2016 [facility] : 1945; Age: 70 years y/o Female MR: [id number] Study: Chest 1view DX 02/10/2016 3:00 AM CDT Ordering Physician: Edward Brasher MD Clinical Indication: Crackles; Comparison: None Discussion: The patient is rotated to the right. Degenerative changes in the spine and shoulders. Findings suggesting calcific tendinitis of the right shoulder. Left extracranial carotid artery calcifications. The cardiac silhouette is en larged. The pulmonary vasculature seems mildly engorged on the left and in the right upper lung field. No confluent airspace opacities or large collections of pleural fluid. Tortuous aorta. IMPRESSION: Enlarged cardiac silhouette with findings suggesting mild congestive heart failure or volume overload. SL: [id number] Carotid artery Study: Carotid artery Doppler bilat US [address] [place] [address] Doppler bilat US Clinical Indication: Stroke, ischemic Comparison: None TECHNIQUE: Thurston-scale, color Doppler an d spectral Doppler of the carotid arteries was performed. Any reported ICA stenoses indirectly reference the distal internal carotid diameter as the denominator for the sten osis measurement, utilizing consensus panel karina pratt. FINDINGS: RIGHT: Smal l calcified atherosclerotic plaque in the carotid bulb is seen. ICA PSV 134 cm/sec CCA PSV 68 cm/sec ICA/CCA ratio 2.0 Vertebral flow is antegrade with peak systolic v elocity of 56 cm/s. External carotid artery is patent. LEFT: Sma ll calcified atherosclerotic plaque in the carotid bulb is seen. ICA PSV 110 cm/sec CCA PSV 89 cm/sec ICA/CCA ratio 1.2 Vertebral flow is antegrade with peak systolic v elocity of 57 cm/s. External carotid artery is patent. IMPRESSION: 1. Mild atherosclerotic dise ase of the bilateral carotid bulbs without hemodynamically significant stenosis. Consensus panel Doppler US criteria for diagnosi s of ICA stenosis: Stenosis (%) ICA PSV (cm/sec) ICA/CCA ratio <50 <125 <2.0 50-69 125-230 2.0-4.0 >70 but less than >230 >4.0 near occlusion Near occlusion High, low, or Variable undetectable :[id number] Consultation Notes No Data Provided for This Section Discharge Summaries No Data Provided for This Section History and Physicals No Data Provided for This Section Vital Signs Vital Sign Value Date Comments Source Systolic (mm Hg) 125 02/14/2016 [facility] Diastolic (mm Hg) 76 02/14/2016 [place] Respitory Rate 18 02/14/2016 [facility] Temperature Oral (F) 97.5 F 02/14/2016 [facility] Temperature Oral (F) 98.0 F 02/14/2016 [facility] Respitory Rate 18 02/14/2016 [facility] Systolic (mm Hg) 117 02/14/2016 [facility] Diastolic (mm Hg) 69 02/14/2016 [place] Systolic (mm Hg) 127 02/14/2016 [facility] Diastolic (mm Hg) 68 02/14/2016 [place] Respitory Rate 18 02/14/2016 [facility] Temperature Oral (F) 98.0 F 02/14/2016 [facility] Heart Rate 64 02/14/2016 [facility] Heart Rate 128 02/12/2016 [facility] Heart Rate 91 02/12/2016 [facility] Weight 72.358 02/11/2016 [facility] Height 165.1 cm 02/09/2016 [facility] Weight 76.818 02/09/2016 [facility] BMI Calculated 28.18 02/09/2016 [facility] Encounters Location Location Encounter Encounter Reason Attending ADM MD Stat Source Details Type Number For Provider Date Date Visit [facility] Inpatient [id number] Edward 02/10 02/13 [facility] /2015 [facility] Procedures No Data Provided for This Section Assessment and Plan Assessment and Plan Date Source Extracted from:Title: Clinical Document 02/14/2016 [place] Author: Christopher Sorensen MD Date: 02/14/16 Cardiology [...] 24 Hr Tmax: 98.2F (36.78c) at 02/13 04:0 0 Vital Signs are the last 5 in the past 48 hours. Scheduled Meds (12): 02/12/16 aspirin (aspirin 325 mg tablet, enteric coated) 325 mg PO Daily 02/12/16 atorvastatin 80 mg PO Bedtime 02/13/16 cefepime + sodium chloride 0.9% INJ 100 mL 1 gm IVPB [id number] 200 ml/hr 02/13/16 ciprofloxacin (ciprofloxacin 40 0 mg/200 mL intravenous solution) 400 mg IVPB [id number] 200 ml/hr 02/13/16 digoxin (digoxin 250 mcg (0.25 mg) oral tablet) 0.2 5 mg PO Daily 02/13/16 diltiazem 90 mg PO Q8H 02/12/16 (Suspended) enoxaparin 40 mg SUB-Q [id number] 02/09/16 furosemide (Lasix 40 mg oral tablet) 40 mg PO Q12H 02/12/16 methylPREDNISolone (methylPREDN ISolone SODium SUCCinate) 60 mg IVP Q12H 02/12/16 metoprolol (metoprolol tartrate) 50 mg PO Q12H 02/10/16 pantoprazole 40 mg IVP Before Dinner 02/09/16 sodium chloride (Saline Flush 0.9%) 10 ml IVP Q12H Continuous Infusions (1): 02/11/16 diltiazem INJ 125 mg + sodium chloride 0.9% INJ 100 mL 125 mg Titrate Labs (Last four charted values) WBC H 14.1 (FEB 12) 9.1 (FEB 09 ) Hgb 13.7 (FEB 12) 13.1 (FEB 09) [...] (FEB 09) Glucose Random H 160 (FEB 12 ) H 124 (FEB 11) 95 (FEB 09) Mg H 2.6 (FEB 13 ) 2.4 (FEB 12) H 2.5 (FEB 11) Phos 3.0 (FEB 13) 3.0 (FEB 12) Ca L 8.1 (FEB 12 ) L 8.2 (FEB 11) L 8.3 (FEB [...] secondary PAH Acute stroke with right hemiparesis- lef t MCA territory- regaining her strength almost back to normal Mild ivette-infarct bleed Heavy smoker PLAN: Continue aspirin as per neurology Hold lovenox and anticoagulation as per neurology. They recommended repear CT head in 2 weeks and Eliquis if bleeding resolved by then. Don't think DAVID is warranted at this lex e given obvious risk factors for stroke in this elderly lady with afib Note the final clearance for starting an ticoagulation has to come from neurology service as her current contraindication to starting it is neurological not cardiac. Extracted from:Title: History and Physical Author: Edward Brasher MD Date: 02/09/16 History and Physical [facility] Hospitalist CHIEF COMPLAINT: altered mentation Patient found by her son at home today i n the chair unable to get up with change in mentation. He last saw his mother well on Wednesday. She was taken to [facility] and CT brain without acute changes. Labs reviewed and EKG without evidence of acute ischemia. +coarse BS Unclear NIH upon their admission. No noted Constitutional Symptoms: _ fever, _ rashad ght loss, _ weight gain, _ fatigue, _ malaise Eyes: _ diplopia, _ blurred vision, _ redness, _ discharge, _ loss of vision Ears, Nose, Mouth, Throat: _ dysphagia, _ odynophagia, _ otalgia, _ deafness, _ rhinorrhea Cardiovascular: _ chest pain, _ SOB, _ D OE, _ orthopnea, _ PND, _ poor exercise tolerance, _ palpitations Respiratory: _ same as CVS, _ cough, _ hemoptysis Gastrointestinal: _ NVD, _ BPR, _ dark stool, _ constipation , _ abdominal pain Genitourinary: _ dysuria, _ frequency, _ urgency, _ nocturia , _ incontinence Musculoskeletal: _ arthralgia, _ myalgia, _ stiffness Integumentary (skin and/or breast): _ ra sh, _ hives, _ breast pain, _ mass, _ nipple dc Neurological: _ headache, _ seizure, _ dizziness, _ tinglin g, _ numbness Psychiatric: _ anxiety, _ depression, _ insomnia Endocrine: _ polyuria, _ polydipsia, _ fatigue, _ weight loss, _ weight gain, _ cold or heat intolerance, _ palpitations Hematologic/Lymphatic: _ bleeding, _ br uising, _ edema, _ lumps (axilla groin neck) Allergic/Immunologic: _ rash, _ allergies, _ fever, _ chills All other systems reviewed and are negative. PAST MEDICAL HISTORY None noted PAST SURGICAL HISTORY None noted MEDICATIONS None ALLERGIES: NKDA SOCIAL HISTORY Alcohol Details: Never Tobacco Details: Use: Heavy tobacco smoker. Typ e: Cigarettes. Started age 40.0 Years. Stopped age [...] --- 24 Hr Tmax: 99.4F (37.44c) at 02/08 18:2 6 Vital Signs are the last 5 in the past 48 hours. Constitutional obese +right facial drop Head: normocephalic, nontraumatic Eyes: sclera clear, conjunctiva normal with EOMI Ears: pinna normal Nose: patent nares Oropharynx: dry mucous membranes with no rmal oropharynx without exudate or erythema Neck: supple, [...] stay on our service should be more th an 2 midnights. The patients disposition post discharge should be rehab. Code status: full code DVT prophylaxis: SCD MEDICATIONS Medication List Active Medications Ordered acetaminophen: 650 mg, 2 tab, PO, Q4H, PRN: Pain 1-3/Temp > 99.5 F. albuterol-ipratropium: 3 ml, NEB, PRN, PRN: Respi ratory Protocol. aspirin: 325 mg, 1 tab, PO, Daily. enoxaparin: 40 mg, 0.4 mL, SUB-Q, [id number]. furosemide: 40 mg, PO, Q12H. pantoprazole: 40 mg, IVP, Before Dinner. sodium chloride: 10 ml, IVP, Q12H. sodium chloride: 10 ml, IVP, PRN, PRN: Line Flush . Medications Inactivated in the Last 72 Hours No medications found. Plan of Care No Data Provided for This Section Social History Social History Date Source Social History TypeResponse 02/09/2016 [facility] Substance Abuse Use: None. Alcohol Never Smoking Status Heavy tobacco smoker; Type: Cigarettes; Started at age: 40.0; Stopped at age: 70; Previous treatment: Nicotine replacement; Ready to change: Yes; Concerns about tobacco use in household: No; Exposure to Tobacco Smoke None; Cigarette Smoking L ast 365 Days Yes; Reg Smoking Cessation Counseling No Family History No Data Provided for This Section Advance Directives No Data Provided for This Section Functional Status No Data Provided for This Section
--- OUTSIDE RECORDS SUMMARY | 2020-01-15 17:42 | XMS REPORT | Clinical Summary ---
:1945 Author Organization [facility] Address [address] [place] [address] Care Team Providers Name Role Phone Nathanael Kiran Primary Care Provider Allergies Active Allergy Reactions Severity Noted Date Comments Sulfa (Sulfonamide Antibiotics) 0 Medications Medication Sig Dispensed Refills Start Date End Date Status mirtazapine Take 15 mg by 0 Acti ve (REMERON) 15 MG mouth tablet nightly. liothyronine Take 5 mcg by 0 Act tiera (CYTOMEL) 5 MCG mouth daily. tablet montelukast Take 10 mg by 0 Acti ve (SINGULAIR) 10 mg mouth tablet nightly. atorvastatin Take 40 mg by 0 Act tiera (LIPITOR) 40 MG mouth daily. tablet levothyroxine Take 125 mcg 0 Act tiera (SYNTHROID) 125 MCG by mouth tablet Every morning on an empty stomach. escitalopram oxalate Take 1 tablet 30 tablet 3 11/17/2019 Active (LEXAPRO) 20 MG (20 mg total) tablet by mouth daily. metoprolol tartrate Take 1 tablet 60 tablet 3 11/17/2019 Active (LOPRESSOR) 25 MG (25 mg total) tablet by mouth 2 (two) times daily. traMADoL (ULTRAM) 50 Take 1 tablet 30 tablet 0 11/17/2019 Active mg tablet (50 mg total) by mouth every 6 (six) hours as needed for Pain. Max Daily Amount: 200 mg apixaban (ELIQUIS) 5 Take 1 tablet 60 tablet 11 11/17/2019 Active mg Tab tablet (5 mg total) by mouth 2 (two) times daily. digoxin (LANOXIN) Take 250 mcg 0 0 Discontinued 0.25 MG tablet by mouth daily. escitalopram oxalate Take 20 mg by 0 11/16 Discontinued (LEXAPRO) 20 MG mouth daily. tablet bisoprolol (ZEBETA) Take 10 mg by 0 2019 Discontinued 10 MG tablet mouth daily. naltrexone HCl Take by 0 11/17/2019 Disc ontinued (NALTREXONE ORAL) mouth. mINOCYCLine Take 1 8 capsule 0 11/17/2019 11/21/2019 d (MINOCIN,DYNACIN) capsule (100 100 MG capsule mg total) by mouth every 12 (twelve) hours for 4 days. 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 Acute ischemic stroke 11/12/2019 Encounters Date Type Specialty Care Team Description 11/16/2019 Anesthesia Event Ron Valdes, MIGEL 11/16/2019 Surgery Tae Dodge PACEMAKER GEN & LEADS MD Phil - INSERTION W/ MAC ANESTHESIA (SING/DUAL/MULT ) 11/14/2019 Anesthesia Event Esau Peralta Jr., MD 11/14/2019 Outside Orders Caroline Bangura, MEDICAL RECORDS SECRETARY, RPSGT 11/12/2019 - Hospital Encounter General Internal Dante Martinez MD Cerebrovascular accident (CVA), unspecif ied mechanism (HCC); 11/17/2019 Medicine Ilana Underwood, Acute ischem ic stroke (HCC); Hemiparesis of left nondominant side, un specified hemiparesis etiology (HCC); Esdras Osorio MD Encephalopathy acute; Acquired hypoth yroidism; Bradycardia; Chronic atrial fibrillation; TIA (transient ischemic attack) 11/12/2019 Travel 11/12/2019 Orders Only Internal Medicine Dante Martinez MD after 01/14/2019 Social History Tobacco Use Types Packs/Day Years Used Date Current Every Day Smoker Smokeless Tobacco: Never Used Alcohol Use Drinks/Week oz/Week Comments No Alcohol Habits Answer Date Recorded How often do you have a drink containing alcohol? Never 11/12/2019 How many drinks containing alcohol do you have on a typical Not asked day when you are drinking? How often do you have six or more drinks on one occasion? No t asked Sex Assigned at Date Recorded Not on file Job Start Date Occupation Industry Not on file Not on file Not on file Travel History Travel Start Travel End No recent travel history available. Last Filed Vital Signs Vital Sign Reading Time Taken Blood Pressure 132/63 11/17/2019 11:23 AM CDT Pulse 64 11/17/2019 11:23 AM CDT Temperature 36.1 C (97 F) 11/17/2019 11:23 AM CDT Respiratory Rate 18 11/17/2019 11:23 AM CDT Oxygen Saturation 97% 11/17/2019 11:23 AM CDT Inhaled Oxygen Concentration 21% 11/14/2019 5:40 AM CDT Weight 87.6 kg (193 lb 2 oz) 11/17/2019 5:00 A M CDT Height 162.6 cm (5' 4") 11/12/2019 5:00 PM CDT Body Mass Index 33.15 11/17/2019 5:00 AM CDT Plan of Treatment Health Maintenance Due Date Last Done Comments BREAST CANCER SCREENING 1945 COLON CANCER SCREENING COLONOSCOPY 1945 PNEUMOCOCCAL 65+ LOW/MEDIUM RISK (1 of 2 - PCV13) 12/12/2011 MEDICARE ANNUAL WELLNESS (YEAR 2 or FIRST YEAR if no 11/18/2012 IPPE) INFLUENZA VACCINE (Season Ended) 2020 Implants Implanted Type Area Creative Services Director Device Shelf Expiration Model / Identifier Date Serial / Lot Capsurefix Novus Mri Surescan 5076- 45 Cm MEDTRONI C 5076-45 / Implanted: Qty: 1 on 11/16/2019 by Tae Dodge MD / [id number] Xt Mri Sure Scan MEDTRONIC [id number] / Implanted: Qty: 1 on 11/16/2019 by Tae Dodge MD / Selectsecure Mri Surescan 3830 - 69 Cm MEDTRONIC [id number] / Implanted: Qty: 1 on 11/16/2019 by Tae Dodge MD / Procedures Procedure Name Priority Date/Time Associated Comments Diagnosis ARRYTHMIA IMPLANT 11/18/2019 12:31 REPORT - SCAN PM CDT REPORT OF PROCEDURE - 11/18/2019 12:20 ENDOSCOPY SCAN PM CDT CARDIAC CATH REPORT - 11/18/2019 12:20 SCAN PM CDT ARRYTHMIA IMPLANT 11/18/2019 12:20 REPORT - SCAN PM CDT RHYTHM STRIP - SCAN 11/18/2019 12:20 PM CDT XR CHEST 1 VIEW Routine 11/17/2019 8:30 Results for this PORTABLE/BEDSIDE AM CDT procedure a re in the results section. ECG 12-LEAD Routine 11/17/2019 7:05 Results for this AM CDT procedure are i n the results section. BUN AND CREATININE Routine 11/17/2019 5:39 Resul ts for this W/RATIO AM CDT procedure are i n the results section. ELECTROLYTE PANEL Routine 11/17/2019 5:39 Result s for this AM CDT procedure are i n the results section. CBC (HEMOGRAM ONLY) Routine 11/17/2019 5:39 Resu lts for this AM CDT procedure are i n the results section. POCT-GLUCOSE METER Routine 11/16/2019 9:26 Resul ts for this PM CDT procedure are i n the results section. XR CHEST 1 VIEW Routine 11/16/2019 6:10 Results for this PORTABLE/BEDSIDE PM CDT procedure a re in the results section. POCT-GLUCOSE METER Routine 11/16/2019 5:24 Resul ts for this PM CDT procedure are i n the results section. ECG 12-LEAD Routine 11/16/2019 3:34 PM CDT Procedure Note - Interface, External Ris In - 11/16/2019 3:37 PM CDT Ventricular Rate 139 BPM Atrial Rate 33 BPM QRS Duration 130 ms Q-T Interval 384 ms QTC Calculation(Bazett) 584 ms R Webster -8 degrees T Webster 168 degrees Electronic ventricular pacem mamta When compared with ECG of 16:53, Electronic ventricular pacem mamta has replaced Atrial fibrillation Vent. rate has increased BY 80 BPM ECG 12-LEAD STAT 11/16/2019 3:34 PM Results for this CDT procedure are i n the results section. PACEMAKER GEN & LEADS - 11/16/2019 12:25 PM Bradycardi a INSERTION W/ MAC CDT ANESTHESIA (SING/DUAL/MULT) SARS-COV2/RT-PCR ([facility] & STAT 11/16/2019 10:31 AM Results for this REF LABS) CDT procedure are i n the results section. POCT-GLUCOSE METER Routine 11/16/2019 6:42 AM Re sults for this CDT procedure are i n the results section. POCT-GLUCOSE METER Routine 11/15/2019 8:47 PM Re sults for this CDT procedure are i n the results section. TRANSFUSION SERVICE 11/15/2019 6:01 PM REPORT - SCAN CDT POCT-GLUCOSE METER Routine 11/15/2019 5:32 PM Re sults for this CDT procedure are i n the results section. POCT-GLUCOSE METER Routine 11/15/2019 7:47 AM Re sults for this CDT procedure are i n the results section. CBC W/PLT COUNT & AUTO Routine 11/15/2019 4:50 AM Results for this DIFFERENTIAL CDT procedure are i n the results section. PROTHROMBIN TIME/INR Routine 11/15/2019 4:50 AM Results for this CDT procedure are i n the results section. CBC W/PLT COUNT & AUTO Routine 11/15/2019 4:50 AM Results for this DIFFERENTIAL CDT procedure are i n the results section. MAGNESIUM Routine 11/15/2019 4:50 AM Results for this CDT procedure are i n the results section. BASIC METABOLIC PANEL (7) Routine 11/15/2019 4:50 AM Results for this CDT procedure are i n the results section. ECHOCARDIOGRAM REPORT - 11/14/2019 9:21 PM SCAN CDT POCT-GLUCOSE METER Routine 11/14/2019 9:04 PM Re sults for this CDT procedure are i n the results section. SARS-COV2/RT-PCR ([facility] & Routine 11/14/2019 3:02 PM Results for this REF LABS) CDT procedure are i n the results section. POCT-GLUCOSE METER Routine 11/14/2019 12:41 PM Re sults for this CDT procedure are i n the results section. ECHO W CONTRAST & DOPPLER Routine 11/14/2019 10:21 AM Results for this CDT procedure are i n the results section. ABORH, MANUAL STAT 11/14/2019 5:30 AM Results for this CDT procedure are i n the results section. CBC W/PLT COUNT & AUTO Routine 11/14/2019 4:01 AM Results for this DIFFERENTIAL CDT procedure are i n the results section. TYPE AND SCREEN, Routine 11/14/2019 4:01 AM Resu lts for this AUTOMATED CDT procedure are i n the results section. PROTHROMBIN TIME/INR Routine 11/14/2019 4:01 AM Results for this CDT procedure are i n the results section. CBC W/PLT COUNT & AUTO Routine 11/14/2019 4:01 AM Results for this DIFFERENTIAL CDT procedure are i n the results section. MAGNESIUM Routine 11/14/2019 4:01 AM Results for this CDT procedure are i n the results section. BASIC METABOLIC PANEL (7) Routine 11/14/2019 4:01 AM Results for this CDT procedure are i n the results section. POCT-GLUCOSE METER Routine 11/13/2019 9:40 PM Re sults for this CDT procedure are i n the results section. POCT-GLUCOSE METER Routine 11/13/2019 5:35 PM Re sults for this CDT procedure are i n the results section. POCT-GLUCOSE METER Routine 11/13/2019 12:08 PM Re sults for this CDT procedure are i n the results section. MR BRAIN WITHOUT IV Routine 11/13/2019 11:38 AM R esults for this CONTRAST CDT procedure are i n the results section. CT/CTA CAROTID AZAEL 11/13/2019 8:10 AM Result s for this CDT procedure are i n the results section. CTA BRAIN AZAEL 11/13/2019 8:10 AM Results for this CDT procedure are i n the results section. URINALYSIS W/ REFLEX Routine 11/13/2019 1:30 AM Results for this URINE CULTURE CDT procedure are in the results section. T4, FREE Routine 11/13/2019 1:25 AM Results for this CDT procedure are i n the results section. TSH/FREE T4 IF INDICATED Routine 11/13/2019 1:25 AM Results for this CDT procedure are i n the results section. VITAMIN B12 AND FOLATE Routine 11/13/2019 1:25 AM Results for this CDT procedure are i n the results section. HEMOGLOBIN A1C Routine 11/13/2019 1:25 AM Result s for this CDT procedure are i n the results section. CBC (HEMOGRAM ONLY) Routine 11/13/2019 1:25 AM R esults for this CDT procedure are i n the results section. LIPID PANEL Routine 11/13/2019 1:25 AM Results for this CDT procedure are i n the results section. HEPATIC FUNCTION PANEL Routine 11/13/2019 1:25 AM Results for this CDT procedure are i n the results section. BASIC METABOLIC PANEL (7) Routine 11/13/2019 1:25 AM Results for this CDT procedure are i n the results section. BLOOD CULTURE Routine 11/12/2019 10:22 PM Results for this CDT procedure are i n the results section. POCT-GLUCOSE METER Routine 11/12/2019 9:02 PM Re sults for this CDT procedure are i n the results section. ECG 12-LEAD Routine 11/12/2019 4:53 PM Results for this CDT procedure are i n the results section. ECG 12-LEAD Routine 11/12/2019 4:52 PM Results for this CDT procedure are i n the results section. DIGOXIN LEVEL Routine 11/12/2019 3:01 PM Results for this CDT procedure are i n the results section. XR CHEST 1 VIEW Routine 11/12/2019 2:26 PM Resul ts for this PORTABLE/BEDSIDE CDT procedure a re in the results section. after 01/14/2019 Results ARRYTHMIA IMPLANT REPORT - SCAN (11/18/2019 12:31 PM CDT)Only the most recent of 2 resultswithin the time period is included. Narrative Performed At This result has an attachment that is no t available. EKG-SCANNED (11/18/2019 12:20 PM CDT) Narrative Performed At This result has an attachment that is no t available. CARDIAC CATH REPORT - SCAN (11/18/2019 12:20 PM CDT) Narrative Performed At This result has an attachment that is no t available. RHYTHM STRIP - SCAN (11/18/2019 12:20 PM CDT) Narrative Performed At This result has an attachment that is no t available. XR chest 1 view portable / bedside (11/17/2019 8:30 AM CDT)Only the most recent of3 resultswithin the time period is included. Specimen Narrative Performed At FINAL REPORT [facility] RAD, CHEST, 1 VIEW, NON DEPT INDICATION: s/p pacemaker/defibrillator; evaluation for pneumothorax COMPARISON: Prior day's exam FINDINGS: Portable frontal view of the c hest. IMPRESSION: Support Lines: Stable pacer apparatus. Lungs and pleura: Unchanged appearance o f the interstitial markings. Questionable trace right effusion. No pn eumothorax. Heart and mediastinum: Stable contours. Additional findings: None. Signed: JR Wilkinson Robert MD Report Verified Date/Time:11/17/2019 08:51:03 Reading Location: [facility] Reading [facility] Procedure Note Interface, External Ris In - 11/17/2019 8:53 AM CDT FINAL REPORT RAD, CHEST, 1 VIEW, NON DEPT INDICATION: s/p pacemaker/defibrillator; evaluation for pneumothorax COMPARISON: Prior day's exam FINDINGS: Portable frontal view of the c hest. IMPRESSION: Support Lines: Stable pacer apparatus. Lungs and pleura: Unchanged appearance o f the interstitial markings. Questionable trace right effusion. No pn eumothorax. Heart and mediastinum: Stable contours. Additional findings: None. Signed: JR Wilkinson Robert MD Report Verified Date/Time: 11/17/2019 0 8:51:03 Reading Location: [facility] y Reading Room Performing Organization Address City/State/Zipcode Phone Number GE RIS EKG 12 lead (11/17/2019 7:05 AM CDT)Only the most recent of4 resultswithin the time period is included. Specimen Narrative Performed At Ventricular Rate 70 BPM GE MUSE Atrial Rate 468 BPM QRS Duration 80 ms Q-T Interval 386 ms QTC Calculation(Bazett) 416 ms R Webster 2 degrees T Webster 233 degrees Demand pacemaker;interpretation is b ased on intrinsic rhythm Atrial fibrillation with premature ventricular or aber rantly conducted complexes Nonspecific ST and T wave abnormality , probably digitalis effect Abnormal ECG When compared with ECG of 16-NOV-2019 15 :34, Atrial fibrillation has replaced Electro krzysztof ventricular pacemaker Vent. rate has decreased BY69 BPM Confirmed by MD Morgan, [facility] ([id number]) on 11/17/2019 5:0 2:10 PM Procedure Note Interface, External Ris In - 11/17/2019 5:02 PM CDT Ventricular Rate 70 BPM Atrial Rate 468 BPM QRS Duration 80 ms Q-T Interval 386 ms QTC Calculation(Bazett) 416 ms R Webster 2 degrees T Webster 233 degrees Demand pacemaker; interpretation is bas ed on intrinsic rhythm Atrial fibrillation with premature ventr icular or aberrantly conducted complexes Nonspecific ST and T wave abnormality , probably digitalis effect Abnormal ECG When compared with ECG of 16-NOV-2019 15 :34, Atrial fibrillation has replaced Electro krzysztof ventricular pacemaker Vent. rate has decreased BY 69 BPM Confirmed by MD Morgan, [place] ([id number]) on 11/17/2019 5:02:10 PM Performing Organization Address City/State/Zipcode Phone Number GE MUSE BUN and Creatinine (11/17/2019 5:39 AM CDT) BUN 18 7 - 21 mg/dL [facility] ER Creatinine 1.12 0.57 - 1.25 mg/dL [facility] ER BUN/Creatinine Ratio 16.1Comment: For a [facility] normal individual on a [facility] normal diet, the reference interval for the mass ratio ranges between 12:1 and 20:1 (BUN in mg/dL/creatinine in mg/dL) EGFR 48Comment: ESTIMATED GFR mL/min/1.73 sq m [facility] IS NOT ACCURATE [facility] CREATININE CLEARANCE IN PREDICTING GLOMERULAR FILTRATION RATE. ESTIMATED GFR IS NOT APPLICABLE FOR DIALYSIS PATIENTS. Specimen Blood Narrative Performed At Alterations Workroom Clerk ID - [place] [facility] Performing Organization Address City/[facility]/Zipcode Phone Number [place] [phone] [place] [address] CENTER CBC (Hemogram only) (11/17/2019 5:39 AM CDT)Only the most recent of2 results within the time period is included. WBC 11.4 (H) 3.5 - 10.5 K/L [facility] RBC 4.05 3.93 - 5.22 M/L [facility] Hemoglobin 10.9 (L) 11.2 - 15.7 GM/DL [facility] Hematocrit 36.0 34.1 - 44.9 % [facility] MCV 88.9 79.4 - 94.8 fL [facility] MCH 26.9 25.6 - 32.2 pg [facility] MCHC 30.3 (L) 32.2 - 35.5 GM/DL [facility] RDW 17.4 (H) 11.7 - 14.4 % [facility] Platelets 213 150 - 450 K/CU MM [facility] MPV 10.9 9.4 - 12.3 fL [facility] nRBC 0 0 - 0 /100 WBC [facility] Specimen Blood Performing Organization Address City/[facility]/[place] Phone Number [address] [address] CENTER Electrolytes (11/17/2019 5:39 AM CDT) Sodium 141 136 - 145 meq/L [facility] Potassium 4.4 3.5 - 5.1 meq/L [facility] Chloride 106 98 - 107 meq/L [facility] CO2 30 (H) 22 - 29 meq/L [facility] Specimen Blood Narrative Performed At Alterations Workroom Clerk ID - [facility] Performing Organization Address [facility]/[employer] Phone Number [address] [phone] CENTER POC-Glucose meter (11/16/2019 9:26 PM CDT)Only the most recent of12 results within the time period is included. POC-Glucose Meter 134 (H)Comment: : TESTED 70 - 110 mg/dL [facility] AT [address], [address]: Alterations Workroom Clerk/Hammer Driver ID = [id number] for AWILDA SUZANNE Specimen Blood Performing Organization Address [facility]/[employer] Phone Number [address] [address] CENTER SARS-CoV2/RT-PCR ([facility]) (11/16/2019 10:31 AM CDT)Only the most recent of2 resultswithin the time period is included. SARS-COV2/RT-PCR Not Detected Not Detected, Negative [facility] SARS-COV-2 PERFORMING LAB [facility] Specimen Other Narrative Performed At Negative results do not preclude SARS-CoV-2 [facility] infection and should not be used as the sole basis for patient management decisions. Negative results must be combined with clinical observations, patient history, and epidemiological information. A false negative result may occur if a specimen is improperly collected, transported or handled. The limit of detection for this assay is 250 copies/mL. This SARS CoV-2 test is a rapid, real-time RT-PCR test intended for the qualitative detection of nucleic acid from SARS-CoV-2 in a nasopharyngeal swab specimen collected from individuals suspected of COVID-19 by their healthcare provider. This test has not been Food and Drug Administration (FDA) cleared or approved and has been authorized by FDA under an Emergency Use Authorization (EUA). This EUA will be effective until the declaration that circumstances exist justifying the authorization of the emergency use of in vitro diagnostic tests for detection and/or diagnosis of COVID-19 is terminated under Section 564(b)(2) of the Act or the EUA is revoked under Section 564(g) of the Act. Fact Sheet for Healthcare Providers: https://www.[employer]/Documents/Xpert%20Xpre ss%20SARS%20CoV-2/Fact%20Sheets/3023802%20SAR S-COV-2%20HEALTHCARE%20PROVIDERS%20FACT%20SHEE T.pdf Fact Sheet for Healthcare Patients: https://www.[employer].com/Documents/Xpert%20Xpre ss%20SARS%20CoV-2/Fact%20Sheets/3023801%20SAR S-COV-2%20PATIENT%20FACT%20SHEET.pdf Performing Laboratory: [address] [place] [address] Performing Organization Address City/State/Zipcode Phone Number [address] [address] CENTER TRANSFUSION SERVICE REPORT - SCAN (11/15/2019 6:01 PM CDT) Narrative Performed At This result has an attachment that is no t available. CBC with platelet count + automated diff (11/15/2019 4:50 AM CDT)Only the most recent of2 resultswithin the time period is included. WBC 9.9 3.5 - 10.5 K/L [facility] RBC 4.20 3.93 - 5.22 M/L [facility] Hemoglobin 11.3 11.2 - 15.7 GM/DL [facility] Hematocrit 37.0 34.1 - 44.9 % [facility] MCV 88.1 79.4 - 94.[address] [facility] MCH 26.9 25.6 - 32.[address] [facility] MCHC 30.5 (L) 32.2 - 35.5 GM/DL [facility] RDW 17.7 (H) 11.7 - 14.4 % [facility] Platelets 239 150 - 450 K/CU MM [facility] MPV 11.2 9.4 - 12.[address] [facility] nRBC 0 0 - 0 /[address] [facility] % Neutros 72 % [facility] % Lymphs 14 % [facility] % Monos 9 % [facility] % Eos 4 % [facility] % Baso 1 % [facility] # Neutros 7.13 (H) 1.56 - 6.13 K/L [facility] # Lymphs 1.37 1.18 - 3.74 K/L [facility] # Monos 0.84 (H) 0.24 - 0.36 K/L [facility] # Eos 0.41 (H) 0.04 - 0.36 K/L [facility] # Baso 0.06 0.01 - 0.08 K/L [facility] Immature Granulocytes-Relative 0 0 - 1 % C HI [facility] Specimen Blood Performing Organization Address [facility]/[employer] Phone Number [address] [address] CENTER Prothrombin time/INR (11/15/2019 4:50 AM CDT)Only the most recent of2 results within the time period is included. Protime 13.0 11.9 - 14.2 seconds [facility] INR 1.0 <=5.9 [facility] Specimen Blood Narrative Performed At Effective 12/15/2018: PT Reference Range [facility] Change New: 11.9-14.2Previous: 11.7-14.7 RECOMMENDED COUMADIN/WARFARIN INR THERAPY RANGES STANDARD DOSE: 2.0-3.0Includes: PROPHYLAXIS for venous thrombosis, systemic embolization; TREATMENT for venous thrombosis and/or pulmonary embolus. HIGH RISK: Target INR is 2.5-3.5 for patients wiht mechanical heart valves. Within 24 hours, if on Coumadin Performing Organization Address [facility]/[employer] Phone Number [address] [address] CENTER Magnesium (11/15/2019 4:50 AM CDT)Only the most recent of2 resultswithin the time period is included. Magnesium 2.1Comment: Specimen slightly 1.6 - 2.6 mg/dL [facility] hemolyzed [facility] Specimen Blood Narrative Performed At Alterations Workroom Clerk RENETTA Alcazar [facility] Performing Organization Address City/[facility]/Zipcode Phone Number [address] [address] CENTER Basic metabolic panel (11/15/2019 4:50 AM CDT)Only the most recent of3 results within the time period is included. Sodium 142 136 - 145 meq/L [facility] Potassium 4.2Comment: Specimen slightly 3.5 - 5.1 meq/L [facility] hemolyzed [facility] Chloride 106 98 - 107 meq/L [facility] CO2 29 22 - 29 meq/L [facility] BUN 13 7 - 21 mg/dL [facility] Creatinine 0.76Comment: Specimen 0.57 - 1.25 mg/dL [facility] Glucose 120 (H) 70 - 105 mg/dL [facility] Calcium 8.8 8.4 - 10.2 mg/dL [facility] EGFR 75Comment: ESTIMATED GFR IS mL/min/1.73 sq m [facility] NOT ACCURATE CREATININE [facility] CLEARANCE IN PREDICTING GLOMERULAR FILTRATION RATE. ESTIMATED GFR IS NOT APPLICABLE FOR DIALYSIS PATIENTS. Specimen Blood Narrative Performed At Alterations Workroom Clerk RENETTA Segovia ANJALI Alcazar [facility] Performing Organization Address City/State/Zipcode Phone Number [facility] [address] [place] [address] PIERZ ECHOCARDIOGRAM REPORT - SCAN (11/14/2019 9:21 PM CDT) Narrative Performed At This result has an attachment that is no t available. 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 Clinical History Arrhythmia, Afib, CHF, COPD, CAD, HTN, Smoker, Stroke Contrast Medium: Definity. Height: 64 inches Weight: 88 kg (194 lbs) BSA: 1.93 m^2 BMI: 33.3 kg/m^2 HR: 74 bpm BP: 148/68 mmHg Summary IV saline contrast injection was negative for a PFO (patent foramen ovale) at rest and post Valsalva . The left ventricle is chamber size (by vol index) is normal (female - LVED vol - 29-61ml/m2). All of the LV segments are hyperkinetic . LVEF by Masters's method of disk assessment is increased (>60%) . Degree of diastolic dysfunction (LAP assessment) is inconclusive due to arrhythmia . Estimated peak systolic PA pressure is 45-50 mmHg (mild pulmonary hypertension) . Previous Study No prior studies available for comparis on. Signature Findings Technical Quality: Technically adequate exam. Rhythm/BPAtrial fibrillation Left Ventricle LV endocardium is adequately visualized with IV ul trasound enhancing agent. The left ventr icle is ch coy size (by vol index) is normal (fem amanda - LV ED vol - 29-61ml/m2). No evidence of LV hy pertrophy. All of the LV segments are hy perkinetic . Global LV systolic function hy perdynamic . LVEF by Masters's method of disk as sessment is increased (>60%) . Degree of di astolic dysfunction (LAP assessment) is in conclusive due to arrhythmia . Left AtriumLA size is mildly enlarged (35-41 ml/m2) . Right VentricleThe right ventricular chamber size and systolic fu nction are within normal limits. Right Atrium RA size is normal. Atrial SeptumIV saline contrast injection was negative for a PF O (p atent foramen ovale) at rest and post Va lsalva . Aortic Valve Mild AoV cusp thickening. Mi ld aortic regurgitation. Mitral Valve Mild mitral annular calcification. Mi ld MV leaflet thickening. Mi ld mitral regurgitation. Tricuspid ValveMild tricuspid regurgitation. Es timated peak systolic PA pressure is 45- 50 mmHg (m ild pulmonary hypertension) . Pulmonic Valve Normal PV structure and function by limited views an d Doppler. AortaAortic root size (SInus of Valsalva diameter) i s no rmal . PericardiumNo pericardial effusion is visualized. IVC/SVC/PA/PV/PleuralThe estimated RA pressure by IVC dynamics 5-10mmHg . Chambers/Structures Left Atrium LA Volume: 77.53 ml LA Area: 20.64 cm^2 LA Vol. Index: 40 ml/m^2 Left Ventricle LVIDd: 4.54 cm LVIDs: 3.08 cm LV Septum Diastolic: 1.17 cm LV PW Diastolic: 1.1 cm LV FS: 32.2 % LVEDV Masters's:79.63 ml LVESV Masters's:24.29 mlLVEDVI: 41 ml/m^2 LVEF Masters's: 69.5 %LVESV I: 13 ml/m^2 LVOT Diameter: 2.02 cm Aorta Ao Root S of Peggy.: 2.76 cm Doppler/Quantitative Measurements Aortic Valve Peak Velocity: 1.1 m/s Mean Velocity: 0.67 m/s Peak Gradient: 4.82 mmHg Mean Gradient: 2.14 mmHg AV Area (continuity): 4 cm^2 AV VTI: 20.26 cm AV DVI: 1.25 LVOT Peak Velocity: 1.12 m/s Peak Gradient: 4.99 mmHg Mean Velocity: 0.73 m/s Mean Gradient: 2.44 mmHg LVOT Diameter: 2.02 cmLVOT VTI: 25.28 cm LVOT Area: 3.2 cm^2 LVOT SV:80.97 ml LVOT CO: 5.99 l/min LVOT CI: 3.1 l/min/m^2 Tricuspid Valve TR Velocity: 3.12 m/s TR Gradient: 39.03 mmHg Procedure Note Interface, External Ris In - 11/14/2019 2:15 PM CDT Transthoracic Echocardiography Report (TTE) Demographics Patient Name LA BEST Date of Study 11/14/2019 JAN Gender Female Visit Number [id number] Race Unknown [place] [id number] Number Date of 1945 Referri Physician NickG YASMINE Age 73 year(s) 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 Clinical History Arrhythmia, Afib, CHF, COPD, CAD, HTN, S moker, Stroke Contrast Medium: Definity. Height: 64 inches Weight: 88 kg (194 lbs ) BSA: 1.93 m^2 BMI: 33.3 kg/m^2 HR: 74 bpm BP: 148/68 mmHg Summary IV saline contrast injection was negati ve for a PFO (patent foramen ovale) at rest and post Valsalva . The left ventricle is chamber size (by vol index) is normal (female - LVED vol - 29-61ml/m2). All of the LV segmen ts are hyperkinetic . LVEF by Masters's method of disk assessment is increased (>60%) . Degree of diastolic dysfunction (LAP as sessment) is inconclusive due to arrhythmia . Estimated peak systolic PA pressure is 45-50 mmHg (mild pulmonary hypertension) . Previous Study No prior studies available for comparis on. Signature Findings Technical Quality: Technically adequate exam. Rhythm/BP Atrial fibrillat ion Left Ventricle LV endocardium i s adequately visualized with IV ultrasound enhan cing agent. The left ventricle is chamber size (by vol index) is normal (female - LVED vol - 29-61 ml/m2). No evidence of LV hypertrophy. All of the LV segments are hyperkinetic . G lobal LV systolic function hyperdynamic . L VEF by Masters's method of disk assessment is in creased (>60%) . Degree of diastolic dysfun ction (LAP assessment) is inconclusive due to arrhythmia . Left Atrium LA size is mildl y enlarged (35-41 ml/m2) . Right Ventricle The right ventri cular chamber size and systolic function are wit hin normal limits. Right Atrium RA size is gunjan l. Atrial Septum IV saline contra st injection was negative for a PFO (patent foramen ovale) at rest and post Valsalva . Aortic Valve Mild AoV cusp th ickening. Mild aortic regu rgitation. Mitral Valve Mild mitral hernandez lar calcification. Mild MV leaflet thickening. Mild mitral regu rgitation. Tricuspid Valve Mild tricuspid r egurgitation. Estimated peak s ystolic PA pressure is 45-50 mmHg (mild pulmonary hypertension) . Pulmonic Valve Normal PV struct ure and function by limited views and Doppler. Aorta Aortic root size (SInus of Valsalva diameter) is normal . Pericardium No pericardial e ffusion is visualized. IVC/SVC/PA/PV/Pleural The estimated RA pressure by IVC dynamics 5-10mmHg . Chambers/Structures Left Atrium LA Volume: 77.53 ml LA Area: 20.64 cm^2 LA Vol. Index: 40 ml/m^2 Left Ventricle LVIDd: 4.54 cm LVIDs: 3.08 cm LV Septum Diastolic: 1.17 cm LV PW Diastolic: 1.1 cm LV FS: 32.2 % LVEDV Masters's:79.63 ml LVESV Masters's:24.29 ml LVEDVI: 41 ml/m^2 LVEF Masters's: 69.5 % LVESVI: 13 ml/m^2 LVOT Diameter: 2.02 cm Aorta Ao Root S of Peggy.: 2.76 cm Doppler/Quantitative Measurements Aortic Valve Peak Velocity: 1.1 m/s Mean Velocity: 0.67 m/s Peak Gradient: 4.82 mmHg Mean Gradient: 2.14 mmHg AV Area (continuity): 4 cm^2 AV VTI: 20.26 cm AV DVI: 1.25 LVOT Peak Velocity: 1.12 m/s Pea k Gradient: 4.99 mmHg Mean Velocity: 0.73 m/s Cheli n Gradient: 2.44 mmHg LVOT Diameter: 2.02 cm LVO T VTI: 25.28 cm LVOT Area: 3.2 cm^2 LVO T SV:80.97 ml LVOT CO: 5.99 l/min LVO T CI: 3.1 l/min/m^2 Tricuspid Valve TR Velocity: 3.12 m/s TR Gradient: 39.03 mmHg Performing Organization Address [facility] Phone Number [facility] MKCKESSON CPACS ABORH, manual (11/14/2019 5:30 AM CDT) ABO Grouping O [facility] Rh Factor NEG [facility] Specimen Blood Performing Organization Address [facility] Phone Number [address] [address] Type and screen, automated (11/14/2019 4:01 AM CDT) ABO/RH AUTOMATED (BEAKER) O NEGATIVE [facility] Ab Scrn NEGATIVE [facility] Specimen Blood Performing Organization Address [facility] Phone Number [address] [address] MR brain without IV contrast (11/13/2019 11:38 AM CDT) Specimen Narrative Performed At FINAL REPORT [facility] MR, BRAIN, WITHOUT CONTRAST INDICATION: Neuro deficit, acute, persis tent or progressing TECHNIQUE: Multiplanar, multisequence MR imaging of the brain without intravenous contrast. COMPARISON: Correlation to CT angiograph y November 13, 2019, approximately three hours prior FINDINGS: Limited by motion and dental artifact wh ich limits visibility of the frontal poles for diffusion restriction and T2 weighted imaging. No large territory infarction is detected. There is no discernible intracranial hemorrhage. Volume loss res ults in passive expansion of the CSF spaces. Chronic involutional jewels nges are noted in the brain parenchyma suggesting sequela of microva scular disease. Visible paranasal sinuses and mastoid air cells are clear. There is normal bone marrow signal intensity within the calvarium and skull base. IMPRESSION: Technically limited examination as descr ibed. No discernible acute infarct or parenchy mal hemorrhage. Signed: JR Wilkinson Robert MD Report Verified Date/Time:11/13/2019 11:43:35 Reading Location: [address] Room Procedure Note Interface, External Ris In - 11/13/2019 11:45 AM CDT FINAL REPORT MR, BRAIN, WITHOUT CONTRAST INDICATION: Neuro deficit, acute, persis tent or progressing TECHNIQUE: Multiplanar, multisequence MR imaging of the brain without intravenous contrast. COMPARISON: Correlation to CT angiograph y November 13, 2019, approximately three hours prior FINDINGS: Limited by motion and dental artifact wh ich limits visibility of the frontal poles for diffusion restriction and T2 weighted imaging. No large territory infarction is detected. There is no discernible intracranial hemorrhage. Volume loss res ults in passive expansion of the CSF spaces. Chronic involutional jewels nges are noted in the brain parenchyma suggesting sequela of microva scular disease. Visible paranasal sinuses and mastoid air cells are clear. There is normal bone marrow signal intensity within the calvarium and skull base. IMPRESSION: Technically limited examination as descr ibed. No discernible acute infarct or parenchy mal hemorrhage. Signed: JR Wilkinson Robert MD Report Verified Date/Time: 11/13/2019 1 1:43:35 Reading Location: [address] Room Performing Organization Address City/State/Zipcode Phone Number Floored CTA carotid (11/13/2019 8:10 AM CDT) Specimen Narrative Performed At FINAL REPORT Floored CT, CTANGIOBRAIN, CT, CAROTID, ANGIO BRAIN CT WITHOUT CONTRAST INDICATION: Neuro deficit, acute, stroke suspected COMPARISON: None TECHNIQUE: Rapid acquisition spiral images were obt ained between the aortic arch and the cranial vertex during intravenou s contrast infusion to reconstruct axial images and angiographi c 3D maximum intensity projections (MIP). 3-D volumetric reform atted images were created at a dedicated workstation. Precontrast clau ges of the brain were also obtained. Stenosis evaluation reported in complian ce with NASCET criteria. DOSE REDUCTION: Dose modulation, iterati ve reconstruction, and/or weight-based adjustment of the mA/kV was utilized to reduce the radiation dose to as low as reasonably a chievable. FINDINGS: CT BRAIN: Cerebral parenchyma: Mild volume loss. N o discernible mcgill-white disruption. No parenchymal hemorrhage. Midline structures: Normally positioned. Cerebellum and brainstem: Normal. Ventricles: Ex vacuo dilation Extra-axial spaces: Unremarkable. Calvarium and skull base: Intact. Paranasal sinuses and mastoid air cells: Visible chambers are clear. Orbital contents: Included portions unre markable. CTA BRAIN: Internal carotid arteries: Petrous, cave rnous and supraclinoid portions patent. Middle cerebral arteries: Patent to dist al branches. Anterior cerebral arteries: Patent. Inta ct A-comm. Basilar system: Patent vertebrobasilar s ystem. Posterior cerebral arteries:Patent beyon d the quadrigeminal segments. Venous opacification: Major dural sinuse s unremarkable for bolus timing. Additional findings: None. CTA NECK: Common carotid arteries: The common hull tid arteries are normal in size.Retropharyngeal course bilatera lly maximally at the C1 level. Bifurcations: Atherosclerotic disease wi th less than 50% narrowing bilaterally by NASCET criteria Cervical internal carotid arteries: No f low limiting stenosis. Vertebral arteries: Codominant. No origi n stenosis. Arch anatomy: Conventional. Nonvascular findings: No acute findings within the limits of a rterial phase imaging. IMPRESSION: Chronic involutional changes without vis ible recent infarct or hemorrhage. 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 Patent intracranial circulation. Signed: JR Wilkinson Robert MD Report Verified Date/Time:11/13/2019 08:24:31 Reading Location: [facility] C0[facility] Neuro [facility] Room Procedure Note Interface, External Ris In - 11/13/2019 8:27 AM CDT FINAL REPORT CT, CTANGIO BRAIN, CT, CAROTID, ANGIO BRAIN CT WITHOUT CONTRAST INDICATION: Neuro deficit, acute, stroke suspected COMPARISON: None TECHNIQUE: Rapid acquisition spiral images were obt ained between the aortic arch and the cranial vertex during intravenou s contrast infusion to reconstruct axial images and angiographi c 3D maximum intensity projections (MIP). 3-D volumetric reform atted images were created at a dedicated workstation. Precontrast clau ges of the brain were also obtained. Stenosis evaluation reported in complian ce with NASCET criteria. DOSE REDUCTION: Dose modulation, iterati ve reconstruction, and/or weight-based adjustment of the mA/kV was utilized to reduce the radiation dose to as low as reasonably a chievable. FINDINGS: CT BRAIN: Cerebral parenchyma: Mild volume loss. N o discernible mcgill-white disruption. No parenchymal hemorrhage. Midline structures: Normally positioned. Cerebellum and brainstem: Normal. Ventricles: Ex vacuo dilation Extra-axial spaces: Unremarkable. Calvarium and skull base: Intact. Paranasal sinuses and mastoid air cells: Visible chambers are clear. Orbital contents: Included portions unre markable. CTA BRAIN: Internal carotid arteries: Petrous, cave rnous and supraclinoid portions patent. Middle cerebral arteries: Patent to dist al branches. Anterior cerebral arteries: Patent. Inta ct A-comm. Basilar system: Patent vertebrobasilar s ystem. Posterior cerebral arteries:Patent beyon d the quadrigeminal segments. Venous opacification: Major dural sinuse s unremarkable for bolus timing. Additional findings: None. CTA NECK: Common carotid arteries: The common hull tid arteries are normal in size. Retropharyngeal course bilaterall y maximally at the C1 level. Bifurcations: Atherosclerotic disease wi th less than 50% narrowing bilaterally by NASCET criteria Cervical internal carotid arteries: No f low limiting stenosis. Vertebral arteries: Codominant. No origi n stenosis. Arch anatomy: Conventional. Nonvascular findings: No acute findings within the limits of a rterial phase imaging. IMPRESSION: Chronic involutional changes without vis ible recent infarct or hemorrhage. 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 Patent intracranial circulation. Signed: JR Wilkinson Robert MD Report Verified Date/Time: 11/13/2019 0 8:24:31 Reading Location: [address] Room Performing Organization Address City/State/Zipcode Phone Number Floored CTA brain (11/13/2019 8:10 AM CDT) Specimen Narrative Performed At FINAL REPORT Floored CT, CTANGIOBRAIN, CT, CAROTID, ANGIO BRAIN CT WITHOUT CONTRAST INDICATION: Neuro deficit, acute, stroke suspected COMPARISON: None TECHNIQUE: Rapid acquisition spiral images were obt ained between the aortic arch and the cranial vertex during intravenou s contrast infusion to reconstruct axial images and angiographi c 3D maximum intensity projections (MIP). 3-D volumetric reform atted images were created at a dedicated workstation. Precontrast clau ges of the brain were also obtained. Stenosis evaluation reported in complian ce with NASCET criteria. DOSE REDUCTION: Dose modulation, iterati ve reconstruction, and/or weight-based adjustment of the mA/kV was utilized to reduce the radiation dose to as low as reasonably a chievable. FINDINGS: CT BRAIN: Cerebral parenchyma: Mild volume loss. N o discernible mcgill-white disruption. No parenchymal hemorrhage. Midline structures: Normally positioned. Cerebellum and brainstem: Normal. Ventricles: Ex vacuo dilation Extra-axial spaces: Unremarkable. Calvarium and skull base: Intact. Paranasal sinuses and mastoid air cells: Visible chambers are clear. Orbital contents: Included portions unre markable. CTA BRAIN: Internal carotid arteries: Petrous, cave rnous and supraclinoid portions patent. Middle cerebral arteries: Patent to dist al branches. Anterior cerebral arteries: Patent. Inta ct A-comm. Basilar system: Patent vertebrobasilar s ystem. Posterior cerebral arteries:Patent beyon d the quadrigeminal segments. Venous opacification: Major dural sinuse s unremarkable for bolus timing. Additional findings: None. CTA NECK: Common carotid arteries: The common hull tid arteries are normal in size.Retropharyngeal course bilatera lly maximally at the C1 level. Bifurcations: Atherosclerotic disease wi th less than 50% narrowing bilaterally by NASCET criteria Cervical internal carotid arteries: No f low limiting stenosis. Vertebral arteries: Codominant. No origi n stenosis. Arch anatomy: Conventional. Nonvascular findings: No acute findings within the limits of a rterial phase imaging. IMPRESSION: Chronic involutional changes without vis ible recent infarct or hemorrhage. 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 Patent intracranial circulation. Signed: JR Jaja, Katt PERALTA Report Verified Date/Time:11/13/2019 08:24:31 Reading Location: [facility] C013 Neuro [facility] Room Procedure Note Interface, External Ris In - 11/21/2019 9:48 PM CDT FINAL REPORT CT, CTANGIO BRAIN, CT, CAROTID, ANGIO BRAIN CT WITHOUT CONTRAST INDICATION: Neuro deficit, acute, stroke suspected COMPARISON: None TECHNIQUE: Rapid acquisition spiral images were obt ained between the aortic arch and the cranial vertex during intravenou s contrast infusion to reconstruct axial images and angiographi c 3D maximum intensity projections (MIP). 3-D volumetric reform atted images were created at a dedicated workstation. Precontrast clau ges of the brain were also obtained. Stenosis evaluation reported in complian ce with NASCET criteria. DOSE REDUCTION: Dose modulation, iterati ve reconstruction, and/or weight-based adjustment of the mA/kV was utilized to reduce the radiation dose to as low as reasonably a chievable. FINDINGS: CT BRAIN: Cerebral parenchyma: Mild volume loss. N o discernible mcgill-white disruption. No parenchymal hemorrhage. Midline structures: Normally positioned. Cerebellum and brainstem: Normal. Ventricles: Ex vacuo dilation Extra-axial spaces: Unremarkable. Calvarium and skull base: Intact. Paranasal sinuses and mastoid air cells: Visible chambers are clear. Orbital contents: Included portions unre markable. CTA BRAIN: Internal carotid arteries: Petrous, cave rnous and supraclinoid portions patent. Middle cerebral arteries: Patent to dist al branches. Anterior cerebral arteries: Patent. Inta ct A-comm. Basilar system: Patent vertebrobasilar s ystem. Posterior cerebral arteries:Patent beyon d the quadrigeminal segments. Venous opacification: Major dural sinuse s unremarkable for bolus timing. Additional findings: None. CTA NECK: Common carotid arteries: The common hull tid arteries are normal in size. Retropharyngeal course bilaterall y maximally at the C1 level. Bifurcations: Atherosclerotic disease wi th less than 50% narrowing bilaterally by NASCET criteria Cervical internal carotid arteries: No f low limiting stenosis. Vertebral arteries: Codominant. No origi n stenosis. Arch anatomy: Conventional. Nonvascular findings: No acute findings within the limits of a rterial phase imaging. IMPRESSION: Chronic involutional changes without vis ible recent infarct or hemorrhage. 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 Patent intracranial circulation. Signed: JR Wilkinson Robert MD Report Verified Date/Time: 11/13/2019 0 8:24:31 Reading Location: [address] Room Performing Organization Address City/State/Zipcode Phone Number GE RIS Urinalysis w/Microscopic + Reflex to Culture (11/13/2019 1:30 AM CDT) Color, UA Light Yellow [facility] Clarity, UA Clear [facility] Specific Lewis, UA 1.012 1.001 - 1.035 [facility] pH, UA 6.0 5.0 - 8.[address] [facility] Protein, UA Negative Negative [facility] Glucose, UA Negative Negative [facility] Ketones, UA Negative Negative [facility] Bilirubin, UA Negative Negative [facility] Blood, UA Negative Negative [facility] Nitrite, UA Positive (A) Negative [facility] Leukocytes, UA Negative Negative [facility] Urobilinogen, UA 0.2 0.2 - 1.0 mg/dL [facility] RBC, UA <1 /HPF [facility] WBC, UA <1 /HPF [facility] Bacteria, UA Rare [facility] Squam Epithel, UA 1 /HPF [facility] Specimen Source [facility] Specimen Urine Narrative Performed At Alterations Workroom Clerk ID - [auto] [facility] Alterations Workroom Clerk ID - [email or web address] Performing Organization Address City/State/Zipcode Phone Number [address] [address] CENTER Vitamin B12 and Folate (11/13/2019 1:25 AM CDT) Vitamin B12 [phone] - 816 pg/mL [facility] Folate 12.20 >=7.00 ng/mL [facility] Specimen Blood Narrative Performed At [facility]ter[facility] Workroom Clerk ID - EDELMIRASIGIFREDO L [facility] Performing Organization Address City/State/Zipcode Phone Number [address] [address] CENTER TSH/Free T4 If Indicated (11/13/2019 1:25 AM CDT) TSH 10.877 (H) 0.350 - 4.940 uIU/mL [facility] Specimen Blood Narrative Performed At Alterations Workroom Clerk ID - EDELMIRASIGIFREDO L [facility] ICAL [facility] Performing Organization Address City/State/Zipcode Phone Number [address] [address] CENTER T4, free (11/13/2019 1:25 AM CDT) Free T4 0.67 (L) 0.70 - 1.48 ng/dL [facility] Specimen Blood Narrative Performed At Alterations Workroom Clerk ID - MART Kate [facility] Performing Organization Address City/State/Zipcode Phone Number [address] [address] [place] Hemoglobin A1c (11/13/2019 1:25 AM CDT) Hemoglobin A1C 6.2 (H) 4.3 - 6.1 % [facility] Specimen Blood Performing Organization Address City/[facility]/Zipcode Phone Number [address] [address] [place] Hepatic function panel (11/13/2019 1:25 AM CDT) Protein, Total 6.2 6.0 - 8.3 gm/dL [facility] Albumin 3.4 (L) 3.5 - 5.0 g/dL [facility] Total Bilirubin 0.6 0.2 - 1.2 mg/dL [facility] Bilirubin, Direct 0.3 0.1 - 0.5 mg/dL [facility] Alkaline Phosphatase 75 40 - 150 U/L [facility] AST 12 5 - 34 U/L [facility] ALT 13 6 - 55 U/L [facility] Specimen Blood Narrative Performed At [facility] Workroom Clerk ID - PIAYA L [facility] Performing Organization Address City/[facility]/[place] Phone Number [address] [address] [place] Lipid panel (11/13/2019 1:25 AM CDT) Triglycerides 151 mg/dL [facility] Cholesterol 121 mg/dL [facility] HDL 33 mg/dL [facility] LDL Calculated 58 mg/dL [facility] Specimen Blood Narrative Performed At Triglyceride Reference Range: [facility] Low Risk <150 [id number] High Risk 200-499 Very High Risk>=500 Cholesterol Reference Range: Low Risk <200 [id number] High Risk>240 HDL Cholesterol Reference Range: Low Risk >=60 High Risk <40 LDL Cholesterol Reference Range: Optimal<100 Near [id number] Very High >=190 [facility] Workroom Clerk ID Juliette Dickerson Performing Organization Address City/State/[place] Phone Number [facility] [address] [place] [phone] C[place] Blood Culture - Routine (Right Venipuncture) (11/12/2019 10:22 PM CDT) Result No growth in 5 days [facility] Specimen Blood Performing Organization Address [facility]/[employer] Phone Number [address] [address] C[place] Digoxin level (11/12/2019 3:01 PM CDT) Digoxin Lvl 1.77 0.80 - 2.00 ng/mL [facility] Specimen Blood Narrative Performed At [facility] Workroom Clerk ID Juliette MART Humble [facility] Performing Organization Address [facility]/[employer] Phone Number [address] [address] CENTER after 01/14/2019 Insurance Payer Benefit Plan / Group Subscriber ID Type Phone A ddress MEDICARE MEDICARE A B xxxxxxxxxxx Medicare CDCREVIEW CDCREVIEW x[place]xx [address] [place] [place] [phone] Advance Directives For more information, please contact:[address] [phone] Code Status Date Activated Date Inactivated Comments Full Code 11/12/2019 2:04 PM 11/17/2019 2:17 PM This code status was determined by: Patient
--- OUTSIDE RECORDS SUMMARY | 2020-01-15 17:47 | XMS REPORT | Continuity of Care Document ---
:1945 Author Organization [facility] t Address [address] [place] [address] Care Team Providers Name Role Phone Nathanael Kiran Primary Care Physician TERESO STRONG Attending Clinician Unavailable Michelle PERALTA, In Attending Clinician Clara PERALTA Attending Clinician Maribel Osorio MD Attending Clinician Suzanne Lewis Attending Clinician Phil Dodge MD Attending Clinician Braxton Peralta MD Attending Clinician Debbixlance CAMACHO, RPSGT, G Attending Clinician Unavailable Melina Brasher Attending Clinician TERESO STRONG Admitting Clinician Unavailable Melina Brasher Admitting Clinician Payers Payer Name Policy Policy Number Effective Expiration Source Type Date Date MEDICAREMEDICARE A xxxxxxxxxxx [facility] CDCREVIEWCDCREVIEWxxxxxxxPO xxxxxxx [place] [address] [facility] Problems Condition Condition Condition Status Onset Resolution Last Treating Co mments Source Name Details Category Date Date Treatment Clinician Date Hypothyroi Hypothyroi Disease Active [facility] dism dism 11-16 [facility] - 00:00: Medical 00 [place] Obesity Obesity Disease Active [facility] TIA TIA Disease Active [facility] (transient (transient 11-13 [facility] - ischemic ischemic 00:00: Medica l attack) attack) 00 Center Chronic Chronic Disease Active 2019- [facility] atrial atrial 11-13 [facility] - fibrillati fibrillati 00:00: Me dical on on Center Bradycardi Bradycardi Disease Active [facility] a a 11-13 [facility] Medical 00 Center Stroke Stroke Disease Active [facility] (cerebrum) (cerebrum) 11-11 [facility] - 00:00: Medical 00 [place] Acute Acute Disease Active [facility] ischemic ischemic - [facility] - stroke stroke 00:00: Medical 00 [place] R SIDE Diagnosis Active 2016-02-22 Mem oria WEAKNESS 02-08 09:52:00 l R SIDE 00:00: [place] WEAKNESS 00 Active 02/09/2016 [facility] WEAKNESS Diagnosis Active 2016-02-22 M emoria 09:52:00 l WEAKNESS Balwinder n Active [facility] Allergies, Adverse Reactions, Alerts Allergy Allergy Status Severity Reaction(s) Onset Inactive Treating Comm ents Source Name Type Date Date Clinician Sulfa Propensi Active [facility] (Sulfona ty to 11-11 [facility] - mide adverse 00:00: Medical Antibiot reaction 00 Center ics) s Social History Social Habit Start Date Stop Date Quantity Comments Source History SDOH Alcohol [facility] - Std Drinks [facility] History [facility] Alcohol [facility] Binge [facility] Sex Assigned At [facility] History SDOH Alcohol 2019-11-12 2019-11-[address] [facility] - Frequency 00:00:00 00:00:00 [facility] Social History 2016-02-09 [facility]16[facility]57 Smoking Status Start Date Stop Date Source Current every day smoker 2019-11-17 00:00:00 [facility] Medications Ordered Filled Start Stop Current Ordering Indication Dosage Frequency Signature Comments Components Source Medication Medication Date Date Medication? Clinician (SIG) Name Name digoxin No 250ug QD Take [address] (LANOXIN) 11-16 04-30 mcg by [facility] - 0.25 MG 09:56: 00:00 mouth Medical tablet 33 :00 daily. Center escitalopra 2020-0 2020- No 20mg QD Take [address] [address] m oxalate 4-30 -30 by mouth [facility] - (LEXAPRO) 09:56: 00:00 daily. Medic al 20 MG 33 :00 Center tablet bisoprolol 2019-0 2020- No 10mg QD Take [address] (ZEBETA) 10 -30 -30 by mouth Jem es - MG tablet 09:56: 00:00 daily. Medic al 33 :00 Center naltrexone 2020-0 2020- No Take by [facility] HCl 4-30 -30 mouth. [facility] - (NALTREXONE 09:56: 00:00 Medic al ORAL) 33 :00 Center escitalopra 2019-0 Yes 20mg QD Take [address] [facility] m oxalate 4-30 tablet (20 [facility] - (LEXAPRO) 00:00: mg total) Med ical 20 MG 00 by mouth Center tablet daily. metoprolol 2019-0 Yes 25mg Q.5D Take 1 [facility] tartrate 4-30 tablet (25 [facility] - (LOPRESSOR) 00:00: mg total) M edical 25 MG 00 by mouth 2 Center tablet (two) times daily. traMADoL 2019-0 Yes 50mg Take [address] (ULTRAM) 50 4-30 tablet (50 Myriam kes - mg tablet 00:00: mg total) Med ical 00 by mouth Center every 6 (six) hours as needed for Pain. Max Daily Amount: 200 mg apixaban 2019-0 Yes 5mg Q.5D Take [address] (ELIQUIS) 5 4-30 tablet (5 Jem es - mg Tab 00:00: mg total) Medica l tablet 00 by mouth 2 Center (two) times daily. mINOCYCLine 2020-0 2020- No 100mg Take [address] (MINOCIN,DY 4-30 05-04 capsule Luke s - NACIN) 100 00:00: 23:59 (100 mg Med ical MG capsule 00 :00 total) by Cent er mouth every 12 (twelve) hours for 4 days. atorvastati 2020-0 Yes 40mg QD Take [address] n (LIPITOR) 4-25 by mouth Luke [facility] - 40 MG 15:40: daily. Medical tablet 03 Center levothyroxi 2020-0 Yes 125ug Take [address] ne 4-25 mcg by [facility] - (SYNTHROID) 15:40: mouth Medic al 125 MCG 03 Every Center tablet morning on an empty stomach. mirtazapine Yes 15mg QD Take [address] (REMERON) 4-25 by mouth [facility] - 15 MG 15:40: nightly. Medical tablet 02 [place] liothyronin Yes 5ug QD Take [address] e (CYTOMEL) 4-25 by mouth Luke [facility] - 5 MCG 15:40: daily. Medical tablet 02 [place] montelukast Yes 10mg QD Take [address] (SINGULAIR) 4-25 by mouth [facility] - 10 mg 15:40: nightly. Medical tablet 02 [place] Prednisone No Notes: Memor ia 7-29 Take with l 14:00: food. Coleman 00 Levothyroxi Yes 50 Memori a ne Sodium 7-28 microgram l 0.05 MG 21:11: = 1 tabBalwinder n Oral Tablet 00 PO, Daily, [Synthroid] # 30 tab, 0 Refill(s) 24 HR Yes 240 mg = 1 Memori a Diltiazem 7-28 cap, PO, l Hydrochlori 20:57: Daily, # He pete de 240 MG 00 30 cap, 0 Extended Refill(s) Release Capsule [Cardizem] metoprolol Yes 50 mg = 1 Me moria tartrate 50 7-28 tab, PO, l mg oral 20:57: Q12H, # 60 Herm ruben tablet 00 tab, 0 Refill(s) Furosemide Yes 40 mg = 1 Me moria 40 MG Oral 7-28 tab, PO, l Tablet 20:57: Daily, # Coleman [Lasix] 00 30 tab, 0 Refill(s) digoxin 250 Yes 0.25 mg = M emoria mcg (0.25 7-28 1 tab, PO, l mg) oral 20:57: Daily, # Shirin nn tablet 00 30 tab, 0 Refill(s) atorvastati Yes 80 mg = 2 M emoria n 40 mg 7-28 tab, PO, l oral tablet 20:57: Bedtime, # Coleman 00 60 tab, 0 Refill(s) Aspirin 325 Yes 325 mg = 1 Memoria MG Enteric 28 tab, PO, l Coated 20:57: Daily, # Coleman Tablet 00 30 tab, 0 Refill(s) Potassium Yes 20 mEq = 1 Me moria Chloride 20 -28 tab, PO, l MEQ 20:57: Daily, # [place] Extended 00 30 tab, 0 Release Refill(s) Tablet Levofloxaci Yes 750 mg = 1 Memoria n 750 MG 02-13 tab, PO, l Oral Tablet 20:57: Q24H, X 7 H ermann [Levaquin] 00 day, # 7 tab, 0 Refill(s) {21 Yes See Memoria (Methylpred 02-13 Instructio l nisolone 4 20:57: ns, PO, Herm ruben MG Oral 00 Take by Tablet mouth as [Medrol]) } directed Pack on label., [Medrol X 6 day, # Dosepak] 1 Pack, 0 Refill(s) cefepime No Notes: Memoria 02-12 (Same As: l 18:00: Maxipime) [place] 00 MEDICATION WASTE Product Size: 1000 mg Product Wasted: ___ mg 200 ML No Notes: Do Memori a Ciprofloxac 02-12 not l in 2 MG/ML 18:00: refrigerat H ermann Injection 00 e digoxin 250 No Notes: Henry jeaneth mcg (0.25 02-12 Take on an l mg) oral 14:00: Empty Coleman tablet 00 Stomach (Same as: Lanoxin) Ceftriaxone No Notes: Henry jeaneth - (Same As: l 14:00: Rocephin). Coleman 00 Use with 100 mL NS and infuse over 30 min MEDICATION WASTE Product Size: 1000 mg Product Wasted: ___ mg Cardizem No Notes: Memoria - (Same as: l 13:44: Cardizem) [place] 00 Diltiazem No Notes: Memori a - (Same as: l 13:42: Cardizem) [place] 00 Before meals metoprolol No Notes: Memor ia tartrate 02-12 (Same as: l 02:00: Lopressor) Coleman methylPREDN No Notes: Henry jeaneth ISolone 02-12 (Same l SODium 02:00: as:Solu-ME Shirin nn SUCCinate 00 DROL, A-Methapre d) atorvastati No Notes: Henry jeaneth n 02-12 (Same as: l 02:00: Lipitor) [place] Digoxin No Notes: Memoria 02-12 (Same as: l 01:00: Lanoxin) [place] aspirin 325 No Notes: (Do Memoria mg tablet, 02-12 Not Crush) l enteric 01:00: Do not Coleman coated 00 crush or chew. Ipratropium No Notes: SEE Memoria 02-12 RT l 00:41: DOCUMENTAT [place] 00 ION (Same as:Atroven t) Ipratropium No Notes: SEE Memoria 02-12 RT l 00:40: DOCUMENTAT [place] 00 ION (Same as:Atroven t) Xopenex No Notes: SEE Henry jeaneth 02-12 RT l 00:40: DOCUMENTAT Coleman 00 ION (Same as:Xopenex ) Non-Formul louise Levaquin No Notes: Do Henry jeaneth 02-11 not give l 20:00: w/antacids Coleman 00 , dairy pdt & minerals Take 1 hr before or 2 hr after dairy pdt (Same as:Levaqui n) Diltiazem No Notes: Memori a 02-11 (Same as: l 04:31: Cardizem) [place] Digoxin No Notes: Memoria 02-11 (Same as: l 04:17: Lanoxin) Coleman Cardizem No Notes: Memoria 02-11 (Same as: l 04:03: Cardizem) Coleman 00 Metoprolol No Notes: Memor ia 02-11 (Same as: l 03:54: Lopressor) Push over 2 minutes metoprolol No Notes: Memor ia tartrate 02-10 (Same as: l 18:22: Lopressor) Coleman 00 Metoprolol No Notes: Memor ia 02-10 (Same as: l 18:21: Lopressor) [place] 00 Push over 2 minutes Metoprolol No Notes: Memor ia 7-25 (Same as: l 15:36: Lopressor) Coleman 00 Push over 2 minutes Nicotine No Notes: Memoria 7-24 (Same as: l 21:34: Habitrol) Coleman 00 "Remove old patch before applicatio n of new patch" WASTE: F/P - P Waste Black; E - P Waste Black pantoprazol No Notes: For Memoria e 7-24 IV push l 21:30: reconstitu [place] 00 te with 10 ml 0.9% sodium chloride and push over 2 minutes. (Same as: Protonix) Saline No Notes: Memoria Flush 0.9% 7-24 (Same as: l 02:00: BD [place] 00 Posiflush) Aspirin 325 No Notes: (Do Memoria MG Enteric 7-24 Not Crush) l Coated 00:30: Do not Coleman Tablet 00 crush or chew. Albuterol No Notes: Memori a 0.833 MG/ML -24 (Same as: l / 00:07: Duoneb) Coleman Ipratropium 00 [place] 0.167 MG/ML Inhalant Solution [DuoNeb] Furosemide No Notes: Memor ia 40 MG Oral 7-24 (Same as: l Tablet 00:07: Lasix) Coleman [Lasix] 00 May cause GI upset. Give with food or milk. Enoxaparin No Notes: Memor ia 7-24 (Same as: l 00:00: Lovenox) Coleman 00 Saline No Notes: Memoria Flush 0.9% 7-23 (Same as: l 23:59: BD [place] 00 Posiflush) Acetaminoph No Notes: Do M emoria en 7-23 not exceed l 23:59: 4 gm/day. [place] 00 (Same as: Tylenol) Vital Signs Vital Name Observation Time Observation Value Comments Source Systolic blood 2019-11-17 11:23:00 132 mm[Hg] [facility] Diastolic blood 2019-11-17 11:23:00 63 mm[Hg] [facility] S [facility] Heart rate 2019-11-17 11:23:00 64 /min [facility] Body temperature 2019-11-17 11:23:00 36.11 Marline [facility] Respiratory rate 2019-11-17 11:23:00 18 /min [facility] Oxygen saturation in 2019-11-17 11:23:00 97 /min [facility] - Arterial blood by Medical Ce nter Pulse oximetry Body weight Measured 2019-11-17 05:00:00 87.6 kg [facility] BMI 2019-11-17 05:00:00 33.15 kg/m2 [facility] Body height 2019-11-12 17:00:00 162.6 cm [facility] Systolic (mm Hg) 2016-02-14 22:58:00 Henry rial [place] Diastolic (mm Hg) 2016-02-14 22:58:00 Mem orial [place] Respitory Rate 2016-02-14 22:58:00 Memori al [place] Temperature Oral (F) 2016-02-14 22:58:00 97.5 F [facility] [place] Temperature Oral (F) 2016-02-14 18:23:00 98.0 F [facility] [place] Respitory Rate 2016-02-14 18:23:00 Memori al [place] Systolic (mm Hg) 2016-02-14 18:23:00 Henry rial [place] Diastolic (mm Hg) 2016-02-14 18:23:00 Mem orial [place] Systolic (mm Hg) 2016-02-14 14:45:00 Henry rial [place] Diastolic (mm Hg) 2016-02-14 14:45:00 Mem orial [place] Respitory Rate 2016-02-14 14:45:00 Memori al [place] Temperature Oral (F) 2016-02-14 14:45:[address] [facility] Coleman Heart Rate 2016-02-14 11:16:00 [facility] [place] Heart Rate 2016-02-12 03:58:00 [facility] [place] Heart Rate 2016-02-12 03:34:00 [facility] [place] Weight 2016-02-11 15:46:[address] [facility] [place] Height 2016-02-09 23:06:00 165.1 cm [facility] [place] Weight 2016-02-09 23:06:00 [facility] [place] BMI Calculated 2016-02-09 23:06:00 Gama Alston Procedures Procedure Date / Time Performing Clinician Source Performed ARRYTHMIA IMPLANT REPORT - 2019-11-18 12:31:16 Provider, [facility] - SCAN Scanning [facility] Center REPORT OF PROCEDURE - 2019-11-18 12:20:46 Provider, [facility] ENDOSCOPY SCAN [facility] CARDIAC CATH REPORT - SCAN 2019-11-18 12:20:39 Provider, [facility] ARRYTHMIA IMPLANT REPORT - 2019-11-18 12:20:37 Provider, [facility] RHYTHM STRIP - SCAN 2019-11-18 12:20:18 Provider, [facility] XR CHEST 1 VIEW 2019-11-17 08:30:00 Tae Dodge [facility] PORTABLE/BEDSIDE [facility] ECG 12-LEAD 2019-11-17 07:05:05 Tae Dodge [facility] CBC (HEMOGRAM ONLY) 2019-11-17 05:39:00 Tae Dodge [facility] S [facility] ELECTROLYTE PANEL 2019-11-17 05:39:00 Tae Dodge [facility] BUN AND CREATININE W/RATIO 2019-11-17 05:39:00 Tae Dodge [facility] POCT-GLUCOSE METER 2019-11-16 21:26:00 Esdras Osorio [facility] XR CHEST 1 VIEW 2019-11-16 18:10:00 Tae Dodge [facility] PORTABLE/BEDSIDE [facility] Center POCT-GLUCOSE METER 2019-11-16 17:24:00 Esdras Osorio [facility] ECG 12-LEAD 2019-11-16 15:34:18 Unknown, Hl7 Doctor [facility] PACEMAKER GEN & LEADS - 2019-11-16 12:25:00 Tae Dodge [facility] - INSERTION W/ [facility] ANESTHESIA (SING/DUAL/MULT) SARS-COV2/RT-PCR ([facility] & 2019-11-16 10:31:00 Tae Dodge [facility] REF LABS) [facility] POCT-GLUCOSE METER 2019-11-16 06:42:00 Esdras Osorio [facility] POCT-GLUCOSE METER 2019-11-15 20:47:00 Esdras Osorio [facility] TRANSFUSION SERVICE REPORT 2019-11-15 18:01:25 Provider, Default [facility] POCT-GLUCOSE METER 2019-11-15 17:32:00 Esdras Osorio [facility] POCT-GLUCOSE METER 2019-11-15 07:47:00 Esdras Osorio [facility] BASIC METABOLIC PANEL (7) 2019-11-15 04:50:00 Sneha Underwood [facility] MAGNESIUM 2019-11-15 04:50:00 Tae Dodge [facility] PROTHROMBIN TIME/INR 2019-11-15 04:50:00 Tae Dodge [facility] CBC W/PLT COUNT & AUTO 2019-11-15 04:50:00 Tae Dodge [facility] ECHOCARDIOGRAM REPORT - 2019-11-14 21:21:37 Provider, Default [facility] POCT-GLUCOSE METER 2019-11-14 21:04:00 Esdras Osorio [facility] SARS-COV2/RT-PCR ([facility] & 2019-11-14 15:02:[address] [facility] POCT-GLUCOSE METER 2019-11-14 12:41:00 Esdras Osorio [facility] ECHO W CONTRAST & DOPPLER 2019-11-14 10:21:57 Cassandra Amanda [facility] ABORH, MANUAL 2019-11-14 05:30:00 Micheline Sherman [facility] BASIC METABOLIC PANEL (7) 2019-11-14 04:01:00 Sneha Underwood [facility] MAGNESIUM 2019-11-14 04:01:00 Tae Dodge [facility] PROTHROMBIN TIME/INR 2019-11-14 04:01:00 Tae Dodge [facility] TYPE AND SCREEN, AUTOMATED 2019-11-14 04:01:00 Tae Dodge [facility] CBC W/PLT COUNT & AUTO 2019-11-14 04:01:00 Tae Dodge [facility] POCT-GLUCOSE METER 2019-11-13 21:40:00 Sneha Underwood [facility] POCT-GLUCOSE METER 2019-11-13 17:35:00 Sneha Underwood [facility] POCT-GLUCOSE METER 2019-11-13 12:08:00 Sneha Underwood [facility] MR BRAIN WITHOUT IV 2019-11-13 11:38:00 [facility] CTA BRAIN 2019-11-13 08:10:00 [facility] CT/CTA CAROTID 2019-11-13 08:10:00 [facility] URINALYSIS W/ REFLEX URINE 2019-11-13 01:30:00 Sneha Underwood [facility] BASIC METABOLIC PANEL (7) 2019-11-13 01:25:00 Sneha Underwood [facility] HEPATIC FUNCTION PANEL 2019-11-13 01:25:[address] [facility] LIPID PANEL 2019-11-13 01:25:00 Sneha Underwood [facility] CBC (HEMOGRAM ONLY) 2019-11-13 01:25:00 Sneha Underwood [facility] HEMOGLOBIN A1C 2019-11-13 01:25:00 Sneha Underwood [facility] VITAMIN B12 AND FOLATE 2019-11-13 01:25:[address] [facility] TSH/FREE T4 IF INDICATED 2019-11-13 01:25:00 Sneha Underwood [facility] T4, FREE 2019-11-13 01:25:00 Edin UnderwoodKay [facility] BLOOD CULTURE 2019-11-12 22:22:00 Edin UnderwoodKay [facility] POCT-GLUCOSE METER 2019-11-12 21:02:00 Sneha Underwood [facility] ECG 12-LEAD 2019-11-12 16:53:41 Unknown, Hl7 [facility] ECG 12-LEAD 2019-11-12 16:52:50 Sneha Underwood [facility] DIGOXIN LEVEL 2019-11-12 15:01:00 Clara [facility] XR CHEST 1 VIEW 2019-11-12 14:26:00 Edin UnderwoodKay [facility] PORTABLE/BEDSIDE [facility] Center Plan of Care Planned Activity Planned Date Details Comments Source Future Scheduled 2020-03-[address] [facility] - Test 00:00:00 (Season Ended) [code = [facility] INFLUENZA VACCINE (Season Ended)] Future Scheduled 2012-11-18 MEDICARE ANNUAL [facility] - Test 00:00:00 WELLNESS (YEAR 2 or Medical Center FIRST YEAR if no IPPE) [code = MEDICARE ANNUAL WELLNESS (YEAR 2 or FIRST YEAR if no IPPE)] Future Scheduled 2011-12-12 PNEUMOCOCCAL [address] - Test 00:00:00 LOW[facility]MEDIUM [facility]IS[facility] - PCV13) [code = PNEUMOCOCCAL 65+ LOW/MEDIUM RISK (1 of 2 - PCV13)] Future Scheduled [address] [facility] - Test 00:00:00 SCREENING [code = Medical nter BREAST CANCER SCREENING] Future Scheduled 1945 COLON CANCER [facility]CREENING [facility] Test 00:00:00 COLONOSCOPY [code = Medical Center COLON CANCER SCREENING COLONOSCOPY] Encounters Start End Encounter Admission Attending Care Care Encounter Source Date/Time Date/Time Type Type Clinicians Facility Department ID 2016-02-11 2016-02-14 Outpatient SHAISTA Brasher [id number] 10:53:00 17:25:00 Edward Summers Results Test Description Test Time Test Comments Results Result Comments Source Blood Culture - Routine (Right Venipuncture) 2019-11-18 00:0 0:00 Test Item Value Reference Range Interpretation Comme nts Result (test code = 6463-4) No growth in 5 days [facility] [id number] 00:00:00 Test Item Value Reference Range Interpretation Comments CULTURE (BEAKER) (test No growth in 5 days code = 1095) EKG 12 [id number] 17:02:13Interface, External Ris In - 11/17/2019 5:02 PM CDTVentricular Rate 70 BPMAtrial Rate 468 BPMQRS Duration 80 msQ-T Interval 386 msQTC Calculation(Bazett) 416 msR [place] 2 degreesT [place] 233 degreesDemand pacemaker; interpretation is based on intrinsic rhythmAtrial fibrillation with premature ventricular or aberrantly conducted complexesNonspecific ST and T wave abnormality , probably digitalis effectAbnormal ECGWhen compared with ECG of 16-NOV-2019 15:34,Atrial fibrillation has replaced Electronic ventricular pacemakerVent. rate has decreased BY 69 BPMConfirmed by MD Morgan, [facility] ([id number]) on 11/17/2019 5:02:10 [facility], NON [id number] 08:51:00Reason for exam:->s/p pacemaker/defibrillator; evaluation for pneumothoraxShould this be performed at the bedside?->YesFINAL REPORT RAD, CHEST, 1 VIEW, NON DEPT INDICATION: s/p pacemaker/defibrillator; evaluation for pneumothorax COMPARISON: Prior day's exam FINDINGS: Portable frontal view of [facility]. IMPRESSION: Support Lines: Stable pacer apparatus. Lungs and pleura: Unchanged appearance of the interstitial markings. Questionable trace right effusion. No pneumothorax.Heart and mediastinum: Stable contours. Additional findings: None. Signed: JR Wilkinson Robert MDReport Verified Date/Time: 11/17/2019 08:51:03 Reading Location: [facility] Radiology Reading Room Electronicallysigned by: KATT WILKINSON on 11/17/2019 08:51 AMXR chest 1 view portable / [id number] 08:51:00Interface, External Ris In - 11/17/2019 8:53 AM CDTFINAL REPORT RAD, CHEST, 1 VIEW, NON DEPT INDICATION: s/p pacemaker/defibrillator; evaluation for pneumothorax COMPARISON: Prior day's exam FINDINGS: Portable frontal view of the chest. IMPRESSION: Support Lines: Stable pacer apparatus. Lungs and pleura: Unchanged appearance of the interstitial markings. Questionable trace right effusion. No pneumothorax.Heart and mediastinum: Stable contours. Additional findings: None. Signed: JR Wilkinson Robert MDReport Verified Date/Time: 11/17/2019 08:51:03 Reading Location: [facility] Radiology Reading Room [facility] [id number] 06:23:00 Test Item Value Reference Range Interpretation Comments Sodium (test code = 2951-2) 141 meq/L 136-145 Potassium (test code = 4.4 meq/L 3.5-5.1 2823-3) Chloride (test code = 106 meq/L 98-107 2075-0) CO2 (test code = 8-9) 30 meq/L 22-29 H MARGO (test code = MARGO) Mobile Battery Technician ID - [place] Lab Interpretation (test Abnormal code = 04336-3) [facility] Center[facility] and [id number] 06:23:00 Test Item Value Reference Range Interpretation Comments BUN (test code = 18 mg/dL 7-21 3094-0) Creatinine (test 1.12 mg/dL 0.57-1.25 code = 2160-0) BUN/Creatinine 16.1 For a normal Ratio (test code = individua l on a 3097-3) normal diet, th e reference inter bryson for the mass ra catherine ranges between 12:1 and 20:1 ( BUN in mg/dL/creatinin e in mg/dL) EGFR (test code = 48 mL/min/1.73 [place] [address]-8) NOT ACCURATE CREATININE CLEARANCE IN PREDICTING GLOMERULAR FILTRATION RATE . ESTIMATED GFR I S NOT APPLICABLE FOR DIALYSIS PATIEN TS. MARGO (test code = Mobile Battery Technician ID - [place] MARGO) [facility] CenterELECTROLYTES2020-04-30 06:23:00 Test Item Value Reference Range Interpretation Comments SODIUM (BEAKER) (test code = 381) 141 meq/L 136-145 POTASSIUM (BEAKER) (test code = 4.4 meq/L 3.5-5.1 379) CHLORIDE (BEAKER) (test code = 382) 106 meq/L 98-107 CO2 (BEAKER) (test code = 355) 30 meq/L 22-29 H Mobile Battery Technician ID - LABUN AND CREATININE [id number] 06:23:00 Test Item Value Reference Range Interpretation Comments BLOOD UREA NITROGEN 18 mg/dL 7-21 (BEAKER) (test code = 354) CREATININE (BEAKER) 1.12 mg/dL 0.57-1.25 (test code = 358) BUN/CREATININE RATIO 16.1 For a n ormal (BEAKER) (test code individu al on a = 1800) normal diet, th e reference inter bryson for the mass ra catherine ranges between 12:1 and 20:1 (BUN i n mg/dL/creatinin e in mg/dL) EGFR (BEAKER) (test 48 mL/min/1.73 ESTIMA NICHOL GFR IS code = 1092) sq m NOT ACCURATE CREATININE CLEARANCE IN PREDICTING GLOMERULAR FILTRATION RATE . ESTIMATED GFR I S NOT APPLICABLE FOR DIALYSIS PATIEN TS. Mobile Battery Technician ID - LACBC (Hemogram only)2019-11-17 05:54:00 Test Item Value Reference Range Interpretation Comments WBC (test code = 6690-2) 11.4 3.5- 10.5 K/L H RBC (test code = 789-8) 4.05 3.93- 5.22 M/L MCHC (test code = 786-4) 30.3 32.2- 35.5 GM/DL L Hematocrit (test code = 4544-3) 36.0 % 34.1-44.9 MCV (test code = 787-2) 88.9 fL 79.4-94.8 MCH (test code = 785-6) 26.9 pg 25.6-32.2 RDW (test code = 788-0) 17.4 % 11.7-14.4 H Platelets (test code = 777-3) 213 150- 450 K/CU MM MPV (test code = 62283-8) 10.9 fL 9.4-12.3 nRBC (test code = 413) 0 0- 0 /100 WBC Lab Interpretation (test code = Abnormal 54839-2) [facility] (HEMOGRAM ONLY)2019-11-17 05:54:00 Test Item Value Reference Range Interpretation Comments WHITE BLOOD CELL COUNT (BEAKER) 11.4 K/ L 3.5-10.5 H (test code = 775) RED BLOOD CELL COUNT (BEAKER) 4.05 M/ L 3.93-5.22 (test code = 761) HEMOGLOBIN (BEAKER) (test code = 10.9 GM/DL 11.2-15.7 L 410) HEMATOCRIT (BEAKER) (test code = 36.0 % 34.1-44.9 411) MEAN CORPUSCULAR VOLUME (BEAKER) 88.9 fL 79.4-94.8 (test code = 753) MEAN CORPUSCULAR HEMOGLOBIN 26.9 pg 25.6-32.2 (BEAKER) (test code = 751) MEAN CORPUSCULAR HEMOGLOBIN CONC 30.3 GM/DL 32.2-35.5 L (BEAKER) (test code = 752) RED CELL DISTRIBUTION WIDTH 17.4 % 11.7-14.4 H (BEAKER) (test code = 412) PLATELET COUNT (BEAKER) (test 213 K/CU MM 150-450 code = 756) MEAN PLATELET VOLUME (BEAKER) 10.9 fL 9.4-12.3 (test code = 754) NUCLEATED RED BLOOD CELLS 0 /100 WBC 0-0 (BEAKER) (test code = 413) POC-Glucose [id number] 21:37:00 Test Item Value Reference Range Interpretation Comments POC-Glucose Meter (test 134 mg/dL 70-110 H : TE STED AT [facility] code = 1538) [facility] [facility], 770 30: Mobile Battery Technician/Techni britt ID = [id number] for SUZANNE KAISER Lab Interpretation (test Abnormal code = 08768-3) [facility] Center[facility] [id number] 21:37:00 Test Item Value Reference Range Interpretation Comments POC-GLUCOSE METER 134 mg/dL 70-110 H : TESTED A T [facility] 6720 (BEAKER) (test code = ALTAGRACIA Boyd [facility], 1538) [address]: Mobile Battery Technician/Techni britt ID = [id number] for SUZANNE FRITZ SARS-COV2/RT-PCR ([facility])2019-11-16 19:23:00 Test Item Value Reference Range Interpretation Comments SARS-COV2/RT-PCR (test code = Negative Not Detected, Negative 6099153) SARS-COV-2 PERFORMING LAB [facility] (test code = 5314801) RAD, CHEST, 1 VIEW, NON [id number] 18:33:00Reason for exam:->s/p pacemaker/defibrillator; evaluation for pneumothoraxShould this be performed at the bedside?->YesFINAL REPORT TECHNIQUE: Frontal chest radiograph dated 11/16/2019. CLINICAL HISTORY: Status post pacemaker placement COMPARISON STUDY: Chest radiograph dated 11/12/2019 IMPRESSION:Right- sided, dual-chamber pacemaker has been placed with intact wires. No change in prominent interstitial lung markings seen bilaterally. No pleural effusion or pneumothorax. Cardiomediastinal silhouette is stable in size. No fracture. Signed: Wellington Aponteephua Verified Date/Time: 11/16/2019 18:33:13 Reading Location: [address] Consult Reading Room POCT-GLUCOSE [id number] 17:35:00 Test Item Value Reference Range Interpretation Comments POC-GLUCOSE METER 163 mg/dL 70-110 H : TESTED A T [facility] 6720 ([facility]) (test code = ALTAGRACIA [place], 1538) [address]: Mobile Battery Technician/Techni britt ID = [id number] for CARLOS MARSH SARS-CoV2/RT-PCR ([facility] Ref Labs)2019-11-16 12:10:00 Test Item Value Reference Range Interpretation Comments SARS-COV2/RT-PCR Not Detected Not Detected, (test code = Negative 57056-5) SARS-COV-2 [facility] PERFORMING LAB (test code = 50489-0) MARGO (test code = Negative results do not MARGO) preclude SARS-CoV-2 infection and should not be used as [...] of the Act. Fact Sheet for Healthcare Providers:https://www.Anavex/Documents/Xper t%20Xpress%20SARS%20CoV- 2/Fact%20Sheets/3023802 %46IQZO-VUB-7%20HEALTHCA RE%20PROVIDERS%20FACT%20 SHEET.pdf Fact Sheet for Healthcare Patients:https://www.VectorMAX/Documents/Xpert %20Xpress%20SARS%20CoV-2 /Fact%20Sheets/3023801% 52DKKO-HUF-4%20PATIENT%2 0FACT%20SHEET.pdf Performing Laboratory:[facility] [place] [place] [id number] [place], [place] [address]ARS-COV2/RT-PCR ([facility])2019-11-16 12:10:00 Test Item Value Reference Range Interpretation Comments SARS-COV2/RT-PCR (test Not Detected Not Detected, Negative code = 1094768) SARS-COV-2 PERFORMING LAB [facility] (test code = 1098579) Negative results do not preclude SARS-CoV-2 infection and should not be used as the sole basis for patient management decisions. Negative results must be combined with clinical observations, patient history, and epidemiological information. A false negative result may occur if a specimen is improperly collected, transported or handled.The limit of detection for this assay is 250 copies/mL.This SARS CoV-2 test is a rapid, real-time RT-PCR test intended for the qualitative detection of nucleic acid from SARS-CoV-2 in a nasopharyngeal swab specimen collected from individuals suspected of COVID-19 by their healthcare provider.This test has not been Food and Drug [...] is revoked under Section 564(g) of the Act.Fact Sheet for Healthcare Pro viders:https://www.AdNear/Documents/Xpert%20Xpress%20SARS%20CoV-2/Fact%20Sh eets/302-3802%40KEOO-IZR-3%20HEALTHCARE%20PROVIDERS%20FACT%20SHEET.pdfFact Sheet for Healthcare Patients:https://www.Helixis/Documents/Xpert%20Xpress%20SARS%20CoV-2/Fact%20Sheets/3023801%20SARS-COV -2%20PATIENT%20FACT%20SHEET.pdfPerforming Laboratory:[facility] [place], [place] [address]NVAR-OTXCDYL [id number] 06:55:00 Test Item Value Reference Range Interpretation Comments POC-GLUCOSE METER 116 mg/dL 70-110 H : TESTED A T [facility] 6720 ([place]ir) (test code = [facility], 1538) [address]: Mobile Battery Technician/Techni britt ID = [id number] for ЮЛИЯ WESTA POCT-GLUCOSE [id number] 20:58:00 Test Item Value Reference Range Interpretation Comments POC-GLUCOSE METER 114 mg/dL 70-110 H : TESTED A T [facility] 6720 (BEAKER) (test code = [facility], 1538) [address]: Mobile Battery Technician/Techni britt ID = [id number] for SHANELL WEISSON, [place] POCT-GLUCOSE [id number] 17:43:00 Test Item Value Reference Range Interpretation Comments POC-GLUCOSE METER 112 mg/dL 70-110 H : TESTED A T [facility] 6720 (BEAKER) (test code = ALTAGRACIA Boyd [place], 1538) [address]: Mobile Battery Technician/Techni britt ID = [id number] for PRAVEEN JIMENEZ POCT-GLUCOSE [id number] 07:59:00 Test Item Value Reference Range Interpretation Comments POC-GLUCOSE METER 123 mg/dL 70-110 H : TESTED A T [facility] 6720 (BEAKER) (test code = ALTAGRACIA Boyd [facility], 1538) [address]: Mobile Battery Technician/Techni britt ID = [id number] for PRAVEEN JIMENEZ Basic metabolic [id number] 05:40:00 Test Item Value Reference Range Interpretation Comments Sodium (test code = 142 meq/L 429-053 4351-2) Potassium (test code = 4.2 meq/L 3.5-5.1 Speci men slightly 2823-3) hemolyzed Chloride (test code = 106 meq/L 98-107 2075-0) CO2 (test code = 29 meq/L 22-29 2028-9) BUN (test code = 13 mg/dL 7-21 3094-0) Creatinine (test code 0.76 mg/dL 0.57-1.25 Specim en slightly = 2160-0) hemolyzed Glucose (test code = 120 mg/dL 70-105 H 2345-7) Calcium (test code = 8.8 mg/dL 8.4-10.2 76561-2) EGFR (test code = 75 mL/min/1.73 [place] [address]-1) NOT ACCURATE CREATININE CLEARANCE IN PREDICTING GLOMERULAR FILTRATION RATE . ESTIMATED GFR I S NOT APPLICABLE FOR DIALYSIS PATIENTS. MARGO (test code = MARGO) Mobile Battery Technician ID - ANJALI M Lab Interpretation Abnormal (test code = 12143-7) [facility] CenterMagnesium2020-04-28 05:40:00 Test Item Value Reference Range Interpretation Comments Magnesium (test code = 2.1 mg/dL 1.6-2.6 Speci men 95096-1) slightly hemolyzed MARGO (test code = MARGO) Mobile Battery Technician ID - ANJALI M Lab Interpretation Normal (test code = 30536-1) [facility] CenterMAGNESIUM2020-04-28 05:40:00 Test Item Value Reference Range Interpretation Comments MAGNESIUM (BEAKER) 2.1 mg/dL 1.6-2.6 Specimen slightly (test code = 627) hemolyzed Mobile Battery Technician ID - ANJALI MBASIC METABOLIC [id number] 05:40:00 Test Item Value Reference Range Interpretation Comments SODIUM (BEAKER) 142 meq/L 136-145 (test code = 381) POTASSIUM (BEAKER) 4.2 meq/L 3.5-5.1 Specimen slightly (test code = 379) hemolyzed CHLORIDE (BEAKER) 106 meq/L 98-107 (test code = 382) CO2 (BEAKER) (test 29 meq/L 22-29 code = 355) BLOOD UREA NITROGEN 13 mg/dL 7-21 (BEAKER) (test code = 354) CREATININE (BEAKER) 0.76 mg/dL 0.57-1.25 Specimen slightly (test code = 358) hemolyzed GLUCOSE RANDOM 120 mg/dL 70-105 H (BEAKER) (test code = 652) CALCIUM (BEAKER) 8.8 mg/dL 8.4-10.2 (test code = 697) EGFR (BEAKER) (test 75 mL/min/1.73 ESTIMA NICHOL GFR IS code = 1092) sq m NOT ACCURATE CREATININE CLEARANCE IN PREDICTING GLOMERULAR FILTRATION RATE . ESTIMATED GFR I S NOT APPLICABLE FOR DIALYSIS PATIEN TS. Mobile Battery Technician ID Juliette ALBA MProthrombin time/[id number] 05:27:00 Test Item Value Reference Range Interpretation Comments Protime (test code = 13.0 11.9- 14.2 5902-2) seconds INR (test code = 1.0 <=5.9 6301-6) MARGO (test code = MARGO) Effective 12/15/2018: PT Reference Range ChangeNew: 11.9-14.2 Previous: 11.7-14.7 RECOMMENDED COUMADIN/WARFARIN INR THERAPY RANGESSTANDARD DOSE: 2.0-3.0 Includes: PROPHYLAXIS for venous thrombosis, systemic embolization; TREATMENT for venous thrombosis and/or pulmonary embolus.HIGH RISK: Target INR is 2.5-3.5 for patients wiht mechanical heart valves. Within 24 hours, if on Coumadin Lab Interpretation Normal (test code = 55312-2) [facility] CenterPROTHROMBIN TIME/[id number] 05:27:00 Test Item Value Reference Range Interpretation Comments PROTIME (BEAKER) (test code = 13.0 seconds 11.9-14.2 759) INR (BEAKER) (test code = 370) 1.0 <=5.9 Effective 12/15/2018: PT Reference Range ChangeNew: 11.9-14.2 Previous: 11.7- 14.7RECOMMENDED COUMADIN/WARFARIN INR THERAPY RANGESSTANDARD DOSE: 2.0-3.0 Includes: PROPHYLAXIS for venous thrombosis, systemic embolization; TREATMENT for venous thrombosis and/or pulmonary embolus.HIGH RISK: Target INR is2.5-3.5 for patients wiht mechanical heart valves.Within 24 hours, if on CoumadinCBC with platelet count + automated [id number] 05:24:00 Test Item Value Reference Range Interpretation Comments WBC (test code = 6690-2) 9.9 3.5- 10.5 K/L RBC (test code = 789-8) 4.20 3.93- 5.22 M/L MCHC (test code = 786-4) 30.5 32.2- 35.5 GM/DL L Hematocrit (test code = 4544-3) 37.0 % 34.1-44.9 MCV (test code = 787-2) 88.1 fL 79.4-94.8 MCH (test code = 785-6) 26.9 pg 25.6-32.2 RDW (test code = 788-0) 17.7 % 11.7-14.4 H Platelets (test code = 777-3) 239 150- 450 K/CU MM MPV (test code = 08832-4) 11.2 fL 9.4-12.3 nRBC (test code = 413) 0 0- 0 /100 WBC % Neutros (test code = 429) 72 % % Lymphs (test code = 430) 14 % % Monos (test code = 431) 9 % % Eos (test code = 432) 4 % % Baso (test code = 437) 1 % # Neutros (test code = 670) 7.13 1.56- 6.13 K/L H # Lymphs (test code = 414) 1.37 1.18- 3.74 K/L # Monos (test code = 415) 0.84 0.24- 0.36 K/L H # Eos (test code = 416) 0.41 0.04- 0.36 K/L H # Baso (test code = 417) 0.06 0.01- 0.08 K/L Immature Granulocytes-Relative 0 % 0-1 (test code = 2801) Lab Interpretation (test code = Abnormal 23360-9) [facility] W/PLT COUNT & AUTO [id number] 05:24:00 Test Item Value Reference Range Interpretation Comments WHITE BLOOD CELL COUNT (BEAKER) 9.9 K/ L 3.5-10.5 (test code = 775) RED BLOOD CELL COUNT (BEAKER) 4.20 M/ L 3.93-5.22 (test code = 761) HEMOGLOBIN (BEAKER) (test code = 11.3 GM/DL 11.2-15.7 410) HEMATOCRIT (BEAKER) (test code = 37.0 % 34.1-44.9 411) MEAN CORPUSCULAR VOLUME (BEAKER) 88.1 fL 79.4-94.8 (test code = 753) MEAN CORPUSCULAR HEMOGLOBIN 26.9 pg 25.6-32.2 (BEAKER) (test code = 751) MEAN CORPUSCULAR HEMOGLOBIN CONC 30.5 GM/DL 32.2-35.5 L (BEAKER) (test code = 752) RED CELL DISTRIBUTION WIDTH 17.7 % 11.7-14.4 H (BEAKER) (test code = 412) PLATELET COUNT (BEAKER) (test 239 K/CU MM 150-450 code = 756) MEAN PLATELET VOLUME (BEAKER) 11.2 fL 9.4-12.3 (test code = 754) NUCLEATED RED BLOOD CELLS 0 /100 WBC 0-0 (BEAKER) (test code = 413) NEUTROPHILS RELATIVE PERCENT 72 % (BEAKER) (test code = 429) LYMPHOCYTES RELATIVE PERCENT 14 % (BEAKER) (test code = 430) MONOCYTES RELATIVE PERCENT 9 % (BEAKER) (test code = 431) EOSINOPHILS RELATIVE PERCENT 4 % (BEAKER) (test code = 432) BASOPHILS RELATIVE PERCENT 1 % (BEAKER) (test code = 437) NEUTROPHILS ABSOLUTE COUNT 7.13 K/ L 1.56-6.13 H (BEAKER) (test code = 670) LYMPHOCYTES ABSOLUTE COUNT 1.37 K/ L 1.18-3.74 (BEAKER) (test code = 414) MONOCYTES ABSOLUTE COUNT (BEAKER) 0.84 K/ L 0.24-0.36 H (test code = 415) EOSINOPHILS ABSOLUTE COUNT 0.41 K/ L 0.04-0.36 H (BEAKER) (test code = 416) BASOPHILS ABSOLUTE COUNT (BEAKER) 0.06 K/ L 0.01-0.08 (test code = 417) IMMATURE GRANULOCYTES-RELATIVE 0 % 0-1 PERCENT (BEAKER) (test code = 2801) POCT-GLUCOSE [id number] 21:15:00 Test Item Value Reference Range Interpretation Comments POC-GLUCOSE METER 134 mg/dL 70-110 H : TESTED A T [facility] 6720 (BEAKER) (test code = ALTAGRACIA Boyd [facility], 1538) [address]: Mobile Battery Technician/Techni britt ID = [id number] for DEBRA WEST ECHO W CONTRAST & [id number] 14:15:37Ejection FractionSLEH ECHO HEARTLAB MKCKESSON CPACSInterface, External Ris In - 11/14/2019 2:15 PM C DTTransthoracic Echocardiography Report (TTE) Demographics Patient Name VIVIENNE BEST Date of Study 11/14/2019 JAN Gender Female Visit Number [id number] Race Unknown Room Number 2238 Number Date of 1945 Referring Physician Sneha UNDERWOOD Age 73 year(s) 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 Signature Findings Technical Quality:Technically adequate exam. Rhythm/BP Atrial fibrillation Left Ventricle LV endocardium is adequately visualized with IV ultrasound enhancing agent. The leftventricle is chamber size (by vol index) is normal (female - LVED vol - 29-61ml/m2). No evidence of LV hypertrophy. All of the LV segments are hyperkinetic . Global LV systolic function hyperdynamic . LVEF by Masters's method of disk assessment is increased (>60%) . Degree of diastolic dysfunction (LAP assessment) is inconclusive due to arrhythmia . Left Atrium LA size is mildly enlarged (35-41 ml/m2) . Right Ventricle The right ventricular chamber size and systolic function are within normal limits. Right Atrium RA size is normal. Atrial Septum IV saline contrast injection was negative for a PFO (patent foramen ovale) at restand post Valsalva . Aortic Valve Mild AoV cusp thickening. Mild aor tic regurgitation. Mitral Valve Mild mitral annular calcification. Mild MV leaflet thickening. Mild mitral regurgitation. Tricuspid Valve Mild tricuspid regurgitation. Estimated peak systolic PA pressure is 45-50 mmHg (mild pulmonary hypertension) . Pulmonic Valve Normal PV structure and function by limited views and Doppler. Aorta Aortic root size (SInus of Valsalva diameter) is normal . Pericardium No pericardial effusion is visualized. IVC/SVC/PA/PV/Pleural The estimated RA pressure [...] 2.02 cm Aorta Ao Root S of Bryson.: 2.76 cm Doppler/Quantitative Measurements Aortic Valve Peak Velocity: 1.1 m/s Mean Velocity: 0.67 m/s Peak Gradient: 4.82 mmHg Mean Gradient: 2.14 mmHg AV Area (continuity): 4 cm^2 AV VTI: 20.26 cm AV DVI: 1.25 LVOT Peak Velocity: 1.12 m/s Peak Gradient: 4.99 mmHg Mean Velocity: 0.73 m/s Mean Gradient: 2.44 mmHg LVOT Diameter: 2.02 cm LVOT VTI: 25.28 cm LVOT Area: 3.2 cm^2 LVOT SV:80.97 ml LVOT CO: 5.99 l/min LVOT CI: 3.1 l/min/m^2 Tricuspid Valve TR Velocity: 3.12 m/s TR Gradient: 39.03 mmHgCHI [facility]head [facility] Medical CenterPOCT-GLUCOSE [id number] 12:54:00 Test Item Value Reference Range Interpretation Comments POC-GLUCOSE METER 97 mg/dL 70-110 : TESTED A T [facility] 6720 (BEAKER) (test code = ALTAGRACIA [place], 1538) [address]: Mobile Battery Technician/Techni britt ID = [id number] for JILLIAN ROSAS, [id number] 05:52:00 Test Item Value Reference Range Interpretation Comments ABO Grouping (test code = 2588) O Rh Factor (test code = 2589) NEG [facility] CenterType and screen, [id number] 05:02:00 Test Item Value Reference Range Interpretation Comments ABO/RH AUTOMATED (BEAKER) (test O NEGATIVE code = 2260) Ab Scrn (test code = 890-4) NEGATIVE [facility] CenterPROTHROMBIN TIME/[id number] 04:39:00 Test Item Value Reference Range Interpretation Comments PROTIME (BEAKER) (test code = 14.2 seconds 11.9-14.2 759) INR (BEAKER) (test code = 370) 1.1 <=5.9 Effective 12/15/2018: PT Reference Range ChangeNew: 11.9-14.2 Previous: 11.7- 14.7RECOMMENDED COUMADIN/WARFARIN INR THERAPY RANGESSTANDARD DOSE: 2.0-3.0 Includes: PROPHYLAXIS for venous thrombosis, systemic embolization; TREATMENT for venous thrombosis and/or pulmonary embolus.HIGH RISK: Target INR is2.5-3.5 for patients wiht mechanical heart valves.Within 24 hours, if on Coumadin [id number] 04:38:00 Test Item Value Reference Range Interpretation Comments MAGNESIUM (BEAKER) (test code = 2.0 mg/dL 1.6-2.6 627) Mobile Battery Technician ID - PIAYA LBASIC METABOLIC [id number] 04:38:00 Test Item Value Reference Range Interpretation Comments SODIUM (BEAKER) 142 meq/L 136-145 (test code = 381) POTASSIUM (BEAKER) 4.3 meq/L 3.5-5.1 (test code = 379) CHLORIDE (BEAKER) 107 meq/L 98-107 (test code = 382) CO2 (BEAKER) (test 30 meq/L 22-29 H code = 355) BLOOD UREA NITROGEN 16 mg/dL 7-21 (BEAKER) (test code = 354) CREATININE (BEAKER) 0.80 mg/dL 0.57-1.25 (test code = 358) GLUCOSE RANDOM 106 mg/dL 70-105 H (BEAKER) (test code = 652) CALCIUM (BEAKER) 8.8 mg/dL 8.4-10.2 (test code = 697) EGFR (BEAKER) (test 71 mL/min/1.73 ESTIMA NICHOL GFR IS code = 1092) sq m NOT ACCURATE CREATININE CLEARANCE IN PREDICTING GLOMERULAR FILTRATION RATE . ESTIMATED GFR I S NOT APPLICABLE FOR DIALYSIS PATIEN TS. Mobile Battery Technician ID - PIAYA LCBC W/PLT COUNT & AUTO [id number] 04:28:00 Test Item Value Reference Range Interpretation Comments WHITE BLOOD CELL COUNT (BEAKER) 10.8 K/ L 3.5-10.5 H (test code = 775) RED BLOOD CELL COUNT (BEAKER) 4.05 M/ L 3.93-5.22 (test code = 761) HEMOGLOBIN (BEAKER) (test code = 10.9 GM/DL 11.2-15.7 L 410) HEMATOCRIT (BEAKER) (test code = 35.4 % 34.1-44.9 411) MEAN CORPUSCULAR VOLUME (BEAKER) 87.4 fL 79.4-94.8 (test code = 753) MEAN CORPUSCULAR HEMOGLOBIN 26.9 pg 25.6-32.2 (BEAKER) (test code = 751) MEAN CORPUSCULAR HEMOGLOBIN CONC 30.8 GM/DL 32.2-35.5 L (BEAKER) (test code = 752) RED CELL DISTRIBUTION WIDTH 17.6 % 11.7-14.4 H (BEAKER) (test code = 412) PLATELET COUNT (BEAKER) (test 221 K/CU MM 150-450 code = 756) MEAN PLATELET VOLUME (BEAKER) 10.7 fL 9.4-12.3 (test code = 754) NUCLEATED RED BLOOD CELLS 0 /100 WBC 0-0 (BEAKER) (test code = 413) NEUTROPHILS RELATIVE PERCENT 75 % (BEAKER) (test code = 429) LYMPHOCYTES RELATIVE PERCENT 13 % (BEAKER) (test code = 430) MONOCYTES RELATIVE PERCENT 7 % (BEAKER) (test code = 431) EOSINOPHILS RELATIVE PERCENT 3 % (BEAKER) (test code = 432) BASOPHILS RELATIVE PERCENT 1 % (BEAKER) (test code = 437) NEUTROPHILS ABSOLUTE COUNT 8.18 K/ L 1.56-6.13 H (BEAKER) (test code = 670) LYMPHOCYTES ABSOLUTE COUNT 1.42 K/ L 1.18-3.74 (BEAKER) (test code = 414) MONOCYTES ABSOLUTE COUNT (BEAKER) 0.78 K/ L 0.24-0.36 H (test code = 415) EOSINOPHILS ABSOLUTE COUNT 0.36 K/ L 0.04-0.36 (BEAKER) (test code = 416) BASOPHILS ABSOLUTE COUNT (BEAKER) 0.05 K/ L 0.01-0.08 (test code = 417) IMMATURE GRANULOCYTES-RELATIVE 1 % 0-1 PERCENT (BEAKER) (test code = 2801) POCT-GLUCOSE [id number] 22:16:00 Test Item Value Reference Range Interpretation Comments POC-GLUCOSE METER 101 mg/dL 70-110 : TESTED A T [facility] 6720 (BEAKER) (test code = [facility]FARIBA Boyd [facility], 1538) [address]: Mobile Battery Technician/Techni britt ID = [id number] for DE NNIS, TRACY POCT-GLUCOSE [id number] 17:48:00 Test Item Value Reference Range Interpretation Comments POC-GLUCOSE METER 76 mg/dL 70-110 : TESTED A T [facility] 6720 (BEAKER) (test code [facility], = 1538) [address]: Mobile Battery Technician/Techni britt ID = [id number] for TSEG GAI, TSIGHEREDA POCT-GLUCOSE [id number] 12:21:00 Test Item Value Reference Range Interpretation Comments POC-GLUCOSE METER 124 mg/dL 70-110 H : TESTED A T [facility] 6720 (AKER) (test code [facility], = 1538) [address]: Mobile Battery Technician/Techni britt ID = [id number] for TSEG GAI, TSIGHEREDA MR, BRAIN, WITHOUT [id number] 11:43:00FINAL REPORT MR, BRAIN, WITHOUT CONTRAST INDICATION: Neuro deficit, acute, per sistent or progressing TECHNIQUE: Multiplanar, multisequence MR imaging of the brain without intravenous contrast. COMPARISON: Correlation to CT angiography November 13, 2019, approximately three hours prior FINDINGS: Limited by motion and dental artifact which limits visibility of the frontal poles for diffusion restriction and T2 weighted imaging. No large territory infarction is detected. There is nodiscernible intracranial hemorrhage. Volume loss results in passive expansion of the CSF spaces. Chronic involutional changes are noted in the brain parenchyma suggesting sequela of microvascular disease. Visible paranasal sinuses and mastoid air cells are clear. There is normal bone marrow signal inte nsity within the calvarium and skull base. IMPRESSION: Technically limited examination as described. No discernible acute infarct or parenchymal hemorrhage. Signed: JR Wilkinson Robert MDReport Verified Date/Time: 11/13/2019 11:43:35 Reading Location: [address] Neuro Reading Room MR brain without IV [id number] 11:43:00Interface, External Ris In - 11/13/2019 11:45 AM CDTFINAL REPORT MR, BRAIN, WITHOUT CONTRAST INDICATION: Neuro deficit, acute, persistent or progressing TECHNIQUE: Multiplanar, multisequence MR imaging of the brain without intravenous contrast. COMPARISON: Correlation to CT angiography November 13, 2019, approximately three hours prior FINDINGS: Limited by motion and dental artifact which limits visibility of the frontal poles for diffusion restriction and T2 weighted imaging. Nolarge territory infarction is detected. There is no discernible intracranial hemorrhage. Volume lossresults in passive expansion of the CSF spaces. Chronic involutional changes are noted in the brain parenchyma suggesting sequela of microvascular disease. Visible paranasal sinuses and mastoid air cells are clear. There is normal bone marrow signal intensity within the calvarium and skull base. IMPRESSION: Technically limited examination as described. No discernible acute infarct or parenchymal hemorrhage. Signed: JR Wilkinson Robert MDReport Verified Date/Time: 11/13/2019 11:43:35 Reading Location: [address] Neuro Reading [facility] CT[facility] [id number] 08:24:00FINAL REPORT CT, CTANGIO BRAIN, CT, CAROTID, ANGIOBRAIN CT WITHOUT CONTRAST INDICATION: Neuro deficit, acute, stroke suspected COMPARISON: None TECHNIQUE:Rapid acquisition spiral images were obtained between the aortic arch and the cranial vertex during intravenous contrast infusion to reconstruct axial images and angiographic 3D maximum intensity projections (MIP). 3-D volumetric reformatted images were created at a dedicated workstation. Precontrast images of the brain werealso obtained. Stenosis evaluation reported in compliance with NASCET criteria. DOSE REDUCTION: Dose modulation, iterative reconstruction, and/or weight-based adjustment of the mA/kV was utilized to reduce the radiation dose to as low as reasonably achievable. FINDINGS:CT BRAIN:Cerebral parenchyma: Mild volume loss. No discernible mcgill-white disruption. No parenchymal hemorrhage.Midline structures: Normally positioned.Cerebellum and brainstem: Normal.Ventricles: Ex vacuo dilationExtra-axial spaces:Unremarkable.Calvarium and skull base: Intact.Paranasal sinuses and mastoid air cells: Visible chambers are clear.Orbital contents: Included portions unremarkable. CTA BRAIN:Internal carotid arteries: Petrous, cavernous and supraclinoid portions patent. Middle cerebral arteries: Patent to distal branches.Anterior cerebral arteries: Patent. Intact A-comm.Basilar system: Patent vertebrobasilar system.Posterior cerebral arteries:Patent beyond the quadrigeminal segments.Venous opacification: Major duralsinuses unremarkable for bolus timing.Additional findings: None. CTA NECK:Common carotid arteries: The common carotid arteries are normal in size. Retropharyngeal course bilaterally maximally at the C1 level.Bifurcations: Atherosclerotic disease with less than 50% narrowing bilaterally by NASCET crite jeaneth Cervical internal carotid arteries: No flow limiting stenosis.Vertebral arteries: Codominant. Noorigin stenosis.Arch anatomy: Conventional. Nonvascular findings:No acute findings within the limitsof arterial phase imaging. IMPRESSION: Chronic involutional changes without visible recent infarct or hemorrhage. 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 Patent intracranial circulation. Signed: JR Wilkinson Robert MDReport Verified Date/Time: 11/13/2019 08:24:31 Reading Location: [address] Neuro Reading Room CT, CAROTID, [id number] 08:24:00FINAL REPORT CT, CTANGIO BRAIN, CT, CAROTID, ANGIOBRAIN CT WITHOUT CONTRAST INDICATION: Neuro deficit, acute, stroke suspected COMPARISON: None TECHNIQUE:Rapid acquisition spiral images were obtained between the aortic arch and the cranial vertex during intravenous contrast infusion to reconstruct axial images and angiographic 3D maximum intensity projections (MIP). 3-D volumetric reformatted images were created at a dedicated workstation. Precontrast images of the brain werealso obtained. Stenosis evaluation reported in compliance with NASCET criteria. DOSE REDUCTION: Dose modulation, iterative reconstruction, and/or weight-based adjustment of the mA/kV was utilized to reduce the radiation dose to as low as reasonably achievable. FINDINGS:CT BRAIN:Cerebral parenchyma: Mild volume loss. No discernible mcgill-white disruption. No parenchymal hemorrhage.Midline structures: Normally positioned.Cerebellum and brainstem: Normal.Ventricles: Ex vacuo dilationExtra-axial spaces:Unremarkable.Calvarium and skull base: Intact.Paranasal sinuses and mastoid air cells: Visible chambers are clear.Orbital contents: Included portions unremarkable. CTA BRAIN:Internal carotid arteries: Petrous, cavernous and supraclinoid portions patent. Middle cerebral arteries: Patent to distal branches.Anterior cerebral arteries: Patent. Intact A-comm.Basilar system: Patent vertebrobasilar system.Posterior cerebral arteries:Patent beyond the quadrigeminal segments.Venous opacification: Major duralsinuses unremarkable for bolus timing.Additional findings: None. CTA NECK:Common carotid arteries: The common carotid arteries are normal in size. Retropharyngeal course bilaterally maximally at the C1 level.Bifurcations: Atherosclerotic disease with less than 50% narrowing bilaterally by NASCET crite jeaneth Cervical internal carotid arteries: No flow limiting stenosis.Vertebral arteries: Codominant. Noorigin stenosis.Arch anatomy: Conventional. Nonvascular findings:No acute findings within the limitsof arterial phase imaging. IMPRESSION: Chronic involutional changes without visible recent infarct or hemorrhage. 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 Patent intracranial circulation. Signed: JR Wilkinson Robert MDReport Verified Date/Time: 11/13/2019 08:24:31 Reading Location: [address] Neuro Reading Room [facility] [id number] 08:24:00 Interface, External Ris In - 11/21/2019 9:[address], CTANGIOBRAIN, CT, CAROTID, ANGIOBRAIN CT WITHOUT CONTRAST INDICATION: Neuro deficit, acute, stroke suspected COMPARISON: None TECHNIQUE:Rapid acquisition spiral images were obtained between the aortic arch and the cranial vertex during intravenous contrast infusion to reconstruct axial images and angiographic 3D maximum intensity projections (MIP). 3-D volumetric reformatted images were created at a dedicated workstation. Precontrast images of the brain were also obtained. Stenosis evaluation reported in compliance with NASCET criteria. DOSE REDUCTION: Dose modulation, iterative reconstruction, and/or weight-based adjustment of the mA/kV was utilized to reduce the radiation dose to as low as reasonably achievable. FINDINGS:CT BRAIN:Cerebral parenchyma: Mild volume loss. No discernible mcgill-white disruption. No parenchymal hemorrhage.Midline structures: Normally positioned.Cerebellum and brainstem: Normal.Ventricles: Ex vacuo dilationExtra-axial spaces: Unremarkable.Calvarium and skull base: Intact.Paranasal sinuses and mastoid air cells: Visible chambers are clear.Orbital contents: Included portionsunremarkable. CTA BRAIN:Internal carotid arteries: Petrous, cavernous and supraclinoid portions patent. Middle cerebral arteries: Patent to distal branches.Anterior cerebral arteries: Patent. Intact A-comm.Basilar system: Patent vertebrobasilar system.Posterior cerebral arteries:Patent beyond the quadrigeminal segments.Venous opacification: Major dural sinuses unremarkable for bolus timing.Additionalfindings: None. CTA NECK:Common carotid arteries: The common carotid arteries are normal in size. Retropharyngeal course bilaterally maximally at the C1 level.Bifurcations: Atherosclerotic disease with less than 50% narrowing bilaterally by NASCET criteria Cervical internal carotid arteries: No flow limiting stenosis.Vertebral arteries: Codominant. No origin stenosis.Arch anatomy: Conventional. Nonvascular findings:No acute findings within the limits of arterial phase imaging. IMPRESSION: Chronic involutional changes without visible recent infarct or hemorrhage. 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 Patent intracranial circulation. Signed: Adis basurto JR, Robert MDReport Verified Date/Time: 11/13/2019 08:24:31 Reading Location: [facility] C013V [facility] 2019-11-13 08:24:00Interface, External Ris In - 11/13/2019 8:[address], CTANGIOBRAIN, CT, CAROTID, ANGIOBRAIN CT WITHOUT CONTRAST INDICATION: Neuro deficit, acute, stroke suspected COMPARISON: None TECHNIQUE:Rapid acquisition spiral images were obtained between the aortic arch and the cranial vertex during intravenous contrast infusion to reconstruct axial images and angiographic 3D maximum intensity projections (MIP). 3-D volumetric reformatted images were created at a dedicated workstation. Precontrast images of the brain were also obtained. Stenosis evaluation reported in compliance with NASCET criteria. DOSE REDUCTION: Dose modulation, iterative reconstruction, and/or weight-based adjustment of the mA/kV was utilized to reduce the radiation dose to as low as reasonably achievable. FINDINGS:CT BRAIN:Cerebral parenchyma: Mild volume loss. No discernible mcgill- white disruption. No parenchymal hemorrhage.Midline structures: Normally positioned.Cerebellum and brainstem: Normal.Ventricles: Ex vacuo dilationExtra- axial spaces: Unremarkable.Calvarium and skull base: Intact.Paranasal sinuses and mastoid air cells: Visible chambers are clear.Orbital contents: Included portionsunremarkable. CTA BRAIN:Internal carotid arteries: Petrous, cavernous and supraclinoid portions patent. Middle cerebral arteries: Patent to distal branches.Anterior cerebral arteries: Patent. Intact A-comm.Basilar system: Patent vertebrobasilar system.Posterior cerebral arteries:Patent beyond the quadrigeminal segments.Venous opacification: Major dural sinuses unremarkable for bolus timing.Additionalfindings: None. CTA NECK:Common carotid arteries: The common carotid arteries are normal in size. Retropharyngeal course bilaterally maximally at the C1 level.Bifurcations: Atherosclerotic disease with less than 50% narrowing bilaterally by NASCET criteria Cervical internal carotid arteries: No flow limiting stenosis.Vertebral arteries: Codominant. No origin stenosis.Arch anatomy: Conventional. Nonvascular findings:No acute findings within the limits of arterial phase imaging. IMPRESSION: Chronic involutional changes without visible recent infarct or hemorrhage. 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 Patent intracranial circulation. Signed: JR Wilkinson Robert MDReport Verified Date/Time: 11/13/2019 08:24:31 Reading Location: [address] Neuro Reading Room [facility] [id number] 07:49:00 Test Item Value Reference Range Interpretation Comments Free T4 (test code = 0.67 ng/dL 0.7-1.48 L 3024-7) MARGO (test code = MARGO) Mobile Battery Technician ID - MART C Lab Interpretation (test Abnormal code = 93768-6) [facility] CenterT[facility], [id number] 07:49:00 Test Item Value Reference Range Interpretation Comments FREE T4 (BEAKER) (test code = 655) 0.67 ng/dL 0.70-1.48 L Mobile Battery Technician RENETTA CEVALLOS CHemoglobin [id number] 07:45:00 Test Item Value Reference Range Interpretation Comments Hemoglobin A1C (test code = 4548-4) 6.2 % 4.3-6.1 H Lab Interpretation (test code = Abnormal 97271-1) [facility] CenterHEMOGLOBIN [id number] 07:45:00 Test Item Value Reference Range Interpretation Comments HEMOGLOBIN A1C (BEAKER) (test code = 6.2 % 4.3-6.1 H 368) TSH/Free T4 If [id number] 07:03:00 Test Item Value Reference Range Interpretation Comments TSH (test code = 10.877 0.350- 4.940 uIU/mL H 34212-9) MARGO (test code = MARGO) Mobile Battery Technician ID Juliette FARRELL L Lab Interpretation (test Abnormal code = 65761-0) [facility] CenterTSH/FREE T4 IF [id number] 07:03:00 Test Item Value Reference Range Interpretation Comments THYROID STIMULATING HORMONE 10.877 uIU/mL 0.350-4.940 H (BEAKER) (test code = 772) Mobile Battery Technician RENETTA FARRELL LVitamin B12 and [id number] 06:59:00 Test Item Value Reference Range Interpretation Comments Vitamin B12 (test code = 295 pg/mL 756-003 8222-9) Folate (test code = 12.20 ng/mL >=7.00 2284-8) MARGO (test code = MARGO) Mobile Battery Technician ID Juliette FARRELL L Lab Interpretation (test Normal code = 74929-3) [facility] CenterVITAMIN B12 AND [id number] 06:59:00 Test Item Value Reference Range Interpretation Comments VITAMIN B12 (BEAKER) (test code = 295 pg/mL 213-816 774) FOLATE (BEAKER) (test code = 362) 12.20 ng/mL >=7.00 Mobile Battery Technician RENETTA FARRELL LLipid [id number] 03:24:00 Test Item Value Reference Range Interpretation Comments Triglycerides (test 151 mg/dL code = 2571-8) Cholesterol (test code 121 mg/dL = 3-3) HDL (test code = 33 mg/dL 2084-9) LDL Calculated (test 58 mg/dL code = 90512-4) MARGO (test code = MARGO) Triglyceride Reference Range: Low Risk <150 Borderline 150-199 High Risk 200-499 Very High Risk >=500 Cholesterol Reference Range: Low Risk <200 Borderline 200-239 High Risk >240 HDL Cholesterol Reference Range: Low Risk >=60 High Risk <40 LDL Cholesterol Reference Range: Optimal <100 Near Optimal 100-129 Borderline 130-159 High 160-189 Very High >=190 Mobile Battery Technician ID - PIAYA L [facility] CenterHepatic function [id number] 03:24:00 Test Item Value Reference Range Interpretation Comments Protein, Total (test code 6.2 6.0- 8.3 gm/dL = 2885-2) Albumin (test code = 3.4 g/dL 3.5-5 L 21514-1) Total Bilirubin (test code 0.6 mg/dL 0.2-1.2 = 1974-2) Bilirubin, Direct (test 0.3 mg/dL 0.1-0.5 code = 1967-7) Alkaline Phosphatase (test 75 U/L 40-150 code = 6768-6) AST (test code = 1920-8) 12 U/L 5-34 ALT (test code = 1742-6) 13 U/L 6-55 MARGO (test code = MARGO) Mobile Battery Technician ID - JAMI L Lab Interpretation (test Abnormal code = 41895-8) [facility] CenterLIPID [id number] 03:24:00 Test Item Value Reference Range Interpretation Comments TRIGLYCERIDES (BEAKER) (test code = 151 mg/dL 540) CHOLESTEROL (BEAKER) (test code = 121 mg/dL 631) HDL CHOLESTEROL (BEAKER) (test code 33 mg/dL = 976) LDL CHOLESTEROL CALCULATED (BEAKER) 58 mg/dL (test code = 633) Triglyceride Reference Range: Low Risk <150 Borderline 150-199 High Risk 200-499 Very High Risk >=500Cholesterol Reference Range: Low Risk <200 Borderline 200-239 High Risk >240HDL Cholesterol Reference Range: Low Risk >=60 High Risk <40LDL Cholesterol Reference Range: Optimal <100 Near Optimal 100-129 Borderline 130-159 High 160-189 Very High >=190 Mobile Battery Technician ID Juliette HICKEYSIGIFREDOLBASIC METABOLIC [id number] 03:24:00 Test Item Value Reference Range Interpretation Comments SODIUM (BEAKER) 140 meq/L 136-145 (test code = 381) POTASSIUM (BEAKER) 3.8 meq/L 3.5-5.1 (test code = 379) CHLORIDE (BEAKER) 109 meq/L 98-107 H (test code = 382) CO2 (BEAKER) (test 27 meq/L 22-29 code = 355) BLOOD UREA NITROGEN 16 mg/dL 7-21 (BEAKER) (test code = 354) CREATININE (BEAKER) 0.74 mg/dL 0.57-1.25 (test code = 358) GLUCOSE RANDOM 95 mg/dL 70-105 (BEAKER) (test code = 652) CALCIUM (BEAKER) 8.5 mg/dL 8.4-10.2 (test code = 697) EGFR (BEAKER) (test 77 mL/min/1.73 ESTIMA NICHOL GFR IS code = 1092) sq m NOT ACCURATE CREATININE CLEARANCE IN PREDICTING GLOMERULAR FILTRATION RATE . ESTIMATED GFR I S NOT APPLICABLE FOR DIALYSIS PATIEN TS. Mobile Battery Technician ID Juliette FARRELL LHEPATIC FUNCTION [id number] 03:24:00 Test Item Value Reference Range Interpretation Comments TOTAL PROTEIN (BEAKER) (test code = 6.2 gm/dL 6.0-8.3 770) ALBUMIN (BEAKER) (test code = 1145) 3.4 g/dL 3.5-5.0 L BILIRUBIN TOTAL (BEAKER) (test code 0.6 mg/dL 0.2-1.2 = 377) BILIRUBIN DIRECT (BEAKER) (test 0.3 mg/dL 0.1-0.5 code = 706) ALKALINE PHOSPHATASE (BEAKER) (test 75 U/L 40-150 code = 346) AST (SGOT) (BEAKER) (test code = 12 U/L 5-34 353) ALT (SGPT) (BEAKER) (test code = 13 U/L 6-55 347) Mobile Battery Technician ID - EDELMIRASIGIFREDO LUrinalysis w/Microscopic + Reflex to [id number] 03:19:00 Test Item Value Reference Range Interpretation Comments Color, UA (test code = Light Yellow 5778-6) Clarity, UA (test code = Clear 5767-9) Specific [place], UA (test 1.012 1.001-1.035 code = 5811-5) pH, UA (test code = 6.0 5.0-8.0 5803-2) Protein, UA (test code = Negative Negative 48237-2) Glucose, UA (test code = Negative Negative 365) Ketones, UA (test code = Negative Negative 2514-8) Bilirubin, UA (test code = Negative Negative 14162-5) Blood, UA (test code = Negative Negative 77145-3) Nitrite, UA (test code = Positive Negative A 5802-4) Leukocytes, UA (test code Negative Negative = 5799-2) Urobilinogen, UA (test 0.2 mg/dL 0.2-1 code = 31424-1) RBC, UA (test code = <1 /HPF 50155-7) WBC, UA (test code = <1 /HPF 5821-4) Bacteria, UA (test code = Rare 16982-3) Squam Epithel, UA (test 1 /HPF code = 17413-1) Specimen Source (test code = 2795) MARGO (test code = MARGO) Mobile Battery Technician ID - [auto]Mobile Battery Technician ID - tigist Lab Interpretation (test Abnormal code = 95432-8) [facility] CenterURINALYSIS W/ REFLEX URINE [id number] 03:19:00 Test Item Value Reference Range Interpretation Comments COLOR (BEAKER) (test code = 470) Light Yellow CLARITY (BEAKER) (test code = Clear 469) SPECIFIC GRAVITY UA (BEAKER) 1.012 1.001-1.035 (test code = 468) PH UA (BEAKER) (test code = 467) 6.0 5.0-8.0 PROTEIN UA (BEAKER) (test code = Negative Negative 464) GLUCOSE UA (BEAKER) (test code = Negative Negative 365) KETONES UA (BEAKER) (test code = Negative Negative 371) BILIRUBIN UA (BEAKER) (test code Negative Negative = 462) BLOOD UA (BEAKER) (test code = Negative Negative 461) NITRITE UA (BEAKER) (test code = Positive Negative A 465) LEUKOCYTE ESTERASE UA (BEAKER) Negative Negative (test code = 466) UROBILINOGEN UA (BEAKER) (test 0.2 mg/dL 0.2-1.0 code = 463) RBC UA (BEAKER) (test code = < /HPF 519) WBC UA (BEAKER) (test code = < /HPF 520) BACTERIA (BEAKER) (test code = Rare 517) SQUAMOUS EPITHELIAL (BEAKER) 1 /HPF (test code = 516) SOURCE(BEAKER) (test code = 2795) Mobile Battery Technician ID - [auto]Mobile Battery Technician ID - hankCBC (HEMOGRAM ONLY)2019-11-13 02:43:00 Test Item Value Reference Range Interpretation Comments WHITE BLOOD CELL COUNT (BEAKER) 9.7 K/ L 3.5-10.5 (test code = 775) RED BLOOD CELL COUNT (BEAKER) 3.92 M/ L 3.93-5.22 L (test code = 761) HEMOGLOBIN (BEAKER) (test code = 10.7 GM/DL 11.2-15.7 L 410) HEMATOCRIT (BEAKER) (test code = 34.7 % 34.1-44.9 411) MEAN CORPUSCULAR VOLUME (BEAKER) 88.5 fL 79.4-94.8 (test code = 753) MEAN CORPUSCULAR HEMOGLOBIN 27.3 pg 25.6-32.2 (BEAKER) (test code = 751) MEAN CORPUSCULAR HEMOGLOBIN CONC 30.8 GM/DL 32.2-35.5 L (BEAKER) (test code = 752) RED CELL DISTRIBUTION WIDTH 17.7 % 11.7-14.4 H (BEAKER) (test code = 412) PLATELET COUNT (BEAKER) (test 209 K/CU MM 150-450 code = 756) MEAN PLATELET VOLUME (BEAKER) 11.1 fL 9.4-12.3 (test code = 754) NUCLEATED RED BLOOD CELLS 0 /100 WBC 0-0 (BEAKER) (test code = 413) POCT-GLUCOSE [id number] 21:14:00 Test Item Value Reference Range Interpretation Comments POC-GLUCOSE METER 104 mg/dL 70-110 : TESTED A T [facility] 6720 (BEAKER) (test code = [place], 1538) [address]: Mobile Battery Technician/Techni britt ID = [id number] for DE NNIS, TRACY Digoxin [id number] 15:47:00 Test Item Value Reference Range Interpretation Comments Digoxin Lvl (test code = 1.77 ng/mL 0.8-2 00162-1) MARGO (test code = MARGO) Mobile Battery Technician ID - MART C Lab Interpretation (test Normal code = 08401-5) [facility] CenterDIGOXIN [id number] 15:47:00 Test Item Value Reference Range Interpretation Comments DIGOXIN LEVEL (BEAKER) (test code 1.77 ng/mL 0.80-2.00 = 669) Mobile Battery Technician ID - MART CRAD, CHEST, 1 VIEW, NON [id number] 14:42:00Reason for exam:->cough - please eval for acute processShould this be performed at the bedside?->YesFINAL REPORT INDICATION: cough - please eval for acute process COMPARISON: None TECHNIQUE: Single frontal view of the chest. FINDINGS: Lungs and pleura: Clear lungs. No effusion.Heart and mediastinum: Normal heart size. Unremarkable mediastinal contours.Osseous structures: No acute abnormality.Other: None. IMPRESSION: No acute intrathoracic abnormality. Signed: JR Jaja, Katt Velázquez Verified Date/Time: 11/12/2019 14:42:43 Reading Location: [address] Neuro Reading Room [id number] 19:51:28437Lkwufvqd FwaokaeVDQVPZJIJP7886-10-29 19:51:009.[address] [facility] AmctfxuACBWIKDDBC8130-09-49 19:51:0031.9[facility] 2016-02-14 19:51:0015.4[facility] NwxxuygEOFLBZHNSB5271-23-94 19:51:0017.8[facility] DzpwtcsYFTCJZKPED3210-69-38 19:51:005.23[facility] UywpoqkDUWCSEHQVE4879-03-37 19:51:0045.0[facility] CgmqdpeYMNBUBFTKX9703-34-43 19:51:00 Test Item Value Reference Range Interpretation Comments MCH (test code = MCH) 27.5 pg 27.0-31.0 [facility] FnkiiffIKDISZJWVJ8877-89-01 19:51:0014.4[facility]annHEMATOLOGY 2016-02-14 19:51:0086.0[facility]annCHEM RWDZC6681-49-45 10:55:002.6[facility]annCHEM SHAUG0154-05-32 10:55:003.0[facility] AND [id number] 19:21:00Negative (02/13/16 2:21 PM)[facility] [id number] 19:21:00Negative (02/13/16 2:21 PM)[facility] [id number] 19:21:00Negative *NA*(02/13/16 2:21 PM)[facility] [id number] 19:21:00 Test Item Value Reference Range Interpretation Comments UA Spec Grav (test code = UA Spec 1.025 1 Grav) [facility] [id number] 19:21:00Yellow *NA*(02/13/16 2:21 PM) [facility] [id number] 19:21:00 Test Item Value Reference Range Interpretation Comments UA pH (test code = UA pH) 5.5 1 5.0-8.0 [facility] [id number] 19:21:00Clear (02/13/16 2:21 PM) [facility] [id number] 19:21:00None Seen (02/13/16 2:21 PM) [facility] [id number] 19:21:00None Seen (02/13/16 2:21 PM) [facility] [id number] 19:21:00None Seen (02/13/16 2:21 PM) [facility] [id number] 19:21:00Negative (02/13/16 2:21 PM) [facility] [id number] 19:21:00Performed (02/13/16 2:21 PM) [facility] WXGDS7952-02-86 19:21:000.2[facility] [id number] 19:21:00Negative (02/13/16 2:21 PM)[facility] PJSLQ3600-23-45 19:21:00Trace *ABN*(02/13/16 2:21 PM)[facility] [id number] 19:21:00Negative *NA*(02/13/16 2:21 PM)[facility]annCHEM PANEL 2016-02-13 10:21:003.0[facility]annCHEM [id number] 10:21:002.4[facility]annCHEM YUXLT2286-50-73 10:21:000.7[facility]annCHEM JYONJ6155-27-61 10:21:0023[facility]annCHEM IAHKV9116-51-03 10:21:004.3[facility]annCHEM ZXZCD9537-56-58 10:21:0012.0[facility]annCHEM AUBGJ2894-26-61 10:21:0054 [facility]annCHEM UQHMV6506-63-41 10:21:001.05[facility]annCHEM PANEL 2016-02-13 10:21:31103Evgfobzg HermannCHEM PHKIJ7831-40-80 10:21:004.0[facility]annCHEM WZUUU7229-41-05 10:21:0024[facility]annCHEM YJOZP5014-37-12 10:21:0019[facility]annCHEM XXUIM6336-36-48 10:21:008.1[facility]annCHEM FHWGU8449-77-00 10:21:007.3[facility]annCHEM KSKFO6222-63-89 10:21:000.7 [facility]annCHE[facility] HFYTG9788-29-27 10:21:008[facility]annCHEM PANEL 2016-02-13 10:21:88673Pzgjcymp HermannCHEM [id number] 10:21:0028[facility]annCHEM NGRVZ2478-92-00 10:21:0070[facility]annCHEM XPIJS0021-87-57 10:21:003.0[facility]annCHEM DYUTC6970-35-37 10:21:97191Oolofaeu Leola WYRGCMQHGA7445-62-56 10:21:0015.5[facility] QeymszvEWAXZBPHGL0615-33-90 10:21:00 86.4[facility] FpnlxpvCVJPFJFXZM6865-57-36 10:21:0032.5[facility]annHEMATOLOGY 2016-02-13 10:21:00 Test Item Value Reference Range Interpretation Comments MCH (test code = MCH) 28.1 pg 27.0-31.0 [facility] LelthfzQZWGRKULQF3232-06-92 10:21:0042.3[facility]annHEMATOLOGY 2016-02-13 10:21:009.1[facility] FmlyhagEBVSVGZWIP8309-29-88 10:21:52265Gvbekwpo JafqelpLWBPXFPIWD9781-15-88 10:21:0013.7[facility] PiusknxNKLPDAFBEQ3771-76-60 10:21:004.89[facility] XxdlygqNTQCSHDPVD6979-03-75 10:21:0014.1[facility] Leola QNFLIJWNMZ4444-39-94 10:21:000.4[facility] SisemdrYNCEBLLKIF6600-61-54 10:21:000.6 [facility] LkmnfcmBUMIDUPMBK5761-96-13 10:21:0013.1[facility]annHEMATOLOGY 2016-02-13 10:21:0092.9[facility] WcrvuikQGBXORGMKR6904-09-84 10:21:000.2[facility] QnnqywuPOTHJNGKWM2523-45-46 10:21:002.9[facility] ZonstrtVRRLXWDCAD9287-64-45 10:21:004.0[facility] EdzvyqmFOBPFBIQQR4198-56-89 10:21:00Normal (02/13/16 5:21 AM) [facility] LgpalpoGGXYDWXGOV2870-05-51 10:21:00Normal (02/13/16 5:21 AM)[facility]annCHEM DQTYA1667-61-13 13:05:002.5[facility]annCHEM DUJVB5340-86-07 13:05:0056[facility]annCHEM AMPUW9735-76-45 13:05:0031[facility] HermannCHEM BYCKD7699-27-33 13:05:003.6[facility]annCHEM XLCXE5857-43-10 13:05:008.2 [facility]annCHEM ZBFEU8560-44-82 13:05:86465Mvtelxds HermannCHEM PANEL 2016-02-12 13:05:008.6[facility]annCHEM MVNEZ7763-08-75 13:05:0020[facility] HermannCHEM MTBJC0402-48-94 13:05:02755Bycberep HermannCHEM BCXZJ8417-16-52 13:05:90872Fditdmrh HermannCHEM NVNXL6898-97-42 13:05:001.03[facility] BACTERIAL - BXDXBZKC7266-21-15 06:40:00Negative (02/12/16 1:40 AM)[facility] HermannCARDIAC ZUOVYMI8526-67-94 11:46:944757Cvazerpw HermannCHEM PANEL 2016-02-10 11:46:1964[facility] HermannCHEM MJINX7249-15-72 11:46:190.8[facility] HermannCHEM RTUWG2656-30-09 11:46:198.3[facility] HermannCHEM SZPYA4798-06-94 11:46:1927[facility] HermannCHEM JUJER2854-70-16 11:46:197.3[facility] HermannCHEM YGHZS6010-86-77 11:46:1916[facility] HermannCHEM QUHZM9275-85-96 11:46:190.92 [facility]annCHEM YWIJY6791-26-39 11:46:64437Xnlqzqeq HermannCHEM PANEL 2016-02-10 11:46:1915[facility] HermannCHEM KXESI2845-78-93 11:46:193.7[facility] HermannCHEM SNIUY0545-03-51 11:46:56425Gcmfmsam HermannCHEM [id number] 11:46:193.6[facility]annCHEM [id number] 11:46:1995[facility] HermannCHEM VXOXO9045-49-92 11:46:1926[facility] HermannCHEM VNIBK6517-46-18 11:46:1971 [facility]annCHEM KTGYK8355-17-61 11:46:191.0[facility] HermannCHEM PANEL 2016-02-10 11:46:193.7[facility] HermannCHEM LHHSQ3610-50-57 11:46:1916[facility] HermannCHEM TAHTW6533-95-77 11:46:1912.7[facility] KyypfxuVBQRTJDDPY2311-69-30 11:46:190.7[facility] VephridCYDTZZWQEL9391-08-96 11:46:191.9[facility] IKQVJMKWMX7448-69-50 11:46:196.3[facility] MdzztzbIPNWPAXTUH1950-68-12 11:46:190.1 [facility] FovkzreFQMSHYKVKM2223-90-57 11:46:190.5[facility] HermannHEMATOLOGY 2016-02-10 11:46:191.2[facility] TsccpzwJSWVTTNUVH4136-31-94 11:46:1970.2[facility] FfdjzciWIGKGMSZXC8658-60-01 11:46:1920.5[facility] RgzjvifHMYVEASSAK7759-67-78 11:46:197.6[facility] AjhrcwrBZFQFYRIPZ6524-68-43 11:46:55204Lzobnzrk [place] WBJUBLPNBQ7072-26-58 11:46:199.5[facility] EuesbmhTHVPQFMAQK2284-73-46 11:46:19 15.8[facility] ZivcvxeGXAHJSKWVZ6409-42-58 11:46:1932.8[facility] HermannHEMATOLOGY 2016-02-10 11:46:1986.1[facility] OgilsqwTKJZTMNRGU0780-83-91 11:46:19 Test Item Value Reference Range Interpretation Comments MCH (test code = MCH) 28.2 pg 27.0-31.0 [facility] DelxukxRFDHZUVMVW4376-67-75 11:46:1939.9[facility] HermannHEMATOLOGY 2016-02-10 11:46:199.1[facility] SxzmpvnFAALMDAILU5740-49-37 11:46:194.63[facility] WndamphNFSTESZZDB6357-58-81 11:46:1913.1[facility] SucyzmdFJXADL8773-05-67 11:46:193.74[facility] VhnyhzdIAUPTG0627-65-90 11:46:1926[facility] HermannLIPIDS 2016-02-10 11:46:18543Zboilnpq DbxvcpoRSXYIC0545-21-71 11:46:67441Cqqqkiua YmfbcinOYFFTF9652-03-59 11:46:1962[facility] PtgkhdzJMTZYO4855-72-51 11:46:26905 [facility]annSPECIAL YDUTSAQQJ8490-68-61 11:46:195.8[facility]
[2020-01-15 19:37] LABS: Absolute Lymphocytes (CBC) 1.1 K/uL (0.7-4.9); Basophils % 0.3 % (0-1.3); Hematocrit 38.9 % (36.0-45.0); Lymphocytes % 6.6 % (15.3-44.8); MPV 10.4 fL (7.6-11.3); RBC Red Blood Cell Count 4.74 M/uL (3.86-4.86)
[2020-01-15] MEDS ORDERED: FENTANYL CITR 100 MCG/2 ML ONE (19:43)
[2020-01-15 19:45] LABS: Protime INR 1.24
[2020-01-15] MEDS ORDERED: METOPROLOL TARTRATE 5 MG/5 ML INJ IV ONE ×2 (20:04→21:45)
[2020-01-15] MEDS ORDERED: METOPROLOL TAR 25 MG TAB ONE (20:04)
[2020-01-15 20:25] LABS: Anisocytosis 1+; Blood Morphology Comment NOTED (NOT SEEN); Platelet Estimate ADEQ; Urine White Blood Cell Casts OK
[2020-01-15 20:26] LABS: Poikilocytosis 1+
[2020-01-15 20:35] LABS: Potassium 5.2 mmol/L (3.5-5.1)
--- NOTE | 2020-01-15 21:10 | RAD REPORT ---
EXAM DESCRIPTION: CT - Head C Spine Cap Casey Alvarez - 01/15/2020 8:51 pm CLINICAL HISTORY: Head and neck injury with chest and abdominal pain status post fall.. Head and nec k pain . TECHNIQUE: Computed axial tomography of the head and cervical spine was obtained Computed axial tomography of the chest, abdomen and pelvis was obtained. 100 cc Isovue-300 was given intravenously coronal and sagittal reconstruction was performed. All CT scans are performed using dose optimization technique as appropriate and may include automated exposure control or mA/KV adjustment according to patient size. 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 An intracranial bleed is not seen. The ventricles are nor mal in caliber. An extra-axial fluid collection is not noted. A cervical fracture is not seen. No dislocation is seen. A mediastinal hematoma is not noted. A pleural effusion is not present. A lung contusion is not seen. The liver, spleen, pancreas, kidneys and bladder do not demonstrate a traumatic injury. Left renal co rtical thinning probably secondary to prior inflammation 2.5 centimeter left adrenal mass has decreased in size since 2016 and is benign Stranding is present within the right posterior subcutaneous fat of the lower abdomen. . Plaque is present within the lower abdominal aorta resulting in an approximately 70% stenosis IMPRESSION: 1. No acute intracranial abnormality is seen 2. A cervical fracture is not visualized. 3. No traumatic injury involving the chest, 4. Stranding within the right posterior subcutaneous fat of the lower abdomen may indicate a contusio n
--- NOTE | 2020-01-15 21:43 | ER ---
Nurse's Notes [facility] Name: La Henson Age: 74 yrs Sex: Female : 1945 Arrival Date: 01/15/2020 Time: 17:40 Bed 16 Private MD: Asael Huffman V Diagnosis: Other slipping, tripping and stumbling and falls;Chronic atrial fibrillation Presentation: 01/14 17:47 Chief complaint: Patient states: Getting some ice and fell back and hit my back on the jl7 right side. Denies LOC, denies hitting head. Unsure what made her fall. Coronavirus screen: Proceed with normal triage. Patient denies a cough. Patient denies shortness of breath or difficulty breathing. Patient denies measured and/or subjective temperature greater than 100.4F prior to today's visit. Patient denies travel on a cruise ship or to a country the [facility] [place] as an affected area. Patient denies contact with known and/or suspected case of COVID-19. Ebola Screen: No symptoms or risks identified at this time. Initial Sepsis Screen: Does the patient meet any 2 criteria? No. Patient's initial sepsis screen is negative. Does the patient have a suspected source of infection? No. Patient's initial sepsis screen is negative. Risk Assessment: Do you want to hurt yourself or someone else? Patient reports no desire to harm self or others. Onset of symptoms was January 15, 2020. Care prior to arrival: None. 17:47 Method Of Arrival: Wheelchair jl7 17:47 Acuity: AGUSTIN 3 jl7 20:09 Care prior to arrival: None. Mechanism of Injury: No Mechanism of Injury. ls4 20:09 Trauma event details: Injury occurred in the [facility], Injury occurred: at 4 home. Triage Assessment: 18:07 General: Appears in no apparent distress. uncomfortable, Behavior is calm, cooperative, jl7 appropriate for age. Pain: Complains of pain in right side of back. Trauma Activation: Not Applicable Physician: ED Physician; Name: ; Notified At: ; Arrived At: Physician: General Surgeon; Name: ; Notified At: ; Arrived At: Physician: Radiology; Name: ; Notified At: ; Arrived At: Physician: Respiratory; Name: ; Notified At: ; Arrived At: Physician: Lab; Name: ; Notified At: ; Arrived At: Historical: - Allergies: 18:07 Sulfa (Sulfonamide Antibiotics); jl7 - Home Meds: 18:07 mirtazapine 7.5 mg Oral tab 1 tabs once daily [Active]; montelukast 10 mg oral tab jl7 [Active]; Tramadol Oral [Active]; escitalopram oxalate 20 mg oral tab 1 tab once daily [Active]; atorvastatin 40 mg oral tab 1 tab once daily [Active]; metoprolol succinate 25 mg oral Tb24 1 tab once daily [Active]; liothyronine 5 mcg oral tab 1 tab once daily [Active]; Eliquis 5 mg oral tab [Active]; Furosemide Oral [Active]; levothyroxine 125 mcg oral tab [Active]; potassium chloride 20 mEq Oral TbER [Active]; - PMHx: 18:07 Atrial Fib; Hyperlipidemia; Hypertension; Hypothyroidism; CHF; jl7 - PSHx: 18:07 None; jl7 - Immunization history:: Adult Immunizations not up to date. - Social history:: Smoking status: Patient reports the use of cigarette tobacco products, smokes one pack cigarettes per day. - Immunization history: Last tetanus immunization: unknown. Screenin:38 Abuse screen: Denies threats or abuse. Denies injuries from another. Tuberculosis ls4 screening: No symptoms or risk factors identified. 20:43 Nutritional screening: No deficits noted. Fall Risk Total Clarke Fall Scale indicates ls4 Low Risk Score (25-44 pts). Fall prevention measures have been instituted. Side Rails Up X 2 Placed close to Nursing Station Frequent Obs/Assesments occuring Family Present and informed to notify staff if they need to leave bedside As available Patient and Family Educated on Fall Prevention Program and strategies. Primary Survey: 18:10 NO uncontrolled hemorrhage observed. A: The patient is alert. Airway: patent. ls4 Breathing/Chest: Respiratory pattern: regular, Respiratory effort: spontaneous, unlabored, Breath sounds: clear, bilaterally. Circulation: Cardiac rhythm: sinus rhythm Heart tones present. Pulses: palpable chest and left lateral posterior chest. Disability Alert. Exposure/Environment: There is no evidence of uncontrolled external bleeding. Obvious injury(ies) are noted at this time: pain in left side ribs. 20:40 Reassessment Airway Airway Breathing/Chest Respiratory pattern Regular Respiratory ls4 effort Spontaneous Unlabored Chest inspection Symmetrical Circulation Heart rhythm Atrial fibrillation Pulses Palpable Color [place] Temperature Warm Disability Alert. Secondary Survey: 18:10 HEENT: No deficits noted. Gastrointestinal: No deficits noted. : No deficits noted. ls4 No signs and/or symptoms were reported regarding the genitourinary system. Musculoskeletal: Musculoskeletal: Circulation, motion, and sensation intact. Capillary refill < 3 seconds, Range of motion: intact in all extremities, Swelling absent Reports pain in left side ribs. Assessment: 20:09 Reassessment: Patient appears in no apparent distress at this time. Patient and/or ls4 family updated on plan of care and expected duration. Pain level reassessed. Patient is alert, oriented x 3, equal unlabored respirations, skin warm/dry/pink. Patient states feeling better. 20:24 General: Appears uncomfortable, Behavior is calm. Pain: Complains of pain in left ls4 lateral posterior chest Pain currently is 9 out of 10 on a pain scale. Quality of pain is described as crushing, stabbing, Pain began 1 hour ago. Neuro: Level of Consciousness is awake, alert, obeys commands, Oriented to person, place, time, situation, Denies weakness blurred vision dizziness, difficulty swallowing, paresthesias numbness headache photophobia diplopia. EENT: No deficits noted. No signs and/or symptoms were reported regarding the EENT system. Cardiovascular: Denies chest pain, diaphoresis, fatigue, lightheadedness, nausea, palpitations, shortness of breath, syncope, vomiting, Rhythm is atrial fibrillation with rapid ventricular response. Respiratory: Reports Denies cough, shortness of breath at rest. GI: No deficits noted. No signs and/or symptoms were reported involving the gastrointestinal system. : No deficits noted. No signs and/or symptoms were reported regarding the genitourinary system. Derm: No deficits noted. No signs and/or symptoms reported regarding the dermatologic system. Musculoskeletal: Reports pain in left posterior rib pain. 21:12 Reassessment: Patient appears in no apparent distress at this time. Patient and/or ls4 family updated on plan of care and expected duration. Pain level reassessed. Patient is alert, oriented x 3, equal unlabored respirations, skin warm/dry/pink. Patient states symptoms have improved. Vital Signs: 17:47 BP 127 / 61; Pulse 88; Resp 21; Temp 98.4; Pulse Ox 98% ; Weight 86.18 kg; jl7 21:31 BP 118 / 81; Pulse 119; Resp 20; Pulse Ox 99% ; Pain 6/10; ls4 22:18 BP 113 / 50; Pulse 101; Resp 18; Temp 98.3(O); Pulse Ox 99% on R/A; Pain 5/10; ls4 [place] Coma Score: 20:09 Eye Response: spontaneous(4). Verbal Response: oriented(5). Motor Response: obeys ls4 commands(6). Total: 15. Trauma Score (Adult): 20:09 Eye Response: spontaneous(1); Verbal Response: oriented(1); Motor Response: obeys ls4 commands(2); Systolic BP: > 89 mm Hg(4); Respiratory Rate: 10 to 29 per min(4); Johanna Score: 15; Trauma Score: 12 ED Course: 17:40 Patient arrived in ED. ag5 17:40 Asael Huffman MD is Private Physician. ag5 17:51 Triage completed. jl7 18:07 Arm band placed on right wrist. jl7 18:08 Patient has correct armband on for positive identification. Side rails up X 1. ls4 18:08 Patient maintains SpO2 saturation greater than 95% on room air. ls4 18:08 Patient maintains SpO2 saturation greater than 95% on room air. ls4 18:10 Thermoregulation: warm blanket given to patient. ls4 18:13 Ximena Murcia, KARLI is Primary Nurse. ls4 18:28 Jeff Scott PA is PHCP. cp 18:28 Emmanuel Lagunas MD is Attending Physician. cp 20:09 No provider procedures requiring assistance completed. ls4 20:24 CBC Smear Scan Sent. ls4 20:24 CT Traumagram (Head C Spine CAP W Con) Sent. ls4 20:51 CT Traumagram (Head C Spine CAP W Con) In Process Unspecified. EDMS 22:18 IV discontinued, intact, bleeding controlled, No redness/swelling at site. Pressure ls4 dressing applied. 22:25 INCENTIVE SPIROMETRY Sent. ls4 Administered Medications: 19:38 Drug: fentaNYL (PF) 25 mcg Route: IVP; Site: left antecubital; ls4 20:08 Follow up: Response: No adverse reaction; Marked relief of symptoms ls4 19:54 Drug: Metoprolol 25 mg Route: PO; ls4 21:47 Follow up: Response: No adverse reaction ls4 19:54 Drug: Metoprolol 5 mg Route: IVP; Site: left antecubital; ls4 21:47 Follow up: Response: No adverse reaction ls4 21:47 Follow up: Response: No adverse reaction ls4 21:40 Drug: Metoprolol 5 mg Route: IVP; Site: left antecubital; ls4 22:26 Follow up: Response: No adverse reaction; Cardiac rhythm changed ls4 22:26 Drug: fentaNYL (PF) 25 mcg Route: IVP; Site: left antecubital; ls4 22:30 Follow up: Response: No adverse reaction ls4 Intake: 20:09 PO: 0ml; Total: 0ml. ls4 Output: 20:09 Urine: 0ml; Total: 0ml. ls4 Outcome: 21:42 Discharge ordered by MD. cp 22:18 Discharged to home ambulatory. ls4 22:18 Condition: stable 22:18 Patient's length of stay was not longer than 2 hours. 22:18 Discharge instructions given to patient, family, Instructed on discharge instructions, ls4 follow up and referral plans. medication usage, Demonstrated understanding of instructions, follow-up care, medications, Prescriptions given X 1. 22:39 Patient left the ED. ls4 Signatures: Dispatcher [employer] EDMS Jeff Scott PA PA cp Leal, Jahala RN RN jl7 Ximena Murcia RN RN ls4 Jocelyne Liu 5
--- NOTE | 2020-01-15 21:43 | EDPHYS ---
Physician Documentation [facility] Name: La Henson Age: 74 yrs Sex: Female : 1945 Arrival Date: 01/15/2020 Time: 17:40 Bed 16 Private MD: Asael Huffman V ED Physician Emmanuel Lagunas HPI: 01/14 18:45 This 74 yrs old Female presents to ER via Wheelchair with complaints of Fall cp Injury. 18:45 Details of fall: The patient fell from an upright position, while walking. cp 18:45 Onset: The symptoms/episode began/occurred today. Associated injuries: The patient cp sustained right mid and lateral back area, painful injury. 18:45 Severity of symptoms: in the emergency department the symptoms are unchanged, despite cp home interventions. Historical: - Allergies: 18:07 Sulfa (Sulfonamide Antibiotics); jl7 - Home Meds: 18:07 mirtazapine 7.5 mg Oral tab 1 tabs once daily [Active]; montelukast 10 mg oral tab jl7 [Active]; Tramadol Oral [Active]; escitalopram oxalate 20 mg oral tab 1 tab once daily [Active]; atorvastatin 40 mg oral tab 1 tab once daily [Active]; metoprolol succinate 25 mg oral Tb24 1 tab once daily [Active]; liothyronine 5 mcg oral tab 1 tab once daily [Active]; Eliquis 5 mg oral tab [Active]; Furosemide Oral [Active]; levothyroxine 125 mcg oral tab [Active]; potassium chloride 20 mEq Oral TbER [Active]; - PMHx: 18:07 Atrial Fib; Hyperlipidemia; Hypertension; Hypothyroidism; CHF; jl7 - PSHx: 18:07 None; jl7 - Immunization history:: Adult Immunizations not up to date. - Social history:: Smoking status: Patient reports the use of cigarette tobacco products, smokes one pack cigarettes per day. - Immunization history: Last tetanus immunization: unknown. ROS: 18:50 Constitutional: Negative for body aches, chills, fever, poor PO intake. cp 18:50 Eyes: Negative for injury, pain, redness, and discharge. cp Exam: 16:42 Head/Face: Normocephalic, atraumatic. cp 16:42 Constitutional: The patient appears in no acute distress, alert, awake, non-diaphoretic, non-toxic, well developed, well nourished. 16:42 Eyes: Periorbital structures: appear normal, Conjunctiva: normal, no exudate, no injection, Sclera: no appreciated abnormality, Lids and lashes: appear normal, bilaterally. 16:42 ENT: External ear(s): are unremarkable, Nose: is normal, Mouth: is normal, Posterior pharynx: is normal, airway is patent, no erythema, no exudate. 16:42 Neck: C-spine: vertebral tenderness, is not appreciated, crepitus, is not appreciated, ROM/movement: pain, is not appreciated, with any movement. 16:45 Chest/axilla: Inspection: normal, Palpation: is normal, no crepitus, no tenderness. cp 16:45 Cardiovascular: Rate: tachycardic, Rhythm: irregular, Edema: is not appreciated, JVD: cp is not appreciated. 16:45 Respiratory: the patient does not display signs of respiratory distress, Respirations: normal, no use of accessory muscles, Breath sounds: are clear throughout, no decreased breath sounds. 16:45 Abdomen/GI: Inspection: abdomen appears normal, Palpation: abdomen is soft and non-tender, in all quadrants. 16:45 Back: pain, that is moderate, of the right mid and lateral back, ROM is painful, vertebral tenderness, is not appreciated. 16:45 Musculoskeletal/extremity: Exam is negative for decreased range of motion, deformity. 16:45 Skin: no rash present. 16:45 Neuro: Orientation: to person, place \T\ time. Mentation: is normal, Motor: moves all fours, strength is normal. 19:42 ECG was reviewed by the Attending Physician. cp Vital Signs: 17:47 BP 127 / 61; Pulse 88; Resp 21; Temp 98.4; Pulse Ox 98% ; Weight 86.18 kg; jl7 21:31 BP 118 / 81; Pulse 119; Resp 20; Pulse Ox 99% ; Pain 6/10; ls4 22:18 BP 113 / 50; Pulse 101; Resp 18; Temp 98.3(O); Pulse Ox 99% on R/A; Pain 5/10; ls4 [place] Coma Score: 20:09 Eye Response: spontaneous(4). Verbal Response: oriented(5). Motor Response: obeys ls4 commands(6). Total: 15. Trauma Score (Adult): 20:09 Eye Response: spontaneous(1); Verbal Response: oriented(1); Motor Response: obeys ls4 commands(2); Systolic BP: > 89 mm Hg(4); Respiratory Rate: 10 to 29 per min(4); [place] Score: 15; Trauma Score: 12 MDM: 18:36 Patient medically screened. cp 20:00 Differential diagnosis: contusion, fracture, multiple trauma. cp 21:40 Counseling: I had a detailed discussion with the patient and/or guardian regarding: the cp historical points, exam findings, and any diagnostic results supporting the discharge/admit diagnosis, lab results, radiology results, to return to the emergency department if symptoms worsen or persist or if there are any questions or concerns that arise at home. Response to treatment: the patient's symptoms have markedly improved after treatment, and as a result, I will discharge patient. ED course: VSS. Pain improved with meds. Will discharge to home for continued monitoring. 21:41 Data reviewed: vital signs, nurses notes, lab test result(s), EKG, radiologic studies, cp CT scan, and as a result, I will discharge patient. 21:41 Test interpretation: by ED physician or midlevel provider: ECG. 01/14 18:44 Order name: Basic Metabolic Panel; Complete Time: 20:57 01/14 20:57 Interpretation: Normal except: K 5.2; CL 112; BUN 27; GFR 53. 01/14 18:44 Order name: CBC with Diff; Complete Time: 20:57 01/14 20:58 Interpretation: Normal except: WBC 16.4; HGB 11.8; MCH 25.0; MCHC 30.4; RDW 20.1; HELENE% cp 87.9; LYM% 6.6; NEUT A 14.4. 01/14 18:44 Order name: Type And Screen; Complete Time: 20:57 01/14 18:44 Order name: PT-INR; Complete Time: 20:57 01/14 19:44 Order name: CBC Smear Scan; Complete Time: 20:57 [facility] 01/14 21:39 Order name: CREATININE WHOLE BLOOD [facility] 01/14 18:44 Order name: CT Traumagram (Head C Spine CAP W Con); Complete Time: 21:23 cp 01/14 18:44 Order name: EKG; Complete Time: 18:44 cp 01/14 21:40 Order name: INCENTIVE SPIROMETRY cp 01/14 18:44 Order name: Labs collected and sent; Complete Time: 19:27 cp 01/14 18:44 Order name: EKG - Nurse/Tech; Complete Time: 19:37 cp EC:42 Rate is 139 beats/min. Rhythm is irregular. QRS interval is normal. QT interval is cp normal. Interpreted by me. Reviewed by me. Administered Medications: 19:38 Drug: fentaNYL (PF) 25 mcg Route: IVP; Site: left antecubital; ls4 20:08 Follow up: Response: No adverse reaction; Marked relief of symptoms ls4 19:54 Drug: Metoprolol 25 mg Route: PO; ls4 21:47 Follow up: Response: No adverse reaction ls4 19:54 Drug: Metoprolol 5 mg Route: IVP; Site: left antecubital; ls4 21:47 Follow up: Response: No adverse reaction ls4 21:47 Follow up: Response: No adverse reaction ls4 21:40 Drug: Metoprolol 5 mg Route: IVP; Site: left antecubital; ls4 22:26 Follow up: Response: No adverse reaction; Cardiac rhythm changed ls4 22:26 Drug: fentaNYL (PF) 25 mcg Route: IVP; Site: left antecubital; ls4 22:30 Follow up: Response: No adverse reaction ls4 Disposition: 01/15/20 21:42 Discharged to Home. Impression: Other slipping, tripping and stumbling and falls, Chronic atrial fibrillation. - Condition is Stable. - Discharge Instructions: Atrial Fibrillation, Fall Prevention in the Home. - Prescriptions for Tramadol 50 mg Oral Tablet - take 1 tablet by ORAL route every 8 hours as needed; 12 tablet. - Medication Reconciliation Form, Thank You Letter, Antibiotic Education, Prescription Opioid Use form. - Follow up: Private Physician; When: 2 - 3 days; Reason: Recheck today's complaints. - Problem is new. - Symptoms have improved. Signatures: Dispatcher [employer] EDMS Jeff Scott PA PA cp Leal, Jahala, RN RN jl7 Ximena Murcia RN RN ls4 Corrections: (The following items were deleted from the chart) 21:43 21:42 01/15/2020 21:42 Discharged to Home. Impression: Other slipping, tripping and cp stumbling and falls. Condition is Stable. Forms are Medication Reconciliation Form, Thank You Letter, Antibiotic Education, Prescription Opioid Use. Follow up: Private Physician; When: 2 - 3 days; Reason: Recheck today's complaints. Problem is new. Symptoms have improved. cp 22:39 21:43 01/15/2020 21:42 Discharged to Home. Impression: Other slipping, tripping and ls4 stumbling and falls; Chronic atrial fibrillation. Condition is Stable. Discharge Instructions: Fall Prevention in the Home. Prescriptions for Tramadol 50 mg Oral Tablet - take 1 tablet by ORAL route every 8 hours as needed; 12 tablet. and Forms are Medication Reconciliation Form, Thank You Letter, Antibiotic Education, Prescription Opioid Use. Follow up: Private Physician; When: 2 - 3 days; Reason: Recheck today's complaints. Problem is new. Symptoms have improved. 01/15 19:01/14 20:40 Counseling: I had a detailed discussion with the patient and/or guardian cp regarding: the historical points, exam findings, and any diagnostic results supporting the discharge/admit diagnosis, lab results, radiology results, to return to the emergency department if symptoms worsen or persist or if there are any questions or concerns that arise at home, 01/15 19:16 01/14 20:40 Response to treatment: the patient's symptoms have markedly improved after cp treatment, and as a result, I will discharge patient, 01/15 19:01/14 20:40 ED course: VSS. Pain improved with meds. Will discharge to home for cp continued monitoring. cp
[2020-01-15 22:46] VITALS: O2SAT 99
[2020-01-15 22:50] VITALS: BP 113/50; TEMP 98.3
== END 2020-01-15 22:39 | disposition home or self-care (01) ==
LOC: ER 17:38
DX: S29.9XXA Unspecified injury of thorax, initial encounter (principal); I48.20 Chronic atrial fibrillation, unspecified; W19.XXXA Unspecified fall, initial encounter; Y93.01 Activity, walking, marching and hiking; Y92.9 Unspecified place or not applicable; F17.210 Nicotine dependence, cigarettes, uncomplicated; I10 Essential (primary) hypertension; E78.5 Hyperlipidemia, unspecified; E03.9 Hypothyroidism, unspecified; I50.9 Heart failure, unspecified; Z79.01 Long term (current) use of anticoagulants; Z88.2 Allergy status to sulfonamides
CPT/HCPCS: 93005; 85025; 80048; 36415; 86900; 86850; 85610; 82565; 86901; 70450; 72125; 71260; 74177; 96375; 96374; 99285; Q9967; J3010

== ENCOUNTER 2020-01-23 13:17 | Inpatient (IN) | payer OTHER ==
[2020-01-23 14:42] LABS: Absolute Lymphocytes (CBC) 1.3 K/uL (0.7-4.9); Basophils % 0.7 % (0-1.3); Hematocrit 40.1 % (36.0-45.0); Lymphocytes % 12.3 % (15.3-44.8); MPV 9.9 fL (7.6-11.3); RBC Red Blood Cell Count 4.92 M/uL (3.86-4.86)
[2020-01-23 14:43] VITALS: BMI 28.5
[2020-01-23 15:18] LABS: Protime INR 1.32
--- OUTSIDE RECORDS SUMMARY | 2020-01-23 15:34 | XMS REPORT | Clinical Summary ---
:1945 Author Organization [facility] Address [address] [place] [address] Care Team Providers Name Role Phone Nathanael [...] Jr., MD 11/14/2019 Outside Orders Caroline Bangura, TALENT DEVELOPMENT MANAGER, RPSGT 11/12/2019 - Hospital Encounter General Internal Dante Martinez MD Cerebrovascular accident (CVA), unspecif ied mechanism (HCC); 11/17/2019 Medicine Ilana Underwood, Acute ischem ic stroke (HCC); Hemiparesis of left nondominant side, un specified hemiparesis etiology (HCC); Esdras Osorio MD Encephalopathy acute; Acquired hypoth yroidism; Bradycardia; Chronic atrial fibrillation; TIA (transient ischemic attack) 11/12/2019 Travel 11/12/2019 Orders Only Internal Medicine Dante Martinez MD after 01/22/2019 Social History Tobacco Use Types Packs/Day Years [...] (Season Ended) 2020 Implants Implanted Type 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 after 01/22/2019 Results ARRYTHMIA IMPLANT REPORT - SCAN (11/18/2019 [...] included. Specimen Narrative Performed At FINAL REPORT [facility] RAD, CHEST, 1 VIEW, NON DEPT INDICATION: [...] MD Report Verified Date/Time:11/17/2019 08:51:03 Reading Location: [facility] Reading Room Procedure [...] Verified Date/Time: 11/17/2019 0 8:51:03 Reading Location: [facility] y Reading Room Performing Organization Address City/State/Zipcode Phone Number GE RIS EKG 12 lead (11/17/2019 7:05 AM CDT)Only the most recent of4 resultswithin the time period is included. Specimen Narrative Performed At Ventricular Rate 70 BPM GE MUSE Atrial Rate 468 BPM QRS Duration 80 ms Q-T Interval 386 ms QTC Calculation(Bazett) 416 ms R [place] 2 degrees T Pilot [place] 233 degrees Demand pacemaker;interpretation is b ased on intrinsic rhythm Atrial fibrillation with premature ventricular or aber rantly conducted complexes Nonspecific ST and T wave abnormality , probably digitalis effect Abnormal ECG When compared with ECG of 16-NOV-2019 15 :34, Atrial fibrillation has replaced Electro krzysztof ventricular pacemaker Vent. rate has decreased BY69 BPM Confirmed by MD Morgan, [facility] ([id number]) on 11/17/2019 5:0 2:10 PM Procedure Note Interface, External Ris In - 11/17/2019 5:02 PM CDT Ventricular Rate 70 BPM Atrial Rate 468 BPM QRS Duration 80 ms Q-T Interval 386 ms QTC Calculation(Bazett) 416 ms R [place] 2 degrees T [place] 233 degrees Demand pacemaker; interpretation is bas ed on intrinsic rhythm Atrial fibrillation with premature ventr icular or aberrantly conducted complexes Nonspecific ST and T wave abnormality , probably digitalis effect Abnormal ECG When compared with ECG of 16-NOV-2019 15 :34, Atrial fibrillation has replaced Electro krzysztof ventricular pacemaker Vent. rate has decreased BY 69 BPM Confirmed by MD Morgan, [place] ([id number]) on 11/17/2019 5:02:10 PM Performing Organization Address City/State/Zipcode Phone Number GE MUSE BUN and Creatinine (11/17/2019 5:39 AM CDT) BUN 18 7 - 21 mg/dL [facility] ER Creatinine 1.12 0.57 - 1.25 mg/dL [facility] ER BUN/Creatinine Ratio 16.1Comment: For a [facility] normal individual on a [facility] normal diet, the reference interval for the mass ratio ranges between 12:1 and 20:1 (BUN in mg/dL/creatinine in mg/dL) EGFR 48Comment: ESTIMATED GFR mL/min/1.73 sq m [facility] IS NOT ACCURATE [facility] CREATININE CLEARANCE IN PREDICTING GLOMERULAR FILTRATION RATE. ESTIMATED GFR IS NOT APPLICABLE FOR DIALYSIS PATIENTS. Specimen Blood Narrative Performed At Flight Tower Dispatcher ID - [place] [facility] CENTER Performing Organization Address City/[facility]/Zipcode Phone Number [place] [phone] [place] [address] CENTER CBC (Hemogram only) (11/17/2019 5:39 AM CDT)Only the most recent of2 results within the time period is included. WBC 11.4 (H) 3.5 - 10.5 K/L [facility] H [facility] RBC 4.05 3.93 - 5.22 M/L [facility] Hemoglobin 10.9 (L) 11.2 - 15.7 GM/DL [facility] Hematocrit 36.0 34.1 - 44.9 % [facility] MCV 88.9 79.4 - 94.8 fL [facility] MCH 26.9 25.6 - 32.2 pg [facility] MCHC 30.3 (L) 32.2 - 35.5 GM/DL [facility] RDW 17.4 (H) 11.7 - 14.4 % [facility] Platelets 213 150 - 450 K/CU MM [facility] MPV 10.9 9.4 - 12.3 fL [facility] nRBC 0 0 - 0 /100 WBC [facility] Specimen Blood Performing Organization Address City/[facility] Phone Number [address] [address] CENTER Electrolytes (11/17/2019 5:39 AM CDT) Sodium 141 136 - 145 meq/L [facility] Potassium 4.4 3.5 - 5.1 meq/L [facility] Chloride 106 98 - 107 meq/L [facility] CO2 30 (H) 22 - 29 meq/L [facility] Specimen Blood Narrative Performed At Flight Tower Dispatcher ID - [place] [facility] Performing Organization Address [facility] Phone Number [address] [phone] CENTER POC-Glucose meter (11/16/2019 9:26 PM CDT)Only the most recent of12 results within the time period is included. POC-Glucose Meter 134 (H)Comment: : TESTED 70 - 110 mg/dL [facility] AT [address], [address]: Flight Tower Dispatcher/Fairing Man ID = [id number] for AWILDA SUZANNE Specimen Blood Performing Organization Address [facility] Phone Number [address] [address] CENTER SARS-CoV2/RT-PCR ([facility]) (11/16/2019 10:31 AM CDT)Only the most recent of2 resultswithin the time period is included. SARS-COV2/RT-PCR Not Detected Not Detected, Negative [facility] SARS-COV-[address] [facility] Specimen Other Narrative Performed At Negative results do not preclude SARS-CoV-2 [facility] infection and should not be used as [...] the Act. Fact Sheet for Healthcare Providers: https://www.[employer]/Documents/Xpert%20Xpre ss%20SARS%20CoV-2/Fact%20Sheets/3023802%20SAR S-COV-2%20HEALTHCARE%20PROVIDERS%20FACT%20SHEE T.pdf Fact Sheet for Healthcare Patients: https://www.[employer]/Documents/Xpert%20Xpre ss%20SARS%20CoV-2/Fact%20Sheets/3023801%20SAR S-COV-2%20PATIENT%20FACT%20SHEET.pdf Performing Laboratory: [address] [place] [address] Performing Organization Address City/State/Zipcode Phone Number [address] [address] CENTER TRANSFUSION SERVICE REPORT - SCAN (11/15/2019 6:01 PM CDT) Narrative Performed At This result has an attachment that is no t available. CBC with platelet count + automated diff (11/15/2019 4:50 AM CDT)Only the most recent of2 resultswithin the time period is included. WBC 9.9 3.5 - 10.5 K/L [facility] RBC 4.20 3.93 - 5.22 M/L [facility] Hemoglobin 11.3 11.2 - 15.7 GM/DL [facility] Hematocrit 37.0 34.1 - 44.9 % [facility] MCV 88.1 79.4 - 94.8 fL [facility] MCH 26.9 25.6 - 32.2 pg [facility] MCHC 30.5 (L) 32.2 - 35.5 GM/DL [facility] RDW 17.7 (H) 11.7 - 14.4 % [facility] Platelets 239 150 - 450 K/CU MM [facility] MPV 11.2 9.4 - 12.3 fL [facility] nRBC 0 0 - 0 /100 WBC [facility] % Neutros 72 % [facility] % Lymphs 14 % [facility] % Monos 9 % [facility] % Eos 4 % [facility] % Baso 1 % [facility] # Neutros 7.13 (H) 1.56 - 6.13 K/L [facility] # Lymphs 1.37 1.18 - 3.74 K/L [facility] # Monos 0.84 (H) 0.24 - 0.36 K/L [facility] # Eos 0.41 (H) 0.04 - 0.36 K/L [facility] # Baso 0.06 0.01 - 0.08 K/L [facility] Immature Granulocytes-Relative 0 0 - 1 % C HI [facility] Specimen Blood Performing Organization Address [facility] Phone Number [address] [address] CENTER Prothrombin time/INR (11/15/2019 4:50 AM CDT)Only the most recent of2 results within the time period is included. Protime 13.0 11.9 - 14.[address] [facility] INR 1.0 <=5.9 [facility] Specimen Blood Narrative Performed At Effective 12/15/2018: PT Reference Range [facility] Change New: 11.9-14.2Previous: 11.7-14.7 RECOMMENDED COUMADIN/WARFARIN INR THERAPY RANGES STANDARD DOSE: 2.0-3.0Includes: PROPHYLAXIS for venous thrombosis, systemic embolization; TREATMENT for venous thrombosis and/or pulmonary embolus. HIGH RISK: Target INR is 2.5-3.5 for patients wiht mechanical heart valves. Within 24 hours, if on Coumadin Performing Organization Address [facility] Phone Number [address] [address] CENTER Magnesium (11/15/2019 4:50 AM CDT)Only the most recent of2 resultswithin the time period is included. Magnesium 2.1Comment: Specimen slightly 1.6 - 2.6 mg/dL [facility] hemolyzed [facility] Specimen Blood Narrative Performed At Flight Tower Dispatcher RENETTA Alcazar [facility] Performing Organization Address City/[facility]/Zipcode Phone Number [address] [address] CENTER Basic metabolic panel (11/15/2019 4:50 AM CDT)Only the most recent of3 results within the time period is included. Sodium 142 136 - 145 meq/L [facility] Potassium 4.2Comment: Specimen slightly 3.5 - 5.1 meq/L [facility] hemolyzed [facility] Chloride 106 98 - 107 meq/L [facility] CO2 29 22 - 29 meq/L [facility] BUN 13 7 - 21 mg/dL [facility] Creatinine 0.76Comment: Specimen 0.57 - 1.25 mg/dL [facility] Glucose 120 (H) 70 - 105 mg/dL [facility] Calcium 8.8 8.4 - 10.2 mg/dL [facility] EGFR 75Comment: ESTIMATED GFR IS mL/min/1.73 sq m [facility] NOT ACCURATE CREATININE [facility] CLEARANCE IN PREDICTING GLOMERULAR FILTRATION RATE. ESTIMATED GFR IS NOT APPLICABLE FOR DIALYSIS PATIENTS. Specimen Blood Narrative Performed At Flight Tower Dispatcher RENETTA Segovia ANJALI Alcazar [facility] ICAL CENTER Performing Organization Address City/State/Zipcode Phone Number [facility] [address] [place] [address] [place] ECHOCARDIOGRAM REPORT - SCAN (11/14/2019 9:21 PM CDT) Narrative Performed At This result has an attachment that is no t available. 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 Chasidy Faria,InterpretingDavid Figueroa MD [facility] Physician Procedure Type of Study TTE procedure:2DECHO [...] Study 11/14/2019 JAN Gender Female Visit Number [id number] Race Unknown [place] [id number] Number Date of 1945 Referri Physician NickG YASMINE Age 73 year(s) Sonogra trisha Moe Nutritionalist Estrella Faria, Interpr eting David Figueroa MD [...] TR Gradient: 39.03 mmHg Performing Organization Address [facility] Phone Number [facility] ECHO HEARTLAB MKCKESSON CPACS ABORH, manual (11/14/2019 5:30 AM CDT) ABO Grouping O [facility] Rh Factor NEG [facility] Specimen Blood Performing Organization Address [facility] Phone Number [address] [address] Type and screen, automated (11/14/2019 4:01 AM CDT) ABO/RH AUTOMATED (BEAKER) O NEGATIVE [facility] Ab Scrn NEGATIVE [facility] Specimen Blood Performing Organization Address [facility] Phone Number [address] [address] MR brain without IV contrast (11/13/2019 11:38 AM CDT) Specimen Narrative Performed At FINAL REPORT [facility] MR, BRAIN, WITHOUT CONTRAST INDICATION: Neuro deficit, [...] MD Report Verified Date/Time:11/13/2019 11:43:35 Reading Location: [address] Room Procedure Note Interface, External Ris [...] Verified Date/Time: 11/13/2019 1 1:43:35 Reading Location: [address] Room Performing Organization Address City/State/Zipcode Phone Number [employer] CTA carotid (11/13/2019 8:10 AM CDT) Specimen Narrative Performed At FINAL REPORT [facility] ([employer]) CT, CTANGIOBRAIN, CT, CAROTID, ANGIO BRAIN CT [...] MD Report Verified Date/Time:11/13/2019 08:24:31 Reading Location: [facility] C[facility] Neuro [facility] Room Procedure Note Interface, External Ris In [...] Verified Date/Time: 11/13/2019 0 8:24:31 Reading Location: [address] Room Performing Organization Address City/State/Zipcode Phone Number [employer] CTA brain (11/13/2019 8:10 AM CDT) Specimen Narrative Performed At FINAL REPORT [facility] ([employer]) CT, CTANGIOBRAIN, CT, CAROTID, ANGIO BRAIN CT [...] PERALTA Report Verified Date/Time:11/13/2019 08:24:31 Reading Location: [facility] C013 Neuro [facility] Room Procedure Note Interface, External Ris In [...] Verified Date/Time: 11/13/2019 0 8:24:31 Reading Location: [address] Room Performing Organization Address City/State/Zipcode Phone Number GE RIS Urinalysis w/Microscopic + Reflex to Culture (11/13/2019 1:30 AM CDT) Color, UA Light Yellow [facility] Clarity, UA Clear [facility] Specific [place], UA 1.012 1.001 - 1.035 [facility] 'S [facility] pH, UA 6.0 5.0 - 8.[address] [facility] Protein, UA Negative Negative [facility] Glucose, UA Negative Negative [facility] Ketones, UA Negative Negative [facility] Bilirubin, UA Negative Negative [facility] Blood, UA Negative Negative [facility] Nitrite, UA Positive (A) Negative [facility] Leukocytes, UA Negative Negative [facility] Urobilinogen, UA 0.2 0.2 - 1.0 mg/dL [facility] RBC, UA <1 /HPF [facility] WBC, UA <1 /HPF [facility] Bacteria, UA Rare [facility] Squam Epithel, UA 1 /HPF [facility] Specimen Source [facility] Specimen Urine Narrative Performed At Flight Tower Dispatcher ID - [auto] [facility] Flight Tower Dispatcher ID - tigist Performing Organization Address City/State/Zipcode Phone Number [address] [address] CENTER Vitamin B12 and Folate (11/13/2019 1:25 AM CDT) Vitamin B12 295 213 - 816 pg/mL [facility] Folate 12.20 >=7.00 ng/mL [facility] Specimen Blood Narrative Performed At Flight Tower Dispatcher ID - EDELMIRASIGIFREDO L [facility] ICAL CENTER Performing Organization Address City/State/Zipcode Phone Number [address] [address] CENTER TSH/Free T4 If Indicated (11/13/2019 1:25 AM CDT) TSH 10.877 (H) 0.350 - 4.940 uIU/mL [facility] Specimen Blood Narrative Performed At Flight Tower Dispatcher ID - EDELMIRASIGIFREDO L [facility] CENTER Performing Organization Address City/State/Zipcode Phone Number [address] [address] CENTER T4, free (11/13/2019 1:25 AM CDT) Free T4 0.67 (L) 0.70 - 1.48 ng/dL [facility] Specimen Blood Narrative Performed At Flight Tower Dispatcher ID - MART Kate [facility] Performing Organization Address City/State/Zipcode Phone Number [address] [address] [place] Hemoglobin A1c (11/13/2019 1:25 AM CDT) Hemoglobin A1C 6.2 (H) 4.3 - 6.1 % [facility] Specimen Blood Performing Organization Address City/[facility]/Zipcode Phone Number [address] [address] [place] Hepatic function panel (11/13/2019 1:25 AM CDT) Protein, Total 6.2 6.0 - 8.3 gm/dL [facility] Albumin 3.4 (L) 3.5 - 5.0 g/dL [facility] Total Bilirubin 0.6 0.2 - 1.2 mg/dL [facility] Bilirubin, Direct 0.3 0.1 - 0.5 mg/dL [facility] Alkaline Phosphatase 75 40 - 150 U/L [facility] AST 12 5 - 34 U/L [facility] ALT 13 6 - 55 U/L [facility] Specimen Blood Narrative Performed At Flight Tower Dispatcher ID - PIAYA L [facility] Performing Organization Address City/[facility] Phone Number [address] [address] [place] Lipid panel (11/13/2019 1:25 AM CDT) Triglycerides 151 mg/dL [facility] Cholesterol 121 mg/dL [facility] HDL 33 mg/dL [facility] LDL Calculated 58 mg/dL [facility] Specimen Blood Narrative Performed At Triglyceride Reference Range: [facility] Low Risk <150 [id number] High Risk 200-499 Very High Risk>=500 Cholesterol Reference Range: Low Risk <200 Okhpctbznp483-132 High Risk>240 HDL Cholesterol Reference Range: Low Risk >=60 High Risk <40 LDL Cholesterol Reference Range: Optimal<100 Near [id number] Nhnubpsdfm201-613 [id number] Very High >=190 Flight Tower Dispatcher ID Juliette Dickerson Performing Organization Address City/State/[facility] Phone Number [facility] [address] [place] [address] CENTER Blood Culture - Routine (Right Venipuncture) (11/12/2019 10:22 PM CDT) Result No growth in [address] [facility] Specimen Blood Performing Organization Address [facility] Phone Number [address] [address] CENTER Digoxin level (11/12/2019 3:01 PM CDT) Digoxin Lvl 1.77 0.80 - 2.00 ng/mL [facility] Specimen Blood Narrative Performed At Flight Tower Dispatcher ID - MART Humble [facility] Performing Organization Address [facility] Phone Number [address] [address] CENTER after 01/22/2019 Insurance Payer Benefit Plan / Group Subscriber ID Type Phone A ddress MEDICARE MEDICARE A B xxxxxxxxxxx Medicare CDC REVIEW CDC REVIEW xxxxxxx [address] [place], [place] [phone] Advance Directives For more information, please contact:[address] [phone] Code Status Date Activated Date Inactivated Comments Full Code 11/12/2019 2:04 PM 11/17/2019 2:17 PM This code status was determined by: Patient
--- OUTSIDE RECORDS SUMMARY | 2020-01-23 15:35 | XMS REPORT | Continuity of Care Document ---
:1945 Author Organization [facility] Information [facility] Care Team Providers Name Role Phone [facility] Information [employer] Unavailable Un available Problems Problem Status Onset Classification Date Comments Sourc e Date Reported R SIDE Active [facility]NESS 6 [facility] WEAKNESS Active [facility] Medications Medication Details Route Status Patient Ordering Order Source Instructions Provider Date Prednisone Notes: Take No Longer with food. Active 2015 [place] Levothyroxine 50 microgram = Active Sodium 0.05 [...] oral tablet PO, Q12H, # 60 2016 [place] tab, 0 Refill(s) Furosemide 40 MG 40 mg = 1 tab, Active Oral Tablet [Lasix] PO, Daily, # 2016 [place] 30 tab, 0 Refill(s) digoxin 250 mcg 0.25 mg = 1 Active (0.25 mg) oral tab, PO, 2016 [place] tablet Daily, # 30 tab, 0 Refill(s) atorvastatin 40 mg 80 mg = 2 tab, Active oral tablet PO, Bedtime, # 2016 [place] and 60 tab, 0 Refill(s) Aspirin 325 MG 325 mg = 1 Active Enteric Coated tab, PO, 2016 [place] Tablet Daily, # 30 tab, 0 Refill(s) Potassium Chloride 20 mEq = 1 Active 20 MEQ Extended tab, PO, 2016 [place] Release Tablet Daily, # 30 tab, 0 Refill(s) Levofloxacin 750 MG 750 mg = 1 Active H Oral Tablet tab, PO, Q24H, 2016 [place] and [Levaquin] X 7 day, # 7 tab, 0 Refill(s) {21 See Active (Methylprednisolone Instructions, 2015 [place] 4 MG Oral Tablet PO, Take by [Medrol]) } Pack mouth as [Medrol Dosepak] directed on label., X 6 day, # 1 Pack, 0 Refill(s) cefepime Notes: (Same No Longer As: Maxipime) Active 2015 [place] MEDICATION WASTE Product Size: 1000 mg Product Wasted: ___ mg 200 ML Notes: Do not No Longer Ciprofloxacin 2 refrigerate Active 2015 [place] MG/ML Injection digoxin 250 mcg Notes: Take on No Longer (0.25 mg) oral an Empty Active 2015 [place] tablet Stomach (Same as: Lanoxin) Ceftriaxone Notes: (Same Inactive As: Rocephin). 2015 [place] Use with 100 mL NS and infuse over 30 min MEDICATION WASTE Product Size: 1000 mg Product Wasted: ___ mg Cardizem Notes: (Same Inactive as: Cardizem) [place] Diltiazem Notes: (Same No Longer as: Cardizem) Active 2015 [place] Before meals metoprolol tartrate Notes: (Same No [...] SEE RT No Longer DOCUMENTATION Active 2015 [place] (Same as:Atrovent) Ipratropium Notes: SEE RT No Longer DOCUMENTATION Active 2015 [place] (Same as:Atrovent) Xopenex Notes: SEE RT No Longer DOCUMENTATION Active 2015 [place] (Same as:Xopenex) Non-Formulary Levaquin Notes: Do not No Longer give Active 2015 [place] w/antacids, dairy pdt & minerals Take 1 hr before or 2 hr after dairy pdt (Same as:Levaquin) Diltiazem Notes: (Same No Longer as: Cardizem) Active 2015 [place] Digoxin Notes: (Same Inactive as: Lanoxin) 2015 [place] Cardizem Notes: (Same Inactive as: Cardizem) 2015 [place] Metoprolol Notes: (Same Inactive as: Lopressor) 2015 [place] Push over 2 minutes metoprolol tartrate Notes: (Same No Longer 02/10 as: Lopressor) Active 2015 [place] Metoprolol Notes: (Same Inactive as: Lopressor) 2015 [place] Push over 2 minutes Metoprolol Notes: (Same Inactive as: Lopressor) 2015 [place] Push over 2 minutes Nicotine Notes: (Same No Longer as: Habitrol) Active 2015 [place] "Remove old patch before application of new patch" WASTE: F/P - P Waste Black; E - P Waste Black pantoprazole Notes: For IV No Longer push Active 2015 [place] reconstitute with 10 ml 0.9% sodium chloride and push over 2 minutes. (Same as: Protonix) Saline Flush 0.9% Notes: (Same No Longer as: BD Active 2015 [place] Posiflush) Aspirin 325 MG Notes: (Do Not No Longer Enteric Coated Crush) Do not [facility] Table[facility] crush or chew. Albuterol 0.833 Notes: (Same No Longer H MG/ML / Ipratropium as: Duoneb) Active 2015 [place] 0.167 MG/ML Inhalant Solution [DuoNeb] Furosemide 40 MG Notes: (Same No Longer Oral Tablet [Lasix] as: Lasix) Active 2015 [place] May cause GI upset. Give with food or milk. Enoxaparin Notes: (Same No Longer as: Lovenox) Active 2015 [place] Saline Flush 0.9% Notes: (Same No Longer as: BD Active 2015 [place] Posiflush) Acetaminophen Notes: Do not No Longer exceed 4 Active 2015 [place] gm/day. (Same as: Tylenol) Allergies, Adverse Reactions, Alerts No Known Medication Allergies Immunizations No Data Provided for This Section Results Order Name Results Value Reference Date Interpretation Comments Nini rce Range CHEM PANEL Procalcitoni <0.05 0.00 - 02/13 n Lvl ng/mL 0.10 [place] HEMATOLOGY Platelet 296 133 - 450 02/13 /2015 [place] HEMATOLOGY MPV 9.0 7.4 - 10.4 02/13 [place] HEMATOLOGY MCHC 31.9 32.0 - 02/13 36.0 /2015 [place] HEMATOLOGY RDW 15.4 11.5 - 02/13 14.5 [place] HEMATOLOGY WBC X 10x3 17.8 3.7 - 10.4 02/13 [place] HEMATOLOGY RBC X 10x6 5.23 4.20 - 02/13 MH 5.40 /2015 [place] HEMATOLOGY Hct 45.0 36.0 - 02/13 MH 48.0 /2015 [place] HEMATOLOGY MCH 27.5 27.0 - 02/13 MH 31.0 /2015 [place] HEMATOLOGY Hgb 14.4 12.0 - 02/13 16.0 [place] HEMATOLOGY MCV 86.0 80.0 - 02/13 98.0 /2015 [place] CHEM PANEL Magnesium 2.6 1.8 - 2.4 02/13 MH Lvl /2015 [place] CHEM PANEL Phosphorus 3.0 2.5 - 4.5 02/13 [place] URINE AND UA Glucose Negative Negative 02/12 STOOL (02/13/16 2:21 PM) /2015 [facility] URINE AND UA Protein Negative Negative 02/12 STOOL (02/13/16 2:21 PM) /2015 [place] URINE AND UA Ketones Negative Negative 02/12 STOOL *NA* /2015 [place] (02/13/16 2:21 PM) URINE AND UA Spec Grav 1.025 <=1.030 02/12 STOOL /2015 [place] URINE AND UA Color Yellow Yellow 02/12 STOOL *NA* /2015 [place] (02/13/16 2:21 PM) URINE AND UA pH 5.5 5.0 - 8.0 02/12 STOOL /2015 [place] URINE AND UA Turbidity Clear Clear 02/12 [...] Rare /LPF Few /LPF 02/12 STOOL /2015 [place] URINE AND UA Nitrite Negative Negative 02/12 STO[place] (02/13/16 2:21 PM) [place] URINE AND Micro? Performed 02/12 [place] (02/13/16 2:21 PM) [place] URINE AND UA 0.2 0.1 - 1.0 02/12 [place] Urobilinogen /2015 [place] URINE AND UA Leuk Est Negative Negative 02/12 [place] (02/13/16 2:21 PM) [place] URINE AND UA Blood Trace Negative 02/12 STOOL *ABN* /2015 [place] (02/13/16 2:21 PM) URINE AND UA Bili Negative Negative 02/12 STOOL *NA* /2015 [place] (02/13/16 2:21 PM) CHEM PANEL Phosphorus 3.0 2.5 - 4.5 02/12 [place] CHEM PANEL Magnesium 2.4 1.8 - 2.4 02/12 Lvl [place] CHEM PANEL A/G Ratio 0.7 0.7 - 1.6 02/12 [place] CHEM PANEL B/C Ratio 23 6 - 25 02/12 [place] CHEM PANEL Globulin 4.3 2.0 - 4.0 02/12 [place] CHEM PANEL AGAP 12.0 10.0 - 02/12 20.0 [place] CHEM PANEL eGFR 54 02/12 Result Comment: The [place] eGFR is calculated using the CKD-EPI formula. [...] 1.05 0.50 - 02/12 MH Lvl 1.40 [place] CHEM PANEL Sodium Lvl 138 135 - 145 02/12 [place] CHEM PANEL Potassium 4.0 3.5 - 5.1 02/12 MH Lvl [place] CHEM PANEL BUN 24 7 - 22 02/12 [place] CHEM PANEL ALANINE 19 0 - 65 02/12 AMINOTRANSFE [place] RASE CHEM PANEL Calcium Lvl 8.1 8.5 - 10.5 02/12 [place] CHEM PANEL Total 7.3 6.4 - 8.4 02/12 Protein [place] CHEM PANEL Bili Total 0.7 0.2 - 1.3 02/12 [place] CHEM PANEL ASPARTATE 8 0 - 37 02/12 MH TRANSAMINASE [place] CHEM PANEL Chloride Lvl 102 95 - 109 02/12 [place] CHEM PANEL CO2 28 24 - 32 02/12 [place] CHEM PANEL Alk Phos 70 39 - 136 02/12 [place] CHEM PANEL Albumin Lvl 3.0 3.5 - 5.0 02/12 [place] CHEM PANEL Glucose Lvl 160 70 - 99 02/12 [place] HEMATOLOGY RDW 15.5 11.5 - 02/12 MH 14. [place] HEMATOLOGY MCV 86.4 80.0 - 02/12 MH 98.0 [place] HEMATOLOGY MCHC 32.5 32.0 - 02/12 MH 36.0 [place] HEMATOLOGY MCH 28.1 27.0 - 02/12 MH 31.0 /2016 [place] HEMATOLOGY Hct 42.3 36.0 - 02/12 MH 48.0 /2015 [place] HEMATOLOGY MPV 9.1 7.4 - 10.4 02/12 [place] HEMATOLOGY Platelet 227 133 - 450 02/12 [place] HEMATOLOGY Hgb 13.7 12.0 - 02/12 MH 16.0 /2015 [place] HEMATOLOGY RBC X 10x6 4.89 4.20 - 02/12 MH 5.40 /2015 [place] HEMATOLOGY WBC X 10x3 14.1 3.7 - 10.4 02/12 [place] HEMATOLOGY Monocytes # 0.4 0.0 - 0.8 02/12 [place] HEMATOLOGY Lymphocytes 0.6 1.0 - 5.5 02/12 MH # /2015 [place] HEMATOLOGY Segs-Bands # 13.1 1.5 - 8.1 02/12 [place] HEMATOLOGY Segs 92.9 45.0 - 02/12 MH 75.0 [place] HEMATOLOGY Basophils 0.2 0.0 - 1.0 02/12 [place] HEMATOLOGY Monocytes 2.9 2.0 - 12.0 02/12 [place] HEMATOLOGY Lymphocytes 4.0 20.0 - 02/12 MH 40.0 [place] HEMATOLOGY RBC Morph Normal 02/12 (02/13/16 5:21 AM) [facility] [place] HEMATOLOGY Plt Morph Normal 02/12 (02/13/16 5:21 AM) [facility] [place] CHEM PANEL Magnesium 2.5 1.8 - 2.4 02/11 Lvl /2015 [place] CHEM PANEL eGFR 56 02/11 Result Comment: The [place] eGFR is calculated using the CKD-EPI formula. [...] PANEL CO2 31 24 - 32 02/11 [place] CHEM PANEL Potassium 3.6 3.5 - 5.1 02/11 Lvl /2015 [place] CHEM PANEL Calcium Lvl 8.2 8.5 - 10.5 02/11 [place] CHEM PANEL Chloride Lvl 105 95 - 109 02/11 [place] CHEM PANEL AGAP 8.6 10.0 - 02/11 MH 20.0 [place] CHEM PANEL BUN 20 7 - 22 02/11 [place] CHEM PANEL Glucose Lvl 124 70 - 99 02/11 [place] CHEM PANEL Sodium Lvl 141 135 - 145 02/11 [place] CHEM PANEL Creatinine 1.03 0.50 - 02/11 Lvl 1.40 [place] BACTERIAL - MRSA by PCR Negative 02/11 SEROLOGY (02/12/16 1:40 AM) [place] and CARDIAC proBNP 1961 0 - 125 02/09 MH [place] CHEM PANEL eGFR 64 02/09 Result Comment: The [place] eGFR is calculated using the CKD-EPI formula. [...] Bili Total 0.8 0.2 - 1.3 02/09 [place] CHEM PANEL Calcium Lvl 8.3 8.5 - 10.5 07/24 MH /2015 [place] CHEM PANEL CO2 27 24 - 32 07/ MH /2015 [place] CHEM PANEL Total 7.3 6.4 - 8.4 07/24 MH Protein /2015 [place] CHEM PANEL ASPARTATE 16 0 - 37 07/24 MH /2015 [place] CHEM PANEL Creatinine 0.92 0.50 - 07/24 MH Lvl 1.40 /2015 [place] CHEM PANEL Sodium Lvl 142 135 - 145 07/24 MH /2015 [place] CHEM PANEL BUN 15 7 - 22 07/ MH /2015 [place] CHEM PANEL Potassium 3.7 3.5 - 5.1 07/24 MH Lvl /2015 [place] CHEM PANEL Chloride Lvl 106 95 - 109 07/ /2015 [place] CHEM PANEL Albumin Lvl 3.6 3.5 - 5.0 / /2015 [place] CHEM PANEL Glucose Lvl 95 70 - 99 07/ MH /2015 [place] CHEM PANEL ALANINE 26 0 - 65 07/ MH AMINOTRANS /2015 [place] RASE CHEM PANEL Alk Phos 71 39 - 136 07/ MH /2015 [place] CHEM PANEL A/G Ratio 1.0 0.7 - 1.6 07/ MH /2015 [place] CHEM PANEL Globulin 3.7 2.0 - 4.0 07/ MH /2015 [place] CHEM PANEL B/C Ratio 16 6 - 25 07/ /2015 [place] CHEM PANEL AGAP 12.7 10.0 - 07/ MH 20.0 /2015 [place] HEMATOLOGY Monocytes # 0.7 0.0 - 0.8 07/ MH /2015 [place] HEMATOLOGY Lymphocytes 1.9 1.0 - 5.5 07/24 MH # /2015 [place] HEMATOLOGY Segs-Bands # 6.3 1.5 - 8.1 07/ MH /2015 [place] HEMATOLOGY Eosinophils 0.1 0.0 - 0.5 07/24 MH # /2015 [place] HEMATOLOGY Basophils 0.5 0.0 - 1.0 07/24 MH /2015 [place] HEMATOLOGY Eosinophils 1.2 0.0 - 4.0 07/ MH /2015 [place] HEMATOLOGY Segs 70.2 45.0 - 07/ MH 75.0 /2016 [place] HEMATOLOGY Lymphocytes 20.5 20.0 - 07/ MH 40.0 /2015 [place] HEMATOLOGY Monocytes 7.6 2.0 - 12.0 02/09 /2015 [place] HEMATOLOGY Platelet 197 133 - 450 02/09 /2015 [place] HEMATOLOGY MPV 9.5 7.4 - 10.4 02/09 /2015 [place] HEMATOLOGY RDW 15.8 11.5 - 02/09 MH 14.5 [place] HEMATOLOGY MCHC 32.8 32.0 - 02/09 MH 36.0 [place] HEMATOLOGY MCV 86.1 80.0 - 02/09 MH 98.0 /2015 [place] HEMATOLOGY MCH 28.2 27.0 - 02/09 MH 31.0 /2015 [place] HEMATOLOGY Hct 39.9 36.0 - 02/09 MH 48.0 [place] HEMATOLOGY WBC X 10x3 9.1 3.7 - 10.4 02/09 [place] HEMATOLOGY RBC X 10x6 4.63 4.20 - 02/09 MH 5.40 /2015 [place] HEMATOLOGY Hgb 13.1 12.0 - 02/09 MH 16.0 [place] LIPIDS CHD Risk 3.74 3.90 - 02/09 MH 5.80 /2015 [place] LIPIDS VLDL 26 02/09 /2015 [place] LIPIDS LDL 144 <=99 mg/dL 02/09 (Calculated) [place] LIPIDS Trig 128 <=149 02/09 mg/dL [place] LIPIDS HDL 62 >=61 mg/dL 02/09 [place] LIPIDS Chol 232 <=199 02/09 mg/dL [place] SPECIAL Hgb A1C 5.8 <=5.6 % 02/09 [place] Pathology Reports No Data Provided for This Section Diagnostic Reports Report Value Date Source Chest 1view DX EXAM: Chest radiograph 02/13/2016 [facility] HISTORY: Dyspnea COMPARISON: 02/10/2016 TECHNIQUE: Frontal view of the chest FINDINGS/IMPRESSION: New opacity medial right lower lung may reflect atelectasis or pneumonia. Perihilar interstitial opaci ties bilaterally are slightly improved and may reflect resolving edema or pneumonia. No significant pleural effusion. Stable cardiomegaly. Possible COPD. SL: [id number] Brain wo contrast CT Patient Name: VIVIENNE BEST 02/11/2016 [facility] : 1945; Age: 70 years y/o Female MR: [id number] Study: Brain wo contrast CT 02/11/2016 7:30 [...] the recent magnetic resonance imaging exam. SL: [id number] Brain/Neck CTA CTA HEAD AND NECK: 02/10/2016 [facility] HISTORY: Acute left cerebral infarct. TECHNIQUE: Multislice [...] MRI MRI BRAIN WITHOUT CONTRAST 02/10/2016 [facility] INDICATION: Generalized weakness COMPARISON: None DISCUSSION: There [...] DX Patient Name: VIVIENNE BEST 02/10/2016 [facility] : 1945; Age: 70 years y/o Female MR: [id number] Study: Chest 1view DX 02/10/2016 3:00 AM [...] congestive heart failure or volume overload. SL: [id number] Carotid artery Study: Carotid artery Doppler bilat US [address] [place] [address] Doppler bilat [place] Clinical Indication: Stroke, ischemic [...] Near occlusion High, low, or Variable undetectable :[id number] Consultation Notes No Data Provided for This Section Discharge Summaries No Data Provided for This Section History and Physicals No Data Provided for This Section Vital Signs Vital Sign Value Date Comments Source Systolic (mm Hg) 125 02/14/[address] [facility] Diastolic (mm Hg) 76 02/14/2016 [place] Respitory Rate 18 02/14/[address] [facility] Temperature Oral (F) 97.5 F 02/14/2016 [facility] Temperature Oral (F) 98.0 F 02/14/2016 [facility] Respitory Rate 18 02/14/[address] [facility] Systolic (mm Hg) 117 02/14/[address] [facility] Diastolic (mm Hg) 69 02/14/2016 [place] Systolic (mm Hg) 127 02/14/[address] [facility] Diastolic (mm Hg) 68 02/14/2016 [place] Respitory Rate 18 02/14/[address] [facility] Temperature Oral (F) 98.0 F 02/14/2016 [facility] Heart Rate 64 02/14/[address] [facility] Heart Rate 128 02/12/[address] [facility] Heart Rate 91 02/12/[address] [facility] Weight 72.358 02/11/[address] [facility] Height 165.1 cm 02/09/[address] [facility] Weight 76.818 02/09/[address] [facility] BMI Calculated 28.18 02/09/[address] [facility] Encounters Location Location Encounter Encounter Reason Attending ADM AL Stat Source Details Type Number For Provider Date Date Visit [facility]patient [id number] [place] 02/10 02/13 [facility] /2015 [facility] Procedures No Data Provided for This Section Assessment and Plan Assessment and Plan Date Source Extracted from:Title: Clinical Document 02/14/2016 [place] Author: Christopher Sorensen MD Date: 02/14/16 Cardiology [...] 0.9% INJ 100 mL 1 gm IVPB [id number] 200 ml/hr 02/13/16 ciprofloxacin (ciprofloxacin 40 0 mg/200 mL intravenous solution) 400 mg IVPB [id number] 200 ml/hr 02/13/16 digoxin (digoxin 250 mcg (0.25 mg) oral tablet) 0.2 5 mg PO Daily 02/13/16 diltiazem 90 mg PO Q8H 02/12/16 (Suspended) enoxaparin 40 mg [id number] [id number] 02/09/16 furosemide (Lasix 40 mg oral tablet) [...] well on Wednesday. She was taken to [facility] and CT brain without acute changes. Labs [...] Daily. enoxaparin: 40 mg, 0.4 mL, SUB-Q, [id number]. furosemide: 40 mg, PO, Q12H. pantoprazole: 40 mg, IVP, Before Dinner. sodium chloride: 10 ml, IVP, Q12H. sodium chloride: 10 ml, IVP, PRN, PRN: Line Flush . Medications Inactivated in the Last 72 Hours No medications found. Plan of Care No Data Provided for This Section Social History Social History Date Source Social History TypeResponse 02/09/[address] [facility] Substance Abuse Use: None. Alcohol Never Smoking [...]
--- OUTSIDE RECORDS SUMMARY | 2020-01-23 15:39 | XMS REPORT | Continuity of Care Document ---
:1945 Author Organization [facility] t Address [address] [place] [address] Care Team Providers Name Role Phone Nathanael [...] t Bxxxxxxxxxxx[facility] CDC REVIEWCDC xxxxxxx [facility] REVIEWxxxxxxx[facility] [id number] [place] Problems Condition Condition Condition Status Onset Resolution Last Treating Co mments Source Name Details Category Date Date Treatment Clinician Date Hypothyroi Hypothyroi Disease Active [facility] dism dism 11-16 [facility]: Medical 00 [place] Obesity Obesity Disease Active [facility] 4[facility]30 [facility] 00 Center TIA TIA Disease Active [facility] (transient (transient 11-13 Myriam kes - ischemic ischemic 00:00: Medica l attack) attack) 00 Center Chronic Chronic Disease Active 2019- [facility] atrial atrial 11-13 [facility] - fibrillati fibrillati 00:00: Me dical on on [place] Bradycardi Bradycardi Disease Active [facility] a a 11-13 [facility] - 00[facility]: Medical 00 [place] Stroke Stroke Disease Active [facility] (cerebrum) (cerebrum) 11-11 Myriam kes - 00:00: Medical 00 [place] Acute Acute Disease Active 2019- [facility] ischemic ischemic - [facility] - stroke stroke 00:00: Medical 00 [place] R SIDE Diagnosis Active 2016-02-22 Mem oria WEAKNESS 02-08 09:52:00 l R SIDE 00:00: [place] WEAKNESS 00 Active 02/09/2016 [facility] WEAKNESS Diagnosis Active 2016-02-22 M emoria 09:52:00 l WEAKNESS Balwinder n Active [facility] Allergies, Adverse Reactions, Alerts Allergy Allergy Status Severity Reaction(s) Onset Inactive Treating Comm ents Source Name Type Date Date Clinician Sulfa Propensi Active [facility] (Sulfona ty to 11-11 [facility] - mide adverse 00:00: Medical Antibiot reaction 00 Center ics) s Social History Social Habit Start Date Stop Date Quantity Comments Source History SDOH Alcohol [facility] Std Drinks [facility] History NYOH Alcohol [facility] Binge [facility] Sex Assigned At [facility] History SDOH Alcohol 2019-11-12 2019-11-[address] [facility] - Frequency 00:00:00 00:00:00 [facility] Social History 2016-02-09 2016-02-09 [facility] [place] 23:16:57 23:16:57 Smoking Status Start Date Stop Date Source Current every day smoker 2019-11-17 00:00:00 [facility] Medications Ordered Filled Start Stop [...] Take [address] [facility] m oxalate -30 -30 by mouth [facility] - (LEXAPRO) 09:56: 00:00 daily. Medic al 20 MG 33 :00 Center tablet bisoprolol 2019-0 2020- No 10mg QD Take [address] (ZEBETA) 10 -30 -30 by mouth Jem es - MG tablet 09:56: 00:00 daily. Medic al 33 :00 Center naltrexone 2020-0 2020- No Take by [facility] HCl -30 -30 mouth. [facility] - (NALTREXONE 09:56: 00:00 [...] 15 MG 15:40: nightly. Medical tablet 02 [place] liothyronin Yes 5ug QD Take [address] e (CYTOMEL) 4-25 by mouth Luke s - 5 MCG 15:40: daily. Medical tablet 02 [place] montelukast Yes 10mg QD Take [address] (SINGULAIR) 4-25 by mouth Luke s - 10 mg 15:40: nightly. Medical tablet 02 [place] Prednisone No Notes: Memor ia 7-29 Take with l 14:00: food. Coleman 00 Levothyroxi Yes 50 Memori a ne Sodium 7- microgram l 0.05 MG 21:11: = 1 [...] 325 mg = 1 Memoria MG Enteric 7-28 tab, PO, l Coated 20:57: Daily, # Coleman Tablet 00 30 tab, 0 Refill(s) Potassium Yes 20 mEq = 1 Me moria Chloride 20 7-28 tab, PO, l MEQ 20:57: Daily, # Coleman Extended 00 30 tab, 0 Release Refill(s) Tablet Levofloxaci Yes 750 mg = 1 Memoria n 750 MG -28 tab, PO, l Oral Tablet 20:57: Q24H, X 7 H ermann [Levaquin] 00 day, # 7 tab, 0 Refill(s) {21 Yes See Memoria (Methylpred 02-13 Instructio l nisolone 4 20:57: ns, PO, Herm ruben MG Oral 00 Take by Tablet mouth as [Medrol]) } directed Pack on label., [Medrol X 6 day, # Dosepak] 1 Pack, 0 Refill(s) cefepime No Notes: Memoria - (Same As: l 18:00: Maxipime) Russell 00 MEDICATION WASTE Product Size: 1000 mg Product Wasted: ___ mg 200 ML No Notes: Do Memori a Ciprofloxac - not l in 2 MG/ML 18:00: refrigerat H ermann Injection 00 e digoxin 250 No Notes: Henry jeaneth mcg (0.25 02-12 Take on an l mg) oral 14:00: Empty Russell tablet 00 Stomach (Same as: Lanoxin) Ceftriaxone No Notes: Henry jeaneth - (Same As: l 14:00: Rocephin). Russell 00 Use with 100 mL NS and infuse over 30 min MEDICATION WASTE Product Size: 1000 mg Product Wasted: ___ mg Cardizem No Notes: Memoria - (Same as: l 13:44: Cardizem) Russell 00 Diltiazem No Notes: Memori a 7-27 (Same as: l 13:42: Cardizem) Russell 00 Before meals metoprolol No Notes: Memor ia tartrate 02-12 (Same as: l 02:00: Lopressor) Russell methylPREDN No Notes: Henry jeaneth ISolone 02-12 (Same l SODium 02:00: as:Solu-ME Shirin nn SUCCinate 00 DROL, A-Methapre d) atorvastati No Notes: Henry jeaneth n 02-12 (Same as: l 02:00: Lipitor) Coleman 00 Digoxin No Notes: Memoria 02-12 (Same as: l 01:00: Lanoxin) Russell aspirin 325 No Notes: (Do Memoria mg tablet, 02-12 Not Crush) l enteric 01:00: Do not Coleman coated 00 crush or chew. Ipratropium No Notes: SEE Memoria 02-12 RT l 00:41: DOCUMENTAT Russell 00 ION (Same as:Atroven t) Ipratropium No Notes: SEE Memoria 02-12 RT l 00:40: DOCUMENTAT Coleman 00 ION (Same as:Atroven t) Xopenex No Notes: SEE Henry jeaneth 02-12 RT l 00:40: DOCUMENTAT Russell 00 ION (Same as:Xopenex ) Non-Formul louise Levaquin No Notes: Do Henry jeaneth 02-11 not give l 20:00: w/antacids , dairy pdt & minerals Take 1 hr before or 2 hr after dairy pdt (Same as:Levaqui n) Diltiazem No Notes: Memori a 02-11 (Same as: l 04:31: Cardizem) Russell Digoxin No Notes: Memoria 02-11 (Same as: l 04:17: Lanoxin) Russell Cardizem No Notes: Memoria 02-11 (Same as: l 04:03: Cardizem) Russell 00 Metoprolol No Notes: Memor ia 02-11 (Same as: l 03:54: Lopressor) Push over 2 minutes metoprolol No Notes: Memor ia tartrate 02-10 (Same as: l 18:22: Lopressor) Coleman 00 Metoprolol No Notes: Memor ia 02-10 (Same as: l 18:21: Lopressor) Coleman 00 Push over 2 minutes Metoprolol No Notes: Memor ia 7-25 (Same as: l 15:36: Lopressor) Coleman 00 Push over 2 minutes Nicotine No Notes: Memoria 7-24 (Same as: l 21:34: Habitrol) Russell 00 "Remove old patch before applicatio n of new patch" WASTE: F/P - P Waste Black; E - P Waste Black pantoprazol No Notes: For Memoria e 7-24 IV push l 21:30: reconstitu Russell 00 te with 10 ml 0.9% sodium chloride and push over 2 minutes. (Same as: Protonix) Saline No Notes: Memoria Flush 0.9% 7-24 (Same as: l 02:00: BD Coleman 00 Posiflush) Aspirin 325 No Notes: (Do Memoria MG Enteric 7-24 Not Crush) l Coated 00:30: Do not Coleman Tablet 00 crush or chew. Albuterol No Notes: Memori a 0.833 MG/ML -24 (Same as: l / 00:07: Duoneb) Russell Ipratropium 00 [place] 0.167 MG/ML Inhalant Solution [DuoNeb] Furosemide No Notes: Memor ia 40 MG Oral 7-24 (Same as: l Tablet 00:07: Lasix) Russell [Lasix] 00 May cause GI upset. Give with food or milk. Enoxaparin No Notes: Memor ia 7-24 (Same as: l 00:00: Lovenox) Coleman 00 Saline No Notes: Memoria Flush 0.9% 7-23 (Same as: l 23:59: BD Russell 00 Posiflush) Acetaminoph No Notes: Do M emoria en 7-23 not exceed l 23:59: 4 gm/day. Russell 00 (Same as: Tylenol) Vital Signs Vital Name Observation Time Observation Value Comments Source Systolic blood 2019-11-17 11:23:00 132 mm[Hg] [facility] Diastolic blood 2019-11-17 11:23:00 63 mm[Hg] [facility] S t [facility] Heart rate 2019-11-17 11:23:00 64 /min [facility] Body temperature 2019-11-17 11:23:00 36.11 Marline [facility] Respiratory rate 2019-11-17 11:23:00 18 /min [facility] Oxygen saturation in 2019-11-17 11:23:00 97 /min [facility] - Arterial blood by Medical Ce nter Pulse oximetry Body weight Measured 2019-11-17 05:00:00 87.6 kg [facility] BMI 2019-11-17 05:00:00 33.15 kg/m2 [facility] Body height 2019-11-12 17:00:[address] [facility] Systolic (mm Hg) 2016-02-14 22:58:00 Henry rial [place] Diastolic (mm Hg) 2016-02-14 22:58:00 Mem orial Russell Respitory Rate 2016-02-14 22:58:00 Memori al [place] Temperature Oral (F) 2016-02-14 22:58:00 97.5 F [facility] [place] Temperature Oral (F) 2016-02-14 18:23:00 98.0 F [facility] [place] Respitory Rate 2016-02-14 18:23:00 Memori al [place] Systolic (mm Hg) 2016-02-14 18:23:00 Henry rial Russell Diastolic (mm Hg) 2016-02-14 18:23:00 Mem orial Russell Systolic (mm Hg) 2016-02-14 14:45:00 Henry rial Russell Diastolic (mm Hg) 2016-02-14 14:45:00 Mem orial [place] Respitory Rate 2016-02-14 14:45:00 Memori al [place] Temperature Oral (F) 2016-02-14 14:45:00 98.0 F [facility] [place] Heart Rate 2016-02-14 11:16:00 [facility] [place] Heart Rate 2016-02-12 03:58:00 [facility] [place] Heart Rate 2016-02-12 03:34:00 [facility] [place] Weight 2016-02-11 15:46:00 [facility] [place] Height 2016-02-09 23:06:00 165.1 cm [facility] [place] Weight 2016-02-09 23:06:00 [facility] [place] BMI Calculated 2016-02-09 23:06:00 Gama Alston Procedures Procedure Date / Time Performing Clinician Source Performed ARRYTHMIA IMPLANT REPORT - 2019-11-18 12:31:16 Provider, [facility] - SCAN Scanning [facility] REPORT OF PROCEDURE - 2019-11-18 12:20:46 Provider, [facility] - ENDOSCOPY SCAN [facility] CARDIAC CATH REPORT - SCAN 2019-11-18 12:20:39 Provider, [facility] ARRYTHMIA IMPLANT REPORT - 2019-11-18 12:20:37 Provider, [facility] RHYTHM STRIP - SCAN 2019-11-18 12:20:18 Provider, [facility] XR CHEST 1 VIEW 2019-11-17 08:30:00 Tae Dodge [facility] PORTABLE/BEDSIDE [facility] ECG 12-LEAD 2019-11-17 07:05:05 Tae Dodge [facility] CBC (HEMOGRAM ONLY) 2019-11-17 05:39:[address] [facility] ELECTROLYTE PANEL 2019-11-17 05:39:00 Tae Dodge [facility] BUN AND CREATININE W/RATIO 2019-11-17 05:39:00 Tae Dodge [facility] POCT-GLUCOSE METER 2019-11-16 21:26:00 Esdras Osorio [facility] XR CHEST 1 VIEW 2019-11-16 18:10:00 Tae Dodge [facility] PORTABLE/BEDSIDE [facility] POCT-GLUCOSE METER 2019-11-16 17:24:00 Esdras Osorio [facility] ECG 12-LEAD 2019-11-16 15:34:18 Unknown, Hl7 Doctor [facility] PACEMAKER GEN & LEADS - 2019-11-16 12:25:00 Tae Dodge [facility] - INSERTION W/ [facility] ANESTHESIA (SING/DUAL/MULT) SARS-COV2/RT-PCR ([facility] & 2019-11-16 10:31:[address] [facility] - REF LABS) [facility] POCT-GLUCOSE METER 2019-11-16 06:42:00 Esdras Osorio [facility] POCT-GLUCOSE METER 2019-11-15 20:47:00 Esdras Osorio [facility] TRANSFUSION SERVICE REPORT 2019-11-15 18:01:25 Provider, Default [facility] POCT-GLUCOSE METER 2019-11-15 17:32:00 Esdras Osorio [facility] POCT-GLUCOSE METER 2019-11-15 07:47:00 Esdras Osorio [facility] BASIC METABOLIC PANEL (7) 2019-11-15 04:50:00 Sneha Underwood [facility] MAGNESIUM 2019-11-15 04:50:00 Tae Dodge [facility] PROTHROMBIN TIME/INR 2019-11-15 04:50:00 Tae Dodge [facility] CBC W/PLT COUNT & AUTO 2019-11-15 04:50:00 Tae Dodge [facility] ECHOCARDIOGRAM REPORT - 2019-11-14 21:21:37 Provider, Default [facility] POCT-GLUCOSE METER 2019-11-14 21:04:00 Esdras Osorio [facility] SARS-COV2/RT-PCR ([facility] & 2019-11-14 15:02:00 Tae Dodge [facility] POCT-GLUCOSE METER 2019-11-14 12:41:00 Esdras Osorio [facility] ECHO W CONTRAST & DOPPLER 2019-11-14 10:21:57 Cassandra Amanda [facility] ABORH, MANUAL 2019-11-14 05:30:00 Micheline Sherman [facility] BASIC METABOLIC PANEL (7) 2019-11-14 04:01:00 Sneha Underwood [facility] MAGNESIUM 2019-11-14 04:01:00 Tae Dodge [facility] PROTHROMBIN TIME/INR 2019-11-14 04:01:00 Tae Dodge [facility] TYPE AND SCREEN, AUTOMATED 2019-11-14 04:01:00 Tae Dodge [facility] CBC W/PLT COUNT & AUTO 2019-11-14 04:01:00 Tae Dodge [facility] POCT-GLUCOSE METER 2019-11-13 21:40:00 Sneha Underwood [facility] POCT-GLUCOSE METER 2019-11-13 17:35:00 Sneha Underwood [facility] POCT-GLUCOSE METER 2019-11-13 12:08:00 Sneha Unedrwood [facility] MR BRAIN WITHOUT IV 2019-11-13 11:38:00 [facility] CTA BRAIN 2019-11-13 08:10:00 [facility] CT/CTA CAROTID 2019-11-13 08:10:00 [facility] URINALYSIS W/ REFLEX URINE 2019-11-13 01:30:[address] [facility] BASIC METABOLIC PANEL (7) 2019-11-13 01:25:00 Sneha Underwood [facility] HEPATIC FUNCTION PANEL 2019-11-13 01:25:[address] [facility] LIPID PANEL 2019-11-13 01:25:00 Sneha Underwood [facility] CBC (HEMOGRAM ONLY) 2019-11-13 01:25:[address] [facility] HEMOGLOBIN A1C 2019-11-13 01:25:00 Sneha Underwood [facility] VITAMIN B12 AND FOLATE 2019-11-13 01:25:[address] [facility] TSH/FREE T4 IF INDICATED 2019-11-13 01:25:00 Sneha Underwood [facility] T4, FREE 2019-11-13 01:25:00 Sneha Underwood [facility] BLOOD CULTURE 2019-11-12 22:22:00 Edin UnderwoodKay [facility] POCT-GLUCOSE METER 2019-11-12 21:02:00 Sneha Underwood [facility] ECG 12-LEAD 2019-11-12 16:53:41 Unknown, Hl7 Doctor [facility] ECG 12-LEAD 2019-11-12 16:52:50 Sneha Underwood [facility] DIGOXIN LEVEL 2019-11-12 15:01:00 [facility] 2019-11-12 14:26:00 Edin UnderwoodKay [facility] PORTABLE/BEDSIDE [facility] Plan of Care Planned Activity Planned Date Details Comments Source Future Scheduled 2020-03-[address] [facility] - Test 00:00:00 (Season Ended) [code = [facility] INFLUENZA VACCINE (Season Ended)] Future Scheduled 2012-11-[address] [facility] - Test 00:00:00 WELLNESS (YEAR 2 or Medical Center FIRST YEAR if no IPPE) [code = MEDICARE ANNUAL WELLNESS (YEAR 2 or FIRST YEAR if no IPPE)] Future Scheduled 2011-12-12 PNEUMOCOCCAL [address]+ [facility] - Test 00:00:00 LOW[facility]MEDI[facility] PCV[facility]) [code = PNEUMOCOCCAL [...] Department ID 2016-02-11 2016-02-14 Outpatient SHAISTA Brasher MHVALENTÍN [id number] 10:53:00 17:25:00 Edward Summers Results Test Description Test Time Test Comments Results Result Comments Source Blood Culture - Routine (Right Venipuncture) 2019-11-18 00:0 0:00 Test Item Value Reference Range Interpretation Comme nts Result (test code = 6463-4) No growth in 5 days [facility] [id number] 00:00:00 Test Item Value Reference Range Interpretation Comments CULTURE (BEAKER) (test No growth in 5 days code = 1095) EKG 12 [id number] 17:02:13Interface, External Ris In - 11/17/2019 5:02 PM CDTVentricular Rate 70 BPMAtrial Rate 468 BPMQRS Duration 80 msQ-T Interval 386 msQTC Calculation(Bazett) 416 msR [place] 2 degreesT [place] 233 degreesDemand pacemaker; interpretation is based on intrinsic rhythmAtrial fibrillation with premature ventricular or aberrantly conducted complexesNonspecific ST and T wave abnormality , probably digitalis effectAbnormal ECGWhen compared with ECG of 16-NOV-2019 15:34,Atrial fibrillation has replaced Electronic ventricular pacemakerVent. rate has decreased BY 69 BPMConfirmed by MD Morgan, [facility] ([id number]) on 11/17/2019 5:02:10 [facility], NON [id number] 08:51:00Reason for exam:->s/p pacemaker/defibrillator; evaluation for pneumothoraxShould this be performed at the bedside?->YesFINAL REPORT RAD, CHEST, 1 VIEW, NON DEPT INDICATION: s/p pacemaker/defibrillator; evaluation for pneumothorax COMPARISON: Prior day's exam FINDINGS: Portable frontal view of [facility]. IMPRESSION: Support Lines: Stable pacer apparatus. Lungs and pleura: Unchanged appearance of the interstitial markings. Questionable trace right effusion. No pneumothorax.Heart and mediastinum: Stable contours. Additional findings: None. Signed: JR Wilkinson Robert MDReport Verified Date/Time: 11/17/2019 08:51:03 Reading Location: [facility] Radiology Reading Room Electronicallysigned by: KATT WILKINSON on 11/17/2019 08:51 AMXR chest 1 view portable / [id number] 08:51:00Interface, External Ris In - 11/17/2019 8:53 [...] MDReport Verified Date/Time: 11/17/2019 08:51:03 Reading Location: [facility] Radiology Reading Room [facility] [id number] 06:23:00 Test Item Value Reference Range Interpretation Comments Sodium (test code = 2951-2) 141 meq/L 136-145 Potassium (test code = 4.4 meq/L 3.5-5.1 2823-3) Chloride (test code = 106 meq/L 98-107 2075-0) CO2 (test code = 8-9) 30 meq/L 22-29 H MARGO (test code = MARGO) Ore Mixer ID - [place] Lab Interpretation (test Abnormal code = 77356-9) [facility] and [id number] 06:23:00 Test Item Value Reference Range Interpretation [...] mL/min/1.73 [place] [address]-8) NOT ACCURATE CREATININE CLEARANCE IN PREDICTING GLOMERULAR FILTRATION RATE . ESTIMATED GFR I S NOT APPLICABLE FOR DIALYSIS PATIEN TS. MARGO (test code = Ore Mixer ID - [place] MARGO) [facility] Center[facility]LECT[facility]OLYTES2020-04-30 06:23:00 Test Item Value Reference Range Interpretation Comments SODIUM (BEAKER) (test code = 381) 141 meq/L 136-145 POTASSIUM (BEAKER) (test code = 4.4 meq/L 3.5-5.1 379) CHLORIDE (BEAKER) (test code = 382) 106 meq/L 98-107 CO2 (BEAKER) (test code = 355) 30 meq/L 22-29 H Ore Mixer ID - LABUN AND CREATININE [id number] 06:23:00 Test Item Value Reference Range Interpretation [...] S NOT APPLICABLE FOR DIALYSIS PATIEN TS. Ore Mixer ID - LACBC (Hemogram only)2019-11-17 05:54:00 Test [...] 450 K/CU MM MPV (test code = 99674-4) 10.9 fL 9.4-12.3 nRBC (test code = 413) 0 0- 0 /100 WBC Lab Interpretation (test code = Abnormal 75710-6) [facility] (HEMOGRAM ONLY)2019-11-17 05:54:00 Test Item [...] 0-0 (BEAKER) (test code = 413) POC-Glucose [id number] 21:37:00 Test Item Value Reference Range Interpretation Comments POC-Glucose Meter (test 134 mg/dL 70-110 H : TE STED AT [facility] code = 1538) [address] [facility], 770 30: Ore Mixer/Techni britt ID = [id number] for SUZANNE KAISER Lab Interpretation (test Abnormal code = 60002-1) [facility] [id number] 21:37:00 Test Item Value Reference Range Interpretation Comments POC-GLUCOSE METER 134 mg/dL 70-110 H : TESTED A T [facility] 67[address] (BEAKER) (test code = ALTAGRACIA Boyd [facility], 1538) [address]: Ore Mixer/Techni britt ID = [id number] for SUZANNE FRITZ SARS-COV2/RT-PCR ([facility] & REF LABS)2019-11-16 19:23:00 Test Item Value Reference Range Interpretation Comments SARS-COV2/RT-PCR (test code = Negative Not Detected, Negative 0379744) SARS-COV-2 PERFORMING LAB CPL (test code = 6841257) RAD, CHEST, 1 VIEW, NON [id number] 18:33:00Reason for exam:->s/p pacemaker/defibrillator; evaluation for pneumothoraxShould [...] stable in size. No fracture. Signed: Wellington Aponteeport Verified Date/Time: 11/16/2019 18:33:13 Reading Location: [address] Consult Reading Room POCT-GLUCOSE [id number] 17:35:00 Test Item Value Reference Range Interpretation Comments POC-GLUCOSE METER 163 mg/dL 70-110 H : TESTED A T [facility] 67[address] ([facility]) (test code = ALTAGRACIA HAIDER [place], 1538) [address]861: Ore Mixer/Techni britt ID = [id number] for CARLOS MARSH SARS-CoV2/RT-PCR ([facility] & Ref Labs)2019-11-16 12:10:00 Test Item Value Reference Range Interpretation Comments SARS-COV2/RT-PCR Not Detected Not Detected, (test code = Negative 85648-9) SARS-COV-2 [facility] PERFORMING LAB (test code = 10014-8) MARGO (test code = Negative results do [...] of the Act. Fact Sheet for Healthcare Providers:https://www.MashMango/Documents/Xper t%20Xpress%20SARS%20CoV- 2/Fact%20Sheets/3023802 %30WAUC-TQC-9%20HEALTHCA RE%20PROVIDERS%20FACT%20 SHEET.pdf Fact Sheet for Healthcare Patients:https://www.Character Booster/Documents/Xpert %20Xpress%20SARS%20CoV-2 /Fact%20Sheets/3023801% 94LJEJ-TYJ-9%20PATIENT%2 0FACT%20SHEET.pdf Performing Laboratory:[facility] [place] [address] [place], [place] [address]ARS-COV2/RT-PCR ([facility] & REF LABS)2019-11-16 12:10:00 Test Item Value Reference Range Interpretation Comments SARS-COV2/RT-PCR (test Not Detected Not Detected, Negative code = 7441592) SARS-COV-[address] [facility] (test code = 5756632) Negative results do not preclude SARS-CoV-2 infection [...] of the Act.Fact Sheet for Healthcare Pro viders:https://www.Cheyipai/Documents/Xpert%20Xpress%20SARS%20CoV-2/Fact%20Sh eets/3023802%58LHZU-GYH-6%20HEALTHCARE%20PROVIDERS%20FACT%20SHEET.pdfFact Sheet for Healthcare Patients:https://www.ClickBus/Documents/Xpert%20Xpress%20SARS%20CoV-2/Fact%20Sheets/3023801%20SARS-COV -2%20PATIENT%20FACT%20SHEET.pdfPerforming Laboratory:[facility], [place] [address]PFOL-CAQJCET [id number] 06:55:00 Test Item Value Reference Range Interpretation Comments POC-GLUCOSE METER 116 mg/dL 70-110 H : TESTED A T [facility] 6720 (Skilljar) (test code = [facility], 1538) [address]: Ore Mixer/Techni britt ID = [id number] for ЮЛИЯ WESTA POCT-GLUCOSE [id number] 20:58:00 Test Item Value Reference Range Interpretation Comments POC-GLUCOSE METER 114 mg/dL 70-110 H : TESTED A T [facility] 6720 (BEAKER) (test code = [facility], 1538) [address]: Ore Mixer/Techni britt ID = [id number] for SHANELL HNSON, CARMELITATTA POCT-GLUCOSE [id number] 17:43:00 Test Item Value Reference Range Interpretation Comments POC-GLUCOSE METER 112 mg/dL 70-110 H : TESTED A T [facility] 6720 (BEAKER) (test code = ALTAGRACIA Boyd [place], 1538) [address]: Ore Mixer/Techni britt ID = [id number] for PRAVEEN JIMENEZ POCT-GLUCOSE [id number] 07:59:00 Test Item Value Reference Range Interpretation Comments POC-GLUCOSE METER 123 mg/dL 70-110 H : TESTED A T [facility] 6720 (BEAKER) (test code = ALTAGRACIA Boyd [facility], 1538) [address]: Ore Mixer/Techni britt ID = [id number] for PRAVEEN JIMENEZ Basic metabolic [id number] 05:40:00 Test Item Value Reference Range Interpretation Comments Sodium (test code = 142 meq/L 881-023 4037-2) Potassium (test code = 4.2 meq/L 3.5-5.1 [...] Calcium (test code = 8.8 mg/dL 8.4-10.2 06045-3) EGFR (test code = 75 mL/min/1.73 [place] [address]-7) NOT ACCURATE CREATININE CLEARANCE IN PREDICTING GLOMERULAR FILTRATION RATE . ESTIMATED GFR I S NOT APPLICABLE FOR DIALYSIS PATIENTS. MARGO (test code = MARGO) Ore Mixer ID - ANJALI M Lab Interpretation Abnormal (test code = 59183-9) [facility] [facility]Magnesium2020-04-28 05:40:00 Test Item Value Reference Range Interpretation Comments Magnesium (test code = 2.1 mg/dL 1.6-2.6 Speci men 37414-5) slightly hemolyzed MARGO (test code = MARGO) Ore Mixer ID - ANJALI M Lab Interpretation Normal (test code = 21647-8) [facility] 05:40:00 Test Item Value Reference Range Interpretation Comments MAGNESIUM (BEAKER) 2.1 mg/dL 1.6-2.6 Specimen slightly (test code = 627) hemolyzed Ore Mixer ID - ANJALI MBASIC METABOLIC [id number] 05:40:00 Test Item Value Reference Range Interpretation [...] S NOT APPLICABLE FOR DIALYSIS PATIEN TS. Ore Mixer ID Juliette ALBA MProthrombin time/[id number] 05:27:00 Test Item Value Reference Range Interpretation [...] Coumadin Lab Interpretation Normal (test code = 19851-5) [facility] CenterPROTHROMBIN TIME/[id number] 05:27:00 Test Item Value Reference Range Interpretation [...] on CoumadinCBC with platelet count + automated [id number] 05:24:00 Test Item Value Reference Range Interpretation [...] 450 K/CU MM MPV (test code = 54634-3) 11.2 fL 9.4-12.3 nRBC (test code = [...] 2801) Lab Interpretation (test code = Abnormal 48784-0) [facility] W/PLT COUNT & AUTO [id number] 05:24:00 Test Item Value Reference Range Interpretation [...] PERCENT (BEAKER) (test code = 2801) POCT-GLUCOSE [id number] 21:15:00 Test Item Value Reference Range Interpretation Comments POC-GLUCOSE METER 134 mg/dL 70-110 H : TESTED A T [facility] 6720 (BEAKER) (test code = ALTAGRACIA Boyd [facility], 1538) [address]: Ore Mixer/Techni britt ID = [id number] for DEBRA WEST ECHO W CONTRAST & [id number] 14:15:37Ejection FractionSLEH ECHO HEARTLAB MKCKESSON CPACSInterface, External Ris In - 11/14/2019 2:15 PM C DTTransthoracic Echocardiography Report (TTE) Demographics Patient Name VIVIENNE BEST Date of Study 11/14/2019 JAN Gender Female Visit Number [id number] Race Unknown Room Number 2238 Number Date of 1945 Referring Physician Sneha UNDERWOOD Age 73 year(s) 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 (BEAKER) (test code = ALTAGRACIA HAIDER [place], 1538) [address]: Ore Mixer/Techni britt ID = [id number] for JILLIAN ROSAS, [id number] 05:52:00 Test Item Value Reference Range Interpretation Comments ABO Grouping (test code = 2588) O Rh Factor (test code = 2589) NEG [facility] CenterType and screen, ihcmjcjmn2912-60-51 05:02:00 Test Item Value Reference Range Interpretation Comments ABO/RH AUTOMATED (BEAKER) (test O NEGATIVE code = 2260) Ab Scrn (test code = 890-4) NEGATIVE [facility] CenterPROTHROMBIN TIME/[id number] 04:39:00 Test Item Value Reference Range Interpretation [...] heart valves.Within 24 hours, if on Coumadin [id number] 04:38:00 Test Item Value Reference Range Interpretation Comments MAGNESIUM (BEAKER) (test code = 2.0 mg/dL 1.6-2.6 627) Ore Mixer ID - PIAYA LBASIC METABOLIC [id number] 04:38:00 Test Item Value Reference Range Interpretation [...] S NOT APPLICABLE FOR DIALYSIS PATIEN TS. Ore Mixer ID - PIAYA LCBC W/PLT COUNT & AUTO [id number] 04:28:00 Test Item Value Reference Range Interpretation [...] PERCENT (BEAKER) (test code = 2801) POCT-GLUCOSE [id number] 22:16:00 Test Item Value Reference Range Interpretation Comments POC-GLUCOSE METER 101 mg/dL 70-110 : TESTED A T [facility] 6720 (BEAKER) (test code = [facility]ARIB[facility], 1538) 15565: Ore Mixer/Techni britt ID = [id number] for DE NNIS, TRAYC POCT-GLUCOSE [id number] 17:48:00 Test Item Value Reference Range Interpretation Comments POC-GLUCOSE METER 76 mg/dL 70-110 : TESTED A T [facility] 6720 (BEAKER) (test code [facility], = 1538) 74891: Ore Mixer/Techni britt ID = [id number] for TSEG GAI, TSIGHEREDA POCT-GLUCOSE [id number] 12:21:00 Test Item Value Reference Range Interpretation Comments POC-GLUCOSE METER 124 mg/dL 70-110 H : TESTED A T [facility] 6720 (AKER) (test code [facility], = 1538) 92823: Ore Mixer/Techni britt ID = [id number] for TSEG GAI, TSIGHEREDA MR, BRAIN, WITHOUT [id number] 11:43:00FINAL REPORT MR, BRAIN, WITHOUT CONTRAST INDICATION: [...] MDReport Verified Date/Time: 11/13/2019 11:43:35 Reading Location: [address] Neuro Reading Room MR brain without IV [id number] 11:43:00Interface, External Ris In - 11/13/2019 11:45 [...] MDReport Verified Date/Time: 11/13/2019 11:43:35 Reading Location: [address] Neuro [facility] [id number] 08:24:00FINAL REPORT CT, CTANGIO BRAIN, CT, CAROTID, [...] MDReport Verified Date/Time: 11/13/2019 08:24:31 Reading Location: [address] Neuro Reading Room [facility], CAROTID, [id number] 08:24:00FINAL REPORT CT, CTANGIO BRAIN, CT, CAROTID, [...] MDReport Verified Date/Time: 11/13/2019 08:24:31 Reading Location: [address] Neuro Reading Room [facility] [id number] 08:24:00 Interface, External Ris In - 11/21/2019 [...] MDReport Verified Date/Time: 11/13/2019 08:24:31 Reading Location: [facility] C013V Neuro Reading Room [facility] carotid 2019-11-13 08:24:00Interface, External Ris In - [...] MDReport Verified Date/Time: 11/13/2019 08:24:31 Reading Location: [address] Neuro Reading Room [facility] CenterT, [id number] 07:49:00 Test Item Value Reference Range Interpretation Comments Free T4 (test code = 0.67 ng/dL 0.7-1.48 L 3024-7) MARGO (test code = MARGO) Ore Mixer ID - MART C Lab Interpretation (test Abnormal code = 90795-5) [facility] CenterT4, [id number] 07:49:00 Test Item Value Reference Range Interpretation Comments FREE T4 (BEAKER) (test code = 655) 0.67 ng/dL 0.70-1.48 L Ore Mixer RENETTA CEVALLOS CHemoglobin [id number] 07:45:00 Test Item Value Reference Range Interpretation Comments Hemoglobin A1C (test code = 4548-4) 6.2 % 4.3-6.1 H Lab Interpretation (test code = Abnormal 46969-3) [facility] CenterHEMOGLOBIN [id number] 07:45:00 Test Item Value Reference Range Interpretation Comments HEMOGLOBIN A1C (BEAKER) (test code = 6.2 % 4.3-6.1 H 368) TSH/Free T4 If [id number] 07:03:00 Test Item Value Reference Range Interpretation Comments TSH (test code = 10.877 0.350- 4.940 uIU/mL H 87820-8) MARGO (test code = MARGO) Ore Mixer RENETTA Dickerson Lab Interpretation (test Abnormal code = 75079-3) [facility] CenterTSH/FREE T4 IF [id number] 07:03:00 Test Item Value Reference Range Interpretation Comments THYROID STIMULATING HORMONE 10.877 uIU/mL 0.350-4.940 H (BEAKER) (test code = 772) Ore Mixer RENETTA FARRELL LVitamin B12 and [id number] 06:59:00 Test Item Value Reference Range Interpretation Comments Vitamin B12 (test code = 295 pg/mL 432-247 7380-9) Folate (test code = 12.20 ng/mL >=7.00 2284-8) MARGO (test code = MARGO) Ore Mixer ID Juliette Dickerson Lab Interpretation (test Normal code = 82897-4) [facility] CenterVITAMIN B12 AND [id number] 06:59:00 Test Item Value Reference Range Interpretation Comments VITAMIN B12 (BEAKER) (test code = 295 pg/mL 213-816 774) FOLATE (BEAKER) (test code = 362) 12.20 ng/mL >=7.00 Ore Mixer RENETTA FARRELL LLipid [id number] 03:24:00 Test Item Value Reference Range Interpretation Comments Triglycerides (test 151 mg/dL code = 2571-8) Cholesterol (test code 121 mg/dL = 3-3) HDL (test code = 33 mg/dL 2084-9) LDL Calculated (test 58 mg/dL code = 91795-6) MARGO (test code = MARGO) Triglyceride Reference Range: Low Risk <150 Borderline 150-199 High Risk 200-499 Very High Risk >=500 Cholesterol Reference Range: Low Risk <200 Borderline 200-239 High Risk >240 HDL Cholesterol Reference Range: Low Risk >=60 High Risk <40 LDL Cholesterol Reference Range: Optimal <100 Near Optimal 100-129 Borderline 130-159 High 160-189 Very High >=190 Ore Mixer ID - PIAYA L [facility] CenterHepatic function [id number] 03:24:00 Test Item Value Reference Range Interpretation Comments Protein, Total (test code 6.2 6.0- 8.3 gm/dL = 2885-2) Albumin (test code = 3.4 g/dL 3.5-5 L 33917-9) Total Bilirubin (test code 0.6 mg/dL 0.2-1.2 = 1974-2) Bilirubin, Direct (test 0.3 mg/dL 0.1-0.5 code = 1967-7) Alkaline Phosphatase (test 75 U/L 40-150 code = 6768-6) AST (test code = 1920-8) 12 U/L 5-34 ALT (test code = 1742-6) 13 U/L 6-55 MARGO (test code = MARGO) Ore Mixer ID - JAMI L Lab Interpretation (test Abnormal code = 03980-7) [facility] CenterLIPID [id number] 03:24:00 Test Item Value Reference Range Interpretation [...] Borderline 130-159 High 160-189 Very High >=190 Ore Mixer ID Juliette FARRELLLBASIC METABOLIC [id number] 03:24:00 Test Item Value Reference Range Interpretation [...] S NOT APPLICABLE FOR DIALYSIS PATIEN TS. Ore Mixer ID Juliette EDELMIRASIGIFREDO LHEPATIC FUNCTION [id number] 03:24:00 Test Item Value Reference Range Interpretation [...] (test code = 13 U/L 6-55 347) Ore Mixer ID - JAMI LUrinalysis w/Microscopic + Reflex to [id number] 03:19:00 Test Item Value Reference Range Interpretation Comments Color, UA (test code = Light Yellow 5778-6) Clarity, UA (test code = Clear 5767-9) Specific [place], UA (test 1.012 1.001-1.035 code = 5811-5) pH, UA (test code = 6.0 5.0-8.0 5803-2) Protein, UA (test code = Negative Negative 91506-4) Glucose, UA (test code = Negative Negative 365) Ketones, UA (test code = Negative Negative 2514-8) Bilirubin, UA (test code = Negative Negative 28269-6) Blood, UA (test code = Negative Negative 58614-9) Nitrite, UA (test code = Positive Negative A 5802-4) Leukocytes, UA (test code Negative Negative = 5799-2) Urobilinogen, UA (test 0.2 mg/dL 0.2-1 code = 12591-8) RBC, UA (test code = <1 /HPF 58482-7) WBC, UA (test code = <1 /HPF 5821-4) Bacteria, UA (test code = Rare 49165-7) Squam Epithel, UA (test 1 /HPF code = 24360-9) Specimen Source (test code = 2795) MARGO (test code = MARGO) Ore Mixer ID - [auto]Ore Mixer ID - tigist Lab Interpretation (test Abnormal code = 06601-3) [facility] CenterURINALYSIS W/ REFLEX URINE [id number] 03:19:00 Test Item Value Reference Range Interpretation [...] = 516) SOURCE(BEAKER) (test code = 2795) Ore Mixer ID - [auto]Ore Mixer ID - hankCBC (HEMOGRAM ONLY)2019-11-13 02:43:00 Test [...] 0-0 (BEAKER) (test code = 413) POCT-GLUCOSE [id number] 21:14:00 Test Item Value Reference Range Interpretation Comments POC-GLUCOSE METER 104 mg/dL 70-110 : TESTED A T [facility] 67[facility] (BEAKER) (test code = ALTAGRACIA [place]ID[place], 1538) [address]: Ore Mixer/Techni britt ID = [id number] for DE NNIS, TRACY Digoxin [id number] 15:47:00 Test Item Value Reference Range Interpretation Comments Digoxin Lvl (test code = 1.77 ng/mL 0.8-2 35249-8) MARGO (test code = MARGO) Ore Mixer ID - MART C Lab Interpretation (test Normal code = 31810-2) [facility] CenterDIGOXIN [id number] 15:47:00 Test Item Value Reference Range Interpretation Comments DIGOXIN LEVEL (BEAKER) (test code 1.77 ng/mL 0.80-2.00 = 669) Ore Mixer ID - MART CRAD, CHEST, 1 VIEW, NON [id number] 14:42:00Reason for exam:->cough - please eval for [...] Velázquez Verified Date/Time: 11/12/2019 14:42:43 Reading Location: [address] Neuro Reading Room WFOTRE6733-70-00 19:51:37214Mivmurrq GemnppqRSNQKGMMHV8449-37-81 19:51:009.0 [facility] HqyxnvyZEGSTETIHG7453-37-42 19:51:0031.9[facility]MATOLOGY 2016-02-14 19:51:0015.4[facility] JyfpwuoLWUEQVUDDX3498-54-16 19:51:0017.8[facility] TnwwpxmDLONGMOFLH9712-32-90 19:51:005.23[facility] WlhzuqrZYNVHKTGQK0024-98-82 19:51:0045.0[facility] ZdivzzjECAGXMYDWU0468-64-81 19:51:00 Test Item Value Reference Range Interpretation Comments MCH (test code = MCH) 27.5 pg 27.0-31.0 [facility] GokhmxnYFNPCJMIFW5223-80-33 19:51:0014.4[facility] HermannHEMATOLOGY 2016-02-14 19:51:0086.0[facility] HermannCHEM IGYAM0539-62-44 10:55:002.6[facility] HermannCHEM JNNUD8012-03-44 10:55:003.0[facility]annURINE AND FWGII5291-54-87 19:21:00Negative (02/13/16 2:21 PM)[facility] AND ZCKMB1607-42-47 19:21:00Negative (02/13/16 2:21 PM)[facility] HUIWN1418-96-08 19:21:00Negative *NA*(02/13/16 2:21 PM)[facility] ZMFAP4649-11-58 19:21:00 Test Item Value Reference Range Interpretation Comments UA Spec Grav (test code = UA Spec 1.025 1 Grav) [facility] CRPCQ4266-22-51 19:21:00Yellow *NA*(02/13/16 2:21 PM) [facility] BMAQS3613-26-03 19:21:00 Test Item Value Reference Range Interpretation Comments UA pH (test code = UA pH) 5.5 1 5.0-8.0 [facility] LSEPH7589-91-23 19:21:00Clear (02/13/16 2:21 PM) [facility] CEVLB2274-64-09 19:21:00None Seen (02/13/16 2:21 PM) [facility] AMVWN5318-67-33 19:21:00None Seen (02/13/16 2:21 PM) [facility] RQAXL0894-32-34 19:21:00None Seen (02/13/16 2:21 PM) [facility] FVDTF0366-51-46 19:21:00Negative (02/13/16 2:21 PM) [facility] EVBNU6840-34-58 19:21:00Performed (02/13/16 2:21 PM) [facility] ILTLD1130-74-75 19:21:000.2[facility] UKZRH7736-61-36 19:21:00Negative (02/13/16 2:21 PM)[facility] ZCYNX8737-12-16 19:21:00Trace *ABN*(02/13/16 2:21 PM)[facility] KQBQK2979-28-64 19:21:00Negative *NA*(02/13/16 2:21 PM)[facility]annCHEM PANEL 2016-02-13 10:21:003.0[facility] HermannCHEM ATEHJ5470-07-89 10:21:002.4[facility]annCHEM IENUB3298-86-96 10:21:000.7[facility] HermannCHEM SARUV7979-71-01 10:21:0023[facility] HermannCHEM TSDPD4487-56-94 10:21:004.3[facility] HermannCHEM ONCSX1636-88-38 10:21:0012.0[facility] HermannCHEM CEUBG0974-85-34 10:21:0054 [facility]annCHEM EGLXH0683-34-49 10:21:001.05[facility]annCHEM PANEL 2016-02-13 10:21:78317Wioxjjpe HermannCHEM LGEBI1886-82-31 10:21:004.0[facility] HermannCHEM PVUCB0729-46-65 10:21:0024[facility] HermannCHEM YLDGN7440-85-44 10:21:0019[facility] HermannCHEM QHFFH2927-57-56 10:21:008.1[facility] HermannCHEM CEGBN2490-02-24 10:21:007.3[facility]annCHEM MNXBQ5141-70-62 10:21:000.7 [facility]annCHEM NFAGF4210-78-94 10:21:008[facility]annCHEM PANEL 2016-02-13 10:21:27612Msuktypu HermannCHEM NFNKZ6685-61-10 10:21:0028[facility] HermannCHEM WECCE6543-15-40 10:21:0070[facility] HermannCHEM AVLUP0558-07-98 10:21:003.0[facility] HermannCHEM EFPHG9242-49-41 10:21:94610Snqedmdd Russell DBXKYPHYHA2452-66-28 10:21:0015.5[facility] KgpxlmlLYVCXYIQZD7401-95-12 10:21:00 86.4[facility] OvohwnzDDUBVGUDYL5501-14-07 10:21:0032.5[facility]annHEMATOLOGY 2016-02-13 10:21:00 Test Item Value Reference Range Interpretation Comments MCH (test code = MCH) 28.1 pg 27.0-31.0 [facility] OtydmypDVZUVSRFZO8150-87-57 10:21:0042.3[facility]annHEMATOLOGY 2016-02-13 10:21:009.1[facility] EyqpaakSECFJDSWRH3909-57-93 10:21:93669Reynlhua KzgbdbrWRNQTQLURT6265-32-80 10:21:0013.7[facility] RselgwqNPDVXLKNFT3906-80-56 10:21:004.89[facility] RihrjuhSVWZHNTTZX4953-10-30 10:21:0014.1[facility] ZFVHROAXFY1468-64-41 10:21:000.4[facility] PbquztaLXSEZIHYNV8081-28-52 10:21:000.6 Memorial ZcqypzyVHVRCRXMYH3812-93-27 10:21:0013.1[facility]annHEMATOLOGY 2016-02-13 10:21:0092.9[facility] HtfmvchNBTRUHPJYI1871-17-21 10:21:000.2[facility] AvkfxnbWFRUTZWPGN9603-61-66 10:21:002.9[facility] MnxhhaeKGDJZUNGXS6581-50-75 10:21:004.0[facility] VknoykhMCXDCNBSOX5724-16-87 10:21:00Normal (02/13/16 5:21 AM) [facility] KvvmmtcGGRUTXQQND1417-22-57 10:21:00Normal (02/13/16 5:21 AM)[facility] HermannCHEM EEVBN2468-47-39 13:05:002.5[facility] HermannCHEM NTUZA5599-31-00 13:05:0056[facility] HermannCHEM TOJSR0425-36-26 13:05:0031[facility] HermannCHEM LHQDM8952-08-08 13:05:003.6[facility] HermannCHEM UERCM4720-75-89 13:05:008.2 [facility]annCHEM BLRDC4177-53-01 13:05:26229Eyghkbcx HermannCHEM PANEL 2016-02-12 13:05:008.6[facility] HermannCHEM LIMXZ5129-60-33 13:05:0020[facility] HermannCHEM BVGTA4318-59-53 13:05:98472Thxgoczc HermannCHEM LJUFT8002-84-98 13:05:60090Socivgpy HermannCHEM DAMEI8336-43-57 13:05:001.03[facility] BACTERIAL - WVATFOOE7914-55-98 06:40:00Negative (02/12/16 1:40 AM)[facility] HermannCARDIAC PTBNTOI2634-55-82 11:46:854645Afvmrjex HermannCHEM PANEL 2016-02-10 11:46:1964[facility] HermannCHEM KYDKP6940-17-56 11:46:190.8[facility] HermannCHEM TYXSX4304-78-06 11:46:198.3[facility] HermannCHEM STVWH8749-29-76 11:46:1927[facility] HermannCHEM ZWAKF4597-62-21 11:46:197.3[facility] HermannCHEM NPZNE4865-88-72 11:46:1916[facility] HermannCHEM ZBPYM8202-26-27 11:46:190.92 [facility] HermannCHEM TIINJ5634-66-31 11:46:84683Fgwxhjyi HermannCHEM PANEL 2016-02-10 11:46:1915[facility] HermannCHEM OYSOK7440-77-59 11:46:193.7[facility] HermannCHEM NFOOX3440-54-57 11:46:28754Pgwjxslm HermannCHEM QFMKI2651-73-22 11:46:193.6[facility] HermannCHEM YMAHX6236-36-91 11:46:1995[facility] HermannCHEM IEGEB8613-43-44 11:46:1926[facility] HermannCHEM WKLKH8733-71-12 11:46:1971 [facility] HermannCHEM LLDZA1743-15-71 11:46:191.0[facility] HermannCHEM PANEL 2016-02-10 11:46:193.7[facility] HermannCHEM KQKDE7277-76-82 11:46:1916[facility] HermannCHEM VGHPY8670-68-02 11:46:1912.7[facility] UibcurjGHQNDTCVDI5715-58-65 11:46:190.7[facility] AjfakkvOUZUPKCDYT3038-26-04 11:46:191.9[facility] HSCEZUWCTI3576-31-73 11:46:196.3[facility] AyxijpiTGYSAQCXLY8624-24-93 11:46:190.1 Memorial VcgagglWDVVOBQTPF7301-78-85 11:46:190.5[facility] HermannHEMATOLOGY 2016-02-10 11:46:191.2[facility] BixpftjFAUIGBRYUB7967-62-74 11:46:1970.2[facility] XcrzpztBAKYJPLGYG4460-29-08 11:46:1920.5[facility] FtzcbxhFNIUKDIMTU1679-78-33 11:46:197.6[facility] CbhjfgnHKIXLZIUCW8979-78-66 11:46:94415Vmdferhi Russell MPOPWNWOHU4398-96-28 11:46:199.5[facility] BfqvzskYJNURBLTIK9159-94-90 11:46:19 15.8[facility] JougfsfDTHBBQFRUI2371-98-65 11:46:1932.8[facility]annHEMATOLOGY 2016-02-10 11:46:1986.1[facility] DxhwwrbXLEQDDCFSQ2986-28-25 11:46:19 Test Item Value Reference Range Interpretation Comments MCH (test code = MCH) 28.2 pg 27.0-31.0 [facility] MrdyfsjKPMMVYTUPY0508-99-43 11:46:1939.9[facility] HermannHEMATOLOGY 2016-02-10 11:46:199.1[facility] ArkwvsnLTEKQWBFBI1170-15-83 11:46:194.63[facility] KinksesQADUACLAGM3553-88-07 11:46:1913.1[facility] QnxsetrBRFUIS1563-26-02 11:46:193.74[facility] XptshjdUWLRYE1432-44-79 11:46:1926[facility] HermannLIPIDS 2016-02-10 11:46:79826Bbeimepa IlqgqfuHIXNUM1935-05-40 11:46:45349Ekvzcnel OtfspqeBRNBNA8923-42-71 11:46:1962[facility] NpoxuvkVHXZQL9845-48-52 11:46:58475 [facility] HermannSPECIAL ZBKGBWCXQ6859-42-83 11:46:195.8[facility]
--- NOTE | 2020-01-23 15:48 | RAD REPORT ---
EXAM DESCRIPTION: RAD - Chest Single View - 01/23/2020 3:39 pm CLINICAL HISTORY: chf/afibb COMPARISON: Portable November 12, 2019 TECHNIQUE: AP portable chest image was obtained 01/23/2020 3:39 pm . FINDINGS: Lung palomo are underinflated. Skin fold artifacts overlie the lateral left chest. No ivette pheral mass or consolidation. There is minimal hazy opacification in the upper left lung field. This is favored to be summation artifact over infiltrate. No significant failure or volume overload. The l ow lung volumes and kyphosis accentuate heart, vasculature and lung markings. Heart size is upper nor mal to slightly enlarged. Mild vascular engorgement seen. No measurable pleural effusion and no pneum othorax. Bony degenerative change present without acute finding. Pacemaker is in place on the right. No acute aortic findings suspected. IMPRESSION: Low lung volume exam shows no peripheral mass or consolidation. No significant failure or volume overload seen. Mild failure or volume overload would be possible.
[2020-01-23] MEDS ORDERED: METOPROLOL TARTRATE 5 MG/5 ML INJ IV STA (17:14)
--- NOTE | 2020-01-23 17:37 | P.SSS ---
Patient History Date of Service: 01/23/20 Reason for admission: DYSPNEA, LEGS SWELLING. History of Present Illness: MS. BEST IS A HEAVY SMOKER WITH CHF, COPD AND A FIB. SHE IS DYSPNEIC A REST. SHE COMES TO WOUND CENTER WITH EDEMA IN LEGS BUT I SEE A BIGGER ISSUE WITH DYSPNEA AT REST. I ADMITTED HER FOR FURTHER CARE. SHE DENIES ANY CHEST PAIN. Allergies Sulfa (Sulfonamide Antibiotics) Allergy (Severe, Verified 08/15/16 11:02) Anaphylaxis Home Medications: Atorvastatin Calcium [Lipitor] 1 tab PO DAILY 07/24/18 Escitalopram [Lexapro*] 1 tab PO DAILY 07/24/18 Furosemide [Lasix*] 1 tab PO BID 07/24/18 Levothyroxine [Synthroid*] 1.25 mcg PO [id number] 07/24/18 Mirtazapine 1 tab PO BEDTIME 07/24/18 Montelukast [Singulair*] 1 tab PO DAILY 07/24/18 Apixaban [Eliquis] 5 mg PO BID 01/23/20 Liothyronine [Cytomel] 5 mcg PO DAILY 01/23/20 Potassium Chloride 20 meq PO DAILY WITH BREAKFAST 01/23/20 Vit A/Vit C/Vit E/Zinc/Copper [Preservision Areds Softgel] 1 cap PO BID 01/23/20 traMADol HCL [Ultram*] 50 mg PO DAILY 01/23/20 - Past Medical/Surgical History Has patient received pneumonia vaccine in the past: Yes Diabetic: No -: HTN -: Afib -: Hypothyroidism -: pacemaker implantation -: cataract surgery - Family History Father -: Heart disease, Diabetes, Kidney disease Mother -: Heart disease, Diabetes, Kidney disease, Other (see notes) Notes: aneurysm Sister -: Heart disease Notes: stroke - Social History Smoking Status: Current every day smoker Alcohol use: No CD- Drugs: No Caffeine use: Yes Place of Residence: Home Review of Systems 10-point ROS is otherwise unremarkable General: Weakness, Malaise Respiratory: Shortness of Breath Cardiovascular: As per HPI Physical Examination - Vital Signs Temperature: 98.1 F Blood Pressure: 121/57 Pulse: 131 Respirations: 20 Pulse Ox (%): 97 - Physical Exam General: Mild distress, Moderate distress, Obese HEENT: Atraumatic, PERRLA, Mucous membr. moist/pink, EOMI, Sclerae nonicteric Neck: Supple, 2+ carotid pulse no bruit, No LAD, Without JVD or thyroid abnormality Respiratory: Diminished, Other Cardiovascular: Irregular heart rate/rhythm Gastrointestinal: Normal bowel sounds, No tenderness Musculoskeletal: No tenderness Integumentary: No rashes Neurological: Normal gait, Normal speech, Normal strength at 5/5 x4 extr, Normal tone, Normal affect Lymphatics: No axilla or inguinal lymphadenopathy - Studies Laboratory Data (last 24 hrs) 01/23/20 14:20: Troponin I < 0.02 01/23/20 14:20: Sodium 142, Potassium 4.0, BUN 34 H, Creatinine 1.08, Glucose 151 H 01/23/20 14:20: WBC 10.8 D, Hgb 12.5, Hct 40.1, Plt Count 231 01/23/20 14:20: PT 15.5 H, INR 1.32 - Diagnosis (Problem(s)) (1) Diastolic congestive heart failure Current Visit: Yes Status: Acute Plan: LASIX IV BID. KCL PO. ECHO DONE AT DR. VALERIO BEFORE Qualifiers: Heart failure chronicity: acute on chronic Qualified Code(s): I50.33 - Acute on chronic diastolic (congestive) heart failure (2) A-fib Onset Date: 07/26/18 Current Visit: No Status: Chronic Plan: SOTALOL BID. STOP METOPROLOL. ANTICOAGULATION. PROGNOSIS IS POOR. SMOKER WITH MANY ISSUES. SHE HAD RAPID A FIB ON ADMISSION HERE. Qualifiers: Atrial fibrillation type: longstanding persistent Qualified Code(s): I48.11 - Longstanding persistent atrial fibrillation - Disposition Disposition: ROUTINE DISCHARGE
[2020-01-23] MEDS: SOTALOL HCL 80 MG TAB PO SCH (20:38)
[2020-01-23] MEDS: MIRTAZAPINE 15 MG TAB PO SCH (20:39)
[2020-01-23] MEDS: POTASSIUM CL SA 10 MEQ TAB PO SCH (20:40)
[2020-01-23] MEDS: APIXABAN 5 MG TABLET PO SCH (20:40)
[2020-01-23] MEDS: FUROSEMIDE 40 MG/4 ML VIAL IV SCH (20:40)
[2020-01-23] MEDS: TRAMADOL HCL 50 MG TAB PO SCH (20:40)
[2020-01-23] MEDS ORDERED: HOME MED 1 EA UNK (Mirtazapine [Mirtazapine] 1 TAB) PO SCH (21:00)
--- NOTE | 2020-01-23 22:30 | CON ---
Date of Consultation: 01/23/2020 Reason For Consultation: Atrial fibrillation. History Of Present Illness: This is a 74-year-old female who was admitted with history of CHF, COPD, and atrial fibrillation, seen by primary care physician, was having some significant shortness of br eath at rest. Also has significant edema with a wound to her lower extremity and found to be in atri al fibrillation, rapid response at 130 to 140. Has orthopnea and lower extremity edema. No chest pa in. No nausea, vomiting, or diarrhea. Past Medical History: Hypertension, atrial fibrillation, CHF, COPD, hypothyroidism. Past Surgical History: Cardiac pacemaker implantation, cataract surgery. Medications: Reviewed. She is on Eliquis twice a day. Family History: Diabetes and coronary artery disease in both sides of family. Social History: Smokes daily. Does not drink, use drugs. Review of Systems: All systems reviewed and they were negative except for mentioned in the HPI. Physical Examination: Vital Signs: Temperature is 98.1, pulse 131, breathing at 20, blood pressure 121/57, saturating 97%. General: This is an elderly female, in no apparent distress. Head and Neck: Pupils are reactive to light. Intact eye movements. Positive JVD. No cervical lymp hadenopathy. Neck is supple. Thyroid is not enlarged. Lungs: Clear to auscultation bilaterally. No rhonchi, rales, or crackles. No accessory muscle use. Heart: Irregularly irregular. No extra sounds. Abdomen: Soft, nontender. Bowel sounds positive. No organomegaly. No masses or hernia. No rigidi ty or rebound. Extremities: Edema bilaterally. No clubbing, or cyanosis. Intact pulses. Skin: No rash. No nodules. Neurologic: Alert, awake, no acute focal deficits associated. Investigations: Chest x-ray, mild fluid overload is present. Glucose 151, creatinine 1.0, troponin less than 0.02. Assessment And Plan: 1.Atrial fibrillation with rapid ventricular response. Patient was started on sotalol by Dr. Huffman to discontinue that and monitor EKG, specifically the QT interval. Use metoprolol IV as needed for r ate control if blood pressure allows and obtain echocardiogram. 2.Continue on anticoagulation. Patient could benefit from cardioversion if she has been anticoagula suzy for more than 4 weeks if she does not convert to sinus rhythm on the above method. 3.Shortness of breath, likely congestive heart failure. Obtain echocardiogram and recommend Lasix 4 0 mg IV twice a day. Monitor BUN, creatinine, and electrolytes while on diuretics. 4.Hypothyroidism. Check TSH. SR/MODL Voice ID: [id number] Report ID: [id number]
[2020-01-24 06:04] LABS: Absolute Lymphocytes (CBC) 1.2 K/uL (0.7-4.9); Basophils % 0.5 % (0-1.3); Hematocrit 37.5 % (36.0-45.0); Lymphocytes % 11.2 % (15.3-44.8); MPV 9.8 fL (7.6-11.3); RBC Red Blood Cell Count 4.63 M/uL (3.86-4.86)
[2020-01-24] MEDS: LEVOTHYROXINE SOD 0.125 MG TAB PO SCH (06:07)
[2020-01-24] MEDS: LIOTHYRONINE SOD 5 MCG TAB PO SCH (06:07)
[2020-01-24 06:16] LABS: Potassium 3.8 mmol/L (3.5-5.1)
[2020-01-24 06:30] LABS: Urine Appearance CLEAR; Urine Bilirubin NEGATIVE (NEG); Urine Blood NEGATIVE (NEG); Urine Color YELLOW; Urine Glucose NEGATIVE (NEG); Urine Protein TRACE (NEG); Urine Specific Gravity 1.015 (1.005-1.030)
[2020-01-24 06:46] LABS: Urine Microscopic Reflex ORDER UMIC
[2020-01-24 07:56] LABS: Urine Bacteria <20 /HPF (<20); Urine Culture Reflex Order NOT NEEDED; Urine RBC <5 /HPF (NONE SEEN)
[2020-01-24] MEDS: SOTALOL HCL 80 MG TAB PO SCH ×2 (08:04→20:19)
[2020-01-24] MEDS: ESCITALOPRAM 20 MG TAB PO SCH (08:04)
[2020-01-24] MEDS: APIXABAN 5 MG TABLET PO SCH ×2 (08:05→20:18)
[2020-01-24] MEDS: ATORVASTATIN 40 MG TAB PO SCH (08:05)
[2020-01-24] MEDS: POTASSIUM CL SA 10 MEQ TAB PO SCH ×2 (08:05→20:18)
[2020-01-24] MEDS: MONTELUKAST 10 MG TAB PO SCH (08:05)
[2020-01-24] MEDS: FUROSEMIDE 40 MG/4 ML VIAL IV SCH ×2 (08:06→20:19)
[2020-01-24] MEDS: TRAMADOL HCL 50 MG TAB PO SCH (08:06)
--- NOTE | 2020-01-24 10:54 | EKG ---
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
--- NOTE | 2020-01-24 10:57 | EKG ---
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
[2020-01-24 12:26] VITALS: O2SAT 92
[2020-01-24] MEDS: MIRTAZAPINE 15 MG TAB PO SCH (20:18)
[2020-01-24] MEDS: IPRATROPIUM BROM 0.5MG/2.5ML NEB SCH (21:00)
[2020-01-24] MEDS: LEVALBUTEROL 0.63 MG/3 ML NEB NEB SCH (21:00)
[2020-01-24] MEDS: METHYLPREDNISOLONE 40 MG INJ IV SCH (21:44)
--- NOTE | 2020-01-24 22:19 | P.PN ---
Subjective Date of Service: 01/24/20 Chief Complaint: DYSPNEA, LEGS SWELLING. Subjective: Improving SHE IS BETTER BUT STILL WHEEZES. I ASKED FOR NURSES TO HAVE HER WALKED. Review of Systems 10-point ROS is otherwise unremarkable General: Weakness, Malaise Physical Examination - Vital Signs Temperature: 97.4 F Blood Pressure: 132/62 Pulse: 119 Respirations: 18 Pulse Ox (%): 93 - Physical Exam General: Mild distress, Obese HEENT: Atraumatic, PERRLA, EOMI Neck: Supple, JVD not distended Respiratory: Diminished, Inspiratory wheezes Cardiovascular: Regular rate/rhythm, Normal S1 S2 Gastrointestinal: Normal bowel sounds, No tenderness Musculoskeletal: No tenderness Integumentary: No rashes Neurological: Normal speech, Normal tone, Normal affect Lymphatics: No axilla or inguinal lymphadenopathy - Studies Laboratory Data (last 24 hrs) 01/24/20 05:40: Sodium 143, Potassium 3.8, BUN 31 H, Creatinine 1.02, Glucose 123 H 01/24/20 05:40: WBC 10.5, Hgb 11.8 L, Hct 37.5, Plt Count 185 01/24/20 05:40: Troponin I < 0.02 01/23/20 21:50: Troponin I < 0.02 Microbiology Data (last 24 hrs): 01/23/20 15:15 Nasopharnyx Coronavirus COVID-19 PCR - Final Medications List Reviewed: Yes Assessment And Plan - Current Problems (Diagnosis) (1) Diastolic congestive heart failure Current Visit: Yes Status: Acute Plan: LASIX IV BID. KCL PO. ECHO DONE AT DR. VALERIO BEFORE Qualifiers: Heart failure chronicity: acute on chronic Qualified Code(s): I50.33 - Acute on chronic diastolic (congestive) heart failure (2) A-fib Onset Date: 07/26/18 Current Visit: No Status: Chronic Plan: SOTALOL BID. STOP METOPROLOL. ANTICOAGULATION. PROGNOSIS IS POOR. SMOKER WITH MANY ISSUES. SHE HAD RAPID A FIB ON ADMISSION HERE. Qualifiers: Atrial fibrillation type: longstanding persistent Qualified Code(s): I48.11 - Longstanding persistent atrial fibrillation (3) COPD (chronic obstructive pulmonary disease) Current Visit: Yes Status: Chronic Plan: ADD XOPENEX AND ATROVENT.
--- NOTE | 2020-01-24 23:28 | PN ---
Date of Progress Note: 01/24/2020 History Of Present Illness: Ms. Henson was admitted to Dr. Huffman's service on 01/23/2020, was seen b y Dr. Cummins and she came in with hypertension and congestive heart failure. She has atrial fibrilla tion, on sotalol and Eliquis. She has hypothyroidism. She is on IV Lasix 40 b.i.d. for congestive h eart failure. She is on Lipitor for dyslipidemia. She is feeling much better than yesterday. Denie d any chest pain or shortness of breath. Physical Examination: General: She was in sinus rhythm. Vital Signs: She was afebrile. Chest: Clear. Cardiac: Unremarkable. Abdomen: Benign. Extremities: No edema. Imaging Data: Echocardiogram is pending for this morning. Impression And Plan: Congestive heart failure, most likely acute on chronic diastolic congestive hea rt failure, on IV Lasix. Echo is pending. Continue present regimen. Could probably switch to p.o. Lasix. She can probably go home later on this afternoon or tomorrow morning. We will continue her s otalol and Eliquis for her atrial fibrillation. She will continue her Lipitor for dyslipidemia and I will see her in the office in the near future. KIMMY/KARLENEL Voice ID: [id number] Report ID: [id number]
[2020-01-25] MEDS: LEVALBUTEROL 0.63 MG/3 ML NEB NEB SCH ×2 (00:05→07:20)
[2020-01-25] MEDS: IPRATROPIUM BROM 0.5MG/2.5ML NEB SCH ×2 (00:05→07:20)
[2020-01-25] MEDS: METHYLPREDNISOLONE 40 MG INJ IV SCH ×2 (01:01→05:44)
[2020-01-25] MEDS: LEVOTHYROXINE SOD 0.125 MG TAB PO SCH (05:44)
[2020-01-25] MEDS: LIOTHYRONINE SOD 5 MCG TAB PO SCH (05:44)
[2020-01-25 06:03] LABS: Absolute Lymphocytes (CBC) 0.6 K/uL (0.7-4.9); Basophils % 0.2 % (0-1.3); Hematocrit 38.5 % (36.0-45.0); Lymphocytes % 7.4 % (15.3-44.8); MPV 10.1 fL (7.6-11.3); RBC Red Blood Cell Count 4.74 M/uL (3.86-4.86)
[2020-01-25 08:04] LABS: Platelet Estimate ADEQ; Platelets, Giant FEW PRESENT; Urine White Blood Cell Casts OK
[2020-01-25 08:05] LABS: Anisocytosis 1+; Blood Morphology Comment NOTED (NOT SEEN)
[2020-01-25] MEDS: FUROSEMIDE 40 MG/4 ML VIAL IV SCH (09:00)
[2020-01-25] MEDS: TRAMADOL HCL 50 MG TAB PO SCH (09:00)
[2020-01-25] MEDS: APIXABAN 5 MG TABLET PO SCH (09:14)
[2020-01-25] MEDS: SOTALOL HCL 80 MG TAB PO SCH (09:14)
[2020-01-25] MEDS: ATORVASTATIN 40 MG TAB PO SCH (09:14)
[2020-01-25] MEDS: ESCITALOPRAM 20 MG TAB PO SCH (09:14)
[2020-01-25] MEDS: MONTELUKAST 10 MG TAB PO SCH (09:14)
[2020-01-25] MEDS: POTASSIUM CL SA 10 MEQ TAB PO SCH (09:14)
[2020-01-25 10:37] VITALS: BP 116/63; TEMP 97.1
== END 2020-01-25 11:15 | disposition home health service (06) | DRG 292 ==
LOC: 2ND 13:17
PROVIDERS: ADMIT Internal Medicine; ATTEND Internal Medicine
DX: I11.0 Hypertensive heart disease with heart failure (principal); I48.11 Longstanding persistent atrial fibrillation; I50.33 Acute on chronic diastolic (congestive) heart failure; E03.9 Hypothyroidism, unspecified; F17.200 Nicotine dependence, unspecified, uncomplicated; J44.9 Chronic obstructive pulmonary disease, unspecified; E78.5 Hyperlipidemia, unspecified; E66.9 Obesity, unspecified; R06.02 Shortness of breath; Z68.28 Body mass index [BMI] 28.0-28.9, adult; Z95.0 Presence of cardiac pacemaker; Z88.1 Allergy status to other antibiotic agents; Z79.890 Hormone replacement therapy; Z79.01 Long term (current) use of anticoagulants; Z79.899 Other long term (current) drug therapy; Z20.828 Contact with and (suspected) exposure to other viral communicable diseases
CPT/HCPCS: 36415; 71045; 80048; 81003; 81015; 84443; 84484; 85025; 85379; 85610; 93005; 93280; 97112; 97116; 97161; 97530; 99205; J1940; J2920; U0002

== ENCOUNTER 2020-02-02 08:36 | Day surgery (SDC) | payer OTHER ==
[2020-02-02] MEDS ORDERED: NA CHLORIDE 0.9% 500 ML ONE (08:50)
--- OUTSIDE RECORDS SUMMARY | 2020-02-02 09:08 | XMS REPORT | Clinical Summary ---
:1945 Author Organization [facility] Address [address] [place] [address] Care Team Providers Name Role Phone Nathanael [...] Jr., MD 11/14/2019 Outside Orders Caroline Bangura, MUSIC PUBLICIST, RPSGT 11/12/2019 - Hospital Encounter General Internal Dante Martinez MD Cerebrovascular accident (CVA), unspecif ied mechanism (HCC); 11/17/2019 Medicine Ilana Underwood, Acute ischem ic stroke (HCC); Hemiparesis of left nondominant side, un specified hemiparesis etiology (HCC); Esdras Osorio MD Encephalopathy acute; Acquired hypoth yroidism; Bradycardia; Chronic atrial fibrillation; TIA (transient ischemic attack) 11/12/2019 Travel 11/12/2019 Orders Only Internal Medicine Dante Martinez MD after 02/01/2019 Social History Tobacco Use Types Packs/Day Years [...] YEAR if no 11/18/2012 IPPE) INFLUENZA VACCINE (#1) 2020 Implants Implanted Type Area Cook Italian Style Food Device Shelf Expiration Model / Identifier Date Serial / Lot Capsurefix Novus Mri Surescan 5076- 45 Cm MEDTRONI C 5076-45 / Implanted: Qty: 1 on 11/16/2019 by Tae Dodge MD / A9zure Xt Mri Sure Scan MEDTRONIC [id number] / Implanted: Qty: 1 on 11/16/2019 by Tae Dodge MD / Selectsecure Mri Surescan 3830 - 69 Cm MEDTRONIC [id number] / Implanted: Qty: 1 on 11/16/2019 by [...] 384 ms QTC Calculation(Bazett) 584 ms R Ford -8 degrees T Ford 168 degrees Electronic ventricular pacem mamta When [...] a re in the results section. after 02/01/2019 Results ARRYTHMIA IMPLANT REPORT - SCAN (11/18/2019 [...] included. Specimen Narrative Performed At FINAL REPORT [facility] RAD, CHEST, 1 VIEW, NON DEPT [...] Verified Date/Time: 11/17/2019 0 8:51:03 Reading Location: [facility] y Reading Room Performing Organization Address City/State/Zipcode Phone Number GE RIS EKG 12 lead (11/17/2019 7:05 AM CDT)Only the most recent of4 resultswithin the time period is included. Specimen Narrative Performed At Ventricular Rate 70 BPM GE MUSE Atrial Rate 468 BPM QRS Duration 80 ms Q-T Interval 386 ms QTC Calculation(Bazett) 416 ms R Ford 2 degrees T Ford 233 degrees Demand pacemaker;interpretation is b ased on intrinsic rhythm Atrial fibrillation with premature ventricular or aber rantly conducted complexes Nonspecific ST and T wave abnormality , probably digitalis effect Abnormal ECG When compared with ECG of 16-NOV-2019 15 :34, Atrial fibrillation has replaced Electro krzysztof ventricular pacemaker Vent. rate has decreased BY69 BPM Confirmed by MD Morgan, [facility] ([id number]) on 11/17/2019 5:0 2:10 PM Procedure Note Interface, External Ris In - 11/17/2019 5:02 PM CDT Ventricular Rate 70 BPM Atrial Rate 468 BPM QRS Duration 80 ms Q-T Interval 386 ms QTC Calculation(Bazett) 416 ms R Ford 2 degrees T Ford 233 degrees Demand pacemaker; interpretation is bas ed on intrinsic rhythm Atrial fibrillation with premature ventr icular or aberrantly conducted complexes Nonspecific ST and T wave abnormality , probably digitalis effect Abnormal ECG When compared with ECG of 16-NOV-2019 15 :34, Atrial fibrillation has replaced Electro krzysztof ventricular pacemaker Vent. rate has decreased BY 69 BPM Confirmed by MD Morgan, [place] ([id number]) on 11/17/2019 5:02:10 PM Performing Organization Address City/State/Zipcode Phone Number GE MUSE BUN and Creatinine (11/17/2019 5:39 AM CDT) BUN 18 7 - 21 mg/dL [facility] Creatinine 1.12 0.57 - 1.25 mg/dL [facility] BUN/Creatinine Ratio 16.1Comment: For a [facility] normal individual on a [facility] normal diet, the reference interval for the mass ratio ranges between 12:1 and 20:1 (BUN in mg/dL/creatinine in mg/dL) EGFR 48Comment: ESTIMATED GFR mL/min/1.73 sq m [facility] IS NOT ACCURATE [facility] CREATININE CLEARANCE IN PREDICTING GLOMERULAR FILTRATION RATE. ESTIMATED GFR IS NOT APPLICABLE FOR DIALYSIS PATIENTS. Specimen Blood Narrative Performed At Switch Operator ID - LA [facility] Performing Organization Address City/[facility]/Zipcode Phone Number [place] [phone] [place] [address] CENTER CBC (Hemogram only) (11/17/2019 5:39 AM CDT)Only the most recent of2 results within the time period is included. WBC 11.4 (H) 3.5 - 10.5 K/L [facility] H [facility] RBC 4.05 3.93 - 5.22 M/L [facility] Hemoglobin 10.9 (L) 11.2 - 15.7 GM/DL [facility] Hematocrit 36.0 34.1 - 44.9 % [facility] MCV 88.9 79.4 - 94.8 fL [facility] MCH 26.9 25.6 - 32.2 pg [facility] MCHC 30.3 (L) 32.2 - 35.5 GM/DL [facility] RDW 17.4 (H) 11.7 - 14.4 % [facility] Platelets 213 150 - 450 K/CU MM [facility] MPV 10.9 9.4 - 12.3 fL [facility] nRBC 0 0 - 0 /100 WBC [facility] Specimen Blood Performing Organization Address City/[facility] Cent[facility] Phone Number [address] [address] CENTER Electrolytes (11/17/2019 5:39 AM CDT) Sodium 141 136 - 145 meq/L [facility] Potassium 4.4 3.5 - 5.1 meq/L [facility] Chloride 106 98 - 107 meq/L [facility] CO2 30 (H) 22 - 29 meq/L [facility] Specimen Blood Narrative Performed At Switch Operator ID - [facility] Performing Organization Address [facility] Cent[facility]oca Phone Number [address] [phone] CENTER POC-Glucose meter (11/16/2019 9:26 PM CDT)Only the most recent of12 results within the time period is included. POC-Glucose Meter 134 (H)Comment: : TESTED 70 - 110 mg/dL [facility] AT [address], [address]: Switch Operator/Retail Sales Representative ID = [id number] for AWILDA SUZANNE Specimen Blood Performing Organization Address [facility] Centercode Phone Number [address] [address] CENTER SARS-CoV2/RT-PCR ([facility]) (11/16/2019 10:31 AM CDT)Only the most recent of2 resultswithin the time period is included. SARS-COV2/RT-PCR Not Detected Not Detected, Negative [facility] SARS-COV-2 PERFORMING LAB [facility] Specimen Other Narrative Performed At Negative results do not preclude SARS-CoV-2 [facility] infection and should not be [...] the Act. Fact Sheet for Healthcare Providers: https://www.ERUCES/Documents/Xpert%20Xpre ss%20SARS%20CoV-2/Fact%20Sheets/3023802%20SAR S-COV-2%20HEALTHCARE%20PROVIDERS%20FACT%20SHEE T.pdf Fact Sheet for Healthcare Patients: https://www.Mychebao.com.com/Documents/Xpert%20Xpre ss%20SARS%20CoV-2/Fact%20Sheets/3023801%20SAR S-COV-2%20PATIENT%20FACT%20SHEET.pdf Performing Laboratory: [address] [place] [address] Performing Organization Address City/State/Zipcode Phone Number [address] [address] CENTER TRANSFUSION SERVICE REPORT - SCAN (11/15/2019 6:01 PM CDT) Narrative Performed At This result has an attachment that is no t available. CBC with platelet count + automated diff (11/15/2019 4:50 AM CDT)Only the most recent of2 resultswithin the time period is included. WBC 9.9 3.5 - 10.5 K/L [facility] RBC 4.20 3.93 - 5.22 M/L [facility] Hemoglobin 11.3 11.2 - 15.7 GM/DL [facility] Hematocrit 37.0 34.1 - 44.9 % [facility] MCV 88.1 79.4 - 94.8 fL [facility] MCH 26.9 25.6 - 32.2 pg [facility] MCHC 30.5 (L) 32.2 - 35.5 GM/DL [facility] RDW 17.7 (H) 11.7 - 14.4 % [facility] Platelets 239 150 - 450 K/CU MM [facility] MPV 11.2 9.4 - 12.3 fL [facility] nRBC 0 0 - 0 /100 WBC [facility] % Neutros 72 % [facility] % Lymphs 14 % [facility] % Monos 9 % [facility] % Eos 4 % [facility] % Baso 1 % [facility] # Neutros 7.13 (H) 1.56 - 6.13 K/L [facility] # Lymphs 1.37 1.18 - 3.74 K/L [facility] # Monos 0.84 (H) 0.24 - 0.36 K/L [facility] # Eos 0.41 (H) 0.04 - 0.36 K/L [facility] # Baso 0.06 0.01 - 0.08 K/L [facility] Immature Granulocytes-Relative 0 0 - 1 % C HI [facility] Specimen Blood Performing Organization Address [facility] Centercode Phone Number [address] [address] CENTER Prothrombin time/INR (11/15/2019 4:50 AM CDT)Only the most recent of2 results within the time period is included. Protime 13.0 11.9 - 14.2 seconds [facility] INR 1.0 <=5.9 [facility] Specimen Blood Narrative Performed At Effective 12/15/2018: PT Reference Range [facility] Change New: 11.9-14.2Previous: 11.7-14.7 RECOMMENDED COUMADIN/WARFARIN INR THERAPY RANGES STANDARD DOSE: 2.0-3.0Includes: PROPHYLAXIS for venous thrombosis, systemic embolization; TREATMENT for venous thrombosis and/or pulmonary embolus. HIGH RISK: Target INR is 2.5-3.5 for patients wiht mechanical heart valves. Within 24 hours, if on Coumadin Performing Organization Address [facility] Phone Number [address] [address] CENTER Magnesium (11/15/2019 4:50 AM CDT)Only the most recent of2 resultswithin the time period is included. Magnesium 2.1Comment: Specimen slightly 1.6 - 2.6 mg/dL [facility] I [facility] hemolyzed [facility] Specimen Blood Narrative Performed At Switch Operator RENETTA Alcazar [facility] Performing Organization Address City/[facility]/Zipcode Phone Number [address] [address] CENTER Basic metabolic panel (11/15/2019 4:50 AM CDT)Only the most recent of3 results within the time period is included. Sodium 142 136 - 145 meq/L [facility] Potassium 4.2Comment: Specimen slightly 3.5 - 5.1 meq/L [facility] hemolyzed [facility] Chloride 106 98 - 107 meq/L [facility] CO2 29 22 - 29 meq/L [facility] BUN 13 7 - 21 mg/dL [facility] Creatinine 0.76Comment: Specimen 0.57 - 1.25 mg/dL [facility] Gl[facility] 120 (H) 70 - 105 mg/dL [facility] Calcium 8.8 8.4 - 10.2 mg/dL [facility] EGFR 75Comment: ESTIMATED GFR IS mL/min/1.73 sq m [facility] NOT ACCURATE CREATININE [facility] CLEARANCE IN PREDICTING GLOMERULAR FILTRATION RATE. ESTIMATED GFR IS NOT APPLICABLE FOR DIALYSIS PATIENTS. Specimen Blood Narrative Performed At Switch Operator RENETTA Segovia ANJALI Alcazar [facility] Performing Organization Address City/State/Zipcode Phone Number [facility] [address] [place] [address] [place] ECHOCARDIOGRAM REPORT - SCAN (11/14/2019 9:21 PM CDT) Narrative Performed At This result has an attachment that is no t available. ECHO W CONTRAST & DOPPLER (11/14/2019 10:21 AM CDT) Ejection Fraction [facility] TLAB [facility] Specimen Narrative Performed At Transthoracic Echocardiography Report (T TE) [facility] Demographics Patient Name VÍCTOR BESTEileen of Study 11/14/2019 JAN [id number] GenderFem amanda Visit Number [id number] RaceUnkn own [id number] m Number [id number] Number Date of Birth1945 Referring Physician Ilana UNDREWOOD Age73 year(s) Goring Cutter Chasidy Faria,InterpretingDavid Figueroa MD [facility] Physician Procedure Type of Study TTE procedure:2DECHO [...] Study 11/14/2019 JAN Gender Female Visit Number [id number] Race Unknown [place] [id number] Number Date of 1945 Referri Physician NickG YASMINE Age 73 year(s) Sonogra trisha Moe Nicker And Breaker Estrella Faria, Interpr eting David Figueroa MD [...] TR Gradient: 39.03 mmHg Performing Organization Address [facility] Phone Number [facility] MKCKESSON CPACS ABORH, manual (11/14/2019 5:30 AM CDT) ABO Grouping O [facility] Rh Factor NEG [facility] Specimen Blood Performing Organization Address [facility] Phone Number [address] [address] Type and screen, automated (11/14/2019 4:01 AM CDT) ABO/RH AUTOMATED (BEAKER) O NEGATIVE [facility] Ab Scrn NEGATIVE [facility] Specimen Blood Performing Organization Address [facility] Phone Number [address] [address] MR brain without IV contrast (11/13/2019 11:38 AM CDT) Specimen Narrative Performed At FINAL REPORT [facility] MR, BRAIN, WITHOUT CONTRAST INDICATION: Neuro [...] MD Report Verified Date/Time:11/13/2019 11:43:35 Reading Location: [address] Room Procedure Note Interface, External Ris [...] Verified Date/Time: 11/13/2019 1 1:43:35 Reading Location: [address] Room Performing Organization Address City/State/Zipcode Phone Number Training Advisor CTA carotid (11/13/2019 8:10 AM CDT) Specimen Narrative Performed At FINAL REPORT Training Advisor CT, CTANGIOBRAIN, CT, CAROTID, ANGIO BRAIN CT [...] MD Report Verified Date/Time:11/13/2019 08:24:31 Reading Location: [facility] C0[facility] Neuro [facility] Room Procedure Note Interface, External Ris In [...] Verified Date/Time: 11/13/2019 0 8:24:31 Reading Location: [address] Room Performing Organization Address City/State/Zipcode Phone Number Training Advisor CTA brain (11/13/2019 8:10 AM CDT) Specimen Narrative Performed At FINAL REPORT Training Advisor CT, CTANGIOBRAIN, CT, CAROTID, ANGIO BRAIN CT [...] PERALTA Report Verified Date/Time:11/13/2019 08:24:31 Reading Location: [facility] C013 Neuro [facility] Room Procedure Note Interface, External Ris In [...] Verified Date/Time: 11/13/2019 0 8:24:31 Reading Location: [address] Room Performing Organization Address City/State/Zipcode Phone Number GE RIS Urinalysis w/Microscopic + Reflex to Culture (11/13/2019 1:30 AM CDT) Color, UA Light Yellow [facility] Clarity, UA Clear [facility] Specific [place], UA 1.012 1.001 - 1.035 [facility] pH, UA 6.0 5.0 - 8.[address] [facility] Protein, UA Negative Negative [facility] Glucose, UA Negative Negative [facility] Ketones, UA Negative Negative [facility] Bilirubin, UA Negative Negative [facility] Blood, UA Negative Negative [facility] Nitrite, UA Positive (A) Negative [facility] Leukocytes, UA Negative Negative [facility] Urobilinogen, UA 0.2 0.2 - 1.0 mg/dL [facility] RBC, UA <1 /HPF [facility] WBC, UA <1 /HPF [facility] Bacteria, UA Rare [facility] Squam Epithel, UA 1 /HPF [facility] Specimen Source [facility] Specimen Urine Narrative Performed At Switch Operator ID - [auto] [facility] Switch Operator ID - tigist Performing Organization Address City/State/Zipcode Phone Number [address] [address] CENTER Vitamin B12 and Folate (11/13/2019 1:25 AM CDT) Vitamin B12 295 213 - 816 pg/mL [facility] Folate 12.20 >=7.00 ng/mL [facility] Specimen Blood Narrative Performed At Switch Operator ID - EDELMIRASIGIFREDO L [facility] Performing Organization Address City/State/Zipcode Phone Number [address] [address] CENTER TSH/Free T4 If Indicated (11/13/2019 1:25 AM CDT) TSH 10.877 (H) 0.350 - 4.940 uIU/mL [facility] Specimen Blood Narrative Performed At Switch Operator ID - EDELMIRASIGIFREDO L [facility] Performing Organization Address City/State/Zipcode Phone Number [address] [address] CENTER T4, free (11/13/2019 1:25 AM CDT) Free T4 0.67 (L) 0.70 - 1.48 ng/dL [facility] Specimen Blood Narrative Performed At Switch Operator ID - MART Kate [facility] Performing Organization Address City/State/Zipcode Phone Number [address] [address] [place] Hemoglobin A1c (11/13/2019 1:25 AM CDT) Hemoglobin A1C 6.2 (H) 4.3 - 6.1 % [facility] Specimen Blood Performing Organization Address City/[facility]/Zipcode Phone Number [address] [address] [place] Hepatic function panel (11/13/2019 1:25 AM CDT) Protein, Total 6.2 6.0 - 8.3 gm/dL [facility] Albumin 3.4 (L) 3.5 - 5.0 g/dL [facility] Total Bilirubin 0.6 0.2 - 1.2 mg/dL [facility] Bilirubin, Direct 0.3 0.1 - 0.5 mg/dL [facility] Alkaline Phosphatase 75 40 - 150 U/L [facility] AST 12 5 - 34 U/L [facility] ALT 13 6 - 55 U/L [facility] Specimen Blood Narrative Performed At Switch Operator ID - PIAYA L [facility] Performing Organization Address City/[facility] Phone Number [address] [address] [place] Lipid panel (11/13/2019 1:25 AM CDT) Triglycerides 151 mg/dL [facility] Cholesterol 121 mg/dL [facility] HDL 33 mg/dL [facility] LDL Calculated 58 mg/dL [facility] Specimen Blood Narrative Performed At Triglyceride Reference Range: [facility] Low Risk <150 [id number] High Risk 200-499 Very High Risk>=500 Cholesterol Reference Range: Low Risk <200 [id number] High Risk>240 HDL Cholesterol Reference Range: Low Risk >=60 High Risk <40 LDL Cholesterol Reference Range: Optimal<100 Near [id number] [id number] Very High >=190 Switch Operator ID Juliette Dickerson Performing Organization Address City/State/[facility] Cent[facility] Phone Number [facility] [address] [place] [address] CENTER Blood Culture - Routine (Right Venipuncture) (11/12/2019 10:22 PM CDT) Result No growth in 5 days [facility] Specimen Blood Performing Organization Address [facility] Phone Number [address] [address] CENTER Digoxin level (11/12/2019 3:01 PM CDT) Digoxin Lvl 1.77 0.80 - 2.00 ng/mL [facility] Specimen Blood Narrative Performed At Switch Operator ID - MART Kate [facility] Performing Organization Address [facility] Phone Number [address] [address] CENTER after 02/01/2019 Insurance Payer Benefit Plan / Group Subscriber ID Type Phone A ddress MEDICARE MEDICARE A B xxxxxxxxxxx Medicare CDC REVIEW CDC REVIEW xxxxxxx [address] [place], [place] [phone] Advance Directives For more information, please contact:[address] [phone] Code Status Date Activated Date Inactivated Comments Full Code 11/12/2019 2:04 PM 11/17/2019 2:17 PM This code status was determined by: Patient
--- OUTSIDE RECORDS SUMMARY | 2020-02-02 09:09 | XMS REPORT | Continuity of Care Document ---
:1945 Author Organization [facility] Information [place] Care Team Providers Name Role Phone [facility] Information [address] Unavailable Un available Problems Problem Status Onset Classification Date Comments Sourc e Date Reported R SIDE Active [facility] 6 [facility] WEAK[facility] Active [facility] Medications Medication Details Route Status Patient Ordering Order Source Instructions Provider Date Prednisone Notes: Take No Longer with food. Active 2015 [facility] Levothyroxine 50 microgram = Active Sodium 0.05 [...] oral tablet PO, Q12H, # 60 2016 [facility] tab, 0 Refill(s) Furosemide 40 MG 40 mg = 1 tab, Active Oral Tablet [Lasix] PO, Daily, # 2016 [place] 30 tab, 0 Refill(s) digoxin 250 mcg 0.25 mg = 1 Active (0.25 mg) oral tab, PO, 2016 [facility] tablet Daily, # 30 tab, 0 Refill(s) atorvastatin 40 mg 80 mg = 2 tab, Active oral tablet PO, Bedtime, # 2016 [place] and 60 tab, 0 Refill(s) Aspirin 325 MG 325 mg = 1 Active Enteric Coated tab, PO, 2016 [place] Tablet Daily, # 30 tab, 0 Refill(s) Potassium Chloride 20 mEq = 1 Active 20 MEQ Extended tab, PO, 2016 [place] Release Tablet Daily, # 30 tab, 0 Refill(s) Levofloxacin 750 MG 750 mg = 1 Active H Oral Tablet tab, PO, Q24H, 2016 [place] and [Levaquin] X 7 day, # 7 tab, 0 Refill(s) {21 See Active (Methylprednisolone Instructions, 2015 [facility] 4 MG Oral Tablet PO, Take by [Medrol]) } Pack mouth as [Medrol Dosepak] directed on label., X 6 day, # 1 Pack, 0 Refill(s) cefepime Notes: (Same No Longer As: Maxipime) Active 2015 [facility] MEDICATION WASTE Product Size: 1000 mg Product Wasted: ___ mg 200 ML Notes: Do not No Longer Ciprofloxacin 2 refrigerate Active 2015 [place] MG/ML Injection digoxin 250 mcg Notes: Take on No Longer (0.25 mg) oral an Empty Active 2015 [facility] tablet Stomach (Same as: Lanoxin) Ceftriaxone Notes: (Same Inactive As: Rocephin). 2015 [facility] Use with 100 mL NS and infuse over 30 min MEDICATION WASTE Product Size: 1000 mg Product Wasted: ___ mg Cardizem Notes: (Same Inactive as: Cardizem) [place] Diltiazem Notes: (Same No Longer as: Cardizem) Active 2015 [facility] Before meals metoprolol tartrate Notes: (Same No [...] SEE RT No Longer DOCUMENTATION Active 2015 [facility] (Same as:Atrovent) Ipratropium Notes: SEE RT No Longer DOCUMENTATION Active 2015 [facility] (Same as:Atrovent) Xopenex Notes: SEE RT No Longer DOCUMENTATION Active 2015 [facility] (Same as:Xopenex) Non-Formulary Levaquin Notes: Do not No Longer give Active 2015 [facility] w/antacids, dairy pdt & minerals Take 1 hr before or 2 hr after dairy pdt (Same as:Levaquin) Diltiazem Notes: (Same No Longer as: Cardizem) Active 2015 [facility] Digoxin Notes: (Same Inactive as: Lanoxin) 2015 [facility] Cardizem Notes: (Same Inactive as: Cardizem) 2015 [facility] Metoprolol Notes: (Same Inactive as: Lopressor) 2015 [facility] Push over 2 minutes metoprolol tartrate Notes: (Same No Longer 02/10 as: Lopressor) Active 2015 [facility] Metoprolol Notes: (Same Inactive as: Lopressor) 2015 [facility] Push over 2 minutes Metoprolol Notes: (Same Inactive as: Lopressor) 2015 [facility] Push over 2 minutes Nicotine Notes: (Same No Longer as: Habitrol) Active 2015 [facility] "Remove old patch before application of new patch" WASTE: F/P - P Waste Black; E - P Waste Black pantoprazole Notes: For IV No Longer push Active 2015 [facility] reconstitute with 10 ml 0.9% sodium chloride and push over 2 minutes. (Same as: Protonix) Saline Flush 0.9% Notes: (Same No Longer as: BD Active 2015 [facility] Posiflush) Aspirin 325 MG Notes: (Do Not No Longer Enteric Coated Crush) [facility] not [facility] Albuterol 0.833 Notes: (Same No Longer H MG/ML / Ipratropium as: Duoneb) Active 2015 [facility] Sparks 0.167 MG/ML Inhalant Solution [DuoNeb] Furosemide 40 MG Notes: (Same No Longer Oral Tablet [Lasix] as: Lasix) Active 2015 [place] May cause GI upset. Give with food or milk. Enoxaparin Notes: (Same No Longer as: Lovenox) Active 2015 [facility] Saline Flush 0.9% Notes: (Same No Longer as: BD Active 2015 [facility] Posiflush) Acetaminophen Notes: Do not No Longer exceed 4 Active 2015 [facility] gm/day. (Same as: Tylenol) Allergies, Adverse Reactions, Alerts No Known Medication Allergies Immunizations No Data Provided for This Section Results Order Name Results Value Reference Date Interpretation Comments Nini rce Range CHEM PANEL Procalcitoni <0.05 0.00 - 02/13 n Lvl ng/mL 0.10 [facility] HEMATOLOGY Platelet 296 133 - 450 02/13 /2015 [facility] HEMATOLOGY MPV 9.0 7.4 - 10.4 02/13 [facility] HEMATOLOGY MCHC 31.9 32.0 - 02/13 36.0 /2015 [facility] HEMATOLOGY RDW 15.4 11.5 - 02/13 14.5 [facility] HEMATOLOGY WBC X 10x3 17.8 3.7 - 10.4 02/13 [facility] HEMATOLOGY RBC X 10x6 5.23 4.20 - 02/13 MH 5.40 /2015 [facility] HEMATOLOGY Hct 45.0 36.0 - 02/13 MH 48.0 /2015 [facility] HEMATOLOGY MCH 27.5 27.0 - 02/13 MH 31.0 /2015 [facility] HEMATOLOGY Hgb 14.4 12.0 - 02/13 16.0 [facility] HEMATOLOGY MCV 86.0 80.0 - 02/13 98.0 /2015 [facility] CHEM PANEL Magnesium 2.6 1.8 - 2.4 02/13 MH Lvl /2015 [facility] CHEM PANEL Phosphorus 3.0 2.5 - 4.5 02/13 [facility] URINE AND UA Glucose Negative Negative 02/12 STOOL (02/13/16 2:21 PM) /2015 [facility] URINE AND UA Protein Negative Negative 02/12 STOOL (02/13/16 2:21 PM) /2015 [place] URINE AND UA Ketones Negative Negative 02/12 STOOL *NA* /2015 [facility] (02/13/16 2:21 PM) URINE AND UA Spec Grav 1.025 <=1.030 02/12 STOOL /2015 [facility] URINE AND UA Color Yellow Yellow 02/12 STOOL *NA* /2015 [facility] (02/13/16 2:21 PM) URINE AND UA pH 5.5 5.0 - 8.0 02/12 STOOL /2015 [facility] URINE AND UA Turbidity Clear Clear 02/12 [...] Rare /LPF Few /LPF 02/12 STOOL /2015 [place] URINE AND UA Nitrite Negative Negative 02/12 STOOL (02/13/16 2:21 PM) [place] URINE AND Micro? Performed 02/12 STOOL (02/13/16 2:21 PM) [place] URINE AND UA 0.2 0.1 - 1.0 02/12 STOOL Urobilinogen /2015 [facility] URINE AND UA Leuk Est Negative Negative 02/12 STOOL (02/13/16 2:21 PM) [place] URINE AND UA Blood Trace Negative 02/12 STOOL *ABN* /2015 [facility] (02/13/16 2:21 PM) URINE AND UA Bili Negative Negative 02/12 STOOL *NA* /2015 [facility] (02/13/16 2:21 PM) CHEM PANEL Phosphorus 3.0 2.5 - 4.5 02/12 [facility] CHEM PANEL Magnesium 2.4 1.8 - 2.4 02/12 Lvl [facility] CHEM PANEL A/G Ratio 0.7 0.7 - 1.6 02/12 [facility] CHEM PANEL B/C Ratio 23 6 - 25 02/12 [facility] CHEM PANEL Globulin 4.3 2.0 - 4.0 02/12 [facility] CHEM PANEL AGAP 12.0 10.0 - 02/12 20.0 [facility] CHEM PANEL eGFR 54 02/12 Result Comment: The [facility] eGFR is calculated using the CKD-EPI formula. [...] 1.05 0.50 - 02/12 MH Lvl 1.40 [facility] CHEM PANEL Sodium Lvl 138 135 - 145 02/12 [facility] CHEM PANEL Potassium 4.0 3.5 - 5.1 02/12 MH Lvl [facility] CHEM PANEL BUN 24 7 - 22 02/12 [facility] CHEM PANEL ALANINE 19 0 - 65 02/12 AMINOTRANSFE [facility] RASE CHEM PANEL Calcium Lvl 8.1 8.5 - 10.5 02/12 [facility] CHEM PANEL Total 7.3 6.4 - 8.4 02/12 Protein [facility] CHEM PANEL Bili Total 0.7 0.2 - 1.3 02/12 [facility] CHEM PANEL ASPARTATE 8 0 - 37 02/12 MH TRANSAMINASE [facility] CHEM PANEL Chloride Lvl 102 95 - 109 02/12 [facility] CHEM PANEL CO2 28 24 - 32 02/12 [facility] CHEM PANEL Alk Phos 70 39 - 136 02/12 [facility] CHEM PANEL Albumin Lvl 3.0 3.5 - 5.0 02/12 [facility] CHEM PANEL Glucose Lvl 160 70 - 99 02/12 [facility] HEMATOLOGY RDW 15.5 11.5 - 02/12 MH 14. [facility] HEMATOLOGY MCV 86.4 80.0 - 02/12 MH 98.0 [facility] HEMATOLOGY MCHC 32.5 32.0 - 02/12 MH 36.0 [facility] HEMATOLOGY MCH 28.1 27.0 - 02/12 MH 31.0 /2016 [facility] HEMATOLOGY Hct 42.3 36.0 - 02/12 MH 48.0 /2015 [facility] HEMATOLOGY MPV 9.1 7.4 - 10.4 02/12 [facility] HEMATOLOGY Platelet 227 133 - 450 02/12 [facility] HEMATOLOGY Hgb 13.7 12.0 - 02/12 MH 16.0 /2015 [facility] HEMATOLOGY RBC X 10x6 4.89 4.20 - 02/12 MH 5.40 /2015 [facility] HEMATOLOGY WBC X 10x3 14.1 3.7 - 10.4 02/12 [facility] HEMATOLOGY Monocytes # 0.4 0.0 - 0.8 02/12 [facility] HEMATOLOGY Lymphocytes 0.6 1.0 - 5.5 02/12 MH # /2015 [facility] HEMATOLOGY Segs-Bands # 13.1 1.5 - 8.1 02/12 [facility] HEMATOLOGY Segs 92.9 45.0 - 02/12 MH 75.0 [facility] HEMATOLOGY Basophils 0.2 0.0 - 1.0 02/12 [facility] HEMATOLOGY Monocytes 2.9 2.0 - 12.0 02/12 [facility] HEMATOLOGY Lymphocytes 4.0 20.0 - 02/12 MH 40.0 [facility] HEMATOLOGY RBC Morph Normal 02/12 (02/13/16 5:21 AM) [facility] HEMATOLOGY Plt Morph Normal 02/12 (02/13/16 5:21 AM) [facility] CHEM PANEL Magnesium 2.5 1.8 - 2.4 02/11 Lvl /2015 [facility] CHEM PANEL eGFR 56 02/11 Result Comment: The [facility] eGFR is calculated using the CKD-EPI formula. [...] PANEL CO2 31 24 - 32 02/11 [facility] CHEM PANEL Potassium 3.6 3.5 - 5.1 02/11 Lvl /2015 [facility] CHEM PANEL Calcium Lvl 8.2 8.5 - 10.5 02/11 [facility] CHEM PANEL Chloride Lvl 105 95 - 109 02/11 [facility] CHEM PANEL AGAP 8.6 10.0 - 02/11 MH 20.0 [facility] CHEM PANEL BUN 20 7 - 22 02/11 [facility] CHEM PANEL Glucose Lvl 124 70 - 99 02/11 [facility] CHEM PANEL Sodium Lvl 141 135 - 145 02/11 [facility] CHEM PANEL Creatinine 1.03 0.50 - 02/11 Lvl 1.40 [facility] BACTERIAL - MRSA by PCR Negative 02/11 SEROLOGY (02/12/16 1:40 AM) [facility] and CARDIAC proBNP 1961 0 - 125 02/09 MH [facility] CHEM PANEL eGFR 64 02/09 Result Comment: The [facility] eGFR is calculated using the CKD-EPI formula. [...] Bili Total 0.8 0.2 - 1.3 02/09 [facility] CHEM PANEL Calcium Lvl 8.3 8.5 - 10.5 07/24 MH /2015 [facility] CHEM PANEL CO2 27 24 - 32 07/ MH /2015 [facility] CHEM PANEL Total 7.3 6.4 - 8.4 07/24 MH Protein /2015 [facility] CHEM PANEL ASPARTATE 16 0 - 37 07/24 MH /2015 [facility] CHEM PANEL Creatinine 0.92 0.50 - 07/24 [facility] Lvl 1.40 /2015 [facility] CHEM PANEL Sodium Lvl 142 135 - 145 07/24 MH /2015 [facility] CHEM PANEL BUN 15 7 - 22 07/ MH /2015 [facility] CHEM PANEL Potassium 3.7 3.5 - 5.1 07/24 MH Lvl /2015 [facility] CHEM PANEL Chloride Lvl 106 95 - 109 07/ /2015 [facility] CHEM PANEL Albumin Lvl 3.6 3.5 - 5.0 / /2015 [facility] CHEM PANEL Glucose Lvl 95 70 - 99 07/ MH /2015 [facility] CHEM PANEL ALANINE 26 0 - 65 07/ MH AMINOTRANS /2015 [facility] RASE CHEM PANEL Alk Phos 71 39 - 136 07/ MH /2015 [facility] CHEM PANEL A/G Ratio 1.0 0.7 - 1.6 07/ MH /2015 [facility] CHEM PANEL Globulin 3.7 2.0 - 4.0 07/ MH /2015 [facility] CHEM PANEL B/C Ratio 16 6 - 25 07/ /2015 [facility] CHEM PANEL AGAP 12.7 10.0 - 07/ MH 20.0 /2015 [facility] HEMATOLOGY Monocytes # 0.7 0.0 - 0.8 07/ MH /2015 [facility] HEMATOLOGY Lymphocytes 1.9 1.0 - 5.5 07/24 MH # /2015 [facility] HEMATOLOGY Segs-Bands # 6.3 1.5 - 8.1 07/ MH /2015 [facility] HEMATOLOGY Eosinophils 0.1 0.0 - 0.5 07/24 MH # /2015 [facility] HEMATOLOGY Basophils 0.5 0.0 - 1.0 07/24 MH /2015 [facility] HEMATOLOGY Eosinophils 1.2 0.0 - 4.0 07/ MH /2015 [facility] HEMATOLOGY Segs 70.2 45.0 - 07/ MH 75.0 /2016 [facility] HEMATOLOGY Lymphocytes 20.5 20.0 - 07/ MH 40.0 /2015 [facility] HEMATOLOGY Monocytes 7.6 2.0 - 12.0 02/09 /2015 [facility] HEMATOLOGY Platelet 197 133 - 450 02/09 /2015 [facility] HEMATOLOGY MPV 9.5 7.4 - 10.4 02/09 /2015 [facility] HEMATOLOGY RDW 15.8 11.5 - 02/09 MH 14.5 [facility] HEMATOLOGY MCHC 32.8 32.0 - 02/09 MH 36.0 [facility] HEMATOLOGY MCV 86.1 80.0 - 02/09 MH 98.0 /2015 [facility] HEMATOLOGY MCH 28.2 27.0 - 02/09 MH 31.0 /2015 [facility] HEMATOLOGY Hct 39.9 36.0 - 02/09 MH 48.0 [facility] HEMATOLOGY WBC X 10x3 9.1 3.7 - 10.4 02/09 [facility] HEMATOLOGY RBC X 10x6 4.63 4.20 - 02/09 MH 5.40 /2015 [facility] HEMATOLOGY Hgb 13.1 12.0 - 02/09 MH 16.0 [facility] LIPIDS CHD Risk 3.74 3.90 - 02/09 MH 5.80 /2015 [facility] LIPIDS VLDL 26 02/09 /2015 [facility] LIPIDS LDL 144 <=99 mg/dL 02/09 (Calculated) [facility] LIPIDS Trig 128 <=149 02/09 mg/dL [facility] LIPIDS HDL 62 >=61 mg/dL 02/09 [facility] LIPIDS Chol 232 <=199 02/09 mg/dL [facility] SPECIAL Hgb A1C 5.8 <=5.6 % 02/09 [facility] Pathology Reports No Data Provided for This Section Diagnostic Reports Report Value Date Source Chest 1view DX EXAM: Chest radiograph 02/13/2016 [facility] HISTORY: Dyspnea COMPARISON: 02/10/2016 TECHNIQUE: Frontal view of the chest FINDINGS/IMPRESSION: New opacity medial right lower lung may reflect atelectasis or pneumonia. Perihilar interstitial opaci ties bilaterally are slightly improved and may reflect resolving edema or pneumonia. No significant pleural effusion. Stable cardiomegaly. Possible COPD. SL: [id number] Brain wo contrast CT Patient Name: VIVIENNE BEST 02/11/2016 [facility] : 1945; Age: 70 years y/o Female MR: [id number] Study: Brain wo contrast CT 02/11/2016 7:30 [...] the recent magnetic resonance imaging exam. SL: [id number] Brain/Neck CTA CTA HEAD AND NECK: 02/10/2016 [facility] HISTORY: Acute left cerebral infarct. TECHNIQUE: [...] contrast MRI MRI BRAIN WITHOUT CONTRAST 02/10/2016 [facility] INDICATION: Generalized weakness COMPARISON: None DISCUSSION: [...] DX Patient Name: VIVIENNE BEST 02/10/2016 [facility] : 1945; Age: 70 years y/o Female MR: [id number] Study: Chest 1view DX 02/10/2016 3:00 AM [...] congestive heart failure or volume overload. SL: [id number] Carotid artery Study: Carotid artery Doppler bilat US [address] [place] [address] Doppler bilat US Clinical Indication: Stroke, ischemic [...] Near occlusion High, low, or Variable undetectable :[id number] Consultation Notes No Data Provided for This Section Discharge Summaries No Data Provided for This Section History and Physicals No Data Provided for This Section Vital Signs Vital Sign Value Date Comments Source Systolic (mm Hg) 125 02/14/2016 [facility] Diastolic (mm Hg) 76 02/14/2016 [place] Respitory Rate 18 02/14/2016 [facility] Temperature Oral (F) 97.5 F 02/14/2016 [facility] Temperature Oral (F) 98.0 F 02/14/2016 [facility] Respitory Rate 18 02/14/2016 [facility] Systolic (mm Hg) 117 02/14/2016 [facility] Diastolic (mm Hg) 69 02/14/2016 [place] Systolic (mm Hg) 127 02/14/2016 [facility] Diastolic (mm Hg) 68 02/14/2016 [place] Respitory Rate 18 02/14/2016 [facility] Temperature Oral (F) 98.0 F 02/14/2016 [facility] Heart Rate 64 02/14/2016 [facility] Heart Rate 128 02/12/2016 [facility] Heart Rate 91 02/12/2016 [facility] Weight 72.358 02/11/2016 [facility] Height 165.1 cm 02/09/2016 [facility] Weight 76.818 02/09/2016 [facility] BMI Calculated 28.18 02/09/2016 [facility] Encounters Location Location Encounter Encounter Reason Attending ADM [place] Stat Source Details Type Number For Provider Date Date Visit [facility] Inpatient [id number] Edward 02/10 02/13 [facility] /2015 [facility] Procedures No Data Provided for This Section Assessment and Plan Assessment and Plan Date Source Extracted from:Title: Clinical Document 02/14/2016 [facility] Author: Christopher Sorensen MD Date: 02/14/16 Cardiology [...] 0.9% INJ 100 mL 1 gm IVPB [id number] 200 ml/hr 02/13/16 ciprofloxacin (ciprofloxacin 40 0 mg/200 mL intravenous solution) 400 mg IVPB [id number] 200 ml/hr 02/13/16 digoxin (digoxin 250 mcg (0.25 mg) oral tablet) 0.2 5 mg PO Daily 02/13/16 diltiazem 90 mg PO Q8H 02/12/16 (Suspended) enoxaparin 40 mg SUB-Q [id number] 02/09/16 furosemide (Lasix 40 mg oral tablet) [...] well on Wednesday. She was taken to [facility] and CT brain without acute changes. [...] Daily. enoxaparin: 40 mg, 0.4 mL, SUB-Q, [id number]. furosemide: 40 mg, PO, Q12H. pantoprazole: 40 [...]
--- OUTSIDE RECORDS SUMMARY | 2020-02-02 09:13 | XMS REPORT | Continuity of Care Document ---
:1945 Author Organization [facility] t Address [address] [place] [address] Care Team Providers Name Role Phone Nathanael [...] s - [facility] CDC REVIEWCDC xxxxxxx [facility] [id number] [place] Problems Condition Condition Condition Status Onset Resolution Last Treating Co mments Source Name Details Category Date Date Treatment Clinician Date Hypothyroi Hypothyroi Disease Active [facility]m [facility] 00 [place] Obesity Obesity Disease Active [facility] 4[facility] TIA TIA Disease Active [facility] (transient (transient 11-13 Myriam kes - ischemic ischemic 00:00: Medica l attack) attack) 00 Center Chronic Chronic Disease Active 2019- [facility] atrial atrial 11-13 [facility] - fibrillati fibrillati 00:00: Me dical on on [place] Bradycardi Bradycardi Disease Active [facility] a a 11-13 [facility] 00:[facility] Medical 00 [place] Stroke Stroke Disease Active [facility] (cerebrum) (cerebrum) 11-11 Myriam kes - 00:00: Medical 00 [place] Acute Acute Disease Active 2019- [facility] ischemic ischemic - [facility] - stroke stroke 00:00: Medical 00 [place] R SIDE Diagnosis Active 2016-02-22 Mem oria WEAKNESS 02-08 09:52:00 l R SIDE 00:00: [place] WEAKNESS 00 Active 02/09/2016 [facility] WEAKNESS Diagnosis Active 2016-02-22 M emoria 09:52:00 l WEAKNESS Balwinder n Active [facility] Allergies, Adverse Reactions, Alerts Allergy Allergy Status Severity Reaction(s) Onset Inactive Treating Comm ents Source Name Type Date Date Clinician Sulfa Propensi Active [facility] (Sulfona ty to 11-11 [facility] - mide adverse 00:00: Medical Antibiot reaction 00 Center ics) s Social History Social Habit Start Date Stop Date Quantity Comments Source History SDOH Alcohol [facility] Std Drinks [facility] History GAOH Alcohol [facility] Binge [facility] Sex Assigned At [facility] History SDOH Alcohol 2019-11-12 2019-11-[address] [facility] - Frequency 00:00:00 00:00:00 [facility] Social History 2016-02-09 2016-02-09 [facility] [place] 23:16:57 23:16:57 Smoking Status Start Date Stop Date Source Current every day smoker 2019-11-17 00:00:00 [facility] Medications Ordered Filled Start Stop [...] 15 MG 15:40: nightly. Medical tablet 02 [place] liothyronin Yes 5ug QD Take [address] e (CYTOMEL) 4-25 by mouth Luke s - 5 MCG 15:40: daily. Medical tablet 02 [place] montelukast Yes 10mg QD Take [address] (SINGULAIR) 4-25 by mouth Luke s - 10 mg 15:40: nightly. Medical tablet 02 [place] Prednisone No Notes: Memor ia 7-29 Take [...] tab, PO, l MEQ 20:57: Daily, # [place] Extended 00 30 tab, 0 Release Refill(s) [...] Memoria - (Same As: l 18:00: Maxipime) [place] 00 MEDICATION WASTE Product Size: 1000 mg Product Wasted: ___ mg 200 ML No Notes: Do Memori a Ciprofloxac - not l in 2 MG/ML 18:00: refrigerat H ermann Injection 00 e digoxin 250 No Notes: Henry jeaneth mcg (0.25 02-12 Take on an l mg) oral 14:00: Empty [place] tablet 00 Stomach (Same as: Lanoxin) Ceftriaxone No Notes: Henry jeaneth - (Same As: l 14:00: Rocephin). [place] 00 Use with 100 mL NS and infuse over 30 min MEDICATION WASTE Product Size: 1000 mg Product Wasted: ___ mg Cardizem No Notes: Memoria - (Same as: l 13:44: Cardizem) [place] 00 Diltiazem No Notes: Memori a 7-27 (Same as: l 13:42: Cardizem) [place] 00 Before meals metoprolol No Notes: Memor ia tartrate 02-12 (Same as: l 02:00: Lopressor) [place] methylPREDN No Notes: Henry jeaneth ISolone 02-12 (Same l SODium 02:00: as:Solu-ME Shirin nn SUCCinate 00 DROL, A-Methapre d) atorvastati No Notes: Henry jeaneth n 02-12 (Same as: l 02:00: Lipitor) [place] 00 Digoxin No Notes: Memoria 02-12 (Same as: l 01:00: Lanoxin) [place] aspirin 325 No Notes: (Do Memoria mg tablet, 02-12 Not Crush) l enteric 01:00: Do not [place] coated 00 crush or chew. Ipratropium No Notes: SEE Memoria 02-12 RT l 00:41: DOCUMENTAT [place] 00 ION (Same as:Atroven t) Ipratropium No Notes: SEE Memoria 02-12 RT l 00:40: DOCUMENTAT [place] 00 ION (Same as:Atroven t) Xopenex No [...] a 02-11 (Same as: l 04:31: Cardizem) [place] Digoxin No Notes: Memoria 02-11 (Same as: l 04:17: Lanoxin) [place] Cardizem No Notes: Memoria 02-11 (Same as: l 04:03: Cardizem) [place] 00 Metoprolol No Notes: Memor ia 02-11 (Same as: l 03:54: Lopressor) Push over 2 minutes metoprolol No Notes: Memor ia tartrate 02-10 (Same as: l 18:22: Lopressor) [place] 00 Metoprolol No Notes: Memor ia 02-10 (Same as: l 18:21: Lopressor) [place] 00 Push over 2 minutes Metoprolol No Notes: Memor ia 7-25 (Same as: l 15:36: Lopressor) [place] 00 Push over 2 minutes Nicotine No Notes: Memoria 7-24 (Same as: l 21:34: Habitrol) [place] 00 "Remove old patch before applicatio n of new patch" WASTE: F/P - P Waste Black; E - P Waste Black pantoprazol No Notes: For Memoria e 7-24 IV push l 21:30: reconstitu [place] 00 te with 10 ml 0.9% sodium chloride and push over 2 minutes. (Same as: Protonix) Saline No Notes: Memoria Flush 0.9% 7-24 (Same as: l 02:00: BD [place] 00 Posiflush) Aspirin 325 No Notes: (Do Memoria MG Enteric 7-24 Not Crush) l Coated 00:30: Do not [place] Tablet 00 crush or chew. Albuterol No Notes: Memori a 0.833 MG/ML -24 (Same as: l / 00:07: Duoneb) [place] Ipratropium 00 [place] 0.167 MG/ML Inhalant Solution [DuoNeb] Furosemide No Notes: Memor ia 40 MG Oral 7-24 (Same as: l Tablet 00:07: Lasix) [place] [Lasix] 00 May cause GI upset. Give with food or milk. Enoxaparin No Notes: Memor ia 7-24 (Same as: l 00:00: Lovenox) [place] 00 Saline No Notes: Memoria Flush 0.9% 7-23 (Same as: l 23:59: BD [place] 00 Posiflush) Acetaminoph No Notes: Do M emoria en 7-23 not exceed l 23:59: 4 gm/day. [place] 00 (Same as: Tylenol) Vital Signs Vital Name Observation Time Observation Value Comments Source Systolic blood 2019-11-17 11:23:00 132 mm[Hg] [facility] Diastolic blood 2019-11-17 11:23:00 63 mm[Hg] [facility] t [facility] Heart rate 2019-11-17 11:23:00 64 /min [facility] Body temperature 2019-11-17 11:23:[address] [facility] Respiratory rate 2019-11-17 11:23:00 18 /min [facility] Oxygen saturation in 2019-11-17 11:23:00 97 /min [facility] - Arterial blood by Medical Ce nter Pulse oximetry Body weight Measured 2019-11-17 05:00:[address] [facility] BMI 2019-11-17 05:00:00 33.15 kg/m2 [facility] Body height 2019-11-12 17:00:00 162.6 cm [facility] Systolic (mm Hg) 2016-02-14 22:58:00 Henry rial [place] Diastolic (mm Hg) 2016-02-14 22:58:00 Mem orial [place] Respitory Rate 2016-02-14 22:58:00 Memori al [place] Temperature Oral (F) 2016-02-14 22:58:00 97.5 F [facility] [place] Temperature Oral (F) 2016-02-14 18:23:00 98.0 F [facility] [place] Respitory Rate 2016-02-14 18:23:00 Memori al [place] Systolic (mm Hg) 2016-02-14 18:23:00 Henry rial [place] Diastolic (mm Hg) 2016-02-14 18:23:00 Mem orial [place] Systolic (mm Hg) 2016-02-14 14:45:00 Henry rial [place] Diastolic (mm Hg) 2016-02-14 14:45:00 Mem orial [place] Respitory Rate 2016-02-14 14:45:00 Memori al [place] Temperature Oral (F) 2016-02-14 14:45:00 98.0 F [facility] [place] Heart Rate 2016-02-14 11:16:00 [facility] [place] Heart Rate 2016-02-12 03:58:00 [facility] [place] Heart Rate 2016-02-12 03:34:00 [facility] [place] Weight 2016-02-11 15:46:00 [facility] [place] Height 2016-02-09 23:06:00 165.1 cm [facility] [place] Weight 2016-02-09 23:06:00 [facility] [place] BMI Calculated 2016-02-09 23:06:00 Gama Alston Procedures Procedure Date / Time Performing Clinician Source Performed ARRYTHMIA IMPLANT REPORT - 2019-11-18 12:31:16 Provider, [facility] - SCAN Scanning [facility] REPORT OF PROCEDURE - 2019-11-18 12:20:46 Provider, [facility] - ENDOSCOPY SCAN [facility] CARDIAC CATH REPORT - SCAN 2019-11-18 12:20:39 Provider, [facility] ARRYTHMIA IMPLANT REPORT - 2019-11-18 12:20:37 Provider, [facility] RHYTHM STRIP - SCAN 2019-11-18 12:20:18 Provider, [facility] XR CHEST 1 VIEW 2019-11-17 08:30:00 Tae Dodge [facility] PORTABLE/BEDSIDE [facility] ECG 12-LEAD 2019-11-17 07:05:05 Tae Dodge [facility] CBC (HEMOGRAM ONLY) 2019-11-17 05:39:00 Tae Dodge [facility] ELECTROLYTE PANEL 2019-11-17 05:39:[address] [facility] BUN AND CREATININE W/RATIO 2019-11-17 05:39:[address] [facility] POCT-GLUCOSE METER 2019-11-16 21:26:[address] [facility] XR CHEST 1 VIEW 2019-11-16 18:10:00 Tae Dodge [facility] PORTABLE/BEDSIDE [facility] POCT-GLUCOSE METER 2019-11-16 17:24:[address] [facility] ECG 12-LEAD 2019-11-16 15:34:18 Unknown, Hl7 Doctor [facility] PACEMAKER GEN & LEADS - 2019-11-16 12:25:00 Tae Dodge [facility] - INSERTION W/ [facility] ANESTHESIA (SING/DUAL/MULT) SARS-COV2/RT-PCR ([facility] & 2019-11-16 10:31:00 Tae Dodge [facility] - REF LABS) [facility] POCT-GLUCOSE METER 2019-11-16 06:42:[address] [facility] POCT-GLUCOSE METER 2019-11-15 20:47:[address] [facility] TRANSFUSION SERVICE REPORT 2019-11-15 18:01:25 Provider, Default [facility] POCT-GLUCOSE METER 2019-11-15 17:32:[address] [facility] POCT-GLUCOSE METER 2019-11-15 07:47:[address] [facility] BASIC METABOLIC PANEL (7) 2019-11-15 04:50:00 Sneha Underwood CH I [facility] MAGNESIUM 2019-11-15 04:50:00 Tae Dodge [facility] PROTHROMBIN TIME/INR 2019-11-15 04:50:[address] [facility] CBC W/PLT COUNT & AUTO 2019-11-15 04:50:00 Tae Dodge [facility] ECHOCARDIOGRAM REPORT - 2019-11-14 21:21:37 Provider, Default [facility] POCT-GLUCOSE METER 2019-11-14 21:04:[address] [facility] SARS-COV2/RT-PCR ([facility] & 2019-11-14 15:02:00 Tae Dodge [facility] POCT-GLUCOSE METER 2019-11-14 12:41:[address] [facility] ECHO W CONTRAST & DOPPLER 2019-11-14 10:21:57 Cassandra Amanda [facility] ABORH, MANUAL 2019-11-14 05:30:[address] [facility] BASIC METABOLIC PANEL (7) 2019-11-14 04:01:00 Sneha Underwood [facility] MAGNESIUM 2019-11-14 04:01:00 Tae Dodge [facility] PROTHROMBIN TIME/INR 2019-11-14 04:01:[address] [facility] TYPE AND SCREEN, AUTOMATED 2019-11-14 04:01:[address] [facility] CBC W/PLT COUNT & AUTO 2019-11-14 04:01:00 Tae Dodge [facility] POCT-GLUCOSE METER 2019-11-13 21:40:00 Sneha Underwood [facility] POCT-GLUCOSE METER 2019-11-13 17:35:00 Sneha Underwood [facility] POCT-GLUCOSE METER 2019-11-13 12:08:00 Sneha Underwood [facility] MR BRAIN WITHOUT IV 2019-11-13 11:38:00 [facility] CTA BRAIN 2019-11-13 08:10:[address] [facility] [address]/CTA CAROTID 2019-11-13 08:10:00 [facility] URINALYSIS W/ REFLEX URINE 2019-11-13 01:30:[address] [facility] BASIC METABOLIC PANEL (7) 2019-11-13 01:25:00 Sneha Underwood [facility] HEPATIC FUNCTION PANEL 2019-11-13 01:25:00 Sneha Underwood [facility] LIPID PANEL 2019-11-13 01:25:[address] [facility] CBC (HEMOGRAM ONLY) 2019-11-13 01:25:00 Sneha Underwood [facility] HEMOGLOBIN A1C 2019-11-13 01:25:[address] [facility] VITAMIN B12 AND FOLATE 2019-11-13 01:25:00 Sneha Underwood [facility] TSH/FREE T4 IF INDICATED 2019-11-13 01:25:[address] [facility] T4, FREE 2019-11-13 01:25:[address] [facility] BLOOD CULTURE 2019-11-12 22:22:[address] [facility] POCT-GLUCOSE METER 2019-11-12 21:02:00 Sneha Underwood [facility] ECG 12-LEAD 2019-11-12 16:53:41 Unknown, Hl7 Doctor [facility] ECG 12-LEAD 2019-11-12 16:52:[address] [facility] DIGOXIN LEVEL 2019-11-12 15:01:00 Clara [facility] XR CHEST 1 VIEW 2019-11-12 14:26:00 Edin UnderwodoJeaneth [facility] PORTABLE/BEDSIDE Medical Center Plan of Care Planned Activity Planned Date Details Comments Source Future Scheduled 2020-03-20 INFLUENZA VACCINE (#1) [facility]:00 [code = INFLUENZA Medical Ce nter VACCINE (#1)] Future Scheduled 2012-11-[address] [facility] - Test 00:00:00 WELLNESS (YEAR 2 or Medical Center FIRST YEAR if no IPPE) [code = MEDICARE ANNUAL WELLNESS (YEAR 2 or FIRST YEAR if no IPPE)] Future Scheduled 2011-12-12 PNEUMOCOCCAL [address] - Test 00:00:00 LOW/MEDIUM RISK ([facility] 2 - PCV13) [code = PNEUMOCOCCAL 65+ LOW/MEDIUM RISK (1 of 2 - PCV13)] Future Scheduled [address] [facility] - Test 00:00:00 malignant neoplasm of [facility] breast (procedure) [code = 690272991] Future Scheduled [address] [facility] - Test 00:00:00 malignant neoplasm of [facility] colon (procedure) [code = 381192459] Encounters Start End Encounter Admission Attending Care Care Encounter Source Date/Time Date/Time Type Type Clinicians Facility Department ID 2016-02-11 2016-02-14 Outpatient White, [facility] [id number] 10:53:00 17:25:00 Edward Summers Results Test Description Test Time Test Comments Results Result Comments Source Blood Culture - Routine (Right Venipuncture) 2019-11-18 00:0 0:00 Test Item Value Reference Range Interpretation Comme nts Result (test code = 6463-4) No growth in 5 days [facility] [id number] 00:00:00 Test Item Value Reference Range Interpretation Comments CULTURE (BEAKER) (test No growth in 5 days code = 1095) EKG 12 [id number] 17:02:13Interface, External Ris In - 11/17/2019 5:02 PM CDTVentricular Rate 70 BPMAtrial Rate 468 BPMQRS Duration 80 msQ-T Interval 386 msQTC Calculation(Bazett) 416 msR [place] 2 degreesT [place] 233 degreesDemand pacemaker; interpretation is based on intrinsic rhythmAtrial fibrillation with premature ventricular or aberrantly conducted complexesNonspecific ST and T wave abnormality , probably digitalis effectAbnormal ECGWhen compared with ECG of 16-NOV-2019 15:34,Atrial fibrillation has replaced Electronic ventricular pacemakerVent. rate has decreased BY 69 BPMConfirmed by MD Morgan, [facility] ([id number]) on 11/17/2019 5:02:10 [facility], NON [id number] 08:51:00Reason for exam:->s/p pacemaker/defibrillator; evaluation for pneumothoraxShould this be performed at the bedside?->YesFINAL REPORT RAD, CHEST, 1 VIEW, NON DEPT INDICATION: s/p pacemaker/defibrillator; evaluation for pneumothorax COMPARISON: Prior day's exam FINDINGS: Portable [facility] IMPRESSION: Support Lines: Stable pacer apparatus. Lungs and pleura: Unchanged appearance of the interstitial markings. Questionable trace right effusion. No pneumothorax.Heart and mediastinum: Stable contours. Additional findings: None. Signed: JR Wilkinson Robert MDReport Verified Date/Time: 11/17/2019 08:51:03 Reading Location: [facility] Radiology Reading Room Electronicallysigned by: KATT WILKINSON on 11/17/2019 08:51 AMXR chest 1 view portable / [id number] 08:51:00Interface, External Ris In - 11/17/2019 8:53 [...] Additional findings: None. Signed: JR Wilkinson Robert MDRephua Verified Date/Time: 11/17/2019 08:51:03 Reading Location: [facility] Radiology Reading Room [facility] [id number] 06:23:00 Test Item Value Reference Range Interpretation Comments Sodium (test code = 2951-2) 141 meq/L 136-145 Potassium (test code = 4.4 meq/L 3.5-5.1 2823-3) Chloride (test code = 106 meq/L 98-107 2075-0) CO2 (test code = 2028-9) 30 meq/L 22-29 H MARGO (test code = MARGO) Rail Technician ID - HAYLEY Lab Interpretation (test Abnormal code = 39389-0) [facility] and [id number] 06:23:00 Test Item Value Reference Range Interpretation [...] mL/min/1.73 [place] [address]-3) NOT ACCURATE CREATININE CLEARANCE IN PREDICTING GLOMERULAR FILTRATION RATE . ESTIMATED GFR I S NOT APPLICABLE FOR DIALYSIS PATIEN TS. MARGO (test code = Rail Technician ID - LA MARGO) [facility] Center[facility]OLYTES2020-04-30 06:23:00 Test Item Value Reference Range Interpretation Comments SODIUM (BEAKER) (test code = 381) 141 meq/L 136-145 POTASSIUM (BEAKER) (test code = 4.4 meq/L 3.5-5.1 379) CHLORIDE (BEAKER) (test code = 382) 106 meq/L 98-107 CO2 (BEAKER) (test code = 355) 30 meq/L 22-29 H Rail Technician ID - LABUN AND CREATININE [id number] 06:23:00 Test Item Value Reference Range Interpretation [...] S NOT APPLICABLE FOR DIALYSIS PATIEN TS. Rail Technician ID - LACBC (Hemogram only)2019-11-17 05:54:00 [...] 450 K/CU MM MPV (test code = 03045-8) 10.9 fL 9.4-12.3 nRBC (test code = 413) 0 0- 0 /100 WBC Lab Interpretation (test code = Abnormal 69614-9) [facility] (HEMOGRAM ONLY)2019-11-17 05:54:00 Test Item [...] 0-0 (BEAKER) (test code = 413) POC-Glucose [id number] 21:37:00 Test Item Value Reference Range Interpretation Comments POC-Glucose Meter (test 134 mg/dL 70-110 H : TE STED AT [facility] code = 1538) [address] [place], [address]: Rail Technician/Techni britt ID = [id number] for SUZANNE KAISER Lab Interpretation (test Abnormal code = 61702-1) [facility] Center[facility]GLUCOSE [id number] 21:37:00 Test Item Value Reference Range Interpretation Comments POC-GLUCOSE METER 134 mg/dL 70-110 H : TESTED A T [facility] 6720 (BEAKER) (test code = ALTAGRACIA Boyd [facility], 1538) [address]: Rail Technician/Techni britt ID = [id number] for SUZANNE FRITZ SARS-COV2/RT-PCR ([facility] & REF LABS)2019-11-16 19:23:00 Test Item Value Reference Range Interpretation Comments SARS-COV2/RT-PCR (test code = Negative Not Detected, Negative 2593718) SARS-COV-2 PERFORMING LAB CPL (test code = 0326560) RAD, CHEST, 1 VIEW, NON [id number] 18:33:00Reason for exam:->s/p pacemaker/defibrillator; evaluation for pneumothoraxShould [...] Aponteeport Verified Date/Time: 11/16/2019 18:33:13 Reading Location: [address] Consult Reading Room POCT-GLUCOSE [id number] 17:35:00 Test Item Value Reference Range Interpretation Comments POC-GLUCOSE METER 163 mg/dL 70-110 H : TESTED A T [facility] 6720 (BEAKER) (test code = ALTAGRACIA Boyd [facility], 1538) 09562: Rail Technician/Techni britt ID = [id number] for CARLOS MARSH SARS-CoV2/RT-PCR ([facility] & Ref Labs)2019-11-16 12:10:00 Test Item Value Reference Range Interpretation Comments SARS-COV2/RT-PCR Not Detected Not Detected, (test code = Negative 66549-8) SARS-COV-2 [facility] PERFORMING LAB (test code = 08826-4) MARGO (test code = Negative results do [...] of the Act. Fact Sheet for Healthcare Providers:https://www.Biomimedica/Documents/Xper t%20Xpress%20SARS%20CoV- 2/Fact%20Sheets/3023802 %34VHFF-NYN-2%20HEALTHCA RE%20PROVIDERS%20FACT%20 SHEET.pdf Fact Sheet for Healthcare Patients:https://www.Oshiboree/Documents/Xpert %20Xpress%20SARS%20CoV-2 /Fact%20Sheets/302-3801% 11IJUY-FTS-5%20PATIENT%2 0FACT%20SHEET.pdf Performing Laboratory:[facility], [place] [address] [place], [place] [address]ARS-COV2/RT-PCR ([facility] & REF LABS)2019-11-16 12:10:00 Test Item Value Reference Range Interpretation Comments SARS-COV2/RT-PCR (test Not Detected Not Detected, Negative code = 0323256) SARS-COV-[address] [facility] (test code = 5114781) Negative results do not preclude SARS-CoV-2 infection [...] of the Act.Fact Sheet for Healthcare Pro viders:https://www.Spunkmobile/Documents/Xpert%20Xpress%20SARS%20CoV-2/Fact%20Sh eets/302-3802%85BDFT-GUJ-4%20HEALTHCARE%20PROVIDERS%20FACT%20SHEET.pdfFact Sheet for Healthcare Patients:https://www.Ziippi/Documents/Xpert%20Xpress%20SARS%20CoV-2/Fact%20Sheets/302-3801%20SARS-COV -2%20PATIENT%20FACT%20SHEET.pdfPerforming Laboratory:[facility] [facility] [address], [place] [address]PYOJ-QDMVVGG [id number] 06:55:00 Test Item Value Reference Range Interpretation Comments POC-GLUCOSE METER 116 mg/dL 70-110 H : TESTED A T [facility] 6720 (BeamExpressAKER) (test code = [facility], 1538) 34044: Rail Technician/Techni britt ID = [id number] for DEBRA WEST POCT-GLUCOSE [id number] 20:58:00 Test Item Value Reference Range Interpretation Comments POC-GLUCOSE METER 114 mg/dL 70-110 H : TESTED A T [facility] 6720 (BEAKER) (test code = [facility], 1538) 30323: Rail Technician/Techni britt ID = [id number] for MANA [place] POCT-GLUCOSE [id number] 17:43:00 Test Item Value Reference Range Interpretation Comments POC-GLUCOSE METER 112 mg/dL 70-110 H : TESTED A T [facility] 6720 (BEAKER) (test code = ALTAGRACIA Boyd [facility], 1538) 20521: Rail Technician/Techni britt ID = [id number] for PRAVEEN JIMENEZ POCT-GLUCOSE [id number] 07:59:00 Test Item Value Reference Range Interpretation Comments POC-GLUCOSE METER 123 mg/dL 70-110 H : TESTED A T [facility] 6720 (BEAKER) (test code = ALTAGRACIA Boyd [facility], 1538) 12554: Rail Technician/Techni britt ID = [id number] for MARIANA NTSUEPRAVEEN Basic metabolic [id number] 05:40:00 Test Item Value Reference Range Interpretation Comments Sodium (test code = 142 meq/L 840-247 9561-2) Potassium (test code = 4.2 meq/L 3.5-5.1 [...] Calcium (test code = 8.8 mg/dL 8.4-10.2 00532-0) EGFR (test code = 75 mL/min/1.73 [place] [address]-9) NOT ACCURATE CREATININE CLEARANCE IN PREDICTING GLOMERULAR FILTRATION RATE . ESTIMATED GFR I S NOT APPLICABLE FOR DIALYSIS PATIENTS. MARGO (test code = MARGO) Rail Technician ID - ANJALI M Lab Interpretation Abnormal (test code = 55454-4) [facility] CenterMagnesium2020-04-28 05:40:00 Test Item Value Reference Range Interpretation Comments Magnesium (test code = 2.1 mg/dL 1.6-2.6 Speci men 50397-4) slightly hemolyzed MARGO (test code = MARGO) Rail Technician ID - ANJALI M Lab Interpretation Normal (test code = 58547-9) [facility] CenterMAGNESIUM2020-04-28 05:40:00 Test Item Value Reference Range Interpretation Comments MAGNESIUM (BEAKER) 2.1 mg/dL 1.6-2.6 Specimen slightly (test code = 627) hemolyzed Rail Technician ID - ANJALI MBASIC METABOLIC [id number] 05:40:00 Test Item Value Reference Range Interpretation [...] S NOT APPLICABLE FOR DIALYSIS PATIEN TS. Rail Technician ID - ANJALI MProthrombin time/[id number] 05:27:00 Test Item Value Reference Range Interpretation [...] Coumadin Lab Interpretation Normal (test code = 43899-4) [facility] CenterPROTHROMBIN TIME/[id number] 05:27:00 Test Item Value Reference Range Interpretation [...] on CoumadinCBC with platelet count + automated [id number] 05:24:00 Test Item Value Reference Range Interpretation [...] 450 K/CU MM MPV (test code = 00169-0) 11.2 fL 9.4-12.3 nRBC (test code = [...] 2801) Lab Interpretation (test code = Abnormal 59936-4) [facility] W/PLT COUNT & AUTO [id number] 05:24:00 Test Item Value Reference Range Interpretation [...] PERCENT (BEAKER) (test code = 2801) POCT-GLUCOSE [id number] 21:15:00 Test Item Value Reference Range Interpretation Comments POC-GLUCOSE METER 134 mg/dL 70-110 H : TESTED A T [facility] 6720 (BEAKER) (test code = ALTAGRACIA Boyd [facility], 1538) [address]: Rail Technician/Techni britt ID = [id number] for DEBRA WEST ECHO W CONTRAST & [id number] 14:15:37Ejection FractionSLEH ECHO HEARTLAB MKCKESSON CPACSInterface, External Ris In - 11/14/2019 2:15 PM C DTTransthoracic Echocardiography Report (TTE) Demographics Patient Name VIVIENNE BEST Date of Study 11/14/2019 JAN Gender Female Visit Number [id number] Race Unknown Room Number 2238 Number Date of 1945 Referring Physician Sneha UNDERWOOD Age 73 year(s) Antenna Rigger Chasidy Moe Ironer Or Presser Estrella Faria, Interpreting David Figueroa MD [facility] Physician Procedure Type of Study TTE procedure:2DECHO [...] TR Velocity: 3.12 m/s TR Gradient: 39.03 mmHgSt. Mary Regional Medical CenterPOCT-GLUCOSE [id number] 12:54:00 Test Item Value Reference Range Interpretation Comments POC-GLUCOSE METER 97 mg/dL 70-110 : TESTED A T [facility] 6720 (BEAKER) (test code = ALTAGRACIA [place], 1538) [address]: Rail Technician/Techni britt ID = [id number] for JILLIAN ROSAS, [id number] 05:52:00 Test Item Value Reference Range Interpretation Comments ABO Grouping (test code = 2588) O Rh Factor (test code = 2589) NEG [facility] CenterType and screen, [id number] 05:02:00 Test Item Value Reference Range Interpretation Comments ABO/RH AUTOMATED (BEAKER) (test O NEGATIVE code = 2260) Ab Scrn (test code = 890-4) NEGATIVE [facility] CenterPROTHROMBIN TIME/[id number] 04:39:00 Test Item Value Reference Range Interpretation [...] heart valves.Within 24 hours, if on Coumadin [id number] 04:38:00 Test Item Value Reference Range Interpretation Comments MAGNESIUM (BEAKER) (test code = 2.0 mg/dL 1.6-2.6 627) Rail Technician ID - PIAYA LBASIC METABOLIC [id number] 04:38:00 Test Item Value Reference Range Interpretation [...] S NOT APPLICABLE FOR DIALYSIS PATIEN TS. Rail Technician ID - PIAYA LCBC W/PLT COUNT & AUTO [id number] 04:28:00 Test Item Value Reference Range Interpretation [...] PERCENT (BEAKER) (test code = 2801) POCT-GLUCOSE [id number] 22:16:00 Test Item Value Reference Range Interpretation Comments POC-GLUCOSE METER 101 mg/dL 70-110 : TESTED A T [facility] 6720 (BEAKER) (test code = [facility] CORPORATIONFARIBA Boyd [facility], 1538) [address]: Rail Technician/Techni britt ID = [id number] for DE NNIS, TRACY POCT-GLUCOSE [id number] 17:48:00 Test Item Value Reference Range Interpretation Comments POC-GLUCOSE METER 76 mg/dL 70-110 : TESTED A T [facility] 6720 (BEAKER) (test code [facility], = 1538) 84497: Rail Technician/Techni britt ID = [id number] for TSEG GAI, TSIGHEREDA POCT-GLUCOSE [id number] 12:21:00 Test Item Value Reference Range Interpretation Comments POC-GLUCOSE METER 124 mg/dL 70-110 H : TESTED A T [facility] 6720 (BEAKER) (test code [facility], = 1538) [address]66[address]: Rail Technician/Techni britt ID = [id number] for TSEG GAI, TSIGHEREDA MR, BRAIN, WITHOUT [id number] 11:43:00FINAL REPORT MR, BRAIN, WITHOUT CONTRAST INDICATION: [...] MDReport Verified Date/Time: 11/13/2019 11:43:35 Reading Location: [address] Neuro Reading Room MR brain without IV [id number] 11:43:00Interface, External Ris In - 11/13/2019 11:45 [...] MDReport Verified Date/Time: 11/13/2019 11:43:35 Reading Location: [address] Neuro Reading [facility] [id number] 08:24:00FINAL REPORT CT, CTANGIO BRAIN, CT, CAROTID, [...] MDReport Verified Date/Time: 11/13/2019 08:24:31 Reading Location: [address] Neuro Reading Room [facility], CAROTID, [id number] 08:24:00FINAL REPORT CT, CTANGIO BRAIN, CT, CAROTID, [...] MDReport Verified Date/Time: 11/13/2019 08:24:31 Reading Location: [address] Neuro Reading Room -[facility] [id number] 08:24:00 Interface, External Ris In - 11/21/2019 [...] MDReport Verified Date/Time: 11/13/2019 08:24:31 Reading Location: [facility] B1 C013V Neuro Reading Room [facility] carotid 2019-11-13 08:24:00Interface, External Ris In [...] MDReport Verified Date/Time: 11/13/2019 08:24:31 Reading Location: [facility] C0[facility] Neuro Reading Room [facility] CenterT4, [id number] 07:49:00 Test Item Value Reference Range Interpretation Comments Free T4 (test code = 0.67 ng/dL 0.7-1.48 L 3024-7) MARGO (test code = MARGO) Rail Technician ID - MART C Lab Interpretation (test Abnormal code = 09213-7) [facility] CenterT4, [id number] 07:49:00 Test Item Value Reference Range Interpretation Comments FREE T4 (BEAKER) (test code = 655) 0.67 ng/dL 0.70-1.48 L Rail Technician ID - MART CHemoglobin [id number] 07:45:00 Test Item Value Reference Range Interpretation Comments Hemoglobin A1C (test code = 4548-4) 6.2 % 4.3-6.1 H Lab Interpretation (test code = Abnormal 29980-5) [facility] CenterHEMOGLOBIN [id number] 07:45:00 Test Item Value Reference Range Interpretation Comments HEMOGLOBIN A1C (BEAKER) (test code = 6.2 % 4.3-6.1 H 368) TSH/Free T4 If [id number] 07:03:00 Test Item Value Reference Range Interpretation Comments TSH (test code = 10.877 0.350- 4.940 uIU/mL H 15701-5) MARGO (test code = MARGO) Rail Technician ID Juliette FARRELL L Lab Interpretation (test Abnormal code = 86529-3) [facility] CenterTSH/FREE T4 IF [id number] 07:03:00 Test Item Value Reference Range Interpretation Comments THYROID STIMULATING HORMONE 10.877 uIU/mL 0.350-4.940 H (BEAKER) (test code = 772) Rail Technician ID Juliette FARRELL LVitamin B12 and [id number] 06:59:00 Test Item Value Reference Range Interpretation Comments Vitamin B12 (test code = 295 pg/mL 094-071 7599-9) Folate (test code = 12.20 ng/mL >=7.00 2284-8) MARGO (test code = MARGO) Rail Technician ID Juliette FARRELL L Lab Interpretation (test Normal code = 73456-4) [facility] CenterVITAMIN B12 AND [id number] 06:59:00 Test Item Value Reference Range Interpretation Comments VITAMIN B12 (BEAKER) (test code = 295 pg/mL 213-816 774) FOLATE (BEAKER) (test code = 362) 12.20 ng/mL >=7.00 Rail Technician ID Juliette FARRELL LLipid [id number] 03:24:00 Test Item Value Reference Range Interpretation Comments Triglycerides (test 151 mg/dL code = 2571-8) Cholesterol (test code 121 mg/dL = 2093-3) HDL (test code = 33 mg/dL 5-9) LDL Calculated (test 58 mg/dL code = 11003-9) MARGO (test code = MARGO) Triglyceride Reference Range: Low Risk <150 Borderline 150-199 High Risk 200-499 Very High Risk >=500 Cholesterol Reference Range: Low Risk <200 Borderline 200-239 High Risk >240 HDL Cholesterol Reference Range: Low Risk >=60 High Risk <40 LDL Cholesterol Reference Range: Optimal <100 Near Optimal 100-129 Borderline 130-159 High 160-189 Very High >=190 Rail Technician ID - PIAYA L [facility] CenterHepatic function [id number] 03:24:00 Test Item Value Reference Range Interpretation Comments Protein, Total (test code 6.2 6.0- 8.3 gm/dL = 2885-2) Albumin (test code = 3.4 g/dL 3.5-5 L 17875-9) Total Bilirubin (test code 0.6 mg/dL 0.2-1.2 = 1974-2) Bilirubin, Direct (test 0.3 mg/dL 0.1-0.5 code = 1968-7) Alkaline Phosphatase (test 75 U/L 40-150 code = 6768-6) AST (test code = 1920-8) 12 U/L 5-34 ALT (test code = 1742-6) 13 U/L 6-55 MARGO (test code = MARGO) Rail Technician ID - JAMI L Lab Interpretation (test Abnormal code = 52335-6) [facility] CenterLIPID [id number] 03:24:00 Test Item Value Reference Range Interpretation [...] Borderline 130-159 High 160-189 Very High >=190 Rail Technician ID Juliette FARRELLLBASIC METABOLIC [id number] 03:24:00 Test Item Value Reference Range Interpretation [...] S NOT APPLICABLE FOR DIALYSIS PATIEN TS. Rail Technician ID - EDELMIRASIGIFREDO LHEPATIC FUNCTION [id number] 03:24:00 Test Item Value Reference Range Interpretation [...] (test code = 13 U/L 6-55 347) Rail Technician ID - JAMI LUrinalysis w/Microscopic + Reflex to [id number] 03:19:00 Test Item Value Reference Range Interpretation Comments Color, UA (test code = Light Yellow 5778-6) Clarity, UA (test code = Clear 5767-9) Specific Crum, UA (test 1.012 1.001-1.035 code = 5811-5) pH, UA (test code = 6.0 5.0-8.0 5803-2) Protein, UA (test code = Negative Negative 39129-5) Glucose, UA (test code = Negative Negative 365) Ketones, UA (test code = Negative Negative 2514-8) Bilirubin, UA (test code = Negative Negative 48561-5) Blood, UA (test code = Negative Negative 28848-5) Nitrite, UA (test code = Positive Negative A 5802-4) Leukocytes, UA (test code Negative Negative = 5799-2) Urobilinogen, UA (test 0.2 mg/dL 0.2-1 code = 87964-4) RBC, UA (test code = <1 /HPF 18707-8) WBC, UA (test code = <1 /HPF 5821-4) Bacteria, UA (test code = Rare 58854-4) Squam Epithel, UA (test 1 /HPF code = 32352-5) Specimen Source (test code = 2795) MARGO (test code = MARGO) Rail Technician ID - [auto]Rail Technician ID - tigist Lab Interpretation (test Abnormal code = 71812-1) [facility] CenterURINALYSIS W/ REFLEX URINE [id number] 03:19:00 Test Item Value Reference Range Interpretation [...] = 516) SOURCE(BEAKER) (test code = 2795) Rail Technician ID - [auto]Rail Technician ID - hankCBC (HEMOGRAM ONLY)2019-11-13 02:43:00 [...] 0-0 (BEAKER) (test code = 413) POCT-GLUCOSE [id number] 21:14:00 Test Item Value Reference Range Interpretation Comments POC-GLUCOSE METER 104 mg/dL 70-110 : TESTED A T [facility] 6720 (BEAKER) (test code = ALTAGRACIA LEE, 1538) 56846: Rail Technician/Techni britt ID = [id number] for DE NNIS, TRACY Digoxin [id number] 15:47:00 Test Item Value Reference Range Interpretation Comments Digoxin Lvl (test code = 1.77 ng/mL 0.8-2 16903-9) MARGO (test code = MARGO) Rail Technician ID - MART C Lab Interpretation (test Normal code = 64440-1) [facility] CenterDIGOXIN [id number] 15:47:00 Test Item Value Reference Range Interpretation Comments DIGOXIN LEVEL (BEAKER) (test code 1.77 ng/mL 0.80-2.00 = 669) Rail Technician ID - MART CRAD, CHEST, 1 VIEW, NON [id number] 14:42:00Reason for exam:->cough - please eval for acute processShould this be performed at the bedside?->YesFINAL REPORT INDICATION: cough - please eval for acute process COMPARISON: None TECHNIQUE: Single frontal view of the chest. FINDINGS: Lungs and pleura: Clear lungs. No effusion.Heart and mediastinum: Normal heart size. Unremarkable mediastinal contours.Osseous structures: No acute abnormality.Other: None. IMPRESSION: No acute intrathoracic abnormality. Signed: JR Wilkinson Robert MDReport Verified Date/Time: 11/12/2019 14:42:43 Reading Location: [address] Neuro Reading Room [id number] 19:51:25945Axlhyhri FlayvbzMMIEOMUFBF1134-70-36 19:51:009.0 [facility] EhkfoxlRMUVXJLCVC0926-67-06 19:51:0031.9[facility]annHEMATOLOGY 2016-02-14 19:51:0015.4[facility] AzqsiskQILFZLIMNW8803-32-78 19:51:0017.8[facility] GwhiubcYTEFKZQHZN8778-70-02 19:51:005.23[facility] InaehepICKSFGMQVF4264-79-81 19:51:0045.0[facility] CzcflcxVBZRYNOHQP4874-20-85 19:51:00 Test Item Value Reference Range Interpretation Comments MCH (test code = MCH) 27.5 pg 27.0-31.0 [facility] ZlvlresPFWWUWTDHQ1845-79-13 19:51:0014.4[facility] HermannHEMATOLOGY 2016-02-14 19:51:0086.0[facility] HermannCHEM LTYUE2277-47-20 10:55:002.6[facility]annCHEM YHDLR4528-38-91 10:55:003.0[facility]annURINE AND PYLTY1927-31-52 19:21:00Negative (02/13/16 2:21 PM)[facility] AND [id number] 19:21:00Negative (02/13/16 2:21 PM)[facility] AND [id number] 19:21:00Negative *NA*(02/13/16 2:21 PM)[facility] AND [id number] 19:21:00 Test Item Value Reference Range Interpretation Comments UA Spec Grav (test code = UA Spec 1.025 1 Grav) [facility] [id number] 19:21:00Yellow *NA*(02/13/16 2:21 PM) [facility] IMKQH4087-06-86 19:21:00 Test Item Value Reference Range Interpretation Comments UA pH (test code = UA pH) 5.5 1 5.0-8.0 [facility] RWQFV0602-55-80 19:21:00Clear (02/13/16 2:21 PM) [facility] FLQVZ8451-53-66 19:21:00None Seen (02/13/16 2:21 PM) [facility] GGWGD9045-93-17 19:21:00None Seen (02/13/16 2:21 PM) [facility] JTZGW1622-17-88 19:21:00None Seen (02/13/16 2:21 PM) [facility] MSWXO9644-61-03 19:21:00Negative (02/13/16 2:21 PM) [facility] [id number] 19:21:00Performed (02/13/16 2:21 PM) [facility] YVHKI8386-03-13 19:21:000.2[facility] AND XGBJX9453-59-41 19:21:00Negative (02/13/16 2:21 PM)[facility] WNNSG4151-94-11 19:21:00Trace *ABN*(02/13/16 2:21 PM)[facility] IGBES1805-72-41 19:21:00Negative *NA*(02/13/16 2:21 PM)[facility]annCHEM PANEL 2016-02-13 10:21:003.0[facility] HermannCHEM JWWSJ4059-80-43 10:21:002.4[facility]annCHEM ZDUOK1266-28-11 10:21:000.7[facility] HermannCHEM KUPMJ1126-45-46 10:21:0023[facility] HermannCHEM GCCIE2300-05-61 10:21:004.3[facility]annCHEM ERTSM1533-15-11 10:21:0012.0[facility]annCHEM TLZEC3266-89-25 10:21:0054 [facility]annCHEM WDYAH4732-39-30 10:21:001.05[facility]annCHEM PANEL 2016-02-13 10:21:25046Shwqnmfu HermannCHEM UVBTL6470-05-70 10:21:004.0[facility] HermannCHEM FGSBV7298-42-00 10:21:0024[facility] HermannCHEM HLSCF4792-08-29 10:21:0019[facility] HermannCHEM QSKUB8240-92-31 10:21:008.1[facility] HermannCHEM OAURW5808-25-54 10:21:007.3[facility] HermannCHEM HMBNH2448-60-94 10:21:000.7 [facility]annCHEM QVAWY1244-23-45 10:21:008[facility] HermannCHEM PANEL 2016-02-13 10:21:86995Elfzeski HermannCHEM AUEAM2515-96-24 10:21:0028[facility] HermannCHEM SPZSW8066-03-44 10:21:0070[facility] HermannCHEM MPOFU0659-63-20 10:21:003.0[facility] HermannCHEM EHERU8735-92-41 10:21:37693Gdxpmspj [place] OOBWITJPKV3462-34-15 10:21:0015.5[facility] GmvyfynGRSQOTGHTN1411-44-68 10:21:00 86.4[facility] ExmhtqzODSIKQMNKT1387-31-04 10:21:0032.5[facility]annHEMATOLOGY 2016-02-13 10:21:00 Test Item Value Reference Range Interpretation Comments MCH (test code = MCH) 28.1 pg 27.0-31.0 Memorial AphdryjRZKGCFOPXH3988-49-32 10:21:0042.3[facility]annHEMATOLOGY 2016-02-13 10:21:009.1[facility] XlmlnvzAIIEGCRACY1446-74-89 10:21:34255Gpgwfexm WenvpvxXDHJZTAAZY3366-67-34 10:21:0013.7[facility] HjywxiuPMCIJHTJEM7030-45-53 10:21:004.89[facility] QiazawgYTNODSMJRC7761-57-04 10:21:0014.1[facility] [place] SVQMDCPMRE0105-67-86 10:21:000.4[facility] DdessmtRUCNDUZCSJ1160-93-61 10:21:000.6 [facility] XxpixbjQHAKXYTLAF9307-75-03 10:21:0013.1[facility]annHEMATOLOGY 2016-02-13 10:21:0092.9[facility] JeyrshcXFAPGWISZA8978-51-53 10:21:000.2[facility] TjxtaeuDZHIZTOHQW1732-36-74 10:21:002.9[facility] CnoqwgcYEBDDCOVTJ0369-39-75 10:21:004.0[facility] HpwgaskRNUNJDHVZX9921-36-36 10:21:00Normal (02/13/16 5:21 AM) [facility] HgvkjpdQDVLDMVNLP3859-01-69 10:21:00Normal (02/13/16 5:21 AM)[facility]annCHEM HWJBX6285-67-11 13:05:002.5[facility] HermannCHEM PKBCQ9617-40-93 13:05:0056[facility] HermannCHEM NLPOP9374-44-96 13:05:0031[facility] HermannCHEM IXHPK1401-93-90 13:05:003.6[facility] HermannCHEM JEZVK5304-24-73 13:05:008.2 [facility]annCHEM FUCXJ3420-36-93 13:05:96462Hulubwjv HermannCHEM PANEL 2016-02-12 13:05:008.6[facility] HermannCHEM PCCCD7295-98-93 13:05:0020[facility] HermannCHEM VETVC6795-26-73 13:05:00948Hevgqhju HermannCHEM NSKMR1172-15-62 13:05:12485Cudhsgqq HermannCHEM OGSZS0309-53-39 13:05:001.03[facility] BACTERIAL - FSSOBATY0286-04-63 06:40:00Negative (02/12/16 1:40 AM)[facility] HermannCARDIAC SGKBXWC2345-83-80 11:46:945689Nckbghzg HermannCHEM PANEL 2016-02-10 11:46:1964[facility] HermannCHEM OJYVG0318-49-92 11:46:190.8[facility] HermannCHEM PQTVI4782-68-48 11:46:198.3[facility] HermannCHEM BGSST2599-07-74 11:46:1927[facility] HermannCHEM WFAOH2464-87-39 11:46:197.3[facility] HermannCHEM EJDAL4186-00-65 11:46:1916[facility] HermannCHEM GZWJU2004-64-00 11:46:190.92 [facility] HermannCHEM ZSPDH0675-27-36 11:46:04098Krvocgvc HermannCHEM PANEL 2016-02-10 11:46:1915[facility] HermannCHEM DIUUO7844-86-75 11:46:193.7[facility] HermannCHEM RLQUX2384-90-73 11:46:63053Rekpmham HermannCHEM FAFMH8442-98-80 11:46:193.6[facility] HermannCHEM ZXFWZ4929-36-28 11:46:1995[facility] HermannCHEM TXJAF9848-31-71 11:46:1926[facility] HermannCHEM SXCVZ1896-30-65 11:46:1971 [facility] HermannCHEM ELYCG0141-51-24 11:46:191.0[facility] HermannCHEM PANEL 2016-02-10 11:46:193.7[facility] HermannCHEM ZWMHU1895-35-89 11:46:1916[facility] HermannCHEM PQBRR7242-06-95 11:46:1912.7[facility] AgvpbpkXZKKVPQILR5581-43-71 11:46:190.7[facility] WpdeodpJMALJMCYKX8313-23-91 11:46:191.9[facility] LNTMVAGZNM0721-12-74 11:46:196.3[facility] IyzbaldZCZDOJQVWA7182-78-42 11:46:190.1 [facility] LrvnwekRFGAIPBANI7727-07-17 11:46:190.5[facility] HermannHEMATOLOGY 2016-02-10 11:46:191.2[facility] TrxetceTFFCCVGBUV4524-31-97 11:46:1970.2[facility] HymjqzwIKRMDFPEBP4385-03-07 11:46:1920.5[facility] XvudktaLSYHTFHMCM9038-95-06 11:46:197.6[facility] VsiucceRCSJBLEGNM3477-15-09 11:46:10491Bixdymmi [place] EJXLITGMFQ6676-58-29 11:46:199.5[facility] OattuxqVYBHYMACFR4034-78-12 11:46:19 15.8[facility] OjmbzukXFOGNWJKCO4865-16-87 11:46:1932.8[facility] HermannHEMATOLOGY 2016-02-10 11:46:1986.1[facility] TpwdkkgHRRHJKNKCW6080-31-84 11:46:19 Test Item Value Reference Range Interpretation Comments MCH (test code = MCH) 28.2 pg 27.0-31.0 Memorial QrquefbGTTMOQKDWD2692-49-80 11:46:1939.9[facility] HermannHEMATOLOGY 2016-02-10 11:46:199.1[facility] KnkknbdQLLNBZBARM0290-60-68 11:46:194.63[facility] HwemyagPZVXYQGKRQ3228-58-74 11:46:1913.1[facility] FwcducjNHDLNF8617-86-45 11:46:193.74[facility] XcwifvzTHJDWQ3941-86-94 11:46:1926[facility] HermannLIPIDS 2016-02-10 11:46:54056Qwzvodvx AlxflpkLMPDAC2927-60-84 11:46:93164Tvmngpse NlkyqikDXDSNJ7847-84-01 11:46:1962[facility] MzuzcfxAFJSWQ9078-15-26 11:46:45356 [facility]annSPECIAL GZRVYRKXZ0951-94-54 11:46:195.8[facility] [place]
[2020-02-02] MEDS ORDERED: FLUMAZENIL 0.1 MG/ML (5 mL VIAL) IV ONE (09:41)
[2020-02-02] MEDS ORDERED: ATROPINE SULF 1 MG/10 ML SYR IV ONE (09:42)
[2020-02-02] MEDS ORDERED: MIDAZOLAM HCL 5 MG/5 ML INJ ONE (09:42)
[2020-02-02] MEDS ORDERED: MIDAZOLAM HCL 2 MG/2 ML INJ ONE (09:55)
[2020-02-02] MEDS ORDERED: METOPROLOL TARTRATE 5 MG/5 ML INJ IV ONE (10:04)
--- NOTE | 2020-02-02 10:13 | OP ---
Date of Procedure: 02/02/2020 Surgeon: Samuel Devries MD Explosive Operator: Karina Betancourt. Procedure Performed: Direct current cardioversion. Indication: Atrial fibrillation. Procedure In Detail: Ms. Henson is a patient who has had paroxysmal atrial fibrillation, has become chronic lately, very symptomatic with shortness of breath. She has been taking sotalol 80 twice a da y without any response. Her sotalol was doubled to 160 b.i.d. and still without any response. She i s on Eliquis. She was scheduled for an outpatient cardioversion today on 02/02/2020. She received 5 mg of IV push Versed for sedation. She received 1 shock with 200 joules and converted to sinus rhyt hm. There were no complications. Estimated Blood Loss: None. Postoperative Diagnosis: Successful atrial fibrillation, cardioversion to sinus rhythm. We will continue her medical therapy. She will go home when she wakes up today and she will come see me in the office in the next week or 2. KIMMY/ANU Voice ID: [id number] Report ID: [id number]
[2020-02-02 11:29] VITALS: BP 116/54; O2SAT 100
[2020-02-02 13:04] VITALS: TEMP 97
== END 2020-02-02 12:36 | disposition home health service (06) ==
LOC: CCL 08:36
DX: I48.20 Chronic atrial fibrillation, unspecified (principal); I11.0 Hypertensive heart disease with heart failure; I50.23 Acute on chronic systolic (congestive) heart failure; I34.0 Nonrheumatic mitral (valve) insufficiency; I27.20 Pulmonary hypertension, unspecified; E11.9 Type 2 diabetes mellitus without complications; E78.5 Hyperlipidemia, unspecified; E03.9 Hypothyroidism, unspecified; Z11.59 Encounter for screening for other viral diseases; Z95.0 Presence of cardiac pacemaker; Z88.2 Allergy status to sulfonamides
CPT/HCPCS: 93005; 82947; 92960; J2250; J7040

== ENCOUNTER 2020-09-26 10:06 | Inpatient (IN) | payer OTHER ==
--- OUTSIDE RECORDS SUMMARY | 2020-09-26 10:11 | XMS REPORT | Continuity of Care Document ---
:1945 Author Organization [facility] t Address [facility] [place] [address] Care Team Providers Name Role Phone Kiran Huffman Primary Care Physician TAE IN Attending Clinician Unavailable Tae PERALTA, In Attending Clinician Clara PERALTA Attending Clinician Maribel Osorio MD Attending Clinician Sixto PERALTA Attending Clinician Suzanne Lewis Attending Clinician Phil Dodge MD Attending Clinician Braxton Peralta MD Attending Clinician Willem CAMACHO, RPSGT, G Attending Clinician Unavailable Melina Brasher Attending Clinician TERESO STRONG Admitting Clinician Unavailable Melina Brasher Admitting Clinician Payers Payer Name Policy Type Policy Effective Date Expiration Date Sour ce Number MEDICAREMEDICARE A [id number] 2011 GUNJAN Mosher [id number] 2011-P 00:00:00 [facility] Condition Condition Condition Status Onset Resolution Last Treating Co mments Source Name Details Category Date Date Treatment Clinician Date Hypothyroi Hypothyroi Disease Active [facility] dism dism 11-16 Nomi - 00:00: Medical Center Obesity Obesity Disease [facility] TIA TIA Disease Active [facility] (transient (transient 4-27 Myriam kes - ischemic ischemic 00:00: Medica l attack) attack) 00 Center Chronic Chronic Disease Active [facility] atrial atrial 4-27 [facility] - fibrillati fibrillati 00:00: Me dical on on 00 Center Bradycardi Bradycardi Disease Active [facility] a a 4-27 [facility] - 00:[facility] Medical 00 Center Stroke Stroke Disease Active [facility] (cerebrum) (cerebrum) 4-25 Myriam kes - 00:00: Medical 00 Center Acute Acute Disease Active [facility] ischemic ischemic 4-25 [facility] - stroke stroke 00:00: Medical 00 Center R SIDE Diagnosis Active 2016-02-22 Mem oria WEAKNESS 02-08 09:52:00 l R SIDE 00:00: [place] WEAKNESS 00 Active 02/09/2016 [facility] WEAKNESS Diagnosis Active 2016-02-22 M emoria 09:52:00 l WEAKNESS Balwinder n Active [facility] Allergies, Adverse Reactions, Alerts Allergy Allergy Status Severity Reaction(s) Onset Inactive Treating Comm ents Source Name Type Date Date Clinician Sulfa Propensi Active [facility] (Sulfona ty to 4-25 [facility] - mide adverse 00:00: Medical Antibiot reaction 00 Center ics) s Social History Social Habit Start Date Stop Date Quantity Comments Source History SDDC [facility] - Alcohol Std Drinks Medica l Center History [facility] - Alcohol Binge Medical Jose David ter Sex Assigned At [facility]riam k[facility] - [facility] Center Tobacco use and 2019-11-17 2019-11-[address] [facility] Myriam kes - exposure 00:00:00 00:00:00 Medical Center Alcohol intake 2019-11-17 2019-11-[address] [facility]00 non-drinker of Medical Ce nter alcohol (finding) History SDOH 2019-11-12 2019-11-[address] [facility] - Alcohol Frequency 00:00:00 00:00:00 Medical Center Social History 2016-02-09 2016-02-09 [facility] Kenyon callahan 23:16:57 23:16:57 Smoking Status Start Date Stop Date Source Current every day smoker 2019-11-17 00:00:[address] [facility] Medications Ordered Filled Start Stop Current Ordering Indication Dosage Frequency Signature Comments Components Source Medication Medication Date Date Medication? Clinician (SIG) Name Name mirtazapine Yes 15mg QD Take [address] [address] (REMERON) 4-30 by mouth [facility] - 15 MG 12:17: nightly. Medical tablet 04 [place] liothyronin Yes 5ug QD Take [address] e (CYTOMEL) 4-30 by mouth Luke s - 5 MCG 12:17: daily. Medical tablet 04 [place] montelukast Yes 10mg QD Take [address] (SINGULAIR) 4-30 by mouth Luke s - 10 mg 12:17: nightly. Medical tablet 04 [place] atorvastati Yes 40mg QD Take [address] n (LIPITOR) 4-30 by mouth Luke s - 40 MG 12:17: daily. Medical tablet 04 [place] levothyroxi Yes 125ug Take [address] ne 4-30 mcg by [facility]ukes - (SYNTHROID) 12:17: mouth Medic al 125 MCG 04 Every Center tablet morning on an empty stomach. digoxin 2019- No 250ug QD Take [address] (LANOXIN) 4-30 04-30 mcg by [facility]ukes - 0.25 MG 09:56: 00:00 mouth Medical tablet 35 :00 daily. [place] escitalopra 2020- No 20mg QD Take [address] m oxalate 4-30 04-30 by mouth [facility] - (LEXAPRO) 09:56: 00:00 daily. Medic al 20 MG 35 :00 Center tablet bisoprolol 2019- No 10mg QD Take [address] (ZEBETA) 10 4-30 04-30 by mouth Jem es - MG tablet 09:56: 00:00 daily. Medic al 35 :00 Center naltrexone 2019- No Take by [facility] HCl 4-30 04-30 mouth. [facility] - (NALTREXONE 09:56: 00:00 Medic al ORAL) 35 :00 [place] escitalopra Yes 20mg QD Take [address] [...] mouth 2 Center (two) times daily. mINOCYCLine 2019-0 2020- No 100mg Take [address] (MINOCIN,DY 4-30 05-04 capsule Luke s - NACIN) 100 00:00: 23:59 (100 mg Med ical MG capsule 00 :00 total) by Cent er mouth every 12 (twelve) hours for 4 days. Prednisone No Notes: Memor ia 7-29 Take with l 14:00: food. [place] 00 Levothyroxi Yes 50 Memori a ne Sodium 7-28 microgram l 0.05 MG 21:11: = 1 tab, Balwinder n Oral Tablet 00 PO, Daily, [Synthroid] # 30 tab, 0 Refill(s) Furosemide Yes 40 mg = 1 Me moria 40 MG Oral 7-28 tab, PO, l Tablet 20:57: Daily, Francis Cee [Lasix] 00 30 tab, 0 Refill(s) digoxin 250 Yes 0.25 mg = M emoria mcg (0.25 7-28 1 tab, PO, l mg) oral 20:57: Daily, Francis Carpio nn tablet 00 30 tab, 0 Refill(s) atorvastati Yes 80 mg = 2 M emoria n 40 mg 7-28 tab, PO, l oral tablet 20:57: Bedtime, Francis Cee 00 60 tab, 0 Refill(s) Aspirin 325 Yes 325 mg = 1 Memoria MG Enteric 7-28 tab, PO, l Coated 20:57: Daily, # Coleamn Tablet 00 30 tab, 0 Refill(s) Potassium Yes 20 mEq = 1 Me moria Chloride 20 7-28 tab, PO, l MEQ 20:57: Daily, # [place] Extended 00 30 tab, 0 Release Refill(s) Tablet Levofloxaci Yes 750 mg = 1 Memoria n 750 MG 7-28 tab, PO, l Oral Tablet 20:57: Q24H, X 7 H ermann [Levaquin] 00 day, # 7 tab, 0 Refill(s) {21 Yes See Memoria (Methylpred 02-13 Instructio l nisolone 4 20:57: ns, PO, Herm ruben MG Oral 00 Take by Tablet mouth as [Medrol]) } directed Pack on label., [Medrol X 6 day, # Dosepak] 1 Pack, 0 Refill(s) 24 HR Yes 240 mg = 1 Memori a Diltiazem 28 cap, PO, l Hydrochlori 20:57: Daily, # He rmann de 240 MG 00 30 cap, 0 Extended Refill(s) Release Capsule [Cardizem] metoprolol Yes 50 mg = 1 Me moria tartrate 50 -28 tab, PO, l mg oral 20:57: Q12H, # 60 Herm ruben tablet 00 tab, 0 Refill(s) cefepime No Notes: Memoria 02-12 (Same As: l 18:00: Maxipime) [place] 00 MEDICATION WASTE Product Size: 1000 mg [...] Wasted: ___ mg Cardizem No Notes: Memoria 02-12 (Same as: l 13:44: Cardizem) [place] Diltiazem No Notes: Memori a 02-12 (Same as: l 13:42: Cardizem) [place] Before meals metoprolol No Notes: Memor ia tartrate 02-12 (Same as: l 02:00: Lopressor) [place] methylPREDN No Notes: Henry jeaneth ISolone 02-12 (Same l SODium 02:00: as:Solu-ME Shirin nn SUCCinate 00 DROL, A-Methapre d) atorvastati No Notes: Henry jeaneth n 02-12 (Same as: l 02:00: Lipitor) [place] Digoxin No Notes: Memoria 02-12 (Same as: l 01:00: Lanoxin) [place] aspirin 325 No Notes: (Do Memoria mg tablet, 02-12 Not Crush) l enteric 01:00: Do not [place] coated 00 crush or chew. Ipratropium No Notes: SEE Memoria 02-12 RT l 00:41: DOCUMENTAT [place] 00 ION (Same as:Atroven t) Ipratropium No Notes: SEE Memoria 02-12 RT l 00:40: DOCUMENTAT [place] 00 ION (Same as:Atroven t) Xopenex No Notes: SEE Henry jeaneth 02-12 RT l 00:40: DOCUMENTAT [place] 00 ION (Same as:Xopenex ) Non-Formul louise Levaquin No Notes: Do Henry jeaneth 02-11 not give l 20:00: w/antacids [place] , dairy pdt & minerals Take 1 hr before or 2 hr after dairy pdt (Same as:Levaqui n) Diltiazem No Notes: Memori a 02-11 (Same as: l 04:31: Cardizem) [place] 00 Digoxin No Notes: Memoria 02-11 (Same as: l 04:17: Lanoxin) [place] 00 Cardizem No Notes: Memoria 02-11 (Same as: l 04:03: Cardizem) [place] Metoprolol No Notes: Memor ia 7-26 (Same as: l 03:54: Lopressor) [place] 00 Push over 2 minutes metoprolol No Notes: Memor ia tartrate 7-25 (Same as: l 18:22: Lopressor) [place] 00 Metoprolol No Notes: Memor ia 7-25 (Same as: l 18:21: Lopressor) [place] 00 Push over 2 minutes Metoprolol No Notes: Memor ia 7-25 (Same as: l 15:36: Lopressor) [place] 00 Push over 2 minutes Nicotine No Notes: Memoria 7-24 (Same as: l 21:34: Habitrol) [place] 00 "Remove old patch before applicatio n of new patch" WASTE: F/P - P Waste Black; E - P Waste Black pantoprazol No Notes: For Memoria e 7-24 IV push l 21:30: reconstitu [place] 00 te with 10 ml 0.9% sodium chloride and push over 2 minutes. (Same as: Protonix) Saline No Notes: Memoria Flush 0.9% 7-24 (Same as: l 02:00: BD [place] 00 Posiflush) Aspirin 325 No Notes: (Do Memoria MG Enteric 7-24 Not Crush) l Coated 00:30: Do not [place] Tablet 00 crush or chew. Albuterol No Notes: Memori a 0.833 MG/ML -24 (Same as: l / 00:07: Duoneb) [place] Ipratropium 00 [place] 0.167 MG/ML Inhalant Solution [DuoNeb] Furosemide No Notes: Memor ia 40 MG Oral 7-24 (Same as: l Tablet 00:07: Lasix) [place] [Lasix] 00 May cause GI upset. Give with food or milk. Enoxaparin No Notes: Memor ia 7-24 (Same as: l 00:00: Lovenox) [place] 00 Saline No Notes: Memoria Flush 0.9% 7-23 (Same as: l 23:59: BD [place] 00 Posiflush) Acetaminoph No Notes: Do M emoria en 7-23 not exceed l 23:59: 4 gm/day. [place] 00 (Same as: Tylenol) Vital Signs Vital Name Observation Time Observation Value Comments Source Systolic blood 2019-11-17 11:23:00 132 mm[Hg] [facility] Diastolic blood 2019-11-17 11:23:00 63 mm[Hg] [facility] Heart rate 2019-11-17 11:23:00 64 /min [facility] Body temperature 2019-11-17 11:23:00 36.11 Marline [facility] Respiratory rate 2019-11-17 11:23:00 18 /min [facility] Oxygen saturation in 2019-11-17 11:23:00 97 /min [facility] Arterial blood by Medical Ce nter Pulse oximetry Body weight 2019-11-17 05:00:00 87.6 kg [facility] BMI 2019-11-17 05:00:00 33.15 kg/m2 [facility] Body height 2019-11-12 17:00:00 162.6 cm [facility] Systolic (mm Hg) 2016-02-14 22:58:00 Henry rial [place] Diastolic (mm Hg) 2016-02-14 22:58:00 Mem orial [place] Respitory Rate 2016-02-14 22:58:00 Memori al [place] Temperature Oral (F) 2016-02-14 22:58:00 97.5 F [facility] [place] Temperature Oral (F) 2016-02-14 18:23:00 98.0 F [facility] [place] Respitory Rate 2016-02-14 18:23:00 Memori al [place] Systolic (mm Hg) 2016-02-14 18:23:00 Henry rial [place] Diastolic (mm Hg) 2016-02-14 18:23:00 Mem orial [place] Systolic (mm Hg) 2016-02-14 14:45:00 Henry rial [place] Diastolic (mm Hg) 2016-02-14 14:45:00 Mem orial [place] Respitory Rate 2016-02-14 14:45:00 Memori al [place] Temperature Oral (F) 2016-02-14 14:45:00 98.0 F [facility] [place] Heart Rate 2016-02-14 11:16:00 [facility] Heart Rate 2016-02-12 03:58:00 [facility] Heart Rate 2016-02-12 03:34:00 [facility] 2016-02-11 15:46:00 [facility] Height 2016-02-09 23:06:[address] [facility] Weight 2016-02-09 23:06:00 [facility] BMI Calculated 2016-02-09 23:06:00 Gama Alston Procedures Procedure Date / Time Performing Clinician Source Performed ARRYTHMIA IMPLANT REPORT - 2019-11-18 12:31:16 Provider, [facility] - SCAN [facility] REPORT OF PROCEDURE - 2019-11-18 12:20:46 Provider, [facility] ENDOSCOPY SCAN [facility] CARDIAC CATH REPORT - SCAN 2019-11-18 12:20:39 Provider, [facility] ARRYTHMIA IMPLANT REPORT - 2019-11-18 12:20:37 Provider, [facility] RHYTHM STRIP - SCAN 2019-11-18 12:20:18 Provider, [facility] XR CHEST 1 VIEW 2019-11-17 08:30:00 Tae Dodge [facility] PORTABLE/BEDSIDE Medical [place] ECG 12-LEAD 2019-11-17 07:05:05 Tae Dodge [facility] CBC (HEMOGRAM ONLY) 2019-11-17 05:39:00 Tae Dodge [facility] ELECTROLYTE PANEL 2019-11-17 05:39:00 Tae Dodge [facility] BUN AND CREATININE W/RATIO 2019-11-17 05:39:00 Tae Dodge [facility] POCT-GLUCOSE METER 2019-11-16 21:26:00 Esdras Osorio [facility] XR CHEST 1 VIEW 2019-11-16 18:10:00 Tae Dodge [facility] PORTABLE/BEDSIDE [facility] POCT-GLUCOSE METER 2019-11-16 17:24:00 Esdras Osorio [facility] ECG 12-LEAD 2019-11-16 15:34:18 Tae Dodge [facility] PACEMAKER GEN & LEADS - 2019-11-16 13:03:00 Tae Dodge [facility] - INSERTION W/ [facility] ANESTHESIA (SING/DUAL/MULT) SARS-COV2/RT-PCR ([facility] & 2019-11-16 10:31:00 Tae Dodge [facility] - REF LABS) [facility] POCT-GLUCOSE METER 2019-11-16 06:42:00 Esdras Osorio [facility] POCT-GLUCOSE METER 2019-11-15 20:47:00 Esdras Osorio [facility] TRANSFUSION SERVICE REPORT 2019-11-15 18:01:25 Provider, [facility] POCT-GLUCOSE METER 2019-11-15 17:32:00 Esdras Osorio [facility] POCT-GLUCOSE METER 2019-11-15 07:47:00 Esdras Osorio [facility] BASIC METABOLIC PANEL (7) 2019-11-15 04:50:00 Sneha Underwood [facility] MAGNESIUM 2019-11-15 04:50:00 Tae Dodge [facility] CBC W/PLT COUNT & AUTO 2019-11-15 04:50:00 Tae Dodge [facility] PROTHROMBIN TIME/INR 2019-11-15 04:50:00 Tae Dodge [facility] ECHOCARDIOGRAM REPORT - 2019-11-14 21:21:37 Provider, Default [facility] POCT-GLUCOSE METER 2019-11-14 21:04:00 Esdras Osorio [facility] SARS-COV2/RT-PCR ([facility] & 2019-11-14 15:02:00 Tae Dodge [facility] REF LABS) [facility] POCT-GLUCOSE METER 2019-11-14 12:41:00 Esdras Osorio [facility] ECHO W CONTRAST & DOPPLER 2019-11-14 10:21:57 Cassandra Amanda [facility] ABORH, MANUAL 2019-11-14 05:30:00 LaneMicheline [facility] BASIC METABOLIC PANEL (7) 2019-11-14 04:01:00 Sneha Underwood [facility] MAGNESIUM 2019-11-14 04:01:00 Tae Dodge [facility] CBC W/PLT COUNT & AUTO 2019-11-14 04:01:00 Tae Dodge [facility] PROTHROMBIN TIME/INR 2019-11-14 04:01:00 Tae Dodge [facility] TYPE AND SCREEN, AUTOMATED 2019-11-14 04:01:00 Tae Dodge [facility] POCT-GLUCOSE METER 2019-11-13 21:40:00 Sneha Underwood [facility] POCT-GLUCOSE METER 2019-11-13 17:35:00 Sneha Underwood [facility] POCT-GLUCOSE METER 2019-11-13 12:08:00 Sneha Underwood [facility] MR BRAIN WITHOUT IV 2019-11-13 11:38:00 [facility] CTA BRAIN 2019-11-13 08:10:[address] [facility] [facility] [address]/CTA CAROTID 2019-11-13 08:10:00 [facility] URINALYSIS W/ REFLEX URINE 2019-11-13 01:30:00 Sneha Underwood [facility] BASIC METABOLIC PANEL (7) 2019-11-13 01:25:00 Sneha Underwood [facility] HEPATIC FUNCTION PANEL 2019-11-13 01:25:00 Sneha Underwood [facility] LIPID PANEL 2019-11-13 01:25:00 Sneha Underwood [facility] CBC (HEMOGRAM ONLY) 2019-11-13 01:25:00 Sneha Underwood [facility] HEMOGLOBIN A1C 2019-11-13 01:25:00 Sneha Underwood [facility] VITAMIN B12 AND FOLATE 2019-11-13 01:25:00 Edin UnderwoodKay [facility] TSH/FREE T4 IF INDICATED 2019-11-13 01:25:00 Sneha Underwood [facility] T4, FREE 2019-11-13 01:25:00 Edin UnderwoodJeaneth [facility] BLOOD CULTURE 2019-11-12 22:22:[address] [facility] POCT-GLUCOSE METER 2019-11-12 21:02:00 Edin UnderwoodJeaneth [facility] ECG 12-LEAD 2019-11-12 16:53:41 Unknown, Hl7 Doctor [facility] ECG 12-LEAD 2019-11-12 16:52:50 Clara [facility] DIGOXIN LEVEL 2019-11-12 15:01:00 Clara [facility] XR CHEST 1 VIEW 2019-11-12 14:26:00 [facility] Center Plan of [...] no IPPE)] Future Scheduled 2011-12-12 PNEUMOCOCCAL 65+ [facility] - Test 00:00:00 (1 of 1 - Medical Center [id number] PCV13) [code = PNEUMOCOCCAL 65+ YRS (1 of 1 - [id number] PCV13)] Future Scheduled [address] - Test 00:00:00 malignant neoplasm of [facility] breast (procedure) [code = 781137541] Future Scheduled [address] [facility] - Test 00:00:00 malignant neoplasm of [facility] Center colon (procedure) [code = 620001543] Encounters Start End Encounter Admission Attending Care Care Encounter Source Date/Time Date/Time Type Type Clinicians Facility Department ID 2016-02-11 2016-02-14 Outpatient SHAISTA Brasher [facility] [id number] 10:53:00 17:25:00 Edward 05 Melina Results Test Description Test Time Test Comments Results Result Comments Source Blood Culture - Routine (Right Venipuncture) 2019-11-18 00:0 0:00 Test Item Value Reference Range Interpretation Comme nts Result (test code = 6463-4) No growth in 5 days [id number] [facility]:00:00 Test Item Value Reference Range Interpretation Comments CULTURE (BEAKER) (test No growth in 5 days code = 1095) EKG 12 [id number] 17:02:13Interface, External Ris In - 11/17/2019 5:02 PM CDTVentricular Rate 70 BPMAtrial Rate 468 BPMQRS Duration 80 msQ-T Interval 386 msQTC Calculation(Bazett) 416 msR [place] 2 degreesT [place] 233 degreesDemand pacemaker; interpretation is based on intrinsic rhythmAtrial fibrillation with premature ventricular or aberrantly conducted complexesNonspecific ST and T wave abnormality , probably digitalis effectAbnormal ECGWhen compared with ECG of 16-NOV-2019 15:34,Atrial fibrillation has replaced Electronic ventricular pacemakerVent. rate has decreased BY 69 BPMConfirmed by MD Morgan, [facility] ([id number]) on 11/17/2019 5:02:10 [facility], NON [id number] 08:51:00Reason for exam:->s/p pacemaker/defibrillator; evaluation for pneumothoraxShould this be performed at the bedside?->YesFINAL REPORT RAD, CHEST, 1 VIEW, NON DEPT INDICATION: s/p pacemaker/defibrillator; evaluation for pneumothorax COMPARISON: Prior day's exam FINDINGS: [facility] IMPRESSION: Support Lines: Stable pacer apparatus. Lungs and pleura: Unchanged appearance of the interstitial markings. Questionable trace right effusion. No pneumothorax.Heart and mediastinum: Stable contours. Additional findings: None. Signed: JR Wilkinson Robert MDReport Verified Date/Time: 11/17/2019 08:51:03 Reading Location: [facility] Radiology Reading Room Electronicallysigned by: KATT WILKINSON on 11/17/2019 08:51 AMXR chest 1 view portable / [id number] 08:51:00Interface, External Ris In - 11/17/2019 8:53 [...] MDReport Verified Date/Time: 11/17/2019 08:51:03 Reading Location: [facility] Radiology Reading Room [facility] [id number] 06:23:00 Test Item Value Reference Range Interpretation Comments Sodium (test code = 2951-2) 141 meq/L 136-145 Potassium (test code = 4.4 meq/L 3.5-5.1 2823-3) Chloride (test code = 106 meq/L 98-107 2075-0) CO2 (test code = 2028-9) 30 meq/L 22-29 H MARGO (test code = MARGO) Welding 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 ESTIMATED GFR I S NOT APPLICABLE FOR DIALYSIS PATIEN TS. MARGO (test code = Welding 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 Electroslag ID - [place] MARGO) [facility]2020-[facility] 06:23:00 Test Item Value Reference Range Interpretation Comments SODIUM (BEAKER) (test code = 381) 141 meq/L 136-145 POTASSIUM (BEAKER) (test code = 4.4 meq/L 3.5-5.1 379) CHLORIDE (BEAKER) (test code = 382) 106 meq/L 98-107 CO2 (BEAKER) (test code = 355) 30 meq/L 22-29 H Welding 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 Electroslag ID - LABUN AND CREATININE [id number] 06:23:00 Test Item Value Reference Range Interpretation [...] mg/dL) EGFR (BEAKER) (test 48 mL/min/1.73 ESTIMA SUZY GFR IS code = 1092) sq m NOT ACCURATE CREATININE CLEARANCE IN PREDICTING GLOMERULAR FILTRATION RATE . ESTIMATED GFR I S NOT APPLICABLE FOR DIALYSIS PATIEN TS. Welding 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 Electroslag ID - LACBC (Hemogram only)2019-11-17 05:54:00 Test Item Value Reference Range Interpretation Comments WBC (test code = 6690-2) 11.4 See_Comment H [A utomated message] The system [employer] generated this result transmitted ref erence range: 3.5 - 10 .5 K/L. The refe rence range was not u sed to interpret this result as normal/abnor mal. RBC (test code = 789-8) 4.05 See_Comment [Au tomated message] The system [employer] generated this result transmitted ref erence range: 3.93 - 5 .22 M/L. The refe rence range was not u sed to interpret this result as normal/abnor mal. MCHC (test code = 786-4) 30.3 See_Comment L [A utomated message] The system [employer] generated this result transmitted ref erence range: 32.2 - 3 5.5 GM/DL. The refe rence range was not u sed to interpret this result as normal/abnor mal. Hematocrit (test code = 36.0 % 34.1-44.9 4544-3) MCV (test code = 787-2) 88.9 fL 79.4-94.8 MCH (test code = 785-6) 26.9 pg 25.6-32.2 RDW (test code = 788-0) 17.4 % 11.7-14.4 H Platelets (test code = 213 See_Comment [Aut omated message] 777-3) The system [employer] generated this result transmitted ref erence range: 150 - 45 0 K/CU MM. The referen ce range was not u sed to interpret this result as normal/abnor mal. MPV (test code = 10.9 fL 9.4-12.3 76968-8) nRBC (test code = 413) 0 See_Comment [Aut omated message] The system [employer] generated this result transmitted ref erence range: 0 - 0 /1 00 WBC. The refere nce range was not u sed to interpret this result as normal/abnor mal. Lab Interpretation (test Abnormal code = 64316-4) [facility] (HEMOGRAM ONLY)2019-11-17 05:54:00 Test Item Value Reference [...] 0-0 (BEAKER) (test code = 413) POC-Glucose [id number] 21:37:00 Test Item Value Reference Range Interpretation Comments POC-Glucose Meter (test 134 mg/dL 70-110 H : TE STED AT [facility] code = 1538) [address] [facility], 770 30: Welding 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 Electroslag/Techni britt ID = [id number] for AWILDA SUZANNE Lab Interpretation (test Abnormal code = 28972-2) [facility] [id number] 21:37:00 Test Item Value Reference Range Interpretation Comments POC-GLUCOSE METER 134 mg/dL 70-110 H : TESTED A T [facility] 6720 (BEAKER) (test code = ALTAGRACIA Deb [facility], 1538) [address]: Welding 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 Electroslag/Techni britt ID = [id number] for JESUS RIVAS SUZANNE SARS-COV2/RT-PCR ([facility])2019-11-16 19:23:00 Test Item Value Reference Range Interpretation Comments SARS-COV2/RT-PCR (test code = Negative Not Detected, Negative [id number]) SARS-COV-2 PERFORMING LAB CPL (test code = 8845989) RAD, CHEST, 1 VIEW, NON [id number] 18:33:00Reason for exam:->s/p pacemaker/defibrillator; evaluation for pneumothoraxShould [...] stable in size. No fracture. Signed: Wellington Aponte MDReport Verified Date/Time: 11/16/2019 18:33:13 Reading Location: [place] [id number] Consult Reading Room POCT-GLUCOSE [id number] 17:35:00 Test Item Value Reference Range Interpretation Comments POC-GLUCOSE METER 163 mg/dL 70-110 H : TESTED A T [facility] [address] [facility] (test code = ALTAGRACIA HAIDER [place], 1538) [address]: Welding 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 Electroslag/Techni britt ID = [id number] for BR KANE, CARLOS SARS-CoV2/RT-PCR ([facility])2019-11-16 12:10:00 Test Item Value Reference Range Interpretation Comments SARS-COV2/RT-PCR Not Detected Not Detected, (test code = Negative 76952-9) SARS-COV-2 [facility] PERFORMING LAB (test code = 37213-7) MARGO (test code = Negative results do [...] of the Act. Fact Sheet for Healthcare Providers:https://www.Leiyoo/Documents/Xper t%20Xpress%20SARS%20CoV- 2/Fact%20Sheets/302-3802 %49IMAF-JDP-6%20HEALTHCA RE%20PROVIDERS%20FACT%20 SHEET.pdf Fact Sheet for Healthcare Patients:https://www.Genprex/Documents/Xpert %20Xpress%20SARS%20CoV-2 /Fact%20Sheets/302-3801% 15DMIK-NOV-1%20PATIENT%2 0FACT%20SHEET.pdf Performing Laboratory:[facility]-COV2/RT-PCR ([facility])2019-11-16 12:10:00 Test Item Value Reference Range Interpretation Comments SARS-COV2/RT-PCR (test Not Detected Not Detected, Negative code = 6014277) SARS-COV-[address] [facility] (test code = 6980352) Negative results do not preclude SARS-CoV-2 infection [...] of the Act.Fact Sheet for Healthcare Pro viders:https://www.Cervilenz/Documents/Xpert%20Xpress%20SARS%20CoV-2/Fact%20Sh eets/302-3802%86HKZS-RHA-4%20HEALTHCARE%20PROVIDERS%20FACT%20SHEET.pdfFact Sheet for Healthcare Patients:https://www.T[employer]US Solutions.SafetyCulture/Documents/Xpert%20Xpress%20SARS%20CoV-2/Fact%20Sheets/302-3801%20SARS-COV -2%20PATIENT%20FACT%20SHEET.pdfPerforming Laboratory:[facility], [place] [address]YBKV-WMEEXFV [id number] 06:55:00 Test Item Value Reference Range Interpretation Comments POC-GLUCOSE METER 116 mg/dL 70-110 H : TESTED A T [facility] 6720 (BEAKER) (test code = [facility], 153) [address]: Welding 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 Electroslag/Techni britt ID = [id number] for SHANELL HNSON, MANAQUETTA POCT-GLUCOSE [id number] 20:58:00 Test Item Value Reference Range Interpretation Comments POC-GLUCOSE METER 114 mg/dL 70-110 H : TESTED A T [facility] 6720 (BEAKER) (test code = [facility], 153) 09506: Welding 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 Electroslag/Techni britt ID = [id number] for SHANELL HNSON, JEQUETTA POCT-GLUCOSE [id number] 17:43:00 Test Item Value Reference Range Interpretation Comments POC-GLUCOSE METER 112 mg/dL 70-110 H : TESTED A T [facility] 6720 (BEAKER) (test code = [facility], 1538) 52652: Welding 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 Electroslag/Techni britt ID = [id number] for HU NT, PRAVEEN POCT-GLUCOSE [id number] 07:59:00 Test Item Value Reference Range Interpretation Comments POC-GLUCOSE METER 123 mg/dL 70-110 H : TESTED A T [facility] 6720 (BEAKER) (test code = [facility], 153) 68854: Welding 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 Electroslag/Techni britt ID = [id number] for HU NT, PRAVEEN Basic metabolic [id number] 05:40:00 Test Item Value Reference Range Interpretation Comments Sodium (test code = 142 meq/L 133-771 5138-2) Potassium (test code = 4.2 meq/L 3.5-5.1 Speci men slightly 2823-3) hemolyzed Chloride (test code = 106 meq/L 98-107 2075-0) CO2 (test code = 29 meq/L 22-29 8-9) BUN (test code = 13 mg/dL 7-21 3094-0) Creatinine (test code 0.76 mg/dL 0.57-1.25 Specim en slightly = 2160-0) hemolyzed Glucose (test code = 120 mg/dL 70-105 H 2345-7) Calcium (test code = 8.8 mg/dL 8.4-10.2 36335-1) EGFR (test code = 75 mL/min/1.73 [place] [address]-7) NOT ACCURATE CREATININE CLEARANCE IN PREDICTING GLOMERULAR FILTRATION RATE . ESTIMATED GFR I S NOT APPLICABLE FOR DIALYSIS PATIENTS. MARGO (test code = MARGO) Welding 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 Electroslag ID - ANJALI Lab Interpretation Abnormal (test code = 32183-3) [facility] 05[facility]00 Test Item Value Reference Range Interpretation Comments Magnesium (test code = 2.1 mg/dL 1.6-2.6 Speci men 03601-6) slightly hemolyzed MARGO (test code = MARGO) Welding 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 Electroslag ID - ANJALI Lab Interpretation Normal (test code = 90432-3) [facility] 05:40[facility]00 Test Item Value Reference Range Interpretation Comments MAGNESIUM (BEAKER) 2.1 mg/dL 1.6-2.6 Specimen slightly (test code = 627) hemolyzed Welding 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 Electroslag ID - ANJALI MBASIC METABOLIC [id number] 05:40:00 Test Item Value Reference Range Interpretation Comments SODIUM (BEAKER) 142 meq/L 136-145 (test code = 381) POTASSIUM (BEAKER) 4.2 meq/L 3.5-5.1 Specimen slightly (test code = 379) hemolyzed CHLORIDE (BEAKER) 106 meq/L 98-107 (test code = 382) CO2 (BEAKER) (test 29 meq/L code = 355) BLOOD UREA NITROGEN 13 mg/dL 7- (BEAKER) (test code = 354) CREATININE (BEAKER) 0.76 mg/dL 0.57-1.25 Specimen slightly (test code = 358) hemolyzed GLUCOSE RANDOM 120 mg/dL 70-105 H (BEAKER) (test code = 652) CALCIUM (BEAKER) 8.8 mg/dL 8.4-10.2 (test code = 697) EGFR (BEAKER) (test 75 mL/min/1.73 ESTIMA SUZY GFR IS code = 1092) sq m NOT ACCURATE CREATININE CLEARANCE IN PREDICTING GLOMERULAR FILTRATION RATE . ESTIMATED GFR I S NOT APPLICABLE FOR DIALYSIS PATIEN TS. Welding 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 Electroslag ID - ANJALI MProthrombin time/[id number] 05:27:00 Test Item Value Reference Interpretation Comments Range Protime (test code = 13.0 See_Comment [Autom ated 7162-2) message] The system which generated this result transmitted reference range : 11.9 - 14.2 seconds. The reference range was not used to interpret this result as normal/abnormal . INR (test code = 1.0 See_Comment [Automated 9931-6) message] The system which generated this result transmitted reference range : <=5.9. The reference range was not used to interpret this result as normal/abnormal . MARGO (test code = Effective 12/15/2018: MARGO) PT Reference Range ChangeNew: 11.9-14.2 Previous: 11.7-14.7 RECOMMENDED COUMADIN/WARFARIN INR THERAPY RANGESSTANDARD DOSE: 2.0-3.0 Includes: PROPHYLAXIS for venous thrombosis, systemic embolization; TREATMENT for venous thrombosis and/or pulmonary embolus.HIGH RISK: Target INR is 2.5-3.5 for patients wiht mechanical heart valves. Within 24 hours, if on Coumadin Lab Interpretation Normal (test code = 74784-3) [facility] HospitalPROTHROMBIN TIME/[id number] 05:27:00 Test Item Value Reference Range Interpretation [...] on CoumadinCBC with platelet count + automated [id number] 05:24:00 Test Item Value Reference Range Interpretation Comments WBC (test code = 6690-2) 9.9 See_Comment [A utomated message] The system [employer] generated this result transmitted ref erence range: 3.5 - 10 .5 K/L. The refe rence range was not u sed to interpret this result as normal/abnor mal. RBC (test code = 789-8) 4.20 See_Comment [Au tomated message] The system [employer] generated this result transmitted ref erence range: 3.93 - 5 .22 M/L. The refe rence range was not u sed to interpret this result as normal/abnor mal. MCHC (test code = 786-4) 30.5 See_Comment L [A utomated message] The system [employer] generated this result transmitted ref erence range: 32.2 - 3 5.5 GM/DL. The refe rence range was not u sed to interpret this result as normal/abnor mal. Hematocrit (test code = 37.0 % 34.1-44.9 4544-3) MCV (test code = 787-2) 88.1 fL 79.4-94.8 MCH (test code = 785-6) 26.9 pg 25.6-32.2 RDW (test code = 788-0) 17.7 % 11.7-14.4 H Platelets (test code = 239 See_Comment [Aut omated message] 777-3) The system [employer] generated this result transmitted ref erence range: 150 - 45 0 K/CU MM. The referen ce range was not u sed to interpret this result as normal/abnor mal. MPV (test code = 11.2 fL 9.4-12.3 85965-5) nRBC (test code = 413) 0 See_Comment [Aut omated message] The system [employer] generated this result transmitted ref erence range: 0 - 0 /1 00 WBC. The refere nce range was not u sed to interpret this result as normal/abnor mal. % Neutros (test code = 72 % 429) % Lymphs (test code = 14 % 430) % Monos (test code = 9 % 431) % Eos (test code = 432) 4 % % Baso (test code = 437) 1 % # Neutros (test code = 7.13 See_Comment H [Aut omated message] 670) The system [employer] generated this result transmitted ref erence range: 1.56 - 6 .13 K/L. The refe rence range was not u sed to interpret this result as normal/abnor mal. # Lymphs (test code = 1.37 See_Comment [Auto mated message] 414) The system [employer] generated this result transmitted ref erence range: 1.18 - 3 .74 K/L. The refe rence range was not u sed to interpret this result as normal/abnor mal. # Monos (test code = 0.84 See_Comment H [Autom ated message] 415) The system [employer] generated this result transmitted ref erence range: 0.24 - 0 .36 K/L. The refe rence range was not u sed to interpret this result as normal/abnor mal. # Eos (test code = 416) 0.41 See_Comment H [Au tomated message] The system [employer] generated this result transmitted ref erence range: 0.04 - 0 .36 K/L. The refe rence range was not u sed to interpret this result as normal/abnor mal. # Baso (test code = 417) 0.06 See_Comment [A utomated message] The system [employer] generated this result transmitted ref erence range: 0.01 - 0 .08 K/L. The refe rence range was not u sed to interpret this result as normal/abnor mal. Immature 0 % 0-1 Granulocytes-Relative (test code = 2801) Lab Interpretation (test Abnormal code = 29294-5) [facility] W/PLT COUNT & AUTO [id number] 05:24:00 Test Item Value Reference Range Interpretation [...] PERCENT (BEAKER) (test code = 2801) POCT-GLUCOSE [id number] 21:15:00 Test Item Value Reference Range Interpretation Comments POC-GLUCOSE METER 134 mg/dL 70-110 H : TESTED A T 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 6720 (BEAKER) (test code = [place], 1538) 890[address]: Welding 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 Electroslag/Techni britt ID = [id number] for JILLIAN ROSAS, pakyfd2974-72-60 05:52:00 Test Item Value Reference Range Interpretation Comments ABO Grouping (test code = 2588) O Rh Factor (test code = 2589) NEG [facility] HospitalType and screen, [id number] 05:02:00 Test Item Value Reference Range Interpretation Comments ABO/RH AUTOMATED (BEAKER) (test O NEGATIVE code = 2260) Ab Scrn (test code = 890-4) NEGATIVE [facility] HospitalPROTHROMBIN TIME/[id number] 04:39:00 Test Item Value Reference Range Interpretation [...] heart valves.Within 24 hours, if on Coumadin [id number] 04:38:00 Test Item Value Reference Range Interpretation Comments MAGNESIUM (BEAKER) (test code = 2.0 mg/dL 1.6-2.6 627) Welding 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 Electroslag ID - PIAYA LBASIC METABOLIC [id number] 04:38:00 Test Item Value Reference Range Interpretation [...] 697) EGFR (BEAKER) (test 71 mL/min/1.73 ESTIMA SUZY GFR IS code = 1092) sq m NOT ACCURATE CREATININE CLEARANCE IN PREDICTING GLOMERULAR FILTRATION RATE . ESTIMATED GFR I S NOT APPLICABLE FOR DIALYSIS PATIEN TS. Welding 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 Electroslag ID - PIAYA LCBC W/PLT COUNT & AUTO [id number] 04:28:00 Test Item Value Reference Range Interpretation [...] PERCENT (BEAKER) (test code = 2801) POCT-GLUCOSE [id number] 22:16:00 Test Item Value Reference Range Interpretation Comments POC-GLUCOSE METER 101 mg/dL 70-110 : TESTED A T [facility] 6720 (BEAKER) (test code = [place], 1538) 327[address]: Welding 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 Electroslag/Techni britt ID = [id number] for DE NNIS, TRACY POCT-GLUCOSE [id number] 17:48:00 Test Item Value Reference Range Interpretation Comments POC-GLUCOSE METER 76 mg/dL 70-110 : TESTED A T [facility] 6720 (BEAKER) (test code [facility], = 1538) 27597: Welding 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 Electroslag/Techni britt ID = [id number] for TSEG GAI, TSIGHEREDA POCT-GLUCOSE [id number] 12:21:00 Test Item Value Reference Range Interpretation Comments POC-GLUCOSE METER 124 mg/dL 70-110 H : TESTED A T [facility] 6720 (BEAKER) (test code [facility], = 1538) 91286: Welding 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 Electroslag/Techni britt ID = [id number] for TSEG GAI, TSIGHEREDA MR, BRAIN, WITHOUT [id number] 11:43:00FINAL REPORT MR, BRAIN, WITHOUT CONTRAST INDICATION: [...] MDReport Verified Date/Time: 11/13/2019 11:43:35 Reading Location: [address] Neuro Reading Room MR brain without IV jtznxfla5937-32-02 11:43:00Interface, External Ris In - 11/13/2019 11:45 [...] MDReport Verified Date/Time: 11/13/2019 11:43:35 Reading Location: [facility] C0[facility] [id number] 08:24:00FINAL REPORT CT, CTANGIO BRAIN, CT, CAROTID, [...] MDReport Verified Date/Time: 11/13/2019 08:24:31 Reading Location: [facility] C013 Neuro Reading Room [address], CAROTID, [id number] 08:24:00FINAL REPORT CT, CTANGIO BRAIN, CT, CAROTID, [...] MDReport Verified Date/Time: 11/13/2019 08:24:31 Reading Location: [address] Neuro Reading Room [facility] [id number] 08:24:00 Interface, External Ris In - 11/21/2019 [...] MDReport Verified Date/Time: 11/13/2019 08:24:31 Reading Location: [address] Neuro Reading Room [facility] CenterCT[facility] carotid 2019-11-13 08:24:00Interface, External Ris In [...] MDReport Verified Date/Time: 11/13/2019 08:24:31 Reading Location: [address] Neuro Reading Room [facility], [id number] 07:49:00 Test Item Value Reference Range Interpretation Comments Free T4 (test code = 0.67 ng/dL 0.7-1.48 L 3024-7) MARGO (test code = MARGO) Welding 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 Electroslag ID - MART C Lab Interpretation (test Abnormal code = 37785-4) [place] [address], [id number] 07:49:00 Test Item Value Reference Range Interpretation Comments FREE T4 (BEAKER) (test code = 655) 0.67 ng/dL 0.70-1.48 L Welding 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 Electroslag ID - MART CHemoglobin [id number] 07:45:00 Test Item Value Reference Range Interpretation Comments Hemoglobin A1C (test code = 4548-4) 6.2 % 4.3-6.1 H Lab Interpretation (test code = Abnormal 69606-0) [facility] HospitalHEMOGLOBIN [id number] 07:45:00 Test Item Value Reference Range Interpretation Comments HEMOGLOBIN A1C (BEAKER) (test code = 6.2 % 4.3-6.1 H 368) TSH/Free T4 If [id number] 07:03:00 Test Item Value Reference Range Interpretation Comments TSH (test code = 10.877 See_Comment H [Automated 87480-9) message] The system which generated this result transmit suzy reference range : 0.350 - 4.940 uIU/mL. The reference range was not used to interpret this result as normal/abnormal . MARGO (test code = MARGO) Welding 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 Electroslag ID - JAMI L Lab Interpretation Abnormal (test code = 83737-6) [facility] HospitalTSH/FREE T4 IF [id number] 07:03:00 Test Item Value Reference Range Interpretation Comments THYROID STIMULATING HORMONE 10.877 uIU/mL 0.350-4.940 H (BEAKER) (test code = 772) Welding 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 Electroslag ID - JAMI LVitamin B12 and Zwpcus9792-47-73 06:59:00 Test Item Value Reference Range Interpretation Comments Vitamin B12 (test 295 pg/mL 213-816 code = 2132-9) Folate (test code = 12.20 ng/mL See_Comment [Automa suzy 2284-8) message] The system which generated this result transmit suzy reference range : >=7.00. The reference range was not used to interpret this result as normal/abnormal . MARGO (test code = MARGO) Welding 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 Electroslag ID - JAMI L Lab Interpretation Normal (test code = 58489-7) [facility] HospitalVITAMIN B12 AND [id number] 06:59:00 Test Item Value Reference Range Interpretation Comments VITAMIN B12 (BEAKER) (test code = 295 pg/mL 213-816 774) FOLATE (BEAKER) (test code = 362) 12.20 ng/mL >=7.00 Welding 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 Electroslag ID - JAMI LLipid [id number] 03:24:00 Test Item Value Reference Range Interpretation Comments Triglycerides (test 151 mg/dL code = 2571-8) Cholesterol (test code 121 mg/dL = 2093-3) HDL (test code = 33 mg/dL 2085-9) LDL Calculated (test 58 mg/dL code = 56858-9) MARGO (test code = MARGO) Triglyceride Reference Range: Low Risk <150 Borderline 150-199 High Risk 200-499 Very High Risk >=500 Cholesterol Reference Range: Low Risk <200 Borderline 200-239 High Risk >240 HDL Cholesterol Reference Range: Low Risk >=60 High Risk <40 LDL Cholesterol Reference Range: Optimal <100 Near Optimal 100-129 Borderline 130-159 High 160-189 Very High >=190 Welding 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 Electroslag ID - JAMI Dickerson [facility] HospitalHepatic function [id number] 03:24:00 Test Item Value Reference Range Interpretation Comments Protein, Total (test 6.2 See_Comment [Autom ated code = 2885-2) message] The system which generated this result transmit suzy reference range : 6.0 - 8.3 gm/dL . The reference range was not u sed to interpret th is result as normal/abnormal . Albumin (test code = 3.4 g/dL 3.5-5 L 96418-5) Total Bilirubin (test 0.6 mg/dL 0.2-1.2 code = 1975-2) Bilirubin, Direct 0.3 mg/dL 0.1-0.5 (test code = 1968-7) Alkaline Phosphatase 75 U/L 40-150 (test code = 6768-6) AST (test code = 12 U/L 5-34 1920-8) ALT (test code = 13 U/L 6-55 1742-6) MARGO (test code = MARGO) Welding 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 Electroslag ID Juliette Dickerson Lab Interpretation Abnormal (test code = 77761-8) [facility] HospitalLIPID [id number] 03:24:00 Test Item Value Reference Range Interpretation [...] Borderline 130-159 High 160-189 Very High >=190 Welding 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 Electroslag ID - EDELMIRAAYALBASIC METABOLIC [id number] 03:24:00 Test Item Value Reference Range Interpretation [...] 697) EGFR (BEAKER) (test 77 mL/min/1.73 ESTIMA SUZY GFR IS code = 1092) sq m NOT ACCURATE CREATININE CLEARANCE IN PREDICTING GLOMERULAR FILTRATION RATE . ESTIMATED GFR I S NOT APPLICABLE FOR DIALYSIS PATIEN TS. Welding 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 Electroslag ID - EDELMIRAAYA LHEPATIC FUNCTION [id number] 03:24:00 Test Item Value Reference Range Interpretation [...] (test code = 13 U/L 6-55 347) Welding 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 Electroslag ID - JAMI LUrinalysis w/Microscopic + Reflex to [id number] 03:19:00 Test Item Value Reference Range Interpretation Comments Color, UA (test code Light Yellow = 5778-6) Clarity, UA (test Clear code = 5767-9) Specific [place], UA 1.012 1.001-1.035 (test code = 5811-5) pH, UA (test code = 6.0 5.0-8.0 5803-2) Protein, UA (test Negative Negative code = 86572-1) Glucose, UA (test Negative Negative code = 365) Ketones, UA (test Negative Negative code = 2514-8) Bilirubin, UA (test Negative Negative code = 79755-5) Blood, UA (test code Negative Negative = 88545-8) Nitrite, UA (test Positive Negative A code = 5802-4) Leukocytes, UA (test Negative Negative code = 5799-2) Urobilinogen, UA 0.2 mg/dL 0.2-1 (test code = 41061-6) RBC, UA (test code = <1 See_Comment [Autom ated 10338-7) message] The system which generated this result transmit suzy reference range : /HPF. The reference range was not used to interpret this result as normal/abnormal . WBC, UA (test code = <1 See_Comment [Autom ated 5821-4) message] The system which generated this result transmit suzy reference range : /HPF. The reference range was not used to interpret this result as normal/abnormal . Bacteria, UA (test Rare code = 21574-0) Squam Epithel, UA 1 See_Comment [Automate d (test code = 64335-2) messag e] The system which generated this result transmit suzy reference range : /HPF. The reference range was not used to interpret this result as normal/abnormal . Specimen Source (test code = 2795) MARGO (test code = MARGO) Welding 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 Electroslag ID - [auto]Welding 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 Electroslag ID - tigist Lab Interpretation Abnormal (test code = 13753-7) [facility]URINALYSIS W/ REFLEX URINE [id number] 03:19:00 Test Item Value Reference Range Interpretation [...] = 516) SOURCE(BEAKER) (test code = 2795) Welding 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 Electroslag ID - [auto]Welding 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 Electroslag ID - hankCBC (HEMOGRAM ONLY)2019-11-13 02:43:00 Test [...] RED BLOOD CELLS 0 /100 WBC 0-0 (FRANCISCO) (test code = 413) POCT-GLUCOSE [id number] 21:14:00 Test Item Value Reference Range Interpretation Comments POC-GLUCOSE METER 104 mg/dL 70-110 : [facility] ([facility]ANCISCO[facility] (test code = [place], 1538) [address]: Welding 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 Electroslag/Techni britt ID = [id number] for DE NNIS, TRACY Digoxin [id number] 15:47:00 Test Item Value Reference Range Interpretation Comments Digoxin Lvl (test code = 1.77 ng/mL 0.8-2 45088-8) MARGO (test code = MARGO) Welding 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 Electroslag ID - MART C Lab Interpretation (test Normal code = 36227-1) [facility] HospitalDIGOXIN [id number] 15:47:00 Test Item Value Reference Range Interpretation Comments DIGOXIN LEVEL (FRANCISCO) (test code 1.77 ng/mL 0.80-2.00 = 669) Welding 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 Electroslag ID - MART CRAD, CHEST, 1 VIEW, NON [id number] 14:42:00Reason for exam:->cough - please eval for [...] MDReport Verified Date/Time: 11/12/2019 14:42:43 Reading Location: [address] Neuro Reading Room TNPTZR2606-04-11 19:51:78820Dekoqamn EvaakngVFHOXZULAT5540-08-21 19:51:009.0 [facility] KqjawenOTFMVYHVCZ9288-91-66 19:51:0031.9Ncmoriwa HermannHEMATOLOGY 2016-02-14 19:51:0015.4[facility] LipxgzbCROKHANWIM1599-51-58 19:51:0017.8[facility] HnldnxkCDTEYTIQNA2285-55-23 19:51:005.23[facility] EuoeqxrYBUSCOLYOV4853-28-30 19:51:0045.0[facility] LejqmubTNLMLEQEZF6964-05-06 19:51:00 Test Item Value Reference Range Interpretation Comments MCH (test code = MCH) 27.5 pg 27.0-31.0 [facility] TpgpqjeBFDZMQTEIE0850-03-00 19:51:0014.4[facility] HermannHEMATOLOGY 2016-02-14 19:51:0086.0[facility] HermannCHEM PYPFP7245-41-73 10:55:002.6[facility] HermannCHEM RJWVZ9114-84-25 10:55:003.0[facility] HermannURINE AND SQVFQ1703-61-69 19:21:00Negative (02/13/16 2:21 PM)[facility]annURINE AND [id number] 19:21:00Negative (02/13/16 2:21 PM)[facility]annURINE AND [id number] 19:21:00Negative *NA*(02/13/16 2:21 PM)[facility]annURINE AND [id number] 19:21:00 Test Item Value Reference Range Interpretation Comments UA Spec Grav (test code = UA Spec 1.025 1 Grav) [facility]annURINE AND [id number] 19:21:00Yellow *NA*(02/13/16 2:21 PM) [facility] AND [id number] 19:21:00 Test Item Value Reference Range Interpretation Comments UA pH (test code = UA pH) 5.5 1 5.0-8.0 [facility] AND [id number] 19:21:00Clear (02/13/16 2:21 PM) [facility] [id number] 19:21:00None Seen (02/13/16 2:21 PM) [facility] [id number] 19:21:00None Seen (02/13/16 2:21 PM) [facility] CECWS8970-52-07 19:21:00None Seen (02/13/16 2:21 PM) [facility] [id number] 19:21:00Negative (02/13/16 2:21 PM) [facility] [id number] 19:21:00Performed (02/13/16 2:21 PM) [facility] RVHWL9801-80-08 19:21:000.2[facility]annUR[facility] AND [id number] 19:21:00Negative (02/13/16 2:21 PM)[facility]annUR[facility] AND [id number] 19:21:00Trace *ABN*(02/13/16 2:21 PM)[facility]annUR[facility] AND [id number] 19:21:00Negative *NA*(02/13/16 2:21 PM)[facility] HermannCHEM PANEL 2016-02-13 10:21:0023Mem[facility] HermannCHEM VSRKZ1636-72-14 10:21:004.3[facility] HermannCHEM DUFBH9032-89-88 10:21:0012.0[facility] HermannCHEM BFGMO1262-71-23 10:21:0054Mem[facility] HermannCHEM VOWDC3370-46-90 10:21:001.05[facility] HermannCHEM YZXKC5719-46-70 10:21:63588Lbimqtsq HermannCHEM ZGYLU4785-36-77 10:21:004.0 [facility] HermannCHEM XVMCQ9581-40-10 10:21:0024[facility] HermannCHEM PANEL 2016-02-13 10:21:0019[facility] HermannCHEM OKKGB2657-73-05 10:21:008.1[facility]annCHEM NXNMZ0615-23-42 10:21:007.3[facility]annCHEM NRTGL1339-09-09 10:21:000.7[facility]annCHEM SPSDN2983-52-21 10:21:008[facility]annCHEM OGCYB6906-94-90 10:21:70384Qislieas HermannCHEM FCUTE7667-33-45 10:21:0028 [facility]annCHE[facility] ZGZVN7840-13-47 10:21:0070[facility]annCHEM PANEL 2016-02-13 10:21:003.0[facility]annCHEM KXBPA7038-55-86 10:21:40975Zcurppbt AtqgyqhAUZCVBQDLE8265-29-67 10:21:0015.5[facility] AcyyvriSBGPCQYCIL9727-55-03 10:21:0086.4[facility] EuuzpykYFIFGYOIYT7743-51-87 10:21:0032.5[facility] JMCLELHNCC3112-67-39 10:21:00 Test Item Value Reference Range Interpretation Comments MCH (test code = MCH) 28.1 pg 27.0-31.0 [facility] IgscfapNQNLAQRGJH9856-42-19 10:21:0042.3[facility] HermannHEMATOLOGY 2016-02-13 10:21:009.1[facility] OannkscEGUWNIDTAB0178-67-06 10:21:60236Ouknmjkz DlprvtlGTYQUGSOWZ9415-91-02 10:21:0013.7[facility] SxwgsyjUGRYDKVYXA4935-28-75 10:21:004.89[facility] LpojwvlEQYREZMHRG3608-17-87 10:21:0014.1[facility] XDGLXGJFNC8160-26-26 10:21:000.4[facility] HlxjfqxYYGVOTNYLT1872-30-22 10:21:000.6 [facility] TcmzbiwYZVKYSGTVF0914-63-76 10:21:0013.1[facility] HermannHEMATOLOGY 2016-02-13 10:21:0092.9[facility] UedvjkbVPTLPRVYFG1950-74-33 10:21:000.2[facility] NvdswfqUIXYPPVUBU8123-21-88 10:21:002.9[facility] RtmpnleZKVBPMHAOG3974-66-03 10:21:004.0[facility] GtlxxckHDJZFLBYQE4251-65-10 10:21:00Normal (02/13/16 5:21 AM) [facility] PsbjnqgETAPGTFNZY0099-31-68 10:21:00Normal (02/13/16 5:21 AM)[facility]annCHEM VBPUT3641-01-30 10:21:003.0[facility]annCHEM BHOCP0339-99-81 10:21:002.4[facility]annCHEM EPQUO9101-15-67 10:21:000.7[facility]annCHEM VRTBQ0471-26-02 13:05:002.5[facility]annCHEM FEGKJ2177-34-24 13:05:0056 [facility]annCHE[facility] VVDKP6050-22-76 13:05:0031[facility]annCHEM PANEL 2016-02-12 13:05:003.6[facility]annCHEM DLILE4006-88-02 13:05:008.2[facility]annCHEM SWBBM1710-49-36 13:05:22850Kqjsywiq HermannCHEM TMGSN6681-08-51 13:05:008.6[facility]annCHEM HYWVE0599-75-02 13:05:0020[facility]annCHEM VVSQQ9298-91-11 13:05:29388Eslpqqur HermannCHEM WOCIS3735-41-97 13:05:88043 [facility]annCHE[facility] KPZFE8595-25-41 13:05:001.03[facility] HermannBACTERIAL - NABBUBQW5531-83-07 06:40:00Negative (02/12/16 1:40 AM)[facility] HermannCARDIAC EJWCBEJ7808-49-10 11:46:070398Ybsikndg HermannCHEM EOUWG0077-53-97 11:46:1964 [facility]annCHEM FVSNK4132-16-43 11:46:190.8[facility]annCHEM PANEL 2016-02-10 11:46:198.3[facility]annCHEM HLWON1188-15-85 11:46:1927[facility]annCHEM IRDSY4978-60-52 11:46:197.3[facility]annCHEM VKPFR0004-30-81 11:46:1916[facility]annCHEM AAJCD3202-57-71 11:46:190.92[facility]annCHEM TGPPN0847-12-31 11:46:05841Ggxaswnr HermannCHEM TNBDW5561-34-89 11:46:1915 [facility]annCHEM JTHVN5154-59-80 11:46:193.7[facility]annCHEM PANEL 2016-02-10 11:46:06903Xzyywhgx HermannCHEM DZZWT9427-72-91 11:46:193.6[facility]annCHEM MMRRA5249-38-36 11:46:1995[facility] HermannCHEM ZUPPO2602-65-43 11:46:1926[facility] HermannCHEM JWVOR2293-12-36 11:46:1971[facility]annCHEM IKZSM9666-31-87 11:46:191.0[facility]annCHEM ZBVOU9714-08-37 11:46:193.7 [facility]annCHEM LCAFY9614-15-08 11:46:1916[facility]annCHEM PANEL 2016-02-10 11:46:1912.7[facility] EedeoobMAFIZONDCE5745-89-03 11:46:190.7[facility] QrnqkaxUOWXWPUPKV3034-09-90 11:46:191.9[facility] RnpmjgqNDXZUXLYNA4429-11-67 11:46:196.3[facility] KufflbhWICNXXGCTR8776-73-49 11:46:190.1[facility] UZERCVIGBH6342-81-28 11:46:190.5[facility] BldxiuzORJPVJPQMF0495-26-40 11:46:191.2 [facility] WkfbywqBHSXJTKLFU3855-79-10 11:46:1970.2[facility] HermannHEMATOLOGY 2016-02-10 11:46:1920.5[facility] XjmllvaTAMMVPWPWJ0808-80-25 11:46:197.6[facility] ZvvgihjWBRUHJHNQK0424-75-89 11:46:57084Niygsnzi RsnuqynCTJCYROVRV8523-66-32 11:46:199.5[facility] CedixbaSPMHINRRFS7791-01-15 11:46:1915.8[facility] XTLUXJMCCM0795-83-10 11:46:1932.8[facility] WpyxzeuJJEUFGESZB9160-49-45 11:46:19 86.1[facility] PzrqyzwVHSOBRGQDI8706-61-96 11:46:19 Test Item Value Reference Range Interpretation Comments MCH (test code = MCH) 28.2 pg 27.0-31.0 [facility] PpjgzzvGFQDDZTTJF2500-82-62 11:46:1939.9[facility] HermannHEMATOLOGY 2016-02-10 11:46:199.1[facility] JxubfasLKUFYKNHYZ4734-02-82 11:46:194.63[facility] YawmuqaPJXXUWOLOB8553-79-91 11:46:1913.1[facility] IpnimtoDBRCWX5493-97-31 11:46:193.74[facility] RzpwvtrYPTYKH8280-18-04 11:46:1926[facility] HermannLIPIDS 2016-02-10 11:46:77073Fddxvveu NdslcwzCIBPBE1234-16-15 11:46:81001Ubgavodi WfamoqhSXRPRM4048-35-66 11:46:1962[facility] QikzxfnXPHBEE3019-29-35 11:46:30039 [facility] HermannSPECIAL GNOVNKROM9958-44-07 11:46:195.8[facility]
[2020-09-26 10:49] LABS: Absolute Lymphocytes (CBC) 0.4 K/uL (0.7-4.9); Basophils % 0.1 % (0-1.3); Hematocrit 35.2 % (36.0-45.0); Lymphocytes % 5.1 % (15.3-44.8); MPV 9.3 fL (7.6-11.3); RBC Red Blood Cell Count 4.51 M/uL (3.86-4.86)
[2020-09-26 11:03] LABS: Protime INR 1.85
--- NOTE | 2020-09-26 11:08 | RAD REPORT ---
EXAM DESCRIPTION: RAD - Chest Single View - 09/26/2020 11:00 am CLINICAL HISTORY: Cough;Dyspnea Chest pain. COMPARISON: Chest Pa And Lat (2 Views) dated 07/10/2020; Chest Single View dated 01/23/2020; Chest Sin gle View dated 11/12/2019; Chest Single View dated 07/23/2018 FINDINGS: Portable technique limits examination quality. Small opacity is present in the left lung base laterally which may represent an area of atelectasis o r scarring. The heart is upper limit normal in size with a multi lead pacer device present.
[2020-09-26 11:13] LABS: ALT/SGPT 24 U/L (12-78); AST/SGOT 33 U/L (15-37); Albumin 2.9 g/dL (3.4-5.0); Alkaline Phosphatase 97 U/L (45-117); BUN Blood Urea Nitrogen 27 mg/dL (7-18); Bicarbonate 25 mmol/L (21-32); Bilirubin Direct 0.1 mg/dL (0-0.2); Bilirubin Total 0.3 mg/dL (0.2-1.0); Ferritin 183.5 ng/mL (8-388); Glucose Level 140 mg/dL (74-106); NT PRO-BNP 5182 pg/mL (<125); Potassium 4.1 mmol/L (3.5-5.1); Protein, Total 7.2 g/dL (6.4-8.2); Sodium Level 140 mmol/L (136-145); Troponin (Emerg Dept Use Only) < 0.02 ng/mL (0.0-0.045)
[2020-09-26] MEDS ORDERED: NA CHLORIDE 0.9% 500 ML ONE (11:35)
[2020-09-26 11:47] LABS: Blood Morphology Comment NOT SEEN (NOT SEEN); Platelet Estimate ADEQ; White Blood Cell Scan OK (OK)
[2020-09-26 15:22] LABS: SARS-COV-2 RT PCR POSITIVE (NEGATIVE)
--- NOTE | 2020-09-26 15:33 | EDPHYS ---
Physician Documentation [facility] Name: La Henson Age: 74 yrs Sex: Female : 1945 Arrival Date: 09/26/2020 Time: 10:07 Bed 8 Private MD: Asael Huffman V ED Physician Emmanuel Lagunas HPI: 09/26 10:12 This 74 yrs old Female presents to ER via Unassigned with complaints of rn General Weakness, sob. 10:12 The patient has shortness of breath at rest, with light activity. Onset: The rn symptoms/episode began/occurred 3 day(s) ago. Duration: The symptoms are continuous. The patient's shortness of breath is aggravated by exertion, light activity, is alleviated by nothing. Associated signs and symptoms: Pertinent positives: productive cough, Pertinent negatives: fever, hemoptysis, loss of consciousness. Severity of symptoms: At their worst the symptoms were moderate in the emergency department the symptoms are unchanged. The patient has not experienced similar symptoms in the past. The patient has not recently seen a physician. Reports productive cough and sob for 2-3 days, multiple family members in house with COVID, + generalized weakness, no vomiting/diarrhea. . Historical: - Allergies: 10:22 Sulfa (Sulfonamide Antibiotics); aa5 10:22 SULFUR, ELEMENTAL; aa5 - PMHx: 10:22 Atrial Fib; CHF; Hyperlipidemia; Hypertension; Hypothyroidism; Arthritis; aa5 - Immunization history:: Adult Immunizations unknown. - Family history:: not pertinent. - Social history:: Smoking status: unknown. - Hospitalizations: : No recent hospitalization is reported. ROS: 10:12 Constitutional: Negative for fever, chills, and weight loss, Eyes: Negative for injury, rn pain, redness, and discharge, Neck: Negative for injury, pain, and swelling, Cardiovascular: Negative for chest pain Respiratory: + cough and sob Abdomen/GI: Negative for abdominal pain, nausea, vomiting, diarrhea, and constipation, Back: Negative for injury and pain, : Negative for injury, bleeding, discharge, and swelling, MS/Extremity: Negative for injury and deformity, Skin: Negative for injury, rash, and discoloration, Neuro: Negative for headache, numbness, tingling, and seizure. 10:12 All other systems are negative. Exam: 10:12 Constitutional: This is a well developed, well nourished patient who is awake, alert, rn mild tachypnea Head/Face: Normocephalic, atraumatic. Eyes: Periorbital areas with no swelling, redness, or edema. ENT: dry MM Cardiovascular: Irregular rhythm, tachycardic Respiratory: + mild tachypnea, no retractions, faint wheezing bilaterally Abdomen/GI: soft, non-tender Skin: Warm, dry MS/ Extremity: Pulses equal, no cyanosis. Neuro: Awake and alert, GCS 15, oriented to person, place, time, and situation. Vital Signs: 10:07 BP 103 / 50; Pulse 145; Resp 26 S; Temp 98.7(O); Pulse Ox 98% on 2 lpm NC; aa5 11:51 BP 107 / 87; Pulse 117; Resp 25 S; Pulse Ox 97% on 2 lpm NC; jd3 12:19 BP 94 / 64; Pulse 111; Resp 26 S; Pulse Ox 96% on 2 lpm NC; jd3 13:34 BP 108 / 73; Pulse 124; Resp 24 S; Pulse Ox 97% on 2 lpm NC; jd3 15:00 BP 110 / 53; Pulse 55; Resp 20; Pulse Ox 95% on 2 lpm NC; mh5 16:07 BP 111 / 64; Pulse 101; Resp 24 S; Pulse Ox 97% on 2 lpm NC; jd3 17:09 BP 109 / 61; Pulse 113; Resp 23 S; Pulse Ox 98% on 2 lpm NC; jd3 18:41 BP 119 / 72; Pulse 112; Resp 25 S; Pulse Ox 97% on R/A; jd3 MDM: 10:08 Patient medically screened. rn 15:30 Differential diagnosis: CHF exacerbation, Myocardial Infarction pneumonia, Pneumothorax rn pulmonary edema, reactive airway disease, Sepsis COVID. Data reviewed: vital signs, nurses notes, lab test result(s), EKG, radiologic studies, plain films, and as a result, I will admit patient. Counseling: I had a detailed discussion with the patient and/or guardian regarding: the historical points, exam findings, and any diagnostic results supporting the discharge/admit diagnosis, lab results, radiology results, the need for further work-up and treatment in the hospital. Response to treatment: the patient's symptoms have mildly improved after treatment, and as a result, I will admit patient. Admission orders: after a detailed discussion of the patient's condition and case, the admit orders are written by me. ED course: Consulted with Dr. Huffman, will admit for COVID, weakness, Afib with RVR. 09/26 10:10 Order name: Blood Culture Adult (2) rn 09/26 10:10 Order name: BMP rn 09/26 10:10 Order name: C-Reactive Protein rn 09/26 10:10 Order name: CBC with Diff rn 09/26 10:10 Order name: D-Dimer; Complete Time: 11:14 rn 09/26 10:10 Order name: Ferritin; Complete Time: : rn 09/26 10:10 Order name: Lactate; Complete Time: 11: rn 09/26 10:10 Order name: LFT's; Complete Time: 11: rn 09/26 10:10 Order name: Procalcitonin; Complete Time: 12:32 rn 09/26 10:10 Order name: PT-INR; Complete Time: : rn 09/26 10:10 Order name: Ptt, Activated; Complete Time: 11: rn 09/26 10:10 Order name: Troponin (emerg Dept Use Only); Complete Time: 11: rn 09/26 10:10 Order name: Urine Microscopic Only rn 09/26 10:10 Order name: CXR XRAY; Complete Time: 11:11 rn 09/26 10:10 Order name: BNP; Complete Time: 11:14 rn 09/26 10:11 Order name: Blood Culture EDMS 09/26 10:11 Order name: Basic Metabolic Panel; Complete Time: 11:14 EDMS 09/26 10:11 Order name: C-Reactive Protein; Complete Time: 11:14 EDMS 09/26 10:11 Order name: CBC with Automated Diff; Complete Time: 12:32 EDMS 09/26 10:56 Order name: CBC Smear Scan; Complete Time: 12:32 EDMS 09/26 15:10 Order name: COVID-19/FLU A+B EDMS 09/26 15:48 Order name: Urine Dipstick--Ancillary (enter results) bd 09/26 18:12 Order name: Urine Dipstick-Ancillary EDMS 09/27 06:31 Order name: CBC with Automated Diff EDMS 09/27 06:51 Order name: Basic Metabolic Panel [facility] 09/27 06:51 Order name: Lipid Profile [facility] 09/27 06:51 Order name: C-Reactive Protein [facility] 09/27 07:44 Order name: Thyroid Stimulating Hormone [facility] 09/26 10:10 Order name: EKG; Complete Time: 10: rn 09/26 10:10 Order name: Cardiac monitoring; Complete Time: 10: rn 09/26 10:10 Order name: Droplet/Contact Precautions; Complete Time: : rn 09/26 10:10 Order name: EKG - Nurse/Tech; Complete Time: : rn 09/26 10:10 Order name: IV Start; Complete Time: rn 09/26 10:10 Order name: Labs collected and sent; Complete Time: rn 09/26 10:10 Order name: O2 Per Protocol; Complete Time: : rn 09/26 10:10 Order name: O2 Sat Monitoring; Complete Time: : rn 09/26 10:10 Order name: Urine Dipstick-Ancillary (obtain specimen); Complete Time: 17:12 rn Administered Medications: 11:21 Drug: NS 0.9% 500 ml Route: IV; Rate: bolus; Site: right forearm; jd3 12:20 Follow up: Response: No adverse reaction; IV Status: Completed infusion; IV Intake: jd3 500ml 16:06 Drug: SOLU-Medrol 125 mg Route: IVP; Site: right antecubital; jd3 17:00 Follow up: Response: No adverse reaction jd3 Disposition: 09/26/20 15:32 Hospitalization ordered by Asael Huffman for Inpatient Admission. Preliminary diagnosis are Coronavirus infection, unspecified, Unspecified atrial fibrillation - with RVR, Weakness. - Bed requested for Telemetry/MedSurg (Inpatient). - Status is Inpatient Admission. aa5 - Condition is Stable. - Problem is new. - Symptoms have improved. Signatures: Dispatcher [employer] [facility] Emmanuel Lagunas MD MD rn Calderon, Audri RN RN aa5 Pricila Keith RN RN tl1 Umesh Miller RN RN jd3 Corrections: (The following items were deleted from the chart) 13:56 10:11 Influenza Screen (A \T\ B)+BA.LAB.BRZ ordered. EDMS EDMS 13:56 10:11 CORONAVIRUS+MR.LAB.BRZ ordered. EDAR EDMS 16:46 15:32 Hospitalization Ordered by Asael Huffman MD for Inpatient Admission. Preliminary aa5 diagnosis is Coronavirus infection, unspecified; Unspecified atrial fibrillation - with RVR; Weakness. Bed requested for Telemetry/MedSurg (Inpatient). Status is Inpatient Admission. Condition is Stable. Problem is new. Symptoms have improved. rn 09/27 05:40 09/26 16:46 09/26/2020 15:32 Hospitalization Ordered by Asael Huffman MD for Inpatient tl1 Admission. Preliminary diagnosis is Coronavirus infection, unspecified; Unspecified atrial fibrillation - with RVR; Weakness. Bed requested for [facility] ER HOLD. Status is Inpatient Admission. Condition is Stable. Problem is new. Symptoms have improved. aa5 09/27 07:44 05:40 09/26/2020 15:32 Hospitalization Ordered by Asael Huffman MD for Inpatient aa5 Admission. Preliminary diagnosis is Coronavirus infection, unspecified; Unspecified atrial fibrillation - with RVR; Weakness. Bed requested for Telemetry/MedSurg (Inpatient). Status is Inpatient Admission. Condition is Stable. Problem is new. Symptoms have improved. tl1
--- NOTE | 2020-09-26 15:33 | ER ---
N[facility]'s Notes [facility] Name: La Henson Age: 74 yrs Sex: Female : 1945 Arrival Date: 09/26/2020 Time: 10:07 Bed 8 Private MD: Asael Huffman V Diagnosis: Coronavirus infection, unspecified;Unspecified atrial fibrillation-with RVR;Weakness Presentation: 09/26 10:07 Chief complaint: EMS states: generalized weakness and difficulty breathing x 2 days aa5 ago. EMS reports pt's family is positive for COVID-19. Pt reports productive cough. EMS reports initial O2 sat of 92% RA and increased to 97% via 2 L NC, EMS also reports A-fib with RVR fluctuating between 120-150bpm. 10:07 Coronavirus screen: cough unrelated to allergies, Client presents with at least one aa5 sign or symptom that may indicate coronavirus-19. Standard/surgical mask placed on the client. Provider contacted for isolation considerations. Ebola Screen: No symptoms or risks identified at this time. Initial Sepsis Screen: Does the patient meet any 2 criteria? RR > 20 per min. HR > 90 bpm. Does the patient have a suspected source of infection? Yes: Productive cough/pneumonia. Risk Assessment: Do you want to hurt yourself or someone else? Patient reports no desire to harm self or others. Onset of symptoms was September 2020. 10:07 Acuity: AGUSTIN 2 aa5 10:07 Method Of Arrival: EMS: [facility] aa5 10:07 Care prior to arrival: Glucose check: 200 Oxygen administered. via nasal cannula. aa5 Historical: - Allergies: 10:22 Sulfa (Sulfonamide Antibiotics); aa5 10:22 SULFUR, ELEMENTAL; aa5 - PMHx: 10:22 Atrial Fib; CHF; Hyperlipidemia; Hypertension; Hypothyroidism; Arthritis; aa5 - Immunization history:: Adult Immunizations unknown. - Family history:: not pertinent. - Social history:: Smoking status: unknown. - Hospitalizations: : No recent hospitalization is reported. Screenin:20 Abuse screen: Denies threats or abuse. Nutritional screening: No deficits noted. jd3 Tuberculosis screening: No symptoms or risk factors identified. Fall Risk IV access (20 points). Ambulatory Aid- Crutches/Cane/Walker (15 pts). Gait- Weak (10 pts.). Mental Status- Oriented to own ability (0 pts). Total Clarke Fall Scale indicates High Risk Score (45 or more points). Fall prevention measures have been instituted. Side Rails Up X 2 Placed Close to Nursing Station Frequent Obs/Assessments Occuring. Assessment: 10:50 General: Appears uncomfortable, Behavior is calm, cooperative, appropriate for age. jd3 Pain: Complains of pain in right femoral area Quality of pain is described as pinching. Neuro: Level of Consciousness is awake, alert, obeys commands, Oriented to person, place, time, situation. Cardiovascular: Denies chest pain, Capillary refill < 3 seconds Patient's skin is warm and dry. Rhythm is irregular. Respiratory: Reports shortness of breath on exertion cough that is non-productive, persistent Airway is patent Respiratory effort is shallow, Respiratory pattern is symmetrical, tachypnea Breath sounds with crackles bilaterally. GI: No signs and/or symptoms were reported involving the gastrointestinal system. : No signs and/or symptoms were reported regarding the genitourinary system. EENT: No signs and/or symptoms were reported regarding the EENT system. Derm: Skin is intact, Skin is dry, Skin is normal, Skin temperature is warm. Musculoskeletal: Circulation, motion, and sensation intact. Range of motion: intact in all extremities. 11:52 Reassessment: Patient appears in no apparent distress at this time. No changes from jd3 previously documented assessment. Patient and/or family updated on plan of care and expected duration. Pain level reassessed. 12:19 Reassessment: Patient appears in no apparent distress at this time. No changes from jd3 previously documented assessment. Patient and/or family updated on plan of care and expected duration. Pain level reassessed. 13:35 Reassessment: Patient appears in no apparent distress at this time. No changes from jd3 previously documented assessment. Patient and/or family updated on plan of care and expected duration. Pain level reassessed. awaiting results. 14:30 Reassessment: Patient appears in no apparent distress at this time. No changes from jd3 previously documented assessment. Patient and/or family updated on plan of care and expected duration. Pain level reassessed. 15:30 Reassessment: Patient appears in no apparent distress at this time. No changes from jd3 previously documented assessment. Patient and/or family updated on plan of care and expected duration. Pain level reassessed. 16:07 Reassessment: Patient appears in no apparent distress at this time. No changes from jd3 previously documented assessment. Patient and/or family updated on plan of care and expected duration. Pain level reassessed. Patient denies pain at this time. 17:08 Reassessment: Patient appears in no apparent distress at this time. Patient and/or jd3 family updated on plan of care and expected duration. Pain level reassessed. awaiting admission. 18:40 Reassessment: Patient appears in no apparent distress at this time. No changes from jd3 previously documented assessment. Patient and/or family updated on plan of care and expected duration. Pain level reassessed. Patient denies pain at this time. Respiratory: Airway is patent Respiratory effort is shallow, Respiratory pattern is symmetrical, tachypnea. Vital Signs: 10:07 BP 103 / 50; Pulse 145; Resp 26 S; Temp 98.7(O); Pulse Ox 98% on 2 lpm NC; aa5 11:51 BP 107 / 87; Pulse 117; Resp 25 S; Pulse Ox 97% on 2 lpm NC; jd3 12:19 BP 94 / 64; Pulse 111; Resp 26 S; Pulse Ox 96% on 2 lpm NC; jd3 13:34 BP 108 / 73; Pulse 124; Resp 24 S; Pulse Ox 97% on 2 lpm NC; jd3 15:00 BP 110 / 53; Pulse 55; Resp 20; Pulse Ox 95% on 2 lpm NC; mh5 16:07 BP 111 / 64; Pulse 101; Resp 24 S; Pulse Ox 97% on 2 lpm NC; jd3 17:09 BP 109 / 61; Pulse 113; Resp 23 S; Pulse Ox 98% on 2 lpm NC; jd3 18:41 BP 119 / 72; Pulse 112; Resp 25 S; Pulse Ox 97% on R/A; jd3 ED Course: 10:07 Patient arrived in ED. am2 10:07 Emmanuel Lagunas MD is Attending Physician. rn 10:07 Arm band placed on Patient placed in an exam room, on a stretcher. aa5 10:20 Umesh Miller RN is Primary Nurse. jd3 10:21 Triage completed. aa5 10:40 Inserted saline lock: 20 gauge in right forearm, using aseptic technique. Blood jd3 collected. 10:56 Asael Huffman MD is Private Physician. am2 11:00 CXR XRAY In Process Unspecified. EDMS 12:19 Patient has correct armband on for positive identification. Placed in gown. Bed in low jd3 position. Call light in reach. Side rails up X2. space sciences director on. Pulse ox on. NIBP on. 15:31 Asael Huffman MD is Hospitalizing Provider. rn 16:00 IV was discontinued by the patient. is intact. jd3 16:06 Inserted saline lock: 20 gauge in right antecubital area, using aseptic technique. jd3 09/27 06:47 No provider procedures requiring assistance completed. Patient admitted, IV remains in ea place. Administered Medications: 09/26 11:21 Drug: NS 0.9% 500 ml Route: IV; Rate: bolus; Site: right forearm; jd3 12:20 Follow up: Response: No adverse reaction; IV Status: Completed infusion; IV Intake: jd3 500ml 16:06 Drug: SOLU-Medrol 125 mg Route: IVP; Site: right antecubital; jd3 17:00 Follow up: Response: No adverse reaction jd3 Intake: 12:20 IV: 500ml; Total: 500ml. jd3 Outcome: 15:32 Decision to Hospitalize by Provider. rn 09/27 06:47 Condition: stable ea Instructed on the need for admit. 07:40 Admitted to Med/surg accompanied by nurse, via stretcher. jd3 07:44 Patient left the ED. aa5 Signatures: Dispatcher [employer] EDMS Emmanuel Lagunas MD MD rn Calderon, Audri RN RN aa5 Shonda Hunt 5 Karen Dsouza am2 Evon Bellamy RN RN ea Davies, Jonathon, RN RN jd3 Corrections: (The following items were deleted from the chart) 09/26 16:08 16:07 Reassessment: Patient appears in no apparent distress at this time. No changes jd3 from previously documented assessment. Patient and/or family updated on plan of care and expected duration. Pain level reassessed. jd3
[2020-09-26] MEDS ORDERED: METHYLPREDNISOLONE 125 MG INJ ONE (16:03)
[2020-09-26 17:01] LABS: Urine Bacteria <20 /HPF (<20); Urine RBC <5 /HPF (NONE SEEN)
[2020-09-26 18:12] LABS: Urine Blood NEGATIVE (NEG); Urine Glucose NEGATIVE (NEG); Urine Protein NEGATIVE (NEG)
[2020-09-26] MEDS ORDERED: ONDANSETRON 4 MG/2 ML VIAL IV PRN (19:50)
--- NOTE | 2020-09-26 21:24 | P.HP ---
Certification for Inpatient Patient admitted to: Inpatient With expected LOS: >2 Midnights Practitioner: I am a practitioner with admitting privileges, knowledge of patient current condition, hospital course, and medical plan of care. Services: Services provided to patient in accordance with Admission requirements found in Title 42 Section 412.3 of the Code of Federal Regulations Patient History Date of Service: 09/26/20 Reason for admission: WEAK, FATIGUE, FEVER History of Present Illness: VIVIENNE HAS ACQUIRED COVID SYMPTOMS FROM FAMILY MEMBERS. SHE HAS WEAKNES, FATIGUE, LOW OXYGEN, FEVER AND COUGH FOR A WEEK AND NOT IMPROVING. Allergies Sulfa (Sulfonamide Antibiotics) Allergy (Severe, Verified 01/31/20 12:36) Anaphylaxis Home Medications: Atorvastatin Calcium [Lipitor] 1 tab PO DAILY 07/24/18 Escitalopram [Lexapro*] 1 tab PO DAILY 07/24/18 Furosemide [Lasix*] 2 tab PO BID 07/24/18 Levothyroxine [Synthroid*] 125 mcg PO [id number] 07/24/18 Mirtazapine 1 tab PO BEDTIME 07/24/18 Montelukast [Singulair*] 1 tab PO DAILY 07/24/18 Apixaban [Eliquis] 5 mg PO BID 01/23/20 Liothyronine [Cytomel*] 5 mcg PO DAILY 01/23/20 Potassium Chloride 20 meq PO DAILY WITH BREAKFAST 01/23/20 Vit A/Vit C/Vit E/Zinc/Copper [Preservision Areds Softgel] 1 cap PO BID 01/23/20 traMADol HCL [Ultram*] 50 mg PO DAILY 01/23/20 Ipratropium/Albuterol Sulfate [Combivent Respimat Inhal [place]] 4 gm IH BID #1 aer.w.adap 01/25/20 Sotalol HCl [Betapace*] 160 mg PO BID 01/31/20 - Past Medical/Surgical History Diabetic: No -: HTN -: Afib -: Hypothyroidism -: pacemaker implantation -: cataract surgery - Family History Father -: Heart disease, Diabetes, Kidney disease Mother -: Heart disease, Diabetes, Kidney disease, Other (see notes) Notes: aneurysm Sister -: Heart disease Notes: stroke - Social History Alcohol use: No CD- Drugs: No Caffeine use: Yes Review of Systems 10-point ROS is otherwise unremarkable Respiratory: Shortness of Breath Physical Examination - Physical Exam General: Oriented x3, Moderate distress, Obese HEENT: Atraumatic, PERRLA, Mucous membr. moist/pink, EOMI, Sclerae nonicteric Respiratory: Crackles/rales Cardiovascular: Regular rate/rhythm, Normal S1 S2 Gastrointestinal: Normal bowel sounds, No tenderness Musculoskeletal: No tenderness Integumentary: No rashes Neurological: Normal gait, Normal speech, Normal strength at 5/5 x4 extr, Normal tone, Normal affect Lymphatics: No axilla or inguinal lymphadenopathy - Studies Laboratory Data (last 24 hrs) 09/26/20 10:40: PT 21.4 H, INR 1.85, APTT 30.0 09/26/20 10:40: WBC 8.20, Hgb 11.6 L, Hct 35.2 L, Plt Count 157 09/26/20 10:40: Sodium 140, Potassium 4.1, BUN 27 H, Creatinine 1.00, Glucose 140 H, Total Bilirubin 0.3, AST 33, ALT 24, Alkaline Phosphatase 97 Assessment and Plan - Problems (Diagnosis) (1) Pneumonia due to COVID-19 virus Current Visit: Yes Status: Acute Plan: STARTED IVERMECTIN, STEROIDS AND ANTICOAGULATION. PROGNOSIS GUARDED. (2) A-fib Onset Date: 07/26/18 Current Visit: No Status: Chronic Plan: WILL CONT MEDS. Qualifiers: Atrial fibrillation type: permanent Qualified Code(s): I48.21 - Permanent atrial fibrillation - Advance Directives Does patient have a Living Will: No Does patient have a Durable POA for Healthcare: No
[2020-09-26] MEDS ORDERED: APIXABAN 2.5 MG TABLET PO SCH (21:30)
[2020-09-26] MEDS: APIXABAN 5 MG TABLET PO SCH (21:30)
[2020-09-26] MEDS: MIRTAZAPINE 15 MG TAB PO SCH (21:45)
[2020-09-26] MEDS: SOTALOL HCL 80 MG TAB PO SCH (23:00)
[2020-09-26] MEDS ORDERED: SOTALOL HCL 80 MG TAB ONE (23:42)
[2020-09-26] MEDS ORDERED: dexAMETHasone 4 MG/ML VIAL ONE (23:42)
[2020-09-26] MEDS ORDERED: APIXABAN 5 MG TABLET ONE (23:42)
[2020-09-26 23:51] VITALS: BMI 29.2
--- NOTE | 2020-09-27 05:13 | EKG ---
Test Date: 2020-09-26 Test Time: 10:49:47 Electrical Machinist: RAJ MEASUREMENT RESULTS: Intervals: Rate: 116 [place]: QRSD: 76 QT: 350 QTc: 486 [place]: P: MA: QRS: 0 T: 261 INTERPRETIVE STATEMENTS: Atrial fibrillation with rapid ventricular response ST & T wave abnormality, consider inferior ischemia or digitalis effect Abnormal ECG Compared to ECG 02/02/2020 10:02:29 Atrial-paced complex(es) or rhythm no longer present ST (T wave) deviation still present Possible ischemia still present Electronically Signed On 09-27-20 05:11:24 DOCUMENT RESTORER by Samuel Devries
[2020-09-27] MEDS: dexAMETHasone 4 MG/ML VIAL IV SCH ×4 (06:00→17:03)
[2020-09-27] MEDS ORDERED: LEVOTHYROXINE SOD 0.125 MG TAB PO SCH (06:00)
[2020-09-27] MEDS ORDERED: dexAMETHasone 4 MG/ML VIAL ONE (06:04)
[2020-09-27 06:23] LABS: Absolute Lymphocytes (CBC) 0.5 K/uL (0.7-4.9); Hematocrit 34.9 % (36.0-45.0); Lymphocytes % 6.1 % (15.3-44.8); MPV 9.8 fL (7.6-11.3); RBC Red Blood Cell Count 4.38 M/uL (3.86-4.86)
[2020-09-27] MEDS ORDERED: LEVOTHYROXINE SOD 0.125 MG TAB ONE (06:40)
[2020-09-27 06:51] LABS: C-Reactive Protein 73.4 mg/L (<3.00); Potassium 3.8 mmol/L (3.5-5.1)
[2020-09-27] MEDS ORDERED: IVERMECTIN 3 MG TABLET PO SCH (08:00)
[2020-09-27] MEDS ORDERED: INFLUENZA VACCINE (for 3y+) 0.5 ML DOSE IMVAC ONE (09:00)
[2020-09-27] MEDS: POTASSIUM CL SA 10 MEQ TAB PO SCH (09:00)
[2020-09-27] MEDS ORDERED: FUROSEMIDE 40 MG TABLET PO SCH (09:00)
[2020-09-27] MEDS: ALBUTEROL SULFATE IH SCH ×2 (09:00→21:00)
[2020-09-27] MEDS: IPRATROPIUM IH SCH ×2 (09:00→21:00)
[2020-09-27] MEDS ORDERED: LIOTHYRONINE SOD 5 MCG TAB PO SCH (09:00)
[2020-09-27] MEDS ORDERED: PNEUMOCOCCAL VACCINE 0.5 ML IMVAC ONE (09:00)
[2020-09-27] MEDS: APIXABAN 5 MG TABLET PO SCH ×2 (09:01→21:16)
[2020-09-27] MEDS: SOTALOL HCL 80 MG TAB PO SCH ×2 (09:01→21:16)
[2020-09-27] MEDS: TRAMADOL HCL 50 MG TAB PO SCH (09:01)
[2020-09-27] MEDS: ESCITALOPRAM 20 MG TAB PO SCH (09:02)
[2020-09-27] MEDS: ATORVASTATIN 40 MG TAB PO SCH (09:02)
[2020-09-27] MEDS: FUROSEMIDE 20 MG TABLET PO SCH ×2 (09:02→13:02)
[2020-09-27 09:35] LABS: White Blood Cell Scan OK (OK)
[2020-09-27 09:36] LABS: Blood Morphology Comment NOT SEEN (NOT SEEN); Platelet Estimate ADEQ
--- NOTE | 2020-09-27 17:14 | P.CNS ---
Date of Consult: 09/27/20 Reason for Consult: Vieyra virus infection Chief Complaint: WEAK, FATIGUE, FEVER History of Present Illness: Patient is 74 years of age tested positive for vieyra virus has been having problems for the last week with continue some shortness of breath cough weakness congestion we here to the emergency room patient is clinically stable alert T very weak Allergies Sulfa (Sulfonamide Antibiotics) Allergy (Severe, Verified 01/31/20 12:36) Anaphylaxis Home Medications: Atorvastatin Calcium [Lipitor] 1 tab PO DAILY 07/24/18 Escitalopram [Lexapro*] 1 tab PO DAILY 07/24/18 Furosemide [Lasix*] 2 tab PO BID 07/24/18 Levothyroxine [Synthroid*] 125 mcg PO [id number] 07/24/18 Mirtazapine 1 tab PO BEDTIME 07/24/18 Montelukast [Singulair*] 1 tab PO DAILY 07/24/18 Apixaban [Eliquis] 5 mg PO BID 01/23/20 Liothyronine [Cytomel*] 5 mcg PO DAILY 01/23/20 Potassium Chloride 20 meq PO DAILY WITH BREAKFAST 01/23/20 Vit A/Vit C/Vit E/Zinc/Copper [Preservision Areds Softgel] 1 cap PO BID 01/23/20 traMADol HCL [Ultram*] 50 mg PO DAILY 01/23/20 Ipratropium/Albuterol Sulfate [Combivent Respimat Inhal [place]] 4 gm IH BID #1 aer.w.adap 01/25/20 Sotalol HCl [Betapace*] 160 mg PO BID 01/31/20 - Past Medical/Surgical History Diabetic: No -: HTN -: Afib -: Hypothyroidism -: pacemaker implantation -: cataract surgery - Family History Father Medical History: Heart disease, Diabetes, Kidney disease Mother Medical History: Heart disease, Diabetes, Kidney disease, Other (see notes) Notes: aneurysm Sister Medical History: Heart disease Notes: stroke - Social History Smoking Status: Unknown if ever smoked Alcohol use: No CD- Drugs: No Caffeine use: Yes Place of Residence: Home Review of Systems General: Weakness Respiratory: Cough, Shortness of Breath Physical Examination Temp Pulse Resp BP Pulse Ox 99.2 F 124 H 18 134/60 92 09/27/20 16:00 09/27/20 16:00 09/27/20 16:00 09/27/20 16:00 09/27/20 16:00 General: Alert, Oriented x3 Respiratory: Expiratory wheezes Cardiovascular: No edema Gastrointestinal: Normal bowel sounds, Non-distended - Problems (1) Coronavirus infection Current Visit: Yes Status: Acute Plan: Patient is 74 years of age admitted with cough congestion shortness of breath was likely vieyra virus pneumonia other not very visible on the chest x-ray patient has a mild microcytic any me oxygenation satisfactory on 2 L of nasal cannula oxygen continue to monitor reduce dose of Decadron with the recommended dose of 6 mg daily he is not that hypoxic possible discharge in 1 or 2 daily patient has a history of AFib and is on anticoagulation
[2020-09-27] MEDS ORDERED: Remdesivir 200 MG in NA CHLORIDE 0.9% 250 ML IV ONE (20:29)
--- NOTE | 2020-09-27 20:33 | P.PN ---
Subjective Date of Service: 09/27/20 Chief Complaint: WEAK, FATIGUE, FEVER Subjective: No C/O voiced SHE IS GENERALLY WEAK, DYSPNEIC MILD. Review of Systems 10-point ROS is otherwise unremarkable General: Weakness, Malaise Respiratory: Shortness of Breath Physical Examination - Vital Signs Temperature: 99.2 F Blood Pressure: 134/60 Pulse: 124 Respirations: 18 Pulse Ox (%): 92 - Physical Exam General: Mild distress, Moderate distress HEENT: Atraumatic, PERRLA, EOMI Neck: Supple, JVD not distended Respiratory: Clear to auscultation bilaterally, Normal air movement Cardiovascular: Regular rate/rhythm, Normal S1 S2 Gastrointestinal: Normal bowel sounds, No tenderness Musculoskeletal: No tenderness Integumentary: No rashes Neurological: Normal speech, Normal tone, Normal affect Lymphatics: No axilla or inguinal lymphadenopathy - Studies Medications List Reviewed: Yes Assessment And Plan - Current Problems (Diagnosis) (1) Pneumonia due to COVID-19 virus Current Visit: Yes Status: Acute Plan: STARTED IVERMECTIN, STEROIDS AND ANTICOAGULATION. PROGNOSIS GUARDED. ADD REMDESIVIR. CONITNUE OTHE RMEDS. (2) A-fib Onset Date: 07/26/18 Current Visit: No Status: Chronic Plan: WILL CONT MEDS. TSH IS LOW. I STOPPED THYROID MEDS. WILL FU AFTER A MONTH OR SO. Qualifiers: Atrial fibrillation type: permanent Qualified Code(s): I48.21 - Permanent atrial fibrillation
--- NOTE | 2020-09-27 21:05 | CON ---
Date of Consultation: 09/27/2020 Reason For Consultation: Atrial fibrillation. History Of Present Illness: A 74-year-old female, apparently was admitted to the hospital due to cou gh, fever, hypoxia, shortness of breath, diagnosed with COVID pneumonia. Denies having any chest yumiko n. No palpitations. Heart rate has been running around 110-120. Has known history of atrial fibril lation. Past Medical History: Hypertension, atrial fibrillation, hypothyroidism. Medications: Refer to reconciliation sheet for detailed list. Allergies: SULFA. Family History: No premature coronary artery disease or cancer. Social History: Does not smoke or drink. Does not use any drugs. Review of Systems: All systems reviewed and negative except as mentioned in the HPI. Physical Examination: Vital Signs: Temperature is 99.1, pulse 120, breathing at 16, blood pressure 124/58, saturating 97%. General: Pleasant elderly female, in no apparent distress. Head and Neck: Pupils are equal, reactive to light. Intact eye movements. No JVD. No cervical lym phadenopathy. Neck: Supple. Thyroid is not enlarged. Lungs: Rhonchi bilaterally. No accessory muscle use or muscle retraction. Heart: Regular. No extra sounds. Abdomen: Soft, nontender. Bowel sounds positive. No organomegaly. No masses or hernia. No rigidi ty or rebound. Extremities: No clubbing or cyanosis. Intact pulses. Skin: No rash. Neurologic: Alert, awake, oriented x3. No acute focal deficits appreciated. Investigations: Creatinine 0.8. Troponin less than 0.02. White blood cell count 7.7, hemoglobin 11 .1. Assessment/plan: 1.Atrial fibrillation. Rate is borderline. She is on sotalol 160 mg twice a day. Continue that an d check daily EKG to evaluate the QT interval and I agree with Eliquis 5 mg twice a day and for rate control can use IV metoprolol on as needed basis to keep the rate around 100 or below. Anticipate im provement in the patient's heart rate once the pneumonia is under control. 2.COVID-19 pneumonia for which is being hospitalized for and continue current management. 3.Hypothyroidism. The patient is on Synthroid 125 mcg daily, but TSH is extremely low, which will c ause this tachycardia. Recommend to cut down on the dose, maybe hold the Synthroid for the next 2 to 3 days and then cut down to 75 mcg per day. I appreciate the consult. /ANU Voice ID: [id number] Report ID: [id number]
[2020-09-27] MEDS: MIRTAZAPINE 15 MG TAB PO SCH (21:16)
[2020-09-28] MEDS: dexAMETHasone 4 MG/ML VIAL IV SCH ×4 (00:01→21:20)
[2020-09-28 04:59] LABS: Absolute Lymphocytes (CBC) 0.4 K/uL (0.7-4.9); Basophils % 0.1 % (0-1.3); Hematocrit 37.7 % (36.0-45.0); Lymphocytes % 6.4 % (15.3-44.8); MPV 10.2 fL (7.6-11.3); RBC Red Blood Cell Count 4.74 M/uL (3.86-4.86)
[2020-09-28] MEDS: IPRATROPIUM IH SCH ×2 (09:00→21:00)
[2020-09-28] MEDS: ALBUTEROL SULFATE IH SCH ×2 (09:00→21:00)
[2020-09-28] MEDS: SOTALOL HCL 80 MG TAB PO SCH ×2 (09:01→21:19)
[2020-09-28] MEDS: ESCITALOPRAM 20 MG TAB PO SCH (09:01)
[2020-09-28] MEDS: FUROSEMIDE 20 MG TABLET PO SCH ×2 (09:02→13:22)
[2020-09-28] MEDS: ATORVASTATIN 40 MG TAB PO SCH (09:02)
[2020-09-28] MEDS: POTASSIUM CL SA 10 MEQ TAB PO SCH (09:02)
[2020-09-28] MEDS: TRAMADOL HCL 50 MG TAB PO SCH (09:04)
[2020-09-28] MEDS: APIXABAN 5 MG TABLET PO SCH ×2 (09:06→21:20)
--- NOTE | 2020-09-28 12:30 | P.PN ---
Subjective Date of Service: 09/28/20 Chief Complaint: Respiratory failure Patient is still feeling very weak congested is hypoxic Review of Systems General: Weakness Respiratory: Shortness of Breath Physical Examination - Vital Signs Temperature: 97.1 F Blood Pressure: 133/70 Pulse: 127 Respirations: 29 Pulse Ox (%): 91 - Studies Medications List Reviewed: Yes Assessment & Plan - Problems (Diagnosis) (1) Coronavirus infection Current Visit: Yes Status: Acute Plan: Patient was hypoxic room-air sats is 87% will qualify for Remdesmir. Reduce dose of Decadron patient is in AFib fully anti coagulated also on sotalol
[2020-09-28] MEDS ORDERED: Remdesivir 200 MG in NA CHLORIDE 0.9% 250 ML IV ONE (13:30)
--- NOTE | 2020-09-28 14:18 | RAD REPORT ---
[facility] 2[facility]13 pm CLINICAL HISTORY: Cough COMPARISON: September 26 2020 FINDINGS: No significant change in the mild left basilar opacity. Right lung appears clear. Heart is mildly to moderately enlarged. Pacemaker leads in place
--- NOTE | 2020-09-28 17:04 | P.PN ---
Subjective Date of Service: 09/28/20 Chief Complaint: Respiratory failure Subjective: Improving SHE IS GENERALLY WEAK, DYSPNEIC MILD. STABLE, WEAK, NOT WALKING. Review of Systems 10-point ROS is otherwise unremarkable General: Weakness, Malaise Respiratory: Shortness of Breath Physical Examination - Vital Signs Temperature: 96.9 F Blood Pressure: 132/62 Pulse: 128 Respirations: 28 Pulse Ox (%): 93 - Physical Exam General: Mild distress, Obese HEENT: Atraumatic, PERRLA, EOMI Neck: Supple, JVD not distended Respiratory: Clear to auscultation bilaterally, Normal air movement Cardiovascular: Regular rate/rhythm, Normal S1 S2 Gastrointestinal: Normal bowel sounds, No tenderness Musculoskeletal: No tenderness Integumentary: No rashes Neurological: Normal speech, Normal tone, Normal affect Lymphatics: No axilla or inguinal lymphadenopathy - Studies Medications List Reviewed: Yes Assessment And Plan - Current Problems (Diagnosis) (1) Pneumonia due to COVID-19 virus Current Visit: Yes Status: Acute Plan: STARTED IVERMECTIN, STEROIDS AND ANTICOAGULATION. PROGNOSIS GUARDED. ADD REMDESIVIR. CONITNUE OTHE RMEDS. STABLE FOR NOW. MAY NEED TO FINISH REMDESIVR HYPOXIA IS THERE AND CRP WENT HIGHER. (2) A-fib Onset Date: 07/26/18 Current Visit: No Status: Chronic Plan: WILL CONT MEDS. TSH IS LOW. I STOPPED THYROID MEDS. WILL FU AFTER A MONTH OR SO. ADD METOPROLOL CONTINUE BETAPACE. Qualifiers: Atrial fibrillation type: permanent Qualified Code(s): I48.21 - Permanent atrial fibrillation
[2020-09-28] MEDS ORDERED: METOPROLOL TAR 25 MG TAB PO SCH (18:00)
[2020-09-28] MEDS: MIRTAZAPINE 15 MG TAB PO SCH (21:19)
[2020-09-28] MEDS ORDERED: METOPROLOL TAR 25 MG TAB PO ONE ×2 (22:23→22:52)
[2020-09-29 04:45] LABS: Absolute Lymphocytes (CBC) 0.4 K/uL (0.7-4.9); Basophils % 0.2 % (0-1.3); Hematocrit 36.6 % (36.0-45.0); Lymphocytes % 5.7 % (15.3-44.8); MPV 9.3 fL (7.6-11.3); RBC Red Blood Cell Count 4.65 M/uL (3.86-4.86)
[2020-09-29 05:10] LABS: Albumin 2.5 g/dL (3.4-5.0); Bilirubin Direct 0.2 mg/dL (0-0.2); Bilirubin Total 0.5 mg/dL (0.2-1.0); Potassium 3.9 mmol/L (3.5-5.1); Protein, Total 7.1 g/dL (6.4-8.2)
[2020-09-29] MEDS: METOPROLOL TAR 50 MG TAB PO SCH ×3 (06:33→21:00)
--- NOTE | 2020-09-29 06:40 | PN ---
Date of Progress Note: 09/28/2020 History Of Present Illness: Ms. Henson was seen by Dr. Cummins. She has chronic recurrent atrial fib rillation with rapid response. She is on sotalol 160 twice a day. She is on Eliquis 5 mg b.i.d. Sh e remained with a rapid heart rate. She is here for COVID pneumonia and hypothyroidism. We had liza mmended that the Synthroid dose to be decreased. Discuss the case with Dr. Huffman. We will put her o n metoprolol 25 b.i.d. and increase it on an as-needed basis. She can also get IV Lopressor 5 mg zak ry 2 hours if her heart rate goes over 130, but we are hoping that once her pneumonia improves her at rial fibrillation rate will improve. No change in medical therapy at this point. She had an echocar diogram in the past showing mild global hypokinesis. We may have to consider repeating that sometime down the road. She has had a cardioversion in the past for her atrial fibrillation that was success ful in January 2020, but we may have to readdress that issue if she stays in atrial fibrillation after h er pneumonia resolved. KIMMY/ANU Voice ID: [id number] Report ID: [id number]
[2020-09-29] MEDS: dexAMETHasone 4 MG/ML VIAL IV SCH ×2 (08:32→21:00)
[2020-09-29] MEDS: ATORVASTATIN 40 MG TAB PO SCH (08:32)
[2020-09-29] MEDS: POTASSIUM CL SA 10 MEQ TAB PO SCH (08:32)
[2020-09-29] MEDS: SOTALOL HCL 80 MG TAB PO SCH ×2 (08:33→21:00)
[2020-09-29] MEDS: TRAMADOL HCL 50 MG TAB PO SCH (08:33)
[2020-09-29] MEDS: FUROSEMIDE 20 MG TABLET PO SCH (08:33)
[2020-09-29] MEDS: IPRATROPIUM IH SCH (08:34)
[2020-09-29] MEDS: ALBUTEROL SULFATE IH SCH (08:34)
[2020-09-29] MEDS: ESCITALOPRAM 20 MG TAB PO SCH (08:34)
[2020-09-29] MEDS: APIXABAN 5 MG TABLET PO SCH ×2 (08:34→21:00)
[2020-09-29] MEDS ORDERED: METOPROLOL TAR 50 MG TAB PO SCH (09:00)
[2020-09-29] MEDS: Remdesivir 100 MG in NA CHLORIDE 0.9% 250 ML IV SCH (09:18)
[2020-09-29] MEDS ORDERED: DIGOXIN 0.25 MG/ML AMP IV ONE ×2 (10:53→17:00)
[2020-09-29] MEDS ORDERED: IVERMECTIN 3 MG TABLET PO SCH (12:00)
[2020-09-29] MEDS: GUAIFENESIN/DM 5 ML UCUP PO SCH (12:37)
--- NOTE | 2020-09-29 16:28 | P.PN ---
Subjective Date of Service: 09/29/20 Chief Complaint: Respiratory failure Subjective: Improving SHE IS GENERALLY WEAK, DYSPNEIC MILD. STABLE, WEAK, NOT WALKING. SHE IS WEAK, NOT ABLE TO WALK, SHE WAS WALKING WITH WALKER BEFORE. Review of Systems 10-point ROS is otherwise unremarkable General: Weakness, Malaise Physical Examination - Vital Signs Temperature: 96.9 F Blood Pressure: 133/61 Pulse: 125 Respirations: 22 Pulse Ox (%): 94 - Physical Exam General: Oriented x3, Mild distress, Obese HEENT: Atraumatic, PERRLA, EOMI Neck: Supple, JVD not distended Respiratory: Clear to auscultation bilaterally, Normal air movement Cardiovascular: Irregular heart rate/rhythm, Abnormal S1 S2 (TACHYCARDIA. ) Gastrointestinal: Normal bowel sounds, No tenderness Musculoskeletal: No tenderness Integumentary: No rashes Neurological: Normal speech, Normal tone, Normal affect Lymphatics: No axilla or inguinal lymphadenopathy - Studies Medications List Reviewed: Yes Assessment And Plan - Current Problems (Diagnosis) (1) Pneumonia due to COVID-19 virus Current Visit: Yes Status: Acute Plan: STARTED IVERMECTIN, STEROIDS AND ANTICOAGULATION. PROGNOSIS GUARDED. ADD REMDESIVIR. CONITNUE OTHE RMEDS. STABLE FOR NOW. MAY NEED TO FINISH REMDESIVR HYPOXIA IS THERE AND CRP WENT HIGHER. (2) A-fib Onset Date: 07/26/18 Current Visit: No Status: Chronic Plan: WILL CONT MEDS. TSH IS LOW. I STOPPED THYROID MEDS. WILL FU AFTER A MONTH OR SO. ADD METOPROLOL CONTINUE BETAPACE. TALKED TO DR VALERIO. HE AGREES WITH DIGOXIN WE ARE NOT ABLE TO CONTROL THE RATE YET EVEN WITH METOPROLOL AND SOTALOL. HER BP IS STABLE. Qualifiers: Atrial fibrillation type: permanent Qualified Code(s): I48.21 - Permanent atrial fibrillation
[2020-09-29] MEDS: MIRTAZAPINE 15 MG TAB PO SCH (21:00)
[2020-09-30 05:25] LABS: Absolute Lymphocytes (CBC) 0.4 K/uL (0.7-4.9); Basophils % 0.1 % (0-1.3); MPV 9.5 fL (7.6-11.3); RBC Red Blood Cell Count 5.05 M/uL (3.86-4.86)
[2020-09-30 06:02] LABS: Albumin 2.6 g/dL (3.4-5.0); Bilirubin Direct 0.1 mg/dL (0-0.2); Bilirubin Total 0.3 mg/dL (0.2-1.0); Potassium 4.5 mmol/L (3.5-5.1); Protein, Total 7.4 g/dL (6.4-8.2)
[2020-09-30] MEDS: FUROSEMIDE 20 MG TABLET PO SCH (07:52)
[2020-09-30] MEDS: POTASSIUM CL SA 10 MEQ TAB PO SCH (07:52)
[2020-09-30] MEDS: SOTALOL HCL 80 MG TAB PO SCH ×2 (07:52→20:03)
[2020-09-30] MEDS: METOPROLOL TAR 50 MG TAB PO SCH ×2 (07:52→17:00)
[2020-09-30] MEDS: ATORVASTATIN 40 MG TAB PO SCH (07:52)
[2020-09-30] MEDS: dexAMETHasone 4 MG/ML VIAL IV SCH ×2 (07:53→20:03)
[2020-09-30] MEDS: ESCITALOPRAM 20 MG TAB PO SCH (07:53)
[2020-09-30] MEDS: TRAMADOL HCL 50 MG TAB PO SCH (07:53)
[2020-09-30] MEDS: GUAIFENESIN/DM 5 ML UCUP PO SCH (07:53)
[2020-09-30] MEDS: APIXABAN 5 MG TABLET PO SCH ×2 (07:53→20:02)
[2020-09-30] MEDS: IPRATROPIUM IH SCH (07:54)
[2020-09-30] MEDS: ALBUTEROL SULFATE IH SCH (07:54)
[2020-09-30] MEDS: DIGOXIN 0.25 MG/ML AMP IV SCH (09:00)
[2020-09-30] MEDS: Remdesivir 100 MG in NA CHLORIDE 0.9% 250 ML IV SCH (09:00)
--- NOTE | 2020-09-30 11:22 | P.PN ---
Subjective Date of Service: 09/30/20 Chief Complaint: Respiratory failure Subjective: No new changes SHE IS GENERALLY WEAK, DYSPNEIC MILD. STABLE, WEAK, NOT WALKING. SHE IS WEAK, NOT ABLE TO WALK, SHE WAS WALKING WITH WALKER BEFORE. SHE GETS CONFUSED AND SOMEWHAT PARANOID AT TIMES. THINKS SOMEONE TOUCHED HER IN PRIVATES ETC. Review of Systems 10-point ROS is otherwise unremarkable General: Weakness, Malaise Physical Examination - Vital Signs Temperature: 96.9 F Blood Pressure: 156/76 Pulse: 129 Respirations: 20 Pulse Ox (%): 90 - Physical Exam General: Acute distress, Mild distress, Obese HEENT: Atraumatic, PERRLA, EOMI Neck: Supple, JVD not distended Respiratory: Clear to auscultation bilaterally, Normal air movement Cardiovascular: Regular rate/rhythm, Normal S1 S2 Gastrointestinal: Normal bowel sounds, No tenderness Musculoskeletal: No tenderness Integumentary: No rashes Neurological: Normal speech, Normal tone, Normal affect Lymphatics: No axilla or inguinal lymphadenopathy - Studies Medications List Reviewed: Yes Assessment And Plan - Current Problems (Diagnosis) (1) Pneumonia due to COVID-19 virus Current Visit: Yes Status: Acute Plan: STARTED IVERMECTIN, STEROIDS AND ANTICOAGULATION. PROGNOSIS GUARDED. ADD REMDESIVIR. CONITNUE OTHE RMEDS. STABLE FOR NOW. MAY NEED TO FINISH REMDESIVR HYPOXIA IS THERE AND CRP WENT HIGHER. (2) A-fib Onset Date: 07/26/18 Current Visit: No Status: Chronic Plan: WILL CONT MEDS. TSH IS LOW. I STOPPED THYROID MEDS. WILL FU AFTER A MONTH OR SO. ADD METOPROLOL CONTINUE BETAPACE. TALKED TO DR VALERIO. HE AGREES WITH DIGOXIN WE ARE NOT ABLE TO CONTROL THE RATE YET EVEN WITH METOPROLOL AND SOTALOL. HER BP IS STABLE. RAISED METOPROLOL SHE IS STILL TACHYCARDIC PER DR. VALERIO. Qualifiers: Atrial fibrillation type: permanent Qualified Code(s): I48.21 - Permanent atrial fibrillation
[2020-09-30] MEDS: MIRTAZAPINE 15 MG TAB PO SCH (20:03)
[2020-10-01 04:02] LABS: Absolute Lymphocytes (CBC) 0.5 K/uL (0.7-4.9); Basophils % 0.1 % (0-1.3); Hematocrit 39.2 % (36.0-45.0); Lymphocytes % 3.8 % (15.3-44.8); MPV 9.6 fL (7.6-11.3); RBC Red Blood Cell Count 4.97 M/uL (3.86-4.86)
[2020-10-01 04:14] LABS: Albumin 2.4 g/dL (3.4-5.0); Bilirubin Direct 0.1 mg/dL (0-0.2); Bilirubin Total 0.4 mg/dL (0.2-1.0); Potassium 4.2 mmol/L (3.5-5.1); Protein, Total 7.1 g/dL (6.4-8.2)
[2020-10-01 05:00] LABS: Blood Morphology Comment NOT SEEN (NOT SEEN); Platelet Estimate ADEQ
[2020-10-01] MEDS: METOPROLOL TAR 50 MG TAB PO SCH (05:43)
[2020-10-01] MEDS: GUAIFENESIN/DM 5 ML UCUP PO SCH (08:20)
[2020-10-01] MEDS: SOTALOL HCL 80 MG TAB PO SCH ×2 (08:20→21:03)
[2020-10-01] MEDS: ESCITALOPRAM 20 MG TAB PO SCH (08:21)
[2020-10-01] MEDS: APIXABAN 5 MG TABLET PO SCH ×2 (08:21→21:04)
[2020-10-01] MEDS: FUROSEMIDE 20 MG TABLET PO SCH (08:21)
[2020-10-01] MEDS: POTASSIUM CL SA 10 MEQ TAB PO SCH (08:21)
[2020-10-01] MEDS: ATORVASTATIN 40 MG TAB PO SCH (08:21)
[2020-10-01] MEDS: dexAMETHasone 4 MG/ML VIAL IV SCH ×2 (08:22→21:04)
[2020-10-01] MEDS: DIGOXIN 0.25 MG/ML AMP IV SCH (08:22)
[2020-10-01] MEDS: TRAMADOL HCL 50 MG TAB PO SCH (08:22)
[2020-10-01] MEDS: ALBUTEROL SULFATE IH SCH (08:24)
[2020-10-01] MEDS: IPRATROPIUM IH SCH (08:24)
[2020-10-01] MEDS: Remdesivir 100 MG in NA CHLORIDE 0.9% 250 ML IV SCH (08:30)
--- NOTE | 2020-10-01 13:12 | PN ---
Date of Progress Note: 10/01/2020 Subjective: Ms. Henson was in the hospital for COVID pneumonia. She has recovered, but we had issue s with her heart rhythm. She was noted to be in atrial fibrillation flutter, rate of 120. She is on Betapace 160 b.i.d. She takes Eliquis. We initially gave her metoprolol, which we increased to 100 b.i.d. We gave her IV digoxin load plus once a day, but she remained in atrial fibrillation flutter at a rate of 130. No symptoms. No hemodynamic compromise, but it was felt much better to plan a ca rdioversion on Ms. Henson. She understands the risk and the benefits of the procedure. She agreed t o proceed. We will do that today on 10/01/2020 in the afternoon because the patient had a slight matthew l in the morning. KIMMY/ANU Voice ID: [id number] Report ID: [id number]
[2020-10-01] MEDS ORDERED: MIDAZOLAM HCL 5 ML ONE (16:01)
[2020-10-01] MEDS ORDERED: NALOXONE 0.4 MG/ML VIAL ONE (16:01)
[2020-10-01] MEDS ORDERED: FLUMAZENIL 0.1 MG/ML (5 mL VIAL) IV ONE (16:02)
[2020-10-01] MEDS ORDERED: FENTANYL CITR 100 MCG/2 ML ONE (16:02)
[2020-10-01] MEDS ORDERED: ATROPINE SULF 1 MG/10 ML SYR IV ONE (16:02)
[2020-10-01] MEDS ORDERED: NA CHLORIDE 0.9% 500 ML ONE (16:29)
[2020-10-01] MEDS: METOPROLOL TAR 25 MG TAB PO SCH (18:02)
--- NOTE | 2020-10-01 20:42 | P.PN ---
Subjective Date of Service: 10/01/20 Chief Complaint: Respiratory failure Subjective: No C/O voiced SHE IS GENERALLY WEAK, DYSPNEIC MILD. STABLE, WEAK, NOT WALKING. SHE IS WEAK, NOT ABLE TO WALK, SHE WAS WALKING WITH WALKER BEFORE. SHE GETS CONFUSED AND SOMEWHAT PARANOID AT TIMES. THINKS SOMEONE TOUCHED HER IN PRIVATES ETC. SHE HAS NO COMPLAINTS. Review of Systems 10-point ROS is otherwise unremarkable General: Weakness Physical Examination - Vital Signs Temperature: 96.3 F Blood Pressure: 163/70 Pulse: 60 Respirations: 16 Pulse Ox (%): 92 - Physical Exam General: Oriented x2, Obese HEENT: Atraumatic, PERRLA, EOMI Neck: Supple, JVD not distended Respiratory: Clear to auscultation bilaterally, Normal air movement Cardiovascular: Irregular heart rate/rhythm Gastrointestinal: Normal bowel sounds, No tenderness Musculoskeletal: No tenderness Integumentary: No rashes Neurological: Normal speech, Normal tone, Normal affect Lymphatics: No axilla or inguinal lymphadenopathy - Studies Microbiology Data (last 24 hrs): 09/26/20 10:55 Blood - Blood Aerobic Blood Culture - Final No growth in 5 days. 09/26/20 10:55 Blood - Blood Anaerobic Blood Culture - Final No growth in 5 days. 09/26/20 10:40 Blood - Blood Aerobic Blood Culture - Final No growth in 5 days. 09/26/20 10:40 Blood - Blood Anaerobic Blood Culture - Final No growth in 5 days. Medications List Reviewed: Yes Assessment And Plan - Current Problems (Diagnosis) (1) Pneumonia due to COVID-19 virus Current Visit: Yes Status: Acute Plan: STARTED IVERMECTIN, STEROIDS AND ANTICOAGULATION. PROGNOSIS GUARDED. ADD REMDESIVIR. CONITNUE OTHE RMEDS. STABLE FOR NOW. MAY NEED TO FINISH REMDESIVR HYPOXIA IS THERE AND CRP WENT HIGHER. (2) A-fib Onset Date: 07/26/18 Current Visit: No Status: Chronic Plan: WILL CONT MEDS. TSH IS LOW. I STOPPED THYROID MEDS. WILL FU AFTER A MONTH OR SO. DR. VALERIO SHOCKED HER HEART INTO RHYTHM. SHE DID NOT RESPOND TO METOPROLOL AND SOTALOL BOTH WITH DIGOXIN. AFTER CARDIOVERSION, HE REDUCED METOPROLOL TO 25 MG BID AND STOPPED DIGOXIN. Qualifiers: Atrial fibrillation type: permanent Qualified Code(s): I48.21 - Permanent atrial fibrillation
[2020-10-01] MEDS: MIRTAZAPINE 15 MG TAB PO SCH (21:04)
[2020-10-02 04:27] LABS: Albumin 2.4 g/dL (3.4-5.0); Bilirubin Direct 0.2 mg/dL (0-0.2); Bilirubin Total 0.5 mg/dL (0.2-1.0); Potassium 4.3 mmol/L (3.5-5.1); Protein, Total 7.3 g/dL (6.4-8.2)
[2020-10-02 04:29] LABS: Absolute Lymphocytes (CBC) 0.4 K/uL (0.7-4.9); Basophils % 0.1 % (0-1.3); Lymphocytes % 4.8 % (15.3-44.8); MPV 9.8 fL (7.6-11.3)
[2020-10-02] MEDS: METOPROLOL TAR 25 MG TAB PO SCH (06:09)
[2020-10-02] MEDS: GUAIFENESIN/DM 5 ML UCUP PO SCH (08:53)
[2020-10-02] MEDS: Remdesivir 100 MG in NA CHLORIDE 0.9% 250 ML IV SCH (08:53)
[2020-10-02] MEDS: ESCITALOPRAM 20 MG TAB PO SCH (08:53)
[2020-10-02] MEDS: TRAMADOL HCL 50 MG TAB PO SCH (08:53)
[2020-10-02] MEDS: SOTALOL HCL 80 MG TAB PO SCH (08:53)
[2020-10-02] MEDS: APIXABAN 5 MG TABLET PO SCH (08:54)
[2020-10-02] MEDS: ATORVASTATIN 40 MG TAB PO SCH (08:54)
[2020-10-02] MEDS: POTASSIUM CL SA 10 MEQ TAB PO SCH (08:54)
[2020-10-02] MEDS: FUROSEMIDE 20 MG TABLET PO SCH (08:54)
[2020-10-02] MEDS: dexAMETHasone 4 MG/ML VIAL IV SCH (08:54)
[2020-10-02] MEDS ORDERED: LOSARTAN POTASSIUM 50 MG TABLET PO SCH (09:59)
[2020-10-02 12:30] VITALS: BP 99/50; TEMP 97.1
[2020-10-02 13:26] VITALS: O2SAT 88
--- NOTE | 2020-10-03 04:36 | EKG ---
Test Date: 2020-10-01 Test Time: 16:49:47 Aircraft Detail Draftsperson: KAYLA MEASUREMENT RESULTS: Intervals: Rate: 60 MT: 178 QRSD: 74 QT: 416 QTc: 416 [place]: P: 81 MT: 178 QRS: 4 T: 225 INTERPRETIVE STATEMENTS: Electronic atrial pacemaker ST & T wave abnormality, consider inferior ischemia ST & T wave abnormality, consider anterolateral ischemia Abnormal ECG Compared to ECG 10/01/2020 08:08:21 Possible ischemia now present Sinus tachycardia no longer present First degree AV block no longer present ST (T wave) deviation still present Electronically Signed On 10-03-20 04:32:37 CDT by Samuel Devries
--- NOTE | 2020-10-03 21:20 | P.DS ---
Admission Date: 09/26/20 Discharge Date: 10/03/20 Disposition: TRANSFER TO SNF - REHAB Discharge Condition: FAIR Reason for Admission: Respiratory failure - Problems (1) Pneumonia due to COVID-19 virus Status: Acute (2) A-fib Onset Date: 07/26/18 Status: Chronic Qualifiers: Atrial fibrillation type: permanent Qualified Code(s): I48.21 - Permanent atrial fibrillation Brief History of Present Illness: VIVIENNE HAS ACQUIRED COVID SYMPTOMS FROM FAMILY MEMBERS. SHE HAS WEAKNES, FATIGUE, LOW OXYGEN, FEVER AND COUGH FOR A WEEK AND NOT IMPROVING. Hospital Course: VIVIENNE HAS COVID PNEUMONIA THAT IS STABLE. SHE WAS KEPT IN HOSPITAL HER A FLUTTER REMAINED UNCONTROLLED DESPITE BETAPACE AND HIGH DOSE LORPESSOR PER DR VALERIO AND ADDITION OF DIGOXIN. SHE WAS CARDIOVERTED BY DR VALERIO AND THEN SHE WAS ABLE TO GO TO ASSISTED ON COVID FLOOR. Vital Signs/Physical Exam: Temp Pulse Resp BP Pulse Ox 97.1 F 60 26 H 99/50 L 88 L 10/02/20 12:00 10/02/20 12:00 10/02/20 12:00 10/02/20 12:00 10/02/20 12:00 General: Alert, Oriented x2, Mild distress, Obese Respiratory: Normal air movement Cardiovascular: Regular rate/rhythm Laboratory Data at Discharge: WBC 9.00 K/uL (4.3-10.9) D 10/02/20 03:19 Hgb 13.1 g/dL (12.0-15.0) 10/02/20 03:19 Hct 41.0 % (36.0-45.0) 10/02/20 03:19 Plt Count 200 K/uL (152-406) 10/02/20 03:19 PT 21.4 SECONDS (9.5-12.5) H 09/26/20 10:40 INR 1.85 09/26/20 10:40 APTT 30.0 SECONDS (24.3-36.9) 09/26/20 10:40 Sodium 141 mmol/L (136-145) 10/02/20 03:19 Potassium 4.3 mmol/L (3.5-5.1) 10/02/20 03:19 BUN 39 mg/dL (7-18) H 10/02/20 03:19 Creatinine 0.83 mg/dL (0.55-1.3) 10/02/20 03:19 Glucose 186 mg/dL (74-106) H 10/02/20 03:19 Total Bilirubin 0.5 mg/dL (0.2-1.0) 10/02/20 03:19 AST 25 U/L (15-37) 10/02/20 03:19 ALT 32 U/L (12-78) 10/02/20 03:19 Alkaline Phosphatase 99 U/L (45-117) 10/02/20 03:19 Triglycerides 125 mg/dL (<150) 09/27/20 06:08 Cholesterol 154 mg/dL (<200) 09/27/20 06:08 HDL Cholesterol 47 mg/dL (40-60) 09/27/20 06:08 Cholesterol/HDL Ratio 3.28 09/27/20 06:08 Home Medications: Atorvastatin Calcium [Lipitor] 1 tab PO DAILY 07/24/18 Escitalopram [Lexapro*] 1 tab PO DAILY 07/24/18 Mirtazapine 1 tab PO BEDTIME 07/24/18 Montelukast [Singulair*] 1 tab PO DAILY 07/24/18 Apixaban [Eliquis] 5 mg PO BID 01/23/20 Potassium Chloride 20 meq PO DAILY WITH BREAKFAST 01/23/20 Vit A/Vit C/Vit E/Zinc/Copper [Preservision Areds Softgel] 1 cap PO BID 01/23/20 traMADol HCL [Ultram*] 50 mg PO DAILY 01/23/20 Ipratropium/Albuterol Sulfate [Combivent Respimat 20-100 Mcg] 4 gm IH BID #1 aer.w.adap 01/25/20 Sotalol HCl [Betapace*] 160 mg PO BID 01/31/20 Dexamethasone [Decadron] 6 mg PO DAILY #30 tablet 10/02/20 Furosemide [Lasix*] 20 mg PO DAILY tab 10/02/20 Metoprolol Tartrate [Lopressor*] 25 mg PO BID 6AM 6PM tab 10/02/20 levoFLOXacin [Levaquin*] 500 mg PO DAILY #7 tab 10/02/20 New Medications: Dexamethasone [Decadron] 6 mg PO DAILY #30 tablet levoFLOXacin [Levaquin*] 500 mg PO DAILY #7 tab Followup: Asael Huffman MD [Primary Care Provider] -
== END 2020-10-02 14:15 | DRG 177 ==
LOC: ER 10:06 → ERHOLD 16:49 → 4TH 09-27 07:27
PROVIDERS: ADMIT Internal Medicine; ATTEND Internal Medicine
PROC: XW033E5 Introduction of Remdesivir Anti-infective into Peripheral Vein, Percutaneous Approach, New Technology Group 5 (ICD-10-PCS; principal; 2020-09-27)
DX: U07.1 COVID-19 (principal); J12.82 Pneumonia due to coronavirus disease 2019; I48.21 Permanent atrial fibrillation; E78.5 Hyperlipidemia, unspecified; I10 Essential (primary) hypertension; E03.9 Hypothyroidism, unspecified; M19.90 Unspecified osteoarthritis, unspecified site; E66.9 Obesity, unspecified; R09.02 Hypoxemia; Z79.890 Hormone replacement therapy; Z79.01 Long term (current) use of anticoagulants; Z88.8 Allergy status to other drugs, medicaments and biological substances; Z79.899 Other long term (current) drug therapy; Z68.29 Body mass index [BMI] 29.0-29.9, adult; Z88.1 Allergy status to other antibiotic agents; Z95.0 Presence of cardiac pacemaker
CPT/HCPCS: 0240U; 36415; 71045; 80048; 80061; 80076; 81003; 81015; 82728; 82947; 83605; 83880; 84145; 84443; 84484; 85025; 85379; 85610; 85730; 86140; 87040; 90732; 92960; 93005; 93280; 96361; 96374; 97161; 97530; 99285; J1100; J1160; J2250; J2310; J2930; J3010; J7040; J7050; Q2035